=== PATIENT | female | born 1990 | race Caucasian/White ===

== ENCOUNTER 2023-04-02 15:48 | Emergency (ER) | payer OTHER, SELFPAY ==
[2023-04-02 15:58] VITALS: BP 138/71; PULSE 94; RESP 97; TEMP 36.7; O2SAT 98; BMI 22.7
--- NOTE | 2023-04-02 16:03 | US_ITS ---
The [address] [address] Patient Name: OLIVIA RAE MRN: [id number] date: 1990 Sex: F Assigned Patient Location: ER Current Patient Location: ER Accession/Order Number: [id number] Exam Date: 04/02/2023 16:55 Report Date: 04/02/2023 19:47 At the request of: CAL PUCKETT Procedure: US OB placenta EXAM: US PLACENTA EXAM: US PELVIS: OB Greater than 14 weeks HISTORY: 32 year old G 3 P 2 AB 0 female presents for US evaluation. Patient cramped at 15 weeks gestation per patient provided history one day LMP: Not provided in the notes/history on order. TECHNIQUE: Ultrasound performed of the pelvis using static images with gardner scale, M-mode and color doppler. This exam is performed in the emergency room setting to evaluate viability. As such, it is not protocoled to evaluate anatomy as that should be performed on an outpatient basis at the patient's EQUIPMENT LEAD office. COMPARISON: None. FINDINGS: Number of Fetuses: Singlefetus in breech position. Placenta: Anterior Grade 0 There are prominent blood vessels demonstrated between the placenta and uterine wall. There is an area of decreased echogenicity which is demonstrated within the placenta and along the wall of the uterus. heart: 157 bpm. Cervix: Cervical length: 3.2 cm. Cervix: Closed. Placenta previa: No placenta previa. 4.1 cm. ROXIE: Largest pocket: 3.0 cm (less than 8 cm) This exam is performed in the emergency room setting to evaluate viability. As such, it is not protocoled to evaluate anatomy as that should be performed on an outpatient basis at the patient's EQUIPMENT LEAD office. US/US OB placenta IMPRESSION: 1. Viable Duarte fetus IUP 2. Anterior placenta with prominent blood vessels seen around an area of decreased echogenicity. Please correlate for any history of trauma. Marginal abruption not excluded. Close follow up recommended. CRITICAL findings: Spoke with AMNA Puckett in the ER at 7:20 pm EST who states that patient has not had any trauma. No bleeding. Electronically authenticated by: ELIE LIRA Date: 04/02/2023 19:47
[2023-04-02] MEDS: 0.9 % SODIUM CHLORIDE 1,000 ML 1000 ML IV (16:34)
--- NOTE | 2023-04-02 16:41 | ED.GENADUL1 ---
HPI - General Adult General Chief complaint: Headache Stated complaint: 15 Weeks Vpomiting Headache Time Seen by Provider: 04/02/23 16:01 Source: patient Limitations: no limitations History of Present Illness HPI narrative: patient is a 32-year-old female presents to the emergency department at fifteen weeks of for the evaluation of generalized abdominal cramping, vomiting that began this morning. She states she did have an episode of diarrhea earlier today. She states she last saw her [facility] TAPE SEWING MACHINE OPERATOR 2-1/2 weeks ago. She has not had any urinary symptoms or vaginal bleeding. No medications taken prior to arrival. Patient further complains of the headache. Per her prescription history, she recently filled a prescription of Fioricet from her [facility] OB. No sick contacts in the home. No other fevers or upper respiratory symptoms. Related Data Home Medications Medication Instructions Recorded Confirmed [id number]-ncmfswyigaclx-zqbmyfcw 2 tab PO Q6H PRN pain 04/02/23 04/02/23 50 mg-325 mg-40 mg tablet Previous Rx's Medication Instructions Recorded metoclopramide HCl 10 mg tablet 10 mg PO Q6H PRN nausea and 04/02/23 (Reglan) vomiting #12 tabs Allergies Allergy/AdvReac Type Severity Reaction Status Date / Time fexofenadine AdvReac Intermediate Verified 04/02/23 15:58 magnesium sulfate AdvReac Intermediate Verified 04/02/23 15:58 nifedipine AdvReac Intermediate Verified 04/02/23 15:58 sulfamethoxazole AdvReac Intermediate Verified 04/02/23 15:58 [From Bactrim] trimethoprim [From Bactrim] AdvReac Intermediate Verified 04/02/23 15:58 beta blockers AdvReac Intermediate Uncoded 04/02/23 15:58 Review of Systems ROS Constitutional Denies: fever or chills Ears, nose, mouth, and throat Denies: throat pain or nasal congestion Cardiovascular Denies: chest pain Respiratory Denies: shortness of breath Gastrointestinal Reports: abdominal pain, nausea, vomiting and diarrhea Genitourinary Denies: painful urination Musculoskeletal Denies: back pain Neurological Reports: headache [facility] Medical History (Updated 04/02/23 @ 17:45 by AMNA Berg) Migraine ?G43.909 - Migraine, unspecified, not intractable, without status migrainosus (ICD-10) Preeclampsia ?O14.90 - Unspecified pre-eclampsia, unspecified trimester (ICD-10) induced hypertension ?O13.9 - Gestational [-induced] hypertension without significant proteinuria, unspecified trimester (ICD-10) Social History Smoking status: Former smoker Exam Narrative Exam Narrative: Gen.: Awake, alert, in no distress Head: Normocephalic, atraumatic ENT: Moist mucous membranes Respiratory: No respiratory distress, lungs clear bilaterally Cardio: Regular rate and rhythm Gastrointestinal: Abdomen is soft, gravid with no guarding or rebound Extremities: Moves extremities equally Psych: Normal mood and affect Neuro: No focal neuro deficit Skin: Warm, dry, intact Constitutional Vital Signs, click to edit/add: Last Vital Signs Temp 98.1 F 04/02/23 15:58 Pulse 94 H 04/02/23 15:58 Resp 97 H 04/02/23 15:58 BP 122/74 04/02/23 17:57 Pulse Ox 98 04/02/23 15:58 O2 Del Method Room Air 04/02/23 15:58 Course Vital Signs Vital signs: Vital Signs Temperature 98.1 F 04/02/23 15:58 Pulse Rate 94 H 04/02/23 15:58 Respiratory Rate 97 H 04/02/23 15:58 Blood Pressure 138/71 04/02/23 15:58 Pulse Oximetry 98 04/02/23 15:58 Oxygen Delivery Method Room Air 04/02/23 15:58 Temperature 98.1 F 04/02/23 15:58 Pulse Rate 94 H 04/02/23 15:58 Respiratory Rate 97 H 04/02/23 15:58 Blood Pressure 122/74 04/02/23 17:57 Pulse Oximetry 98 04/02/23 15:58 Oxygen Delivery Method Room Air 04/02/23 15:58 Medical Decision Making MDM Narrative Medical decision making narrative: patient medicated with IV fluids, Reglan, Benadryl. Ultrasound shows no evidence of placental abruption or acute abnormalities. Lab studies are within normal limits, urine specimen is negative. Patient with stable vital signs in the Emergency Room. Abdomen is soft and benign. She was reevaluated by attending physician prior to discharge. She is discharged home with Reglan, she can take this with Benadryl as needed for nausea or headache. She has Fioricet at home as well. Follow-up with TAPE SEWING MACHINE OPERATOR and return to the Emergency Room if symptoms change or worsen Medical Records Medical records reviewed: Yes I reviewed the patient's medical records Lab Data Lab results reviewed: Yes I reviewed the patient's lab results Labs: Lab Results 04/02/23 04/02/23 Range/Units 16:25 16:35 WBC 7.5 (4.0-11.0) 10^3/uL RBC 4.17 L (4.20-5.40) 10^6/uL Hgb 11.8 L (12.0-16.0) g/dL Hct 35.5 L (36.0-48.0) % MCV 85.1 (81.0-99.0) fL MCH 28.3 (26.7-34.0) pg MCHC 33.2 (29.9-35.2) g/dL RDW 13.0 (11.0-15.0) % Plt Count 262 (150-450) 10^3/uL MPV 11.3 (9.5-13.5) fL Neut % (Auto) 84.7 H (43.0-75.0) % Lymph % (Auto) 9.2 L (20.5-60.0) % [place] % (Auto) 5.2 (1.7-12.0) % Eos % (Auto) 0.4 L (0.9-7.0) % Baso % (Auto) 0.1 L (0.2-2.0) % Neut # (Auto) 6.3 (1.4-6.5) 10^3/uL Lymph # (Auto) 0.7 L (1.2-3.8) 10^3/uL [place] # (Auto) 0.4 (0.3-0.8) 10^3/uL Eos # (Auto) 0.0 (0.0-0.7) 10^3/uL Baso # (Auto) 0.0 (0.0-0.1) 10^3/uL Abs Immat Gran (auto) 0.03 (0.00-0.03) 10^3/uL Imm/Tot Granulo (auto) 0.4 (0.0-0.5) % Sodium 135 L (136-145) mmol/L Potassium 3.2 L (3.5-5.1) mmol/L Chloride 101 (98-107) mmol/L Carbon Dioxide 24.2 (21.0-32.0) mmol/L Anion Gap 13.0 BUN 6.0 L (7.0-18.0) mg/dL Creatinine 0.52 L (0.55-1.02) mg/dL Est GFR ( Amer) >60 (>=60) Est GFR (Non-Af Amer) >60 (>=60) BUN/Creatinine Ratio 11.5 Glucose 81 (74-106) mg/dL Calcium 8.6 (8.5-10.1) mg/dL Total Bilirubin 0.2 (0.2-1.0) mg/dL AST 18 (15-37) U/L ALT 11 L (14-59) U/L Alkaline Phosphatase 98 (46-116) U/L Total Protein 8.2 (6.4-8.2) g/dL Albumin 3.1 L (3.4-5.0) g/dL Globulin 5.1 g/dL Albumin/Globulin Ratio 0.6 Urine Color Lt. yellow (YELLOW) Urine Clarity Clear (CLEAR) Urine pH 6.0 (5.0-9.0) Ur Specific [place] 1.025 (1.005-1.025) Urine Protein Negative (NEG/TRACE) mg/dL Urine Glucose (UA) Negative (NEGATIVE) mg/dL Urine Ketones Negative (NEGATIVE) mg/dL Urine Occult Blood Negative (NEGATIVE) Urine Nitrite Negative (NEGATIVE) Urine Bilirubin Negative (NEGATIVE) Urine Urobilinogen 0.2 (0.2-1.0) EU/dL Ur Leukocyte Esterase Negative (NEGATIVE) Imaging Data US - abdomen: Attestation: I have reviewed the pertinent imaging results. Discharge Plan Discharge Chief Complaint: Headache Clinical Impression: Abdominal pain in , Headache, Nausea & vomiting Patient Disposition: Home, Self-Care Time of Disposition Decision: 17:45 Condition: Good Mode of Transportation: Private Vehicle Prescriptions / Home Meds: New metoclopramide HCl [Reglan] 10 mg tablet 10 mg PO Q6H PRN (Reason: nausea and vomiting) Qty: 12 0RF No Action uqeavageyj-dxkwsxsvklzcy-pofz 50-325-40 mg tablet 2 tab PO Q6H PRN (Reason: pain) Instructions: Acute Headache (ED), Acute Nausea and Vomiting (ED), Abdominal Pain in (ED) Additional Instructions: follow-up with your TAPE SEWING MACHINE OPERATOR Stand Alone Forms: Portal Instructions Referrals: MANOLO RAM [Primary Care Provider] - 1 week Discharge Date/Time: 04/02/23 17:59
[2023-04-02] MEDS: METOCLOPRAMIDE HCL 10 MG/2 ML VIAL INJ (16:49)
[2023-04-02] MEDS: DIPHENHYDRAMINE HCL 50 MG/ML (1ML) VIAL 25 MG IV (16:49)
[2023-04-02 17:05] LABS: Basophils Percent Auto 0.1 % (0.2-2.0); Eosinophils Percent Auto 0.4 % (0.9-7.0); Hematocrit 35.5 % (36.0-48.0); Hemoglobin 11.8 g/dL (12.0-16.0); Immature Granulocytes Abs Auto 0.03 10^3/uL (0.00-0.03); Immature Granulocytes Pct Auto 0.4 % (0.0-0.5); Lymphocytes Absolute Auto 0.7 10^3/uL (1.2-3.8); Lymphocytes Percent Auto 9.2 % (20.5-60.0); Mean Corpuscular HGB Conc 33.2 g/dL (29.9-35.2); Mean Corpuscular Hemoglobin 28.3 pg (26.7-34.0); Mean Corpuscular Volume 85.1 fL (81.0-99.0); Mean Platelet Volume 11.3 fL (9.5-13.5); Monocytes Absolute Auto 0.4 10^3/uL (0.3-0.8); Monocytes Percent Auto 5.2 % (1.7-12.0); Neutrophils Absolute Auto 6.3 10^3/uL (1.4-6.5); Neutrophils Percent Auto 84.7 % (43.0-75.0); Platelet Count 262 10^3/uL (150-450); Red Blood Count 4.17 10^6/uL (4.20-5.40); White Blood Count 7.5 10^3/uL (4.0-11.0)
[2023-04-02 17:05] LABS: Bilirubin Urine NEGATIVE (NEGATIVE); Blood Urine NEGATIVE (NEGATIVE); Clarity Urine CLEAR (CLEAR); Color Urine LT. YELLOW (YELLOW); Glucose Urine UA NEGATIVE (NEGATIVE); Ketones Urine NEGATIVE (NEGATIVE); Leukocyte Esterase Urine NEGATIVE (NEGATIVE); Nitrite Urine NEGATIVE (NEGATIVE); Protein Urine NEGATIVE (NEG/TRACE); Specific Gravity Urine 1.025 (1.005-1.025); Urobilinogen Urine 0.2 EU/dL (0.2-1.0)
[2023-04-02 17:06] LABS: Alanine Aminotransferase 11 U/L (14-59); Albumin Globulin Ratio 0.6; Albumin Level 3.1 g/dL (3.4-5.0); Alkaline Phosphatase 98 U/L (46-116); Aspartate Amino Transferase 18 U/L (15-37); BUN Creatinine Ratio 11.5; Bilirubin Total 0.2 mg/dL (0.2-1.0); Calcium 8.6 mg/dL (8.5-10.1); Carbon Dioxide 24.2 mmol/L (21.0-32.0); Chloride 101 mmol/L (98-107); Estimated GFR (African America >60 (>=60); Estimated GFR (Non-African Ame >60 (>=60); Globulin 5.1 g/dL; Glucose 81 mg/dL (74-106); Potassium 3.2 mmol/L (3.5-5.1); Sodium 135 mmol/L (136-145); Total Protein 8.2 g/dL (6.4-8.2)
[2023-04-02 17:07] LABS: Urine Microscopic Indicated NO
--- NOTE | 2023-04-02 17:18 | US_ITS ---
The [address] [address] Patient Name: OLIVIA RAE MRN: [id number] date: 1990 Sex: F Assigned Patient Location: ER Current Patient Location: ER Accession/Order Number: [id number] Exam Date: 04/02/2023 16:55 Report Date: 04/02/2023 19:47 At the request of: CAL PUCKETT Procedure: US OB transvaginal EXAM: US PLACENTA EXAM: US PELVIS: OB Greater than 14 weeks HISTORY: 32 year old G 3 P 2 AB 0 female presents for US evaluation. Patient cramped at 15 weeks gestation per patient provided history one day LMP: Not provided in the notes/history on order. TECHNIQUE: Ultrasound performed of the pelvis using static images with gardner scale, M-mode and color doppler. This exam is performed in the emergency room setting to evaluate viability. As such, it is not protocoled to evaluate anatomy as that should be performed on an outpatient basis at the patient's CANTEEN OPERATOR office. COMPARISON: None. FINDINGS: Number of Fetuses: Singlefetus in breech position. Placenta: Anterior Grade 0 There are prominent blood vessels demonstrated between the placenta and uterine wall. There is an area of decreased echogenicity which is demonstrated within the placenta and along the wall of the uterus. heart: 157 bpm. Cervix: Cervical length: 3.2 cm. Cervix: Closed. Placenta previa: No placenta previa. 4.1 cm. ROXIE: Largest pocket: 3.0 cm (less than 8 cm) This exam is performed in the emergency room setting to evaluate viability. As such, it is not protocoled to evaluate anatomy as that should be performed on an outpatient basis at the patient's CANTEEN OPERATOR office. US/US OB transvaginal IMPRESSION: 1. Viable Duarte fetus IUP 2. Anterior placenta with prominent blood vessels seen around an area of decreased echogenicity. Please correlate for any history of trauma. Marginal abruption not excluded. Close follow up recommended. CRITICAL findings: Spoke with AMNA Puckett in the ER at 7:20 pm EST who states that patient has not had any trauma. No bleeding. Electronically authenticated by: ELIE LIRA Date: 04/02/2023 19:47
[2023-04-02] MEDS: POTASSIUM CHLORIDE 10 MEQ ER TABLET 40 MEQ PO (17:29)
[2023-04-02 17:57] VITALS: BP 122/74
== END 2023-04-02 17:59 | disposition home or self-care (01) ==
PROVIDERS: Physician Assistant; Emergency Provider Emergency Medicine; PCP Family Medicine
DX: O26.892 Other specified pregnancy related conditions, second trimester (principal); R10.9 Unspecified abdominal pain; R51.9 Headache, unspecified; R11.2 Nausea with vomiting, unspecified; Z3A.15 15 weeks gestation of pregnancy; Z87.891 Personal history of nicotine dependence
CPT/HCPCS: 36415; 76815; 76817; 80053; 81003; 85025; 96361; 96374; 96375; 99285

== ENCOUNTER 2023-09-10 21:21 | Emergency (ER) | payer OTHER, SELFPAY ==
[2023-09-10 21:26] VITALS: BP 144/81; PULSE 84; TEMP 37.1; O2SAT 98; BMI 28.0
--- OUTSIDE RECORDS SUMMARY | 2023-09-10 21:29 | XMS_ITS | CCD ---
Author Organization [facility] Care Team Providers Care Medical Consultant Name Role Phone Castro Manolo Unavailable Heladio Guy Unavailable Castro DO, Manololupillo Xie Primary Care Provider No, Referring(Hist) Unavailable Unavailable Doc ENG, Mary Ann Julien Unavailable Unavailable CASTRO, MANOLO Dorman Primary Care Physician [phone] JIMI XIE Attending Unavailable JIMI XIE Admitting Unavailable JIMI XIE Attending Unavailable JIMI XIE Admitting Unavailable PRANAV VALDIVIA Attending Unavailable CASTRO, MANOLO ANNE-MARIE Primary Care Unavailable ILIANA WATKINS Attending Unavailable CASTRO, MANOLO XIE Primary Care Unavailable ILIANA WATKINS Referring Unavailable BOBO SHEPARD Attending Unavailable CASTRO, MANOLOLupillo XIE Primary Care Unavailable ILIANA WATKINS Referring Unavailable CASTRO, MANOLO ANNE-MARIE Primary Care Unavailable ILIANA WATKINS Referring Unavailable CASTRO, MANOLO XIE Primary Care Unavailable TIFFANIE MCDANIEL Attending Unavailab ASHLI Armendariz Referring Unavailable CASTRO, MANOLOLupillo XIE Primary Care Unavailable TIFFANIE MCDANIEL Attending Unavailab le CASTRO, MANOLOLupillo XIE Primary Care Unavailable ASHLI MONTANEZ Attending Unavailable CASTRO, MANOLO XIE Primary Care Unavailable CASTRO, MANOLO ANNE-MARIE Primary Care Unavailable GISELLE WALSH Attending Unavailable CASSIE URIBE Referring Unavailable CASTRO, MANOLOLupillo XIE Primary Care Unavailable KIMBERLY HERNANDEZ Attending Unavailable DEBBIE LAU Referring Unavailable CASTRO, MANOLOLupillo XIE Primary Care Unavailable CASTRO, MANOLO ANNE-MARIE Primary Care Unavailable RHEA BOND Attending Unavailab le SELF Referring Unavailable CASTRO, MANOLOLupillo XIE Primary Care Unavailable SELF Referring Unavailable DEBBIE LAU Referring Unavailable CASTRO, MANOLOLupillo XIE Primary Care Unavailable KIMBERLY HERNANDEZ Attending Unavailable [facility], [facility] Primary Care Unavailable KIMBERLY HERNANDEZ Attending Unavailable CASTRO, [facility] Primary Care Unavailable CASTR[facility], [facility] Primary Care Unavailable SHANTAL CARRILLO Referring Unavailable SHANTAL CARRILLO Attending Unavailable CASSIE URIBE Attending Unavailable CASTRO, [facility] Primary Care Unavailable SELF Referring Unavailable CASSIE URIBE Attending Unavailable DEBBIE LAU Referring Unavailable CASTRO, [facility] Primary Care Unavailable TAQUERIA SEGOVIA Attending Unavailable CASTRO, [facility] Primary Care Unavailable CASSIE URIBE Referring Unavailable KIMBERLY HERNANDEZ Attending Unavailable CASTRO, [facility] Primary Care Unavailable CASTRO, [facility] Primary Care Unavailable ASHLI MONTANEZ Referring Unavailable HERNANDEZKIMBERLY Attending Unavailable CASTRO, [facility] Primary Care Unavailable GISELLE WALSH Attending Unavailable CASTRO, [facility] Primary Care Unavailable CASTRO, [facility] Primary Care Unavailable CASTRO, [facility] Primary Care Unavailable DEBBIE LAU Attending Unavailable ILIANA WATKINS Referring Unavailable JIMI ROCHA Attending Unavailable CASTRO, [facility] Primary Care Unavailable ASHLI MONTANEZ Attending Unavailable CASTRO, [facility] Primary Care Unavailable CASTRO, [facility] Primary Care Unavailable VIOLETA, TIFFANIE Referring Unavailab jhonny MCDANIEL, TIFFANIE Attending Unavailab le SRIDHAR-LAMAR, TIFFANIE Attending Unavailab le SRIDHAR-LAMAR, TIFFANIE Referring Unavailab le CASTRO, [facility] Primary Care Unavailable KAYA BROOKS Attending Unavailable SHANTAL CARRILLO Attending Unavailable CASTRO, [facility] Primary Care Unavailable DEBBIE LAU Referring Unavailable CASTRO, [facility] Primary Care Unavailable CASTRO, [facility] Primary Care Unavailable NAIF SARA Admitting Unavailable RENEE KRUEGER Attending Unavailable KIMBERLY HERNANDEZ Admitting Unavailable RENEE KRUEGER Attending Unavailable CASTRO, [facility] Primary Care Unavailable Allergies Allergy Classification Reported Allergen(s) Allergy Type Date of Onset Reaction(s) Facility (20 sources) Sulfamethoxazole / Trimethoprim; Translations: [sulfamethoxazole-t rimethoprim] Drug Allergy 08-09-19 Other: See [facility] (19 sources) Sherita-D 24 Hour; Translations: [fexofenadine / Pseudoephedrine] Drug allergy [facility] (20 sources) beta-Blocking agent; Translations: [BETA-BLOCKERS (BETA-ADRENERGIC BLOCKING AGTS)] Propensity to adverse reactions to drug 02-07-20 Contraindicati [facility] Work Phone: (20 sources) fexofenadine / Pseudoephedrine; Translations: [FEXOFENADINE-PSEUD OEPHEDRINE] Drug Allergy 06-22-19 12 [facility] (20 sources) Magnesium Sulfate; Translations: [MAGNESIUM SULFATE] Drug Allergy 02-07-20 Contraindicati [facility] Work Phone: (20 sources) NIFEdipine; Translations: [NIFEDIPINE] Drug Allergy 02-07-20 Contraindicati [facility] Work Phone: (1 source) Sulfamethoxazole / Trimethoprim; Translations: [Bactrim] Drug Allergy [facility] (2 sources) Sulfamethoxazole / Trimethoprim; Translations: [SULFAMETHOXAZOLE-T RIMETHOPRIM] Drug Allergy 08-09-19 16 [facility] Repository (1 source) Aminoglycosides (Antibiotic); Translations: [AMINOGLYCOSIDES] Propensity to adverse reactions to drug (disorder) 09-03-19 24 [facility] Repository Medications Current Medications Medication Drug Class(es) Dates Sig (Normalized) Sig (Original) Amoxicillin (4 sources) Penicillin-class Antibacterial Start: 09-25-2021 Amoxicillin September, Active amoxicillin 875 mg / clavulanate 125 mg oral tablet (12 sources) Penicillin-class Antibacterial Start: 09-26-2021 take 1 tablet by mouth every twelve hours Amoxicillin-Pot Clavulanate 875-125 MG 1 tablet Orally every 12 hrs for 10 day(s) September, Active Start: 06-24-2018 take 1 tablet by kandi th every twelve hours Amoxicillin-Pot Clavulanate 875-125 MG 1 tablet Orally every 12 hrs for 7 days Jun, Active fluticasone propionate 0.05 mg/actuat metered dose nasal spray (20 sources) Corticosteroid Start: 09-04-2021 take 2 spray(s) nasal route once daily Fluticasone Propionate 50 MCG/ACT 2 spray in each nostril Nasally Once a day for 30 days Aug, Active Start: 09-04-2021 take 2 spray(s) nasa l route once daily Fluticasone Propionate 50 MCG/ACT 2 spray in each nostril Nasally Once a day for 30 days Aug, Active take 1 spray(s) nasa l route once daily fluticasone (FLONASE ALLERGY RELIEF) 50 mcg/actuation nasal spray Use 1 [place] in each nostril once daily. 0 Active Comment on above: Use 1 [place] in each nostril once daily. metoclopramide 10 mg oral tablet (20 sources) Dopamine-2 Receptor Antagonist Start: 05-18-2023 take 1 tablet by mouth every twelve hours Reglan 10 MG 1 tablet before meals Orally Twice a day May, Active Start: 04-26-2023 take 1 tablet by kandi th every eight hours as needed metoclopramide HCl (REGLAN) 10 mg tablet Take 1 tablet by mouth three times a day as needed (Headache). 30 tablet 2 04/26/2023 Active Comment on above: Take 1 tablet by kandi th three times a day as needed (Headache). 27-1 MG (1 source) Start: 06-17-19 24 take 1 tablet by mouth once daily 27-1 MG 1 tablet Orally Once a day Jun, Active pyridostigmine bromide 60 mg oral tablet (2 sources) Start: 11-25-19 14 take 1 tablet by mouth once daily Mestinon 60 mg Tab Oral, Daily, Refills(s) 0, Prophylaxis Start Date: 11/24/13 Status: Ordered spinosad 9 mg/ml medicated shampoo (1 source) Pediculicide Start: 10-20-19 23 [place] 0.9 % 1 application Externally once, may repeat in 7 days for 1 days Oct, Active Completed/Discontinued Medications Medication Drug Class(es) Dates Sig (Normalized) Sig (Original) Acetaminophen (6 sources) acetaminophen (TYLENOL 8 HOUR ORAL) Take by mouth once daily. 0 Active Comment on above: Take by mouth once d aily. acetaminophen 250 mg / aspirin 250 mg / caffeine 65 mg oral tablet (20 sources) Platelet Aggregation Inhibitor, Nonsteroidal Anti-inflammatory Drug, Central Nervous System Stimulant, Methylxanthine Start: 04-26-2023 take 1 tablet by mouth every eight hours as needed Aspirin-Acetaminop hen-Caffeine (EXCEDRIN) 250-250-65 mg per tablet Take 1 tablet by mouth every 8 hours as needed (Headache). 30 tablet 2 04/26/2023 Active Comment on above: Take 1 tablet by kandi th every 8 hours as needed (Headache). acetaminophen 325 mg / butalbital 50 mg / caffeine 40 mg oral tablet (3 sources) Barbiturate, Central Nervous System Stimulant, Methylxanthine Start: 03-26-2023 End: 04-26-2023 take 1-2 tablets by mouth every four hours as needed acetaminophen 325 mg-caffeine 40 mg-butalbital 50 mg (FIORICET) per tablet Take 1-2 tablets by mouth every 4 hours as needed. 20 tablet 0 03/26/2023 04/26/2023 Discontinued Comment on above: Take 1-2 tablets by mouth every 4 hours as needed. aspirin 81 mg delayed release oral tablet (20 sources) Platelet Aggregation Inhibitor, Nonsteroidal Anti-inflammatory Drug Start: 03-15-2023 take 1 tablet by mouth once daily aspirin, enteric coated (ECOTRIN LOW STRENGTH) 81 mg EC tablet Take 1 tablet by mouth once daily. 30 tablet 5 03/15/2023 Active Comment on above: Take 1 tablet by kandi th once daily. Blood Pressure Monitor (BLOOD PRESSURE KIT) (8 sources) Start: 08-03-2023 Blood Pressure Monitor (BLOOD PRESSURE KIT) Indications: 32 weeks gestation of , SS-A antibody positive , SS-B antibody positive , Hx of preeclampsia, prior , currently , Abnormal glucose tolerance in , Myasthenia gravis status post thymectomy ([facility]) ([facility]) 1 Each two times a day. 1 Kit 0 08/03/2023 Active Comment on above: 1 Each two times a d ay. Blood Pressure Test Kit-Medium kit (20 sources) Start: 04-26-2023 Blood Pressure Test Kit-Medium kit 1 Each once daily as needed. 1 Kit 0 04/26/2023 Active Comment on above: 1 Each once daily as needed. docusate sodium 100 mg oral capsule (20 sources) Start: 05-20-2023 take 1 capsule by mouth twice daily docusate sodium (COLACE) 100 mg capsule Take 1 capsule by mouth two times a day. 60 capsule 2 05/20/2023 Active Start: 05-18-2023 take 1 capsule by [facility] every twenty-four hours Colace 100 MG 1 capsule as needed Orally Once a day May, Active Comment on above: Take 1 capsule by mo [facility] two times a day. ferrous sulfate 325 mg oral tablet (11 sources) Start: 4 take 1 tablet by mouth twice daily ferrous sulfate 325 mg (65 mg iron) tablet Take 1 tablet by mouth two times a day. 60 tablet 4 07/23/2023 Active Comment on above: Take 1 tablet by kandi two times a day. ibuprofen 600 mg oral tablet (9 sources) Nonsteroidal Anti-inflammatory Drug Start: 1 End: 3 take 1 tablet by mouth every six hours as needed ibuprofen (MOTRIN) 600 mg tablet Take 1 tablet by mouth every 6 hours as needed for pain. 30 tablet 1 02/07/2021 01/29/2023 Discontinued (Course of therapy completed) take 1 tablet by kandi three times daily at mealtime as needed Ibuprofen 200 MG 1 tablet with food or milk as needed Orally Three times a day Active Comment on above: Take 1 tablet by kandi every 6 hours as needed for pain. 5 ml immunoglobulin g, human 200 mg/ml injection (9 sources) Human Immunoglobulin G Start: 03-28-2020 End: 01-29-2023 Immune Globulin, Human,, IGG, (HIZENTRA) 1 gram/5 mL (20 %) soln Indications: Myasthenia gravis status post thymectomy (HCC) 11 gm two times per week (22 gm total) via subcutaneous route 2 Vial 94 03/28/2020 01/29/2023 Discontinued (Course of therapy completed) Start: 11-01-2018 Hizentra 20% s ubcutaneous solution SubCutaneous, Refills(s) 0, Other (see comment) Start Date: 11/01/18 Status: Ordered End: 01-29-2023 immune globulin, human,, IgG , (HIZENTRA) 10 gram/50 mL (20 %) soln Inject subcutaneously. Once a week every week 0 01/29/2023 Discontinued (Course of therapy completed) Hizentra 10 GM/5 0ML as directed injection once a week Not-Taking Comment on above: Inject subcutaneousl y. Once a week every week 11 gm two times per week (22 gm total) via subcutaneous route [id number] acid 27-800 mg-mcg tab (20 sources) Start: take 1 tablet by mouth once daily [id number] acid 27-800 mg-mcg tab Indications: Supervision of other high risk , antepartum , Antepartum anemia Take 1 tablet by mouth once daily. 120 tablet 2 05/20/2023 Active Start: 05-20-2023 End: 08-18-2023 take 1 tablet by mouth once daily [id number] 27-800 mg-mcg tab Indications: Supervision of other high risk , antepartum , Antepartum anemia Take 1 tablet by mouth once daily. 120 tablet 2 05/20/2023 08/18/2023 Active Start: 12-04-2020 take 1 tablet by kandi th once daily [id number] acid 27-800 mg-mcg tab Indications: Supervision of other high risk , antepartum , Antepartum anemia Take 1 tablet by mouth once daily. 30 tablet 11 12/04/2020 Active Comment on above: Take 1 tablet by kandi th once daily. sennosides, fdc 8.6 mg oral tablet (5 sources) Start: 08-18-2023 take 2 tablets by mouth once daily Senna 8.6 mg tab Indications: Constipation, unspecified constipation type Take 2 tablets by mouth once daily. 80 tablet 1 08/18/2023 Active Comment on above: Take 2 tablets by mo uth once daily. Problems Active Problems Problem Classification Problem Date Documented Da te Episodic/Chronic Adjustment disorders (13 sources) Adjustment disorder with mixed anxiety and depressed mood; Translations: [Adjustment disorder with mixed anxiety and depressed mood] Onset: 06-11-2017 02-06-2021 Chronic Anxiety disorders (20 sources) Mental health problem; Translations: [Nonpsychotic mental disorder, unspecified] Onset: 05-27-2023 05-27-2023 Chronic Cardiac dysrhythmias (10 sources) Multiple premature ventricular complexes; Translations: [Ventricular premature depolarization] Onset: 07-21-2018 02-06-2021 Chronic Diabetes mellitus without complication (16 sources) Impaired fasting glycemia; Translations: [Impaired fasting glucose] Episodic Diabetes or abnormal glucose tolerance complicating ; childbirth; or the puerperium (20 sources) Abnormal glucose tolerance in mother complicating , childbirth AND/OR puerperium; Translations: [Abnormal glucose complicating ] Onset: 07-23-2023 07-23-2023 Episodic Disorders of lipid metabolism (16 sources) Hypercholesterolemia ; Translations: [Pure hypercholesterolemia , unspecified] Chronic Essential hypertension (2 sources) Hypertensive disorder 11-01-2018 Chronic Headache; including migraine (20 sources) Migraine; Translations: [Migraine, unspecified, not intractable, without status migrainosus] Onset: 04-12-2023 04-12-2023 Chronic Hypertension complicating ; childbirth and the puerperium (10 sources) Severe pre-eclampsia; Translations: [Severe pre-eclampsia, unspecified trimester] Onset: 07-20-2018 03-16-2023 Episodic Menstrual disorders (16 sources) Amenorrhea; Translations: [Amenorrhea, unspecified] Chronic Nutritional deficiencies (20 sources) Vitamin D deficiency; Translations: [Vitamin D deficiency, unspecified] Onset: 10-02-2011 10-02-2011 Chronic Other complications of ; puerperium affecting management of mother (1 source) Suspected abnormality affecting management of mother; Translations: [Maternal care for (suspected) abnormality and damage, unspecified, not applicable or unspecified] 06-27-2023 Episodic Other complications of (1 source) Uncertain viability of ; Translations: [ with inconclusive viability, not applicable or unspecified] 02-03-2023 Episodic Other complications of (20 sources) High risk ; Translations: [Supervision of high risk , unspecified, first trimester] Onset: 07-31-2020 02-03-2023 Episodic Other complications of (1 source) ; Translations: [ with inconclusive viability, not applicable or unspecified] 02-07-2023 Episodic Other complications of (20 sources) History of pre-eclampsia; Translations: [Supervision of with other poor reproductive or obstetric history, unspecified trimester] Onset: 07-31-2020 04-27-2023 Episodic Other complications of (1 source) Multigravida of advanced maternal age; Translations: [Supervision of elderly multigravida, second trimester] 06-21-2023 Episodic Other complications of (1 source) Hematopoietic system finding; Translations: [Other diseases of the blood and blood-forming organs and certain disorders involving the immune mechanism complicating , unspecified trimester] 08-03-2023 Episodic Other complications of (1 source) Complication occurring during ; Translations: [Other diseases of the blood and blood-forming organs and certain disorders involving the immune mechanism complicating , third trimester] 08-24-2023 Episodic Other complications of (4 sources) Supervision of with other poor reproductive or obstetric history, unspecified trimester; Translations: [History of pre-eclampsia in prior , currently ] Onset: 07-06-2023 Episodic Other complications of (2 sources) Supervision of elderly multigravida, second trimester; Translations: [Supervision of elderly multigravida, second trimester] Onset: 06-22-2023 Episodic Other ear and sense organ disorders (1 source) Other specified disorders of ear, bilateral Episodic Other ear and sense organ disorders (1 source) Otalgia, right ear Episodic Other gastrointestinal disorders (2 sources) Heartburn 11-01-2018 Episodic Other gastrointestinal disorders (1 source) Constipation; Translations: [Constipation, unspecified] 08-18-2023 Episodic Other nervous system disorders (20 sources) Myasthenia gravis; Translations: [Myasthenia gravis without (acute) exacerbation] Onset: 04-17-2011 02-06-2021 Chronic Other nervous system disorders (3 sources) Myasthenia gravis without (acute) exacerbation; Translations: [Myasthenia gravis status post thymectomy (HCC) (HCC)] Onset: 03-16-2023 Chronic Other nutritional; endocrine; and metabolic disorders (1 source) Overweight in adulthood with body mass index of 25 or more but less than 30; Translations: [Body mass index (BMI) 26.0-26.9, adult] 06-22-2023 Episodic Other nutritional; endocrine; and metabolic disorders (1 source) Body mass index (BMI) 26.0-26.9, adult; Translations: [BMI 26.0-26.9,adult] Onset: 07-06-2023 Episodic Other upper respiratory disease (16 sources) Seasonal allergic rhinitis; Translations: [Other seasonal allergic rhinitis] Chronic Other upper respiratory infections (3 sources) Acute pharyngitis, unspecified; Translations: [Acute sinusitis, unspecified] Onset: 09-01-2021 Resolved: 09-26-2021 Episodic Otitis media and related conditions (16 sources) Dysfunction of eustachian tube; Translations: [Other specified disorders of Eustachian tube, bilateral] Episodic Pleurisy; pneumothorax; pulmonary collapse (2 sources) Pleural effusion 12-02-2019 Episodic Residual codes; unclassified (2 sources) H/O: severe pre-eclampsia; Translations: [Personal history of other complications of , childbirth and the puerperium] 02-03-2023 Episodic Residual codes; unclassified (1 source) Gestation period, 12 weeks; Translations: [12 weeks gestation of ] 03-16-2023 Episodic Residual codes; unclassified (1 source) Gestation period, 16 weeks; Translations: [16 weeks gestation of ] 04-12-2023 Episodic Residual codes; unclassified (2 sources) Gestation period, 18 weeks; Translations: [18 weeks gestation of ] 04-26-2023 Episodic Residual codes; unclassified (2 sources) Gestation period, 28 weeks; Translations: [28 weeks gestation of ] 07-06-2023 Episodic Residual codes; unclassified (1 source) Gestation period, 26 weeks; Translations: [26 weeks gestation of ] 06-21-2023 Episodic Residual codes; unclassified (1 source) Gestation period, 31 weeks; Translations: [31 weeks gestation of ] 07-23-2023 Episodic Residual codes; unclassified (2 sources) Gestation period, 32 weeks; Translations: [32 weeks gestation of ] 08-03-2023 Episodic Residual codes; unclassified (2 sources) Gestation period, 34 weeks; Translations: [34 weeks gestation of ] 08-18-2023 Episodic Residual codes; unclassified (1 source) Gestation period, 35 weeks; Translations: [35 weeks gestation of ] 08-24-2023 Episodic Residual codes; unclassified (1 source) Gestation period, 36 weeks; Translations: [36 weeks gestation of ] 08-31-2023 Episodic Residual codes; unclassified (1 source) 32 weeks gestation of ; Translations: [32 weeks gestation of ] Onset: 08-18-2023 Episodic Residual codes; unclassified (2 sources) 26 weeks gestation of ; Translations: [26 weeks gestation of ] Onset: 06-22-2023 Episodic Residual codes; unclassified (1 source) 28 weeks gestation of ; Translations: [28 weeks gestation of ] Onset: 07-06-2023 Episodic Spondylosis; intervertebral disc disorders; other back problems (20 sources) Sciatica; Translations: [Sciatica, right side] Onset: 10-11-2015 10-11-2015 Episodic Systemic lupus erythematosus and connective tissue disorders (20 sources) Sjogren's syndrome; Translations: [Sicca syndrome, unspecified] Onset: 10-02-2011 02-06-2021 Chronic Unclassified (2 sources) Methicillin resistant Staphylococcus aureus (organism) Onset: 01-11-2012 01-20-2012 Comment on above: MRSA hip abscess 12/16 11/25 Unclassified (1 source) Delivery by emergency section; Translations: [Delivery by emergency section] Onset: 09-06-2023 Past or Other Problems Problem Classification Problem Date Documented Date Episodic/Chronic Blindness and vision defects (20 sources) Diplopia; Translations: [Diplopia] Onset: 06-23-2011 06-23-2011 Episodic Diseases of mouth; excluding dental (10 sources) Xerostomia; Translations: [Disturbances of salivary secretion] Onset: 04-09-2020 04-09-2020 Episodic Immunizations and screening for infectious disease (20 sources) Anti-nuclear factor positive; Translations: [Other specified abnormal immunological findings in serum] Onset: 01-10-2015 02-06-2021 Episodic Other circulatory disease (1 source) Elevated blood-pressure reading, without diagnosis of hypertension; Translations: [Elevated blood pressure reading without diagnosis of hypertension R03.0] Onset: 02-12-2021 Resolved: 02-12-2021 Episodic Other complications of (1 source) Supervision of high risk , unspecified, first trimester; Translations: [Supervision of high risk in first trimester] Onset: 04-26-2023 Episodic Other connective tissue disease (1 source) Radial styloid tenosynovitis [de Quervain] Onset: 05-13-2021 Resolved: 05-13-2021 Episodic Other connective tissue disease (10 sources) Muscle weakness; Translations: [Muscle weakness (generalized)] Onset: 06-23-2011 07-24-2018 Episodic Other hematologic conditions (10 sources) ESR raised; Translations: [Elevated erythrocyte sedimentation rate] Onset: 10-14-2015 10-14-2015 Episodic Other non-traumatic joint disorders (10 sources) Multiple joint pain; Translations: [Pain in unspecified joint] Onset: 01-10-2015 01-10-2015 Episodic Other non-traumatic joint disorders (10 sources) Shoulder pain; Translations: [Pain in right shoulder] Onset: 10-11-2015 10-11-2015 Episodic Other and delivery including normal (6 sources) Patient encounter status; Translations: [Encounter for supervision of normal , unspecified, first trimester] Onset: 02-03-2023 02-03-2023 Episodic Other screening for suspected conditions (not mental disorders or infectious disease) (2 sources) Encounter for other specified screening; Translations: [Encounter for screening for nuchal translucency] Onset: 05-11-2023 Episodic Residual codes; unclassified (3 sources) Acquired absence of other organs; Translations: [Myasthenia gravis status post thymectomy (HCC) ([facility])] Onset: 03-16-2023 Episodic Residual codes; unclassified (1 source) 21 weeks gestation of ; Translations: [21 weeks gestation of ] Onset: 05-20-2023 Episodic Residual codes; unclassified (1 source) 12 weeks gestation of ; Translations: [12 weeks gestation of ] Onset: 04-26-2023 Episodic Residual codes; unclassified (1 source) Personal history of other complications of , childbirth and the puerperium; Translations: [History of severe pre-eclampsia] Onset: 02-03-2023 Episodic Unclassified (2 sources) myastina gravis 01-11-2012 Results Test Name Value Interpretation Reference Range Facil ity CNDSon 09-06-2023 CNDS HNO ID: [id number] Author: RENEE KRUEGER MD Service: Obstetrics Author Type: Physician Type: Discharge Summary Filed: 09/07/2023 00:23 Note Text: DISCHARGE SUMMARY PATIENT NAME: Olivia Rae ADMISSION DATE: 09/03/2023 DISCHARGE DATE: 09/06/2023 ATTENDING PHYSICIAN: Renee Krueger MD Code Status: Not on file The 30 day readmissions risk score is derived from an internally validated risk model which evaluates patient level characteristics, utilization history, medication orders and lab results up until the day of discharge. Patients with a score of 40 or above are considered highest risk for readmission. Specific patient level drivers will be listed at the bottom of the summary. CONSULTING TEAMS DURING HOSPITALIZATION: None Treatment Team: Attending Provider: Renee Krueger MD REASON FOR HOSPITALIZATION: induction of labor DIAGNOSIS: Principal Problem: Encounter for induction of labor (POA: Yes) Active Problems: Myasthenia gravis affecting (HCC) (POA: Yes) Gestational hypertension, third trimester (POA: Yes) Delivery by emergency section (POA: No) Pre-eclampsia in third trimester (POA: Yes) Hypertension complicating , delivered, current hospitalization (POA: Yes) Resolved Problems: * No resolved hospital problems. * OPERATIONS DURING HOSPITALIZATION: section PROCEDURES DURING HOSPITALIZATION: No procedures performed HOSPITAL COURSE: Patient is a 32 year old with hx of Myasthenia Gravis who is POD#3 s/p emergent C/S in setting for cord prolapse at 37w0d. complicated by gHTN. complicated by myasthenia gravis on no meds and gestational hypertension without meds. Postoperative course was uncomplicated with stable blood pressures/normotensi ve at time of discharge. On day of discharge patient was meeting postoperative milestones and deemed safe to discharge home with follow-up in-person blood pressure check 3 days from day of discharge. Transitions of Care Critical Issues: in-person BP check 72 hours from discharge LABS AND PROCEDURES PENDING AT DISCHARGE: No pending results. PATIENT CONDITION AT DISCHARGE: Good DISCHARGE DISPOSITION: Home with Self Care INFORMATION PROVIDED TO PATIENT: discharge instructions WOUND/SURGICAL SITE CARE: None DIET: Resume pre-hospital diet ACTIVITY: Resume pre-hospital activity ALLERGIES Allergen Reactions Sherita-D [Fexofena* Hives Aminoglycosides Contraindication-Med ical Surgical Myasthenia Gravis Bactrim [Sulfametho* Other: See Comments Exacerbation of MG Beta-Blockers (Beta* Contraindication-Med ical Surgical Magnesium Sulfate Contraindication-Med ical Surgical Nifedipine Contraindication-Med ical Surgical DISCHARGE MEDICATION: Medication List START taking these medications acetaminophen 500 mg tablet Commonly known as: TYLENOL Take 2 tablets by mouth every 6 hours as needed for pain. ibuprofen 600 mg tablet Commonly known as: MOTRIN Take 1 tablet by mouth every 6 hours as needed for pain. oxyCODONE IR 5 mg immediate release tablet Commonly known as: ROXICODONE Take 1 tablet by mouth every 6 hours as needed (Second line therapy for severe pain >/=7) for up to 5 doses. CHANGE how you take these medications Blood Pressure Monitor Use as directed What changed: how much to take how to take this when to take this additional instructions CONTINUE taking these medications Blood Pressure Test Kit-Medium Kit 1 Each once daily as needed. docusate sodium 100 mg capsule Commonly known as: COLACE Take 1 capsule by mouth two times a day. Excedrin 250-250-65 mg per tablet Generic drug: Aspirin-Acetaminophe n-Caffeine Take 1 tablet by mouth every 8 hours as needed (Headache). FLONASE ALLERGY RELIEF 50 mcg/actuation nasal spray Generic drug: fluticasone metoclopramide HCl 10 mg tablet Commonly known as: REGLAN Take 1 tablet by mouth three times a day as needed (Headache). [id number] acid 27-800 mg-mcg Tab Take 1 tablet by mouth once daily. STOP taking these medications aspirin, enteric coated 81 mg EC tablet Commonly known as: ECOTRIN LOW STRENGTH senna 8.6 mg Tab Commonly known as: Senna ASK your doctor about these medications ferrous sulfate 325 mg (65 mg iron) tablet Take 1 tablet by mouth two times a day. Where to Get Your Medications These medications were sent to [facility] [address] [place] [address] Hours: Wednesday-Wednesday: 7am-7pm, Sat: 9am-1pm acetaminophen 500 mg tablet Blood Pressure Monitor ibuprofen 600 mg tablet oxyCODONE IR 5 mg immediate release tablet FUTURE APPOINTMENTS: Follow Up with PCP: Manolo Erazo DO Future Appointments Date Time Provider Department Center 09/21/2023 11:30 AM Cassie Uribe MD [id number] The patient's risk for 30-day readmission is determined using the following (more content not included)... Normal [facility] Comprehensive metabolic 2000 panelon 09-05-2023 Albumin [Mass/Vol] 2.7 g/dL Low 3.9-4.9 [facility] Comment on above: Order Comment: Speci men Type: BLOOD SPECIMEN Ordering Facility: [facility] Address: [address] [place] [address] Performed By: #### 2 4323-8 #### [facility] CLIA [id number] [address] [place] [address] [place] ALP [Catalytic activity/Vol] 138 U/L High 34-123 [facility] Comment on above: Order Comment: Speci men Type: BLOOD SPECIMEN Ordering Facility: [facility] Address: [address] [place] [address] Performed By: #### 2 4323-8 #### [facility] CLIA [id number] [address] [place] [address] [place] ALT [Catalytic activity/Vol] 13 U/L Normal 7-38 [facility] Comment on above: Order Comment: Speci men Type: BLOOD SPECIMEN Ordering Facility: [facility] Address: [address] [place] [address] Performed By: #### 2 4323-8 #### [facility] CLIA [id number] [address] [place] [address] [place] Anion gap [Moles/Vol] 10 mmol/L Normal 9-18 [facility] Comment on above: Order Comment: Speci men Type: BLOOD SPECIMEN Ordering Facility: [facility] Address: [address] [place] [address] Performed By: #### 2 4323-8 #### [facility] CLIA [id number] [address] [place] [address] [place] AST [Catalytic activity/Vol] 21 U/L Normal 13-35 [facility] Comment on above: Order Comment: Speci men Type: BLOOD SPECIMEN Ordering Facility: [facility] Address: [address] [place] [address] Performed By: #### 2 4323-8 #### [facility] CLIA [id number] [address] [place] [address] [place] Bilirubin [Mass/Vol] 0.2 mg/dL Normal 0.2-1.3 [facility] Comment on above: Order Comment: Speci men Type: BLOOD SPECIMEN Ordering Facility: [facility] Address: [address] [place] [address] Performed By: #### 2 4323-8 #### [facility] CLIA [id number] [address] [place] [address] [place] Calcium [Mass/Vol] 8.6 mg/dL Normal 8.5-10.2 [facility] Comment on above: Order Comment: Speci men Type: BLOOD SPECIMEN Ordering Facility: [facility] Address: [address] [place] [address] Performed By: #### 2 4323-8 #### [facility] CLIA [id number] [address] [place] [address] [place] Chloride [Moles/Vol] 103 mmol/L Normal 97-105 [facility] Comment on above: Order Comment: Speci men Type: BLOOD SPECIMEN Ordering Facility: [facility] Address: [address] [place] [address] Performed By: #### 2 4323-8 #### [facility] CLIA [id number] [address] [place] [address] [place] CO2 [Moles/Vol] 24 mmol/L Normal 22-30 [facility] Comment on above: Order Comment: Speci men Type: BLOOD SPECIMEN Ordering Facility: [facility] Address: [address] [place] [address] Performed By: #### 2 4323-8 #### [facility] CLIA [id number] [address] [place] [address] [place] Creatinine [Mass/Vol] 0.54 mg/dL Low 0.58-0.96 [facility] Comment on above: Order Comment: Speci men Type: BLOOD SPECIMEN Ordering Facility: [facility] Address: [address] [place] [address] Performed By: #### 2 4323-8 #### [facility] CLIA [id number] [address] [place] [address] [place] Creatinine and Glomerular filtration rate.predicted panel (S/P/Bld) 126 mL/min/1.73m??? Normal >=60 [facility] Comment on above: Order Comment: Speci men Type: BLOOD SPECIMEN Ordering Facility: [facility] Address: [address] [place] [address] Result Comment: Melissa mated Glomerular Filtration Rate (eGFR) is calculated using the 2020 CKD-EPI creatinine equation. This equation utilizes serum creatinine, sex, and age as parameters. The creatinine assay has traceable calibration to isotope dilution-mass spectrometry. Refer to KDIGO guidelines for clinical interpretation. In patients with unstable renal function, e.g. those with acute kidney injury, the eGFR may not accurately reflect actual GFR. Performed By: #### 2 4323-8 #### [facility] CLIA [id number] [place] [address] [place] Glucose [Mass/Vol] 87 mg/dL Normal 74-99 [facility] Comment on above: Order Comment: Lala ennis Type: BLOOD SPECIMEN Ordering Facility: [facility] Address: [address] [place] [address] Result Comment: The [place] [employer] Association (ADA) provides guidance for cutoff values for fasting glucose and random glucose. The ADA defines fasting as no caloric intake for at least 8 hours. Fasting plasma glucose results between 100 to 125 mg/dL indicate increased risk for diabetes (prediabetes). Fasting plasma glucose results greater than or equal to 126 mg/dL meet the criteria for diagnosis of diabetes. In the absence of unequivocal hyperglycemia, results should be confirmed by repeat testing. In a patient with classic symptoms of hyperglycemia or hyperglycemic crisis, random plasma glucose results greater than or equal to 200 mg/dL meet the criteria for diagnosis of diabetes. Reference: Standards of Medical Care in Diabetes 2016, [place] [employer]. Diabetes Care. 2016.39(Suppl 1). Performed By: #### 2 4323-8 #### [facility] CLIA [id number] [address] [place] [address] [place] Potassium [Moles/Vol] 3.7 mmol/L Normal 3.7-5.1 [facility] Comment on above: Order Comment: Lala ennis Type: BLOOD SPECIMEN Ordering Facility: [facility] Address: [address] [place] [address] Performed By: #### 2 4323-8 #### [facility] CLIA [id number] [place] [address] [place] Protein [Mass/Vol] 6.2 g/dL Low 6.3-8.0 [facility] Comment on above: Order Comment: Speci men Type: BLOOD SPECIMEN Ordering Facility: [facility] Address: [address] [place] [address] Performed By: #### 2 4323-8 #### [facility] CLIA [id number] [address] [place] [address] [place] Sodium [Moles/Vol] 137 mmol/L Normal 136-144 [facility] Comment on above: Order Comment: Speci men Type: BLOOD SPECIMEN Ordering Facility: [facility] Address: [address] [place] [address] Performed By: #### 2 4323-8 #### [facility] CLIA [id number] [address] [place] [address] [place] Urea nitrogen [Mass/Vol] 6 mg/dL Low 7-21 [facility] Comment on above: Order Comment: Speci men Type: BLOOD SPECIMEN Ordering Facility: [facility] Address: [address] [place] [address] Performed By: #### 2 4323-8 #### [facility] CLIA [id number] [address] [place] [address] [place] ANES POSTPROC EVALon 024 ANES POSTPROC EVAL HNO ID: [id number] Author: MICHELLE CABRERA MD Service: Anesthesiology Author Type: Anesthesiologist Type: Anesthesia Postprocedure Evaluation Filed: 09/04/2023 11:34 Note Text: POST ANESTHESIA EVALUATION NOTE : 1990 Procedure Summary Date: 09/03/23 Room / Location: [place] [address] / OB Anesthesia Start: 1544 Anesthesia Stop: 190 Procedure: SECTION Diagnosis: Prolapse of umbilical cord, single or unspecified fetus (Prolapse of umbilical cord, single or unspecified fetus [O69.0XX0]) Surgeons: Renee Krueger MD Responsible Provider: Sae Mercer DO Anesthesia Type: epidural ASA Status: 3 Anesthesia Type: epidural Last Vitals Vitals Value Taken Time BP 127/62 09/04/23 0804 Temp 36.6 ?C (97.9 ?F) 09/04/23 0804 Pulse 74 09/04/23 0804 Resp 16 09/04/23 0804 SpO2 100 % 09/04/23 0804 Steel, Girl Olivia Dorman [[id number]] Baby Delivery: 09/03/2023 1747 Post Anesthesia Patient Status Patient Evaluation: floor. Anticipated Disposition: inpatient floor planned admission. Neurological Status: aware and responsive. Pulmonary Status: breathing comfortably on room air Airway Control: returned to baseline unsupported. Cardiovascular Status: stable. Pain Management: clinically adequate Postoperative Hydration: acceptable. Intraoperative Events: no significant anesthesia events Post Operative Nausea/Vomiting Status: no significant post operative nausea or vomiting Recommendation: continue current plan of care. Anesthesia Observations No Documentation SIGNATURE: Michelle Cabrera MD PATIENT NAME: Olivia Rae DATE: September 04, 2023 TIME: 11:33 AM CSN: [id number] Normal [facility] CBC panel Auto (Bld)on 09-03 Erythrocyte distribution width (RBC) [Ratio] 14.7 % Normal 11.5-15.0 [facility] Comment on above: Order Comment: Speci loli Type: BLOOD SPECIMEN Ordering Facility: [facility] Address: [address] [place] [address] Performed By: #### 5 8410-2 #### [facility] CLIA [id number] [address] [place] [address] [place] Hematocrit (Bld) [Volume fraction] 27.8 % Low 36.0-46.0 [facility] Comment on above: Order Comment: Lala ennis Type: BLOOD SPECIMEN Ordering Facility: [facility] Address: [address] [place] [address] Performed By: #### 5 8410-2 #### [facility] CLIA [id number] [address] [place] [address] [place] Hemoglobin (Bld) [Mass/Vol] 9.2 g/dL Low 11.5-15.5 [facility] Comment on above: Order Comment: Lala ennis Type: BLOOD SPECIMEN Ordering Facility: [facility] Address: [address] [place] [address] Performed By: #### 5 8410-2 #### [facility] CLIA [id number] [address] [place] [address] [place] MCH (RBC) [Entitic mass] 27.1 pg Normal 26.0-34.0 [facility] Comment on above: Order Comment: Speci men Type: BLOOD SPECIMEN Ordering Facility: [facility] Address: [address] [place] [address] Performed By: #### 5 8410-2 #### [facility] CLIA [id number] [address] [place] [address] [place] MCHC (RBC) [Mass/Vol] 33.1 g/dL Normal 30.5-36.0 [facility] Comment on above: Order Comment: Speci men Type: BLOOD SPECIMEN Ordering Facility: [facility] Address: [address] [place] [address] Performed By: #### 5 8410-2 #### [facility] CLIA [id number] [address] [place] [address] [place] MCV (RBC) [Entitic vol] 81.8 fL Normal 80.0-100.0 [facility] Comment on above: Order Comment: Speci men Type: BLOOD SPECIMEN Ordering Facility: [facility] Address: [address] [place] [address] Performed By: #### 5 8410-2 #### [facility] CLIA [id number] [address] [place] [address] [place] Nucleated RBC (Bld) [#/Vol] 10*3/uL Normal <0.01 [facility] Comment on above: Order Comment: Speci men Type: BLOOD SPECIMEN Ordering Facility: [facility] Address: [address] [place] [address] Performed By: #### 5 8410-2 #### [facility] CLIA [id number] [address] [place] [address] [place] Platelet mean volume (Bld) [Entitic vol] 12.1 fL Normal 9.0-12.7 [facility] Comment on above: Order Comment: Speci men Type: BLOOD SPECIMEN Ordering Facility: [facility] Address: [address] [place] [address] Performed By: #### 5 8410-2 #### [facility] CLIA [id number] [address] [place] [address] [place] Platelets (Bld) [#/Vol] 191 10*3/uL Normal 150-400 [facility] Comment on above: Order Comment: Lala ennis Type: BLOOD SPECIMEN Ordering Facility: [facility] Address: [address] [place] [address] Performed By: #### 5 8410-2 #### [facility] CLIA [id number] [place] [address] [place] RBC (Bld) [#/Vol] 3.40 10*6/uL Low 3.90-5.20 [facility] Comment on above: Order Comment: Lala ennis Type: BLOOD SPECIMEN Ordering Facility: [facility] Address: [address] [place] [address] Performed By: #### 5 8410-2 #### [facility] CLIA [id number] [place] [address] [place] WBC (Bld) [#/Vol] 12.10 10*3/uL High 3.70-11.00 [facility] Comment on above: Order Comment: Lala ennis Type: BLOOD SPECIMEN Ordering Facility: [facility] Address: [address] [place] [address] Performed By: #### 5 8410-2 #### [facility] CLIA [id number] [place] [address] [place] ANES PRE-OPon 09-03-2023 ANES PRE-OP HNO ID: [id number] Author: SAE MERCER DO Service: Anesthesiology Author Type: Nurse Business Performance Advisor Type: Anesthesia Preprocedure Evaluation Filed: 09/03/2023 17:58 Note Text: Attestation signed by Sae Mercer DO at 09/03/2023 5:58 PM I saw and evaluated the patient. Discussed with the SAP GATHERER/AA/resident and agree with findings and plan as documented in the note. Sae Mercer DO September 03, 2023 5:58 PM OB ANESTHESIA PRE-PROCEDURE ASSESSMENT PATIENT NAME: Olivia Rae : 1990 32 y/o presenting for IOL gHTN and myasthenia gravis (last flare 2020 - currently NO medications). Current use of ASA. Hx migraines (last one 08/31/23 - Rx: excedrin AND reglan), Sjogren's, adjustment disorder, and PONV. Severe pre-E w/ first . Baseline paresthesias in fingers. Desires epidural. Discussed epidural R/B. 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 Tracheostomy tube not present Mallampati: I. TM distance: >3 FB. Neck ROM: full ROM without neurological symptoms. Mouth opening: adequate. Short neck: no. Thick neck: no DENTAL Normal dental observations. Dental findings: teeth intact. II - ANESTHESIA PLAN ASA Score: 3 Anesthetic Plan: epidural The patient is not a current smoker. NPO Status: inadequate (Solids 09/02 @1145; clears now) Beta Aiden Monitoring Plan Monitoring plan: standard ASA. Post Procedure Analgesic Plan Postoperative analgesic plan: parenteral or oral opioids, multimodal analgesia and per surgical service. Informed Consent Anesthetic risks, benefits, alternatives, personnel and consent discussed: yes. Patient / Responsible Constitution Party agrees to proceed: yes Patient / Surrogate agrees to blood products: Yes DNR status not reviewed with patient and/or family prior to surgery. Significant changes in the patient condition since the History and Physical, not otherwise documented in primary service progress note: no. [facility] CHART REVIEW: ACTIVE PROBLEM LIST Diplopia Sjogrens Syndrome ([facility]) Myasthenia gravis status post thymectomy ([facility]) Myasthenia Gravis Affecting ([facility]) Supervision of high risk / M care Hx of Preeclampsia, Prior , Currently Gestational Hypertension, Third Trimester Migraines Mental Health Problem Abnormal Glucose Tolerance in Encounter for Induction of Labor PAST MEDICAL HISTORY Diagnosis Date - GERD (gastroesophageal reflux disease) treated with prilosec - Myasthenia gravis status post thymectomy ([facility]) ([facility]) 12/08/2011 - Pre-eclampsia, severe 07/20/2018 - PVC's (premature ventricular contractions) - Sjogrens syndrome ([facility]) 04/2011 - Tension vascular headache - TMJ (dislocation of temporomandibular joint) mild PAST SURGICAL HISTORY Procedure Laterality Date - PORTOCATH PLACEMENT - THYMECTOMY, PARTIAL/TOTAL 2011 - TONSILLECTOMY PRIMARY/SECONDARY Tonsillectomy FAMILY HISTORY Problem Relation Age of Onset - None Mother A AND W - None Father A AND W - Asthma Brother - other (PCOS) Sister - Hypertension Maternal Grandmother - Hyperlipidemia Maternal Grandmother - COPD Maternal Grandmother smoker - Heart Failure Maternal Grandmother - Hypertension Maternal Grandfather - Hyperlipidemia Maternal Grandfather - COPD Maternal Grandfather smoker - Heart Failure Maternal Grandfather - Diabetes Paternal Grandmother - Cancer Paternal Grandmother unknown - Cervical Cancer Paternal Aunt 37 - Seizures Maternal Aunt Social History Tobacco Use - Smoking status: Never - Smokeless tobacco: Never Substance Use Topics - Alcohol use: No - Drug use: No (Not in a hospital admission) Inpatient medications reviewed in [facility] I have interviewed and examined the patient. I have reviewed the medical record and/or the pre-anesthesia evaluation, pertinent labs, and test results. This contains updated information obtained within 48 hours of Surgery/Procedure. SIGNATURE: FORTUNATO Wayne PATIENT NAME: Olivia Rae DATE: September 03, 2023 TIME: 12:14 PM : 1990 [facility] ANES PRE-OP HNO ID: [id number] Author: LAKSHMI MEYER SRNA Service: Anesthesiology Author Type: Student Type: Anesthesia Preprocedure Evaluation Filed: 09/03/2023 12:26 Note Text: Attestation signed by Yaquelin Echeverria APRN.CRNA at 09/03/2023 1:31 PM I spoke to the patient and performed a brief history and physical examination, answered all of the patient's questions, and discussed the management with the SRNA. I reviewed the provider's note and agree with the documented findings and plan of care. Yaquelin WEST, MARIA DEL CARMEN-GINO [facility] September 03, 2023 1:31 PM OB ANESTHESIA PRE-PROCEDURE ASSESSMENT PATIENT NAME: Olivia Rae : 1990 32 y/o presenting for IOL gHTN and myasthenia gravis (last flare 2020 - currently NO medications). Current use of ASA. Hx migraines (last one 08/31/23 - Rx: excedrin AND reglan), Sjogren's, adjustment disorder, and PONV. Severe pre-E w/ first . Baseline paresthesias in fingers. Desires epidural. Discussed epidural R/B. 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 Tracheostomy tube not present Mallampati: I. TM distance: >3 FB. Neck ROM: full ROM without neurological symptoms. Mouth opening: adequate. Short neck: no. Thick neck: no DENTAL Normal dental observations. Dental findings: teeth intact. II - ANESTHESIA PLAN ASA Score: 3 Anesthetic Plan: epidural The patient is not a current smoker. NPO Status: inadequate (Solids 09/02 @1145; clears now) Beta Aiden Monitoring Plan Monitoring plan: standard ASA. Post Procedure Analgesic Plan Postoperative analgesic plan: parenteral or oral opioids, multimodal analgesia and per surgical service. Informed Consent Anesthetic risks, benefits, alternatives, personnel and consent discussed: yes. Patient / Responsible Constitution Party agrees to proceed: yes Patient / Surrogate agrees to blood products: Yes DNR status not reviewed with patient and/or family prior to surgery. Significant changes in the patient condition since the History and Physical, not otherwise documented in primary service progress note: no. EPIC CHART REVIEW: ACTIVE PROBLEM LIST Diplopia Sjogrens Syndrome ([facility]) Myasthenia gravis status post thymectomy ([facility]) Supervision of high risk / M care Hx of Preeclampsia, Prior , Currently Migraines Mental Health Problem Abnormal Glucose Tolerance in Encounter for Induction of Labor PAST MEDICAL HISTORY Diagnosis Date - GERD (gastroesophageal reflux disease) treated with prilosec - Myasthenia gravis status post thymectomy ([facility]) ([facility]) 12/08/2011 - Pre-eclampsia, severe 07/20/2018 - PVC's (premature ventricular contractions) - Sjogrens syndrome ([facility]) 04/2011 - Tension vascular headache - TMJ (dislocation of temporomandibular joint) mild PAST SURGICAL HISTORY Procedure Laterality Date - PORTOCATH PLACEMENT - THYMECTOMY, PARTIAL/TOTAL 2011 - TONSILLECTOMY PRIMARY/SECONDARY Tonsillectomy FAMILY HISTORY Problem Relation Age of Onset - None Mother A AND W - None Father A AND W - Asthma Brother - other (PCOS) Sister - Hypertension Maternal Grandmother - Hyperlipidemia Maternal Grandmother - COPD Maternal Grandmother smoker - Heart Failure Maternal Grandmother - Hypertension Maternal Grandfather - Hyperlipidemia Maternal Grandfather - COPD Maternal Grandfather smoker - Heart Failure Maternal Grandfather - Diabetes Paternal Grandmother - Cancer Paternal Grandmother unknown - Cervical Cancer Paternal Aunt 37 - Seizures Maternal Aunt Social History Tobacco Use - Smoking status: Never - Smokeless tobacco: Never Substance Use Topics - Alcohol use: No - Drug use: No docusate sodium (COLACE) 100 mg capsule, Take 1 capsule by mouth two times a day., Disp: 60 capsule, Rfl: 2, 09/03/2023 metoclopramide HCl (REGLAN) 10 mg tablet, Take 1 tablet by mouth three times a day as needed (Headache)., Disp: 30 tablet, Rfl: 2, Past Week Aspirin-Acetaminophe n-Caffeine (EXCEDRIN) 250-250-65 mg per tablet, Take 1 tablet by mouth every 8 hours as needed (Headache)., Disp: 30 tablet, Rfl: 2, Past Week aspirin, enteric coated (ECOTRIN LOW STRENGTH) 81 mg EC tablet, Take 1 tablet by mouth once daily., Disp: 30 tablet, Rfl: 5, 09/02/2023 fluticasone (FLON (more content not included)... Normal [facility] CBC W Auto Differential pane l (Bld)on 09-03-2023 Basophils (Bld) [#/Vol] 10*3/uL Normal <0.11 [facility] Comment on above: Order Comment: Speci men Type: BLOOD SPECIMEN Ordering Facility: [facility] Address: [address] [place] [address] Performed By: #### 5 7021-8 #### [facility] CLIA [id number] [address] [place] [address] [place] Basophils/100 WBC (Bld) 0.3 % Normal [facility] Comment on above: Order Comment: Speci men Type: BLOOD SPECIMEN Ordering Facility: [facility] Address: [address] [place] [address] Performed By: #### 5 7021-8 #### [facility] CLIA [id number] [address] [place] [address] [place] Differential cell count method Nom (Bld) Auto Normal [facility] Comment on above: Order Comment: Speci men Type: BLOOD SPECIMEN Ordering Facility: [facility] Address: [address] [place] [address] Performed By: #### 5 7021-8 #### [facility] CLIA [id number] [address] [place], [place] [id number] [place] Eosinophils (Bld) [#/Vol] 10*3/uL Normal <0.46 [facility] Comment on above: Order Comment: Speci men Type: BLOOD SPECIMEN Ordering Facility: [facility] Address: [address] [place] [address] Performed By: #### 5 7021-8 #### [facility] CLIA [id number] [place] [address] [place] Eosinophils/100 WBC (Bld) 0.3 % Normal [facility] Comment on above: Order Comment: Speci men Type: BLOOD SPECIMEN Ordering Facility: [facility] Address: [address] [place] [address] Performed By: #### 5 7021-8 #### [facility] CLIA [id number] [address] [place] [address] [place] Erythrocyte distribution width (RBC) [Ratio] 14.9 % Normal 11.5-15.0 [facility] Comment on above: Order Comment: Speci men Type: BLOOD SPECIMEN Ordering Facility: [facility] Address: [address] [place] [address] Performed By: #### 5 7021-8 #### [facility] CLIA [id number] [address] [place] [address] [place] Hematocrit (Bld) [Volume fraction] 33.4 % Low 36.0-46.0 [facility] Comment on above: Order Comment: Speci men Type: BLOOD SPECIMEN Ordering Facility: [facility] Address: [address] [place] [address] Performed By: #### 5 7021-8 #### [facility] CLIA [id number] [address] [place] [address] [place] Hemoglobin (Bld) [Mass/Vol] 11.0 g/dL Low 11.5-15.5 [facility] Comment on above: Order Comment: Speci men Type: BLOOD SPECIMEN Ordering Facility: [facility] Address: [address] [place] [address] Performed By: #### 5 7021-8 #### [facility] CLIA [id number] [address] [place] [address] [place] Immature granulocytes (Bld) [#/Vol] 0.04 10*3/uL Normal <0.10 [facility] Comment on above: Order Comment: Speci men Type: BLOOD SPECIMEN Ordering Facility: [facility] Address: [address] [place] [address] Performed By: #### 5 7021-8 #### [facility] CLIA [id number] [address] [place] [address] [place] Immature granulocytes/100 WBC (Bld) 0.5 % Normal [facility] Comment on above: Order Comment: Speci men Type: BLOOD SPECIMEN Ordering Facility: [facility] Address: [address] [place] [address] Performed By: #### 5 7021-8 #### [facility] CLIA [id number] [address] [place] [address] [place] Lymphocytes (Bld) [#/Vol] 0.91 10*3/uL Low 1.00-4.00 [facility] Comment on above: Order Comment: Speci men Type: BLOOD SPECIMEN Ordering Facility: [facility] Address: [address] [place] [address] Performed By: #### 5 7021-8 #### [facility] CLIA [id number] [address] [place] [address] STATES [facility] Lymphocytes/100 WBC (Bld) 12.1 % Normal [facility] Comment on above: Order Comment: Speci men Type: BLOOD SPECIMEN Ordering Facility: [facility] Address: [address] [place] [address] Performed By: #### 5 7021-8 #### [facility] CLIA [id number] [address] [place] [address] [place] MCH (RBC) [Entitic mass] 27.2 pg Normal 26.0-34.0 [facility] Comment on above: Order Comment: Speci men Type: BLOOD SPECIMEN Ordering Facility: [facility] Address: [address] [place] [address] Performed By: #### 5 7021-8 #### [facility] CLIA [id number] [address] [place] [address] [place] MCHC (RBC) [Mass/Vol] 32.9 g/dL Normal 30.5-36.0 [facility] Comment on above: Order Comment: Speci men Type: BLOOD SPECIMEN Ordering Facility: [facility] Address: [address] [place] [address] Performed By: #### 5 7021-8 #### [facility] CLIA [id number] [address] [place] [address] [place] MCV (RBC) [Entitic vol] 82.7 fL Normal 80.0-100.0 [facility] Comment on above: Order Comment: Speci men Type: BLOOD SPECIMEN Ordering Facility: [facility] Address: [address] [place] [address] Performed By: #### 5 7021-8 #### [facility] CLIA [id number] [address] [place] [address] [place] Monocytes (Bld) [#/Vol] 0.61 10*3/uL Normal <0.87 [facility] Comment on above: Order Comment: Speci men Type: BLOOD SPECIMEN Ordering Facility: [facility] Address: [address] [place] [address] Performed By: #### 5 7021-8 #### [facility] CLIA [id number] [address] [place] [address] [place] Monocytes/100 WBC (Bld) 8.1 % Normal [facility] Comment on above: Order Comment: Speci men Type: BLOOD SPECIMEN Ordering Facility: [facility] Address: [address] [place] [address] Performed By: #### 5 7021-8 #### [facility] CLIA [id number] [address] [place] [address] [place] Neutrophils (Bld) [#/Vol] 5.93 10*3/uL Normal 1.45-7.50 [facility] Comment on above: Order Comment: Speci men Type: BLOOD SPECIMEN Ordering Facility: [facility] Address: [address] [place] [address] Performed By: #### 5 7021-8 #### [facility] CLIA [id number] [address] [place] [address] [place] Neutrophils/100 WBC (Bld) 78.7 % Normal [facility] Comment on above: Order Comment: Speci men Type: BLOOD SPECIMEN Ordering Facility: [facility] Address: [address] [place] [address] Performed By: #### 5 7021-8 #### [facility] CLIA [id number] [address] [place] [address] [place] Nucleated RBC (Bld) [#/Vol] 10*3/uL Normal <0.01 [facility] Comment on above: Order Comment: Speci men Type: BLOOD SPECIMEN Ordering Facility: [facility] Address: [address] [place] [address] Performed By: #### 5 7021-8 #### [facility] CLIA [id number] [address] [place] [address] [place] Nucleated RBC/100 WBC (Bld) [Ratio] 0.0 /100 WBC Normal [facility] Comment on above: Order Comment: Speci men Type: BLOOD SPECIMEN Ordering Facility: [facility] Address: [address] [place] [address] Performed By: #### 5 7021-8 #### [facility] CLIA [id number] [address] [place] [address] [place] Platelet mean volume (Bld) [Entitic vol] 12.4 fL Normal 9.0-12.7 [facility] Comment on above: Order Comment: Speci men Type: BLOOD SPECIMEN Ordering Facility: [facility] Address: [address] [place] [address] Performed By: #### 5 7021-8 #### [facility] CLIA [id number] [address] [place] [address] [place] Platelets (Bld) [#/Vol] 224 10*3/uL Normal 150-400 [facility] Comment on above: Order Comment: Speci men Type: BLOOD SPECIMEN Ordering Facility: [facility] Address: [address] [id number] Performed By: #### 5 7021-8 #### [facility] CLIA [id number] [address] [id number] [place] RBC (Bld) [#/Vol] 4.04 10*6/uL Normal 3.90-5.20 [facility] Comment on above: Order Comment: Speci men Type: BLOOD SPECIMEN Ordering Facility: [facility] Address: [address] [place] [address] Performed By: #### 5 7021-8 #### [facility] CLIA [id number] [place] [address] [place] WBC (Bld) [#/Vol] 7.53 10*3/uL Normal 3.70-11.00 [facility] Comment on above: Order Comment: Speci men Type: BLOOD SPECIMEN Ordering Facility: [facility] Address: [address] [place] [address] Performed By: #### 5 7021-8 #### [facility] CLIA [id number] [address] [place] [address] [place] HISTORY PHYSICALon HISTORY PHYSICAL HNO ID: [id number] Author: PILAR THORNTON MD Service: Obstetrics Author Type: Resident Type: H&P Filed: 09/03/2023 14:20 Note Text: Attestation signed by Sara Simons MD at 09/03/2023 5:11 PM (Updated) Attending Note I evaluated the patient and personally participated in the bernal components. I agree with the resident's findings and plan as documented and have discussed the case and management of the patient's care with the resident. History of hypertension in the setting of myasthemia gravis and Sjogren's syndrome ( echo negative) - has not required IVIG for 2-3yrs. Ms. Olivia Rae has had 2 prior vaginal deliveries. The first was complicated by a forceps assisted delivery and she was on Keppra for seizure prophylaxis. Her second delivery was uncomplicated and she was not on prophylaxis. This is complicated by gHTN and she is undergoing an IOL at 37w. BP 124/66 Pulse 80 Temp 36.9 ?C (98.4 ?F) (Oral) Resp 16 LMP 12/18/2022 SpO2 97% Plan Monitor closely Avoid magnesium IV If signs of severe preeclampsia met Treat with IV hydralazine and methyldopa as an adjunct Methyldopa may not be easily sourced and so IV labetalol can be used although data does suggest it can contribute to mm weakness. If need labetalol would inform ICU about possible need for intubation and resp support Start Keppra (500mg BID) for seizure prophylaxis If seizures develop use ativan 1-2mg for seizure treatment if refractory call ICU and initiate a phenytoin drip (but this can not be for an extended period due to muscle weakness) of note valproic acid can also be used but can lead to hepatotoxicity Avoid labetalol and nifedipine as this can cause muscle weakness. Anesthesia consultation . Signature: Sara Simons MD Date: 09/03/2023 Time: 2:52 PM I spent a total of 45 minutes on the date of the service which included preparing to see the patient, [id number] patient care, completing clinical documentation, obtaining and/or reviewing separately obtained history, counseling and educating the patient/family/careg iver, ordering medications, tests, or procedures, communicating with other HCPs (not separately reported), independently interpreting results (not separately reported), communicating results to the patient/family/careg iver, and care coordination (not separately reported). SERVICE DATE: 09/03/2023 SERVICE TIME: 12:37 PM PHYSICAL EXAM MUST BE COMPLETED ON ADMISSION The History and Physical (completed in the past 30 days) has been reviewed and the patient has been examined. The contents accurately reflect the patient's condition with the following additions or revisions since the HANDP was completed. POST DELIVERY CONTRACEPTION: Discussed post-delivery contraception options. Patient received written information about post-delivery contraception options. Patient does not desire post-delivery contraception. Examination indicates the following changes were noted: 3cm dilated. Current OB/Cervical examination indicates: Dilation: 3 (09/03/23 1232 : Laura Leigh RN) cm Station: -2 (09/03/23 1232 : Laura Leigh RN) Effacement: 60 (09/03/23 1232 : Laura Leigh RN) % Pelvimetry: Pelvimetry clinically assessed as adequate Presentation: vertex EFW: Based off last ultrasound documented in imaging results. Membrane Status: Intact Current OB plan: Proceed with Induction: oxytocin (Pitocin). Plan of care discussed with: Provider, RN, Patient. This HANDP can be found in the Electronic Medical Record dated 08/31/23. 32 year old 37w0d IOL for gHTN. Patient has myasthenia gravis, Sjogren's syndrome, and anemia. Denies headache, vision changes, SOB, chest pain, RUQ pain, or increase in swelling. IOL - SVE: /-2 - Induction: pitocin - Membranes: intact - Cat I FHT - Epidural PRN - Cephalic by BSUS - GBS neg - EFW 7lbs, tested to 6lb 11oz - Admit to [facility]ANDD, CLD, cEFM, Routine admission labs Myasthenia Gravis - no meds, asymptomatic since 01/2021 - CANNOT give magnesium for Pre-E - cannot give procardia, labetalol - Use hydralazine or methyldopa for BP control if indicated - if preE: give keppra 24hrs - if seizures: give ativan immediately, if refractory give phenytoin drip - discussed with MFM Dr. Naif Wilcox, History of PEC with SF AND gHTN in prior pregnancies - CBC/CMP: Cr nl at 0.55, nl AST/ALT, plt nl at 247 - 37 week IOL as above - hx preE SF with last Sjogren Syndrome - Pos SSA/SSB antibody - Normal echoes Anemia - Hgb 11 Hx Adjustement Disorder - No medications PVCs - asymptomatic ObHx: FAVD x1 5lb 8oz (preE SF), x1 6lb 11oz (gHTN) PMH: see above PSH: thymectomy BMI: There is no height or weight on file to calc (more content not included)... [facility] OPERATIVE NOon 09-03-2023 OPERATIVE NO HNO ID: [id number] Author: RENEE KRUEGER MD Service: Obstetrics Author Type: Physician Type: Operative Report Filed: 09/04/2023 07:34 Note Text: OBSTETRICS OPERATIVE REPORT - SECTION Log ID: [id number] Surgery Date: 09/03/2023 Incision/Procedure Start Time: 5:47 PM Incision Close/Procedure End Time: 6:41 PM Gestational Age at Delivery: 37w0d Reason for Delivery Today: PRIMARY Reason for Delivery : Hypertension Additional Clinical Indicator(s) for delivery: Maternal Cardiac Disease Hypertension Type: Gestational Delivery type: , Low Transverse Intrapartum Complications: Dysfunctional Labor Delivery between 24 - 34 weeks?: No Indications for : Other (see delivery note) Additional Pre-Op Details (if applicable): 32 year old now- who delivered at 37w0d after presenting for IOL gHTN. Pt also with h/o myasthenia gravis. Labor was induced with pitocin and AROM. Emergent CS was indicated due to umbilical cord prolapse. Postop Diagnosis: Same as pre-op diagnosis Surgeon(s) and Crisis Intervention Counselor(s): Surgeon(s) and Role: * Renee Krueger MD - Primary * Jayson Dove MD - Resident Procedure(s): SECTION: [id number] (CPT?) Anesthesia: Epidural Information for the patient's : Paula Rae [[id number]] Type: , Low Transverse Operative Findings: Weight: 2.958 kg (6 lb 8.3 oz) (Filed from Delivery Summary) Sex: female One Minute : 8 Five Minute : 9 Cord Complications: Prolapsed Additional Findings: Normal-appearing uterus, normal-appearing bilateral tubes and ovaries TECHNIQUE: The patient was taken to the operating room where her previous epidural was redosed and found to be adequate. She was placed in supine position with a left tilt. SCDs were placed. Junior catheter was placed under sterile conditions. She was prepped with betadine splash given emergent nature of case and draped in the usual sterile fashion. Pfannenstiel incision was made with the scalpel. Incision was taken down to the fascia with the scalpel. The fascia was incised transversely in the midline with the scalpel. Incision was extended laterally bluntly. Rectus muscles were dissected off the fascia bluntly. Peritoneum was entered bluntly and extended bluntly. The bladder blade was introduced. Hysterotomy was performed in a low transverse fashion. Incision was extended manually in a superolateral fashion. Bladder blade was removed. Infant was delivered from a cephalic presentation atraumatically. was vigorous, and after 30-second delay, the cord was clamped and cut, and was handed off to awaiting staff. Cord blood and cord gases were collected. Placenta then delivered spontaneously with fundal massage. The uterus was then exteriorized and cleared of clots and debris. The bladder blade was reintroduced. The uterus was closed in a running unlocked stitch of 0 Vicryl and parallel imbricating stitch of 0 Vicryl. Pitocin 10u IV x2 and TXA 1g IV x1 were administered. Adequate hemostasis was achieved with the above interventions. Inspection of the pelvis noted the above findings. The posterior cul-de-sac was cleared of clot and debris. Uterus was returned to the abdomen. The paracolic gutters were examined and cleared of clot and debris. Hysterotomy closure was reexamined in situ and noted to be adequately hemostatic. Rectus abdominis muscles were examined and noted to be hemostatic. The peritoneum was closed with a simple continuous stitch of 3-0 Vicryl. The fascia was closed with a simple continuous stitch of 0 Vicryl. The subcutaneous tissue was irrigated and made hemostatic with the Bovie. The subcutaneous tissue was closed with 3-0 Vicryl in a running fashion. The skin was closed with a running subcuticular stitch of 4-0 Monocryl. Sponge, lap and needle counts were correct times two, and the patient was taken to the recovery room with stable vital signs after tolerating the procedure well. SPECIMEN: Cord blood, cord gases DRAINS: Junior to gravity I/O Blood Loss per time range on right. 09/03/23 1600 - 09/03/23 1852 Calculated Blood Loss (mL) Hospital Encounter 314 Total 314 cc URINE OUTPUT: 550 mL IV FLUIDS: 950 mL crystalloid COMPLICATIONS: None; patient is ordered for IV antibiotics prophylactically for next 24 hours. Resident performed the procedure under direct supervision, and the remainder of the procedure was performed by the primary surgeon/proceduralis t with assistance. SIGNATURE: Jayson Dove MD PATIENT NAME: Olivia Rae DATE: September 03, 2023 TIME: 6:52 PM Attending Note: I was present and supervised the primary low transverse of Olivia Rae with Dr Dove. The procedure was uncomplicated and the patient and infant are doing well. Renee Krueger MD September 04, 2023 7:33 AM [facility] TYPE + SCREEN PRENATALon ABO O [facility] Comment on above: Order Comment: Speci men Type: BLOOD SPECIMEN Ordering Facility: [facility] Address: [address] [place] [address] Performed By: #### T SPN #### [facility] CLIA [id number] [address] [place] [address] HISTORICAL AB SCR STATUS Negative [facility] Comment on above: Order Comment: Speci men Type: BLOOD SPECIMEN Ordering Facility: [facility] Address: [address] [place] [address] Performed By: #### T SPN #### [facility] CLIA [id number] [address] [place] [address] [place] Rh Nom (Bld) Positive [facility] Comment on above: Order Comment: Speci men Type: BLOOD SPECIMEN Ordering Facility: [facility] Address: [address] [place] [address] Performed By: #### T SPN #### [facility] CLIA [id number] [address] [place] [address] [place] TYPE AND SCREEN EXPIRATION 09/06/2023 23:59 [facility] Comment on above: Order Comment: Speci men Type: BLOOD SPECIMEN Ordering Facility: [facility] Address: [address] [place] [address] Performed By: #### T SPN #### [facility] CLIA [id number] [address] [place] [address] [place] CBC panel Auto (Bld)on 08-30 Erythrocyte distribution width (RBC) [Ratio] 14.5 % Normal 11.5-15.0 [facility] Comment on above: Order Comment: Speci men Type: BLOOD SPECIMEN Ordering Facility: [facility] Address: [address] [place] [address] Performed By: #### 5 8410-2 #### [facility] CLIA [id number] [address] [place] [address] [place] Hematocrit (Bld) [Volume fraction] 32.9 % Low 36.0-46.0 [facility] Comment on above: Order Comment: Speci men Type: BLOOD SPECIMEN Ordering Facility: [facility] Address: [address] [place] [address] Performed By: #### 5 8410-2 #### [facility] [place] [id number] [address] [place] [address] [place] Hemoglobin (Bld) [Mass/Vol] 10.9 g/dL Low 11.5-15.5 [facility] Comment on above: Order Comment: Speci men Type: BLOOD SPECIMEN Ordering Facility: [facility] Address: [address] [place] [address] Performed By: #### 5 8410-2 #### [facility] CLIA [id number] [address] [place] [address] [place] MCH (RBC) [Entitic mass] 27.4 pg Normal 26.0-34.0 [facility] Comment on above: Order Comment: Speci men Type: BLOOD SPECIMEN Ordering Facility: [facility] Address: [address] [place] [address] Performed By: #### 5 8410-2 #### [facility] CLIA [id number] [address] [place] [address] [place] MCHC (RBC) [Mass/Vol] 33.1 g/dL Normal 30.5-36.0 [facility] Comment on above: Order Comment: Speci men Type: BLOOD SPECIMEN Ordering Facility: [facility] Address: [address] [place] [address] Performed By: #### 5 8410-2 #### [facility] CLIA [id number] [address] [place] [address] [place] MCV (RBC) [Entitic vol] 82.7 fL Normal 80.0-100.0 [facility] Comment on above: Order Comment: Speci men Type: BLOOD SPECIMEN Ordering Facility: [facility] Address: [address] [place] [address] Performed By: #### 5 8410-2 #### [facility] CLIA [id number] [address] [place] [address] [place] Nucleated RBC (Bld) [#/Vol] 10*3/uL Normal <0.01 [facility] Comment on above: Order Comment: Speci men Type: BLOOD SPECIMEN Ordering Facility: [facility] Address: [address] [place] [address] Performed By: #### 5 8410-2 #### [facility] CLIA [id number] [address] [place] [address] [place] Platelet mean volume (Bld) [Entitic vol] 12.6 fL Normal 9.0-12.7 [facility] Comment on above: Order Comment: Speci men Type: BLOOD SPECIMEN Ordering Facility: [facility] Address: [address] [place] [address] Performed By: #### 5 8410-2 #### [facility] CLIA [id number] [address] [place] [address] [place] Platelets (Bld) [#/Vol] 247 10*3/uL Normal 150-400 [facility] Comment on above: Order Comment: Speci men Type: BLOOD SPECIMEN Ordering Facility: [facility] Address: [address] [place] [address] Performed By: #### 5 8410-2 #### [facility] CLIA [id number] [address] [place] [address] [place] RBC (Bld) [#/Vol] 3.98 10*6/uL Normal 3.90-5.20 [facility] Comment on above: Order Comment: Speci men Type: BLOOD SPECIMEN Ordering Facility: [facility] Address: [address] [place] [address] Performed By: #### 5 8410-2 #### [facility] CLIA [id number] [address] [place] [address] [place] WBC (Bld) [#/Vol] 7.78 10*3/uL Normal 3.70-11.00 [facility] Comment on above: Order Comment: Speci men Type: BLOOD SPECIMEN Ordering Facility: [facility] Address: [address] [place] [address] Performed By: #### 5 8410-2 #### [facility] CLIA [id number] [address] [place] [address] [place] Comprehensive metabolic 2000 panelon 08-31-2023 Albumin [Mass/Vol] 3.4 g/dL Low 3.9-4.9 [facility] Comment on above: Order Comment: Speci men Type: BLOOD SPECIMEN Ordering Facility: [facility] Address: [address] [place] [address] Performed By: #### 2 4323-8 #### [facility] CLIA [id number] [address] [place] [address] [place] ALP [Catalytic activity/Vol] 200 U/L High 34-123 [facility] Comment on above: Order Comment: Speci men Type: BLOOD SPECIMEN Ordering Facility: [facility] Address: [address] [place] [address] Performed By: #### 2 4323-8 #### [facility] CLIA [id number] [address] [place] [address] [place] ALT [Catalytic activity/Vol] 19 U/L Normal 7-38 [facility] Comment on above: Order Comment: Speci men Type: BLOOD SPECIMEN Ordering Facility: [facility] Address: [address] [place] [address] Performed By: #### 2 4323-8 #### [facility] CLIA [id number] [address] [place] [address] [place] Anion gap [Moles/Vol] 8 mmol/L Low 9-18 [facility] Comment on above: Order Comment: Speci men Type: BLOOD SPECIMEN Ordering Facility: [facility] Address: [address] [place] [address] Performed By: #### 2 4323-8 #### [facility] CLIA [id number] [address] [place] [address] [place] AST [Catalytic activity/Vol] 30 U/L Normal 13-35 [facility] Comment on above: Order Comment: Speci men Type: BLOOD SPECIMEN Ordering Facility: [facility] Address: [address] [place] [address] Performed By: #### 2 4323-8 #### [facility] CLIA [id number] [address] [place] [address] [place] Bilirubin [Mass/Vol] mg/dL Low 0.2-1.3 [facility] Comment on above: Order Comment: Speci men Type: BLOOD SPECIMEN Ordering Facility: [facility] Address: [address] [place] [address] Performed By: #### 2 4323-8 #### [facility] CLIA [id number] [address] [place] [address] [place] Calcium [Mass/Vol] 8.8 mg/dL Normal 8.5-10.2 [facility] Comment on above: Order Comment: Speci men Type: BLOOD SPECIMEN Ordering Facility: [facility] Address: [address] [place] [address] Performed By: #### 2 4323-8 #### [facility] CLIA [id number] [address] [place] [address] [place] Chloride [Moles/Vol] 103 mmol/L Normal 97-105 [facility] Comment on above: Order Comment: Speci men Type: BLOOD SPECIMEN Ordering Facility: [facility] Address: [address] [place] [address] Performed By: #### 2 4323-8 #### [facility] CLIA [id number] [address] [place] [address] [place] CO2 [Moles/Vol] 23 mmol/L Normal 22-30 [facility] Comment on above: Order Comment: Lala ennis Type: BLOOD SPECIMEN Ordering Facility: [facility] Address: [address] [place] [address] Performed By: #### 2 4323-8 #### [facility] CLIA [id number] [place] [address] [place] Creatinine [Mass/Vol] 0.55 mg/dL Low 0.58-0.96 [facility] Comment on above: Order Comment: Lala ennis Type: BLOOD SPECIMEN Ordering Facility: [facility] Address: [address] [place] [address] Performed By: #### 2 4323-8 #### [facility] CLIA [id number] [address] [place] [address] [place] Creatinine and Glomerular filtration rate.predicted panel (S/P/Bld) 125 mL/min/1.73m??? Normal >=60 [facility] Comment on above: Order Comment: Lala loli Type: BLOOD SPECIMEN Ordering Facility: [facility] Address: [address] [place] [address] Result Comment: Melissa mated Glomerular Filtration Rate (eGFR) is calculated using the 2020 CKD-EPI creatinine equation. This equation utilizes serum creatinine, sex, and age as parameters. The creatinine assay has traceable calibration to isotope dilution-mass spectrometry. Refer to KDIGO guidelines for clinical interpretation. In patients with unstable renal function, e.g. those with acute kidney injury, the eGFR may not accurately reflect actual GFR. Performed By: #### 2 4323-8 #### [facility] CLIA [id number] [place] [address] [place] Glucose [Mass/Vol] 80 mg/dL Normal 74-99 [facility] Comment on above: Order Comment: Lala loli Type: BLOOD SPECIMEN Ordering Facility: [facility] Address: [address] [place] [address] Result Comment: The [place] Diabetes [employer] (ADA) provides guidance for cutoff values for fasting glucose and random glucose. The ADA defines fasting as no caloric intake for at least 8 hours. Fasting plasma glucose results between 100 to 125 mg/dL indicate increased risk for diabetes (prediabetes). Fasting plasma glucose results greater than or equal to 126 mg/dL meet the criteria for diagnosis of diabetes. In the absence of unequivocal hyperglycemia, results should be confirmed by repeat testing. In a patient with classic symptoms of hyperglycemia or hyperglycemic crisis, random plasma glucose results greater than or equal to 200 mg/dL meet the criteria for diagnosis of diabetes. Reference: Standards of Medical Care in Diabetes 2016, [place] [employer] Association. Diabetes Care. 2016.39(Suppl 1). Performed By: #### 2 4323-8 #### [facility] CLIA [id number] [address] [place] [address] [place] Potassium [Moles/Vol] 4.3 mmol/L Normal 3.7-5.1 [facility] Comment on above: Order Comment: Lala ennis Type: BLOOD SPECIMEN Ordering Facility: [facility] Address: [address] [place] [address] Performed By: #### 2 4323-8 #### [facility] CLIA [id number] [address] [place] [address] [place] Protein [Mass/Vol] 7.2 g/dL Normal 6.3-8.0 [facility] Comment on above: Order Comment: Lala ennis Type: BLOOD SPECIMEN Ordering Facility: [facility] Address: [address] [place] [address] Performed By: #### 2 4323-8 #### [facility] CLIA [id number] [address] [place] [address] [place] Sodium [Moles/Vol] 134 mmol/L Low 136-144 [facility] Comment on above: Order Comment: Jose Alejandroi men Type: BLOOD SPECIMEN Ordering Facility: [facility] Address: [address] [place] [address] Performed By: #### 2 4323-8 #### [facility] CLIA [id number] [address] [place] [address] [place] Urea nitrogen [Mass/Vol] 8 mg/dL Normal 7-21 [facility] Comment on above: Order Comment: Jose Alejandroi men Type: BLOOD SPECIMEN Ordering Facility: [facility] Address: [address] [place] [address] Performed By: #### 2 4323-8 #### [facility] [id number] [address] [place] [id number] [place] Examination level ultrasound on 08-31-[address] [facility] HISTORY PHYSICALon HISTORY PHYSICAL HNO ID: [id number] Author: TIFFANIE MCDANIEL MD Service: Obstetrics Author Type: Physician Type: H&P Filed: 08/31/2023 16:45 Note Text: OBSTETRICS TRIAGE PROGRESS NOTE SERVICE DATE: August 31, 2023 SERVICE TIME: 3:42 PM Subjective Patient's stated reason for arrival: Elevated bp's in the office and a headache CHIEF COMPLAINT: headache and elevated blood pressure HISTORY OF THE PRESENT ILLNESS: The patient is a 32 year old female, , who is at 36w4d with an LIANG of 09/24/2023, by Last Menstrual Period dating method. Patient is here with a headache since 6am today. She has taken caffeine at 9am this morning but has taken no other medications. In the office today she had a blood pressure of 144/88 at 1129. She has not had an elevated blood pressure prior in this but has a history of preeclampsia in prior . She denies vision changes, chest pain, SOB, RUQ pain, or lower extremity edema. She endorses good movement. Denies LOF or vaginal bleeding. REVIEW OF SYSTEMS: The remainder of the review of systems is negative. Objective LAST VITALS: Pulse BP Resp O2 Sat Temp Pain 67 128/69 18 99 % 36.8 ?C (98.2 ?F) 5 Patient Vitals for the past 48 hrs: BP Temp Temp src Pulse Resp SpO2 Height Weight 08/31/23 1615 127/73 -- -- 67 -- -- -- -- 08/31/23 1600 129/74 -- -- 70 -- -- -- -- 08/31/23 1545 143/78 -- -- 69 -- -- -- -- 08/31/23 1500 128/69 -- -- 67 -- -- -- -- 08/31/23 1450 -- -- -- 73 -- -- -- -- 08/31/23 1445 133/79 -- -- -- -- -- -- -- 08/31/23 1430 148/87 -- -- 77 -- -- -- -- 08/31/23 1415 142/83 36.8 ?C (98.2 ?F) Oral 70 18 99 % -- -- 08/31/23 1410 -- -- -- 75 -- 99 % -- -- 08/31/23 1405 -- -- -- -- -- -- 162.6 cm (5' 4 ) 79.4 kg (175 lb) HT/WT/BMI: Height Weight BMI 162.6 cm (5' 4 ) 79.4 kg (175 lb) 30.04 PHYSICAL EXAM: General: WD, WN Heart: RR, S1, S2 Lungs: clear to auscultation Abdomen: soft, nontender, no masses Cervical Exam: 1.5/40/-2 CERVICAL EXAM: Dilation: 1.5 (08/31/23 143 : Lyric Taveras RN) cm Station: -2 (08/31/231434 : Lyric Taveras RN) Effacement: 40 (08/31/23 143 : Lyric Taveras RN) % Presentation: MONITORING/ASSESSMEN T: Baseline: 135 bpm (08/31/23 1500 : Sammy Issa RN) Variability: Moderate (6-25 bpm) (08/31/23 1500 : Sammy Issa RN) Accelerations: Present (08/31/23 1500 : Sammy Issa RN) Decelerations: Decelerations: None (08/31/23 1500 : Sammy Issa RN) Contractions: Irregular (08/31/23 1500 : Sammy Issa RN) Frequency: 4-7 (08/31/23 1500 : Sammy Issa RN) Ultrasound: vertex LABS Diagnostic tests reviewed for today's visit: Most recent labs and imaging results. Latest Ref Rng AND Units 08/31/2023 07/06/2023 02/03/2023 CBC WBC 3.70 - 11.00 k/uL 7.78 7.91 6.20 RBC 3.90 - 5.20 m/uL 3.98 3.89 4.26 Hemoglobin 11.5 - 15.5 g/dL 10.9 10.9 12.0 Hematocrit 36.0 - 46.0 % 32.9 33.4 36.4 MCV 80.0 - 100.0 fL 82.7 85.9 85.4 MCH 26.0 - 34.0 pg 27.4 28.0 28.2 MCHC 30.5 - 36.0 g/dL 33.1 32.6 33.0 RDW-CV 11.5 - 15.0 % 14.5 13.2 13.2 Platelet Count 150 - 400 k/uL 247 282 283 MPV 9.0 - 12.7 fL 12.6 11.3 11.3 Latest Ref Rng AND Units 08/31/2023 02/03/2023 02/06/2021 CMP Sodium 136 - 144 mmol/L 134 133 138 Potassium 3.7 - 5.1 mmol/L 4.3 3.9 3.9 Chloride 97 - 105 mmol/L 103 101 104 CO2 22 - 30 mmol/L 23 21 20 Glucose 74 - 99 mg/dL 80 81 117 BUN 7 - 21 mg/dL 8 8 9 Creatinine 0.58 - 0.96 mg/dL 0.55 0.51 0.55 EGFR >=60 mL/min/1.73m? 125 127 EGFR-All Other Races >60 . >60 EGFR- >60 >60 Protein, Total 6.3 - 8.0 g/dL 7.2 7.6 7.4 Albumin 3.9 - 4.9 g/dL 3.4 4.2 3.3 Calcium 8.5 - 10.2 mg/dL 8.8 9.1 8.8 Bilirubin, Total 0.2 - 1.3 mg/dL <0.2 0.4 <0.2 AST 13 - 35 U/L 30 17 30 ALT 7 - 38 U/L 19 12 20 Alkaline Phosphatase 34 - 123 U/L 200 80 204 Assessment/Plan 32 year old EGA:36w4d presenting for headache and elevated blood pressures with history of preeclampsia in prior . Rules in for gHTN. MENJIVAR resolved with treatment as below. Plan for 37 week IOL for gHTN, scheduled for 09/02 at 9 AM. Patient to monitor BP TID at home over next several days. Precautions reviewed extensively including symptoms and BP criteria for re-presentation. Headache - Headache improved with excedrin gHTN, History of PEC with SF AND gHTN in prior pregnancies - CBC/CMP: Cr nl at 0.55, nl AST/ALT, plt nl at 247 - 37 week IOL as above Sjogren Syndrome - Pos SSA/SSB antibody - Normal echoes Anemia - Hgb 10.9 on 08/30 Myasthenia Gravis - no meds, asymptomatic since 01/2021 - CANNOT give magnesium for Pre-E Hx Adjustement Disorder - No medications SIGNATURE: Osvaldo Pettit MD PATIENT NAME: Olivia Rae DATE: August 31, 2023 TIME: 3:42 PM Attending Note I evaluated the patient alongside Dr. Pettit and personally participated in the bernal components. I have discussed the case and managemen (more content not included)... Normal [facility] HISTORY PHYSICAL HNO ID: [id number] Author: KIMBERLY HERNANDEZ MD Service: ? Author Type: Physician Type: H&P Filed: 08/31/2023 11:54 Note Text: OBSTETRICS HISTORY AND PHYSICAL NAME: Olivia Rae SERVICE DATE: August 31, 2023 SERVICE TIME: 1130 ASSESSMENT AND PLAN: 32 year old EGA:36w4d. Plan for delivery in <30 days. POST DELIVERY CONTRACEPTION: Discussed post-delivery contraception options. Patient received written information about post-delivery contraception options. Considering vasectomy declines LARC SUBJECTIVE: CHIEF COMPLAINT: IOL HISTORY OF THE PRESENT ILLNESS: The patient is a 32 year old female, , who is at 36w4d with an LIANG of 09/24/2023, by Last Menstrual Period dating method. Patient has Good movement. Denies vaginal bleeding., Denies leaking of fluid. Has been experiencing contractions for past 24 hours. Also headache with new mild range BP. Patient is GBS Negative. Her has been complicated by the following issues: Active Non-Hospital Problems Diagnosis Date Noted Abnormal glucose tolerance in 07/23/2023 Overview Note: 1 h GCT 135. Passed 3 hr at [facility] Mental health problem 05/27/2023 Overview Note: History of adjustment disorder 05/20/23: Reports increasing emotional dysregulation. She reports spending long periods crying and feeling sad, angry, and overwhelmed. She is interested in establishing mental health care. No issues with safety at home or SI/HI. [x] Referred to behavioral health (Shantal Carrillo) Migraines 04/12/2023 Overview Note: 04/26: Prescribed excedrin/reglan 08/02: Intermittent ongoing headaches, resolve usually with medication Supervision of high risk / MFM care 07/31/2020 Overview Note: MFM/High Risk Care Checklist First trimester: [x] Dating US [x] 1st tri labs [ ] Pap smear: last normal 12/2019 [x] Genetic screening [x] NT [x] cfDNA [x] ASA if indicated Second trimester: [x] Anatomy scan Third trimester: [x] GCT 135, three hour passed [x] CBC, HIV, RPR [x] TDaP 07/06 [x] GBS negative Other: [/] Flu vaccine - declines [ ] COVID vaccine surveillance: [x] Growths : 32, 36 weeks [x] Testing if indicated: weekly BPPs at 34-35 weeks Delivery planning: [ ] Timin weeks unless standard OB indication [ ] MOD: [ ] Scheduled: [x]consents done 08/03/23 [ ] H and P at 36 weeks [x] Location: [place] [x] declines larc, considering vasectomy [x] Breast feeding- would like to Hx of preeclampsia, prior , currently 07/31/2020 Overview Note: [x] ASA 81 [x] BP cuff prescribed Mild range BP at 36w4d Myasthenia gravis status post thymectomy ([facility]) 12/08/2011 Overview Note: She was diagnosed with myasthenia gravis in 2009 and had a thymectomy in 2011. She followed with the neuromuscular team at [facility] (currently Dr. Pranav Valdivia, last seen 01/2023). In her prior pregnancies she was on subcutaneous Ig therapy (SCIG; Hizentra) [and also pyridostigmine (mestinon) with her first] with no issues and has not been on SCIG since her last delivery with no MG exacerbations since 2019. Her primary symptoms are blurry/double vision and upper arm weakness, but she has been in remission and asymptomatic since her last delivery in Jan 2021. She is currently on no medication. -No role for prophylactic medication at delivery. -No Magnesium sulfate for pre-eclampsia with severe features. - recommend weekly BPPs to check tone and fluid given potential cross of IgG - neonatology consultation completed - eval after delivery Sjogrens syndrome ([facility]) 10/02/2011 Overview Note: Diagnosed in 2010. History of dry eyes, arthralgias, and positive SSA/SSB antibodies. She has previously been on plaquenil but this exacerbated her MG symptoms and she is currently asymptomatic on no medication. Risk of lupus discussed. [x] q2 weeks echo 16-[address] Brooks on 06/22/2023 note has signed off. Does not suggest further echo follow up in note. [x ] consult completed [x] referred to care 04/27 Diplopia 06/23/2011 HISTORY REVIEW PAST MEDICAL HISTORY Diagnosis Date GERD (gastroesophageal reflux disease) treated with prilosec Myasthenia gravis status post thymectomy ([facility]) ([facility]) 12/08/2011 Pre-eclampsia, severe 07/20/2018 PVC's (premature ventricular contractions) Sjogrens syndrome ([facility]) 04/2011 Tension vascular headache TMJ (dislocation of temporomandibular joint) mild PAST SURGICAL HISTORY Procedure Laterality Date PORTOCATH PLACEMENT THYMECTOMY, PARTIAL/TOTAL 2011 TONSILLECTOMY PRIMARY/SECONDARY Tonsillectomy FAMILY HISTORY Problem Relation Age of Onset None Mother A AND W None Father A AND W Asthma Brother other (PCOS) Sister Hypertension Maternal Grandmother Hyperlipidemia Maternal Grandmother COPD Maternal Grandmother smoker Heart Failure Mater (more content not included)... Normal [facility] Biophysical profile.maye dy movement USon 08-24-[address] [facility] ROUTINE, GROUP B ST REP PCRon 08-24-2023 ROUTINE, GROUP B STREP PCR GROUP B STREP PCR: Negative for Group B Streptococcus by PCR. Normal [facility] Comment on above: Performed By: #### G BPCR ####[facility] [id number] [place] [address] [place] Mychal 08-19-2023 CNPN Telephone (OGFVWE) OLIVIA RAE ([id number]) 1990 F Date Time Provider Department 08/19/23 [employer] OGFVPANDA During your visit today, we recorded the following information about you: Ashley Zarate RN 08/19/2023 11:16 AM Signed 3rd risk assessment form submitted 08/19/23 Ashley Zarate RN Allergies As of Date: 08/19/2023 Noted Allergy Reaction SHERITA-D (FEXOFENADINE-PSEUDO EPH*06/22/2011 4 - Hives BACTRIM (SULFAMETHOXAZOLE-TR IMETH*08/09/2015 14 - Other: See Comments Comments: Exacerbation of MG BETA-BLOCKERS (BETA-ADRENERGIC BL*02/06/2021 15 - Contraindication-Med ical Benitez* MAGNESIUM SULFATE 02/06/2021 15 - Contraindication-Med ical Benitez* NIFEDIPINE 02/06/2021 15 - Contraindication-Med ical Benitez* Date Reviewed: 08/18/2023 Reviewed by: Blanca Yoo LPN - Fully Assessed Reason for Visit: PRAF [4193] Prescriptions as of 08/19/2023 - Senna 8.6 mg tab Take 2 tablets by mouth once daily. - Blood Pressure Monitor (BLOOD PRESSURE KIT) 1 Each two times a day. - ferrous sulfate 325 mg (65 mg iron) tablet Take 1 tablet by mouth two times a day. - kb455-vqwu-gjdac acid 27-800 mg-mcg tab Take 1 tablet by mouth once daily. - docusate sodium (COLACE) 100 mg capsule Take 1 capsule by mouth two times a day. - metoclopramide HCl (REGLAN) 10 mg tablet Take 1 tablet by mouth three times a day as needed (Headache). - Aspirin-Acetaminophe n-Caffeine (EXCEDRIN) 250-250-65 mg per tablet Take 1 tablet by mouth every 8 hours as needed (Headache). - Blood Pressure Test Kit-Medium kit 1 Each once daily as needed. - aspirin, enteric coated (ECOTRIN LOW STRENGTH) 81 mg EC tablet Take 1 tablet by mouth once daily. - fluticasone (FLONASE ALLERGY RELIEF) 50 mcg/actuation nasal spray Use 1 [place] in each nostril once daily. Problem List As Of Date 08/19/2023 Noted Resolved Robotic-assisted thymectomy and rib block [G70.*04/17/2011 04/27/2023 Muscle weakness (generalized) [M62.81] 06/23/2011 04/27/2023 Diplopia [H53.2] 06/23/2011 Vitamin D deficiency [E55.9] 10/02/2011 08/03/2023 Sjogrens syndrome (HCC) [M35.00] 10/02/2011 Myasthenia gravis status post thymectomy (HCC) *12/08/2011 Pain in joint, multiple sites [M25.50] 01/10/2015 04/27/2023 [place] positive [R76.8] 01/10/2015 08/03/2023 SS-A antibody positive [R76.8] 01/10/2015 08/03/2023 SS-B antibody positive [R76.8] 01/10/2015 08/03/2023 Rheumatoid factor positive [R76.8] 01/10/2015 08/03/2023 Cervicalgia [M54.2] 10/11/2015 04/27/2023 Acute pain of both shoulders [M25.511, M25.512] 10/11/2015 04/27/2023 Acute bilateral low back pain without sciatica *10/11/2015 04/27/2023 Elevated sed rate [R70.0] 10/14/2015 04/27/2023 Adjustment disorder with mixed anxiety and depr*06/11/2017 05/27/2023 Myasthenia gravis affecting (HCC) [O9*03/22/2018 02/20/2021 PVC's (premature ventricular contractions) [I49*07/21/2018 04/27/2023 Xerostomia [K11.7] 04/09/2020 04/27/2023 Supervision of high risk / MFM prenata*07/31/2020 Hx of preeclampsia, prior , currently *07/31/2020 Antepartum anemia [O99.019] 12/04/2020 02/20/2021 History of forceps delivery in prior ,*02/20/2021 Gestational hypertension, third trimester [O13.*02/06/2021 02/20/2021 Obesity affecting in third trimester *02/06/2021 02/20/2021 Pre-eclampsia, severe [O14.10] 07/20/2018 04/27/2023 Migraines [G43.909] 04/12/2023 Mental health problem [F48.9] 05/27/2023 Abnormal glucose tolerance in [O99.81*07/23/2023 Encounter Status:Closed by AHSLEY ZARATE on 08/19/23 Normal [facility] Biophysical profile.maye dy movement USon 08-18-[address] [facility] CHEMISTRYOrdered By: SYSTEM SYSTEM on 08-16-2023 Glucose [Mass/Vol] 65 mg/dL Normal 55 - 140 mg/dL Re misol Chem Glucose [Mass/Vol] 102 mg/dL Normal 55 - 155 mg/dL Re misol Chem Glucose [Mass/Vol] 142 mg/dL Normal 55 - 180 mg/dL Re misol Chem Glucose [Mass/Vol] 86 mg/dL Normal 55 - 99 mg/dL Rem isol Chem CHEMISTRYOrdered By: Lab ROP User on 08-16-2023 Glucose [Mass/Vol] 82 mg/dL Normal 55 - 99 mg/dL FTM C POC Subsection Comment on above: Result Comment: Itzel roni Meter POC Device SN [id number] 1 Invalid Interpretation Code [facility] POC Subsection POC User ID [id number] 1 Invalid Interpretation Code [facility] POC Subsection POC Username DMITRIY OSORIO Invalid Interpretation Code [facility] POC Subsection Capillary Glucose POCon Glucose [Mass/Vol] 82 mg/dL Normal 55-99 [facility] Comment on above: Result Comment: Itzel roni Meter Performed By: #### 2 [id number] #### [facility] [address] [place] [address] Consent for Treatmenton Consent for Treatment [id number] #1.00TIFF Normal [facility] Glu 1 Hron 08-16-2023 Glucose [Mass/Vol] 142 mg/dL Normal 55-180 [facility] Comment on above: Performed By: #### 2 [id number] #### [facility] [address] [place] [address] Glu 2 Hron 08-16-2023 Glucose [Mass/Vol] 102 mg/dL Normal 55-155 [facility] Comment on above: Performed By: #### 2 [id number] #### [facility] [address] [place] [address] Glu 3 Hron 08-16-2023 Glucose [Mass/Vol] 65 mg/dL Normal 55-140 [facility] Comment on above: Performed By: #### 2 [id number] #### [facility] [address] [place] [address] Glu Fastingon 08-16-2023 Glucose [Mass/Vol] 86 mg/dL Normal 55-99 [facility] Comment on above: Performed By: #### 2 [id number] #### [facility] [address] [place] [address] Physician Orderon 08-16-2023 Physician Order [id number] 9#1.00TIFF [facility] Consent for Treatmenton 07-16 Consent for Treatment [id number] #1.00TIFF [facility] Physician Orderon 08-10-2023 Physician Order [id number] 8#1.00TIFF [facility] CNPNon 08-04-2023 CNPN Telephone (PSYCNO) OLIVIA RAE ([id number]) 1990 F Date Time Provider Department 08/04/23 SHANTAL CARRILLO PSTIMOTHY During your visit today, we recorded the following information about you: Yusra Desir 08/04/2023 11:18 AM Signed Advsd pt Shantal Carrillo leaving 08/09 call [phone] to schedule with new provider Allergies As of Date: 08/04/2023 Noted Allergy Reaction SHERITA-D (FEXOFENADINE-PSEUDO EPH*06/22/2011 4 - Hives BACTRIM (SULFAMETHOXAZOLE-TR IMETH*08/09/2015 14 - Other: See Comments Comments: Exacerbation of MG BETA-BLOCKERS (BETA-ADRENERGIC BL*02/06/2021 15 - Contraindication-Med ical Benitez* MAGNESIUM SULFATE 02/06/2021 15 - Contraindication-Med ical Benitez* NIFEDIPINE 02/06/2021 15 - Contraindication-Med ical Benitez* Date Reviewed: 08/03/2023 Reviewed by: Lani Pacheco MA - Fully Assessed Reason for Visit: Appointment [186] Prescriptions as of 08/11/2023 - Blood Pressure Monitor (BLOOD PRESSURE KIT) 1 Each two times a day. - ferrous sulfate 325 mg (65 mg iron) tablet Take 1 tablet by mouth two times a day. - ml686-rayv-kcqlo acid 27-800 mg-mcg tab Take 1 tablet by mouth once daily. - docusate sodium (COLACE) 100 mg capsule Take 1 capsule by mouth two times a day. - metoclopramide HCl (REGLAN) 10 mg tablet Take 1 tablet by mouth three times a day as needed (Headache). - Aspirin-Acetaminophe n-Caffeine (EXCEDRIN) 250-250-65 mg per tablet Take 1 tablet by mouth every 8 hours as needed (Headache). - Blood Pressure Test Kit-Medium kit 1 Each once daily as needed. - aspirin, enteric coated (ECOTRIN LOW STRENGTH) 81 mg EC tablet Take 1 tablet by mouth once daily. - fluticasone (FLONASE ALLERGY RELIEF) 50 mcg/actuation nasal spray Use 1 [place] in each nostril once daily. Problem List As Of Date 08/04/2023 Noted Resolved Robotic-assisted thymectomy and rib block [G70.*04/17/2011 04/27/2023 Muscle weakness (generalized) [M62.81] 06/23/2011 04/27/2023 Diplopia [H53.2] 06/23/2011 Vitamin D deficiency [E55.9] 10/02/2011 08/03/2023 Sjogrens syndrome (HCC) [M35.00] 10/02/2011 Myasthenia gravis status post thymectomy (HCC) *12/08/2011 Pain in joint, multiple sites [M25.50] 01/10/2015 04/27/2023 TRENTON positive [R76.8] 01/10/2015 08/03/2023 SS-A antibody positive [R76.8] 01/10/2015 08/03/2023 SS-B antibody positive [R76.8] 01/10/2015 08/03/2023 Rheumatoid factor positive [R76.8] 01/10/2015 08/03/2023 Cervicalgia [M54.2] 10/11/2015 04/27/2023 Acute pain of both shoulders [M25.511, M25.512] 10/11/2015 04/27/2023 Acute bilateral low back pain without sciatica *10/11/2015 04/27/2023 Elevated sed rate [R70.0] 10/14/2015 04/27/2023 Adjustment disorder with mixed anxiety and depr*06/11/2017 05/27/2023 Myasthenia gravis affecting (HCC) [O9*03/22/2018 02/20/2021 PVC's (premature ventricular contractions) [I49*07/21/2018 04/27/2023 Xerostomia [K11.7] 04/09/2020 04/27/2023 Supervision of high risk / M prenata*07/31/2020 Hx of preeclampsia, prior , currently *07/31/2020 Antepartum anemia [O99.019] 12/04/2020 02/20/2021 History of forceps delivery in prior ,*02/20/2021 Gestational hypertension, third trimester [O13.*02/06/2021 02/20/2021 Obesity affecting in third trimester *02/06/2021 02/20/2021 Pre-eclampsia, severe [O14.10] 07/20/2018 04/27/2023 Migraines [G43.909] 04/12/2023 Mental health problem [F48.9] 05/27/2023 Abnormal glucose tolerance in [O99.81*07/23/2023 Encounter Status:Closed by YUSRA DESIR on 08/11/23 Normal [facility] Examination level ultrasound on 08-03-[address] [facility] CNPNon 07-23-2023 CNP Telephone (OBGYBE) OLIVIA RAE ([id number]) 1990 F Date Time Provider Department 07/23/23 DEBBIE LAU During your visit today, we recorded the following information about you: Debbie Lau MD 07/23/2023 12:44 PM Signed LM on voice mail that 3 h GTT is usually recommend for a 1 h GCT of 135 or above. Order placed and instruction on how to do the test. Also low Fe, I would start taking extra iron. Debbie Lau MD Allergies As of Date: 07/23/2023 Noted Allergy Reaction SHERITA-D (FEXOFENADINE-PSEUDO EPH*06/22/2011 4 - Hives BACTRIM (SULFAMETHOXAZOLE-TR IMETH*08/09/2015 14 - Other: See Comments Comments: Exacerbation of MG BETA-BLOCKERS (BETA-ADRENERGIC BL*02/06/2021 15 - Contraindication-Med ical Benitez* MAGNESIUM SULFATE 02/06/2021 15 - Contraindication-Med ical Benitez* NIFEDIPINE 02/06/2021 15 - Contraindication-Med ical Benitez* Date Reviewed: 07/20/2023 Reviewed by: Lani Pacheco MA - Fully Assessed Order(s):ferrous sulfate 325 mg (65 mg iron) tabletTake 1 tablet by mouth two times a day.Disp: 60 tabletRfl: 4 Prescriptions as of 07/23/2023 - ferrous sulfate 325 mg (65 mg iron) tablet Take 1 tablet by mouth two times a day. - ys120-qqsv-ifngv acid 27-800 mg-mcg tab Take 1 tablet by mouth once daily. - docusate sodium (COLACE) 100 mg capsule Take 1 capsule by mouth two times a day. - metoclopramide HCl (REGLAN) 10 mg tablet Take 1 tablet by mouth three times a day as needed (Headache). - Aspirin-Acetaminophe n-Caffeine (EXCEDRIN) 250-250-65 mg per tablet Take 1 tablet by mouth every 8 hours as needed (Headache). - Blood Pressure Test Kit-Medium kit 1 Each once daily as needed. - aspirin, enteric coated (ECOTRIN LOW STRENGTH) 81 mg EC tablet Take 1 tablet by mouth once daily. - fluticasone (FLONASE ALLERGY RELIEF) 50 mcg/actuation nasal spray Use 1 [place] in each nostril once daily. Problem List As Of Date 07/23/2023 Noted Resolved Robotic-assisted thymectomy and rib block [G70.*04/17/2011 04/27/2023 Muscle weakness (generalized) [M62.81] 06/23/2011 04/27/2023 Diplopia [H53.2] 06/23/2011 Vitamin D deficiency [E55.9] 10/02/2011 Sjogrens syndrome (HCC) [M35.00] 10/02/2011 Myasthenia gravis status post thymectomy (HCC) *12/08/2011 Pain in joint, multiple sites [M25.50] 01/10/2015 04/27/2023 TRENTON positive [R76.8] 01/10/2015 SS-A antibody positive [R76.8] 01/10/2015 SS-B antibody positive [R76.8] 01/10/2015 Rheumatoid factor positive [R76.8] 01/10/2015 Cervicalgia [M54.2] 10/11/2015 04/27/2023 Acute pain of both shoulders [M25.511, M25.512] 10/11/2015 04/27/2023 Acute bilateral low back pain without sciatica *10/11/2015 04/27/2023 Elevated sed rate [R70.0] 10/14/2015 04/27/2023 Adjustment disorder with mixed anxiety and depr*06/11/2017 05/27/2023 Myasthenia gravis affecting (HCC) [O9*03/22/2018 02/20/2021 PVC's (premature ventricular contractions) [I49*07/21/2018 04/27/2023 Xerostomia [K11.7] 04/09/2020 04/27/2023 Supervision of high risk / MFM prenata*07/31/2020 Hx of preeclampsia, prior , currently *07/31/2020 Antepartum anemia [O99.019] 12/04/2020 02/20/2021 History of forceps delivery in prior ,*02/20/2021 Gestational hypertension, third trimester [O13.*02/06/2021 02/20/2021 Obesity affecting in third trimester *02/06/2021 02/20/2021 Pre-eclampsia, severe [O14.10] 07/20/2018 04/27/2023 Migraines [G43.909] 04/12/2023 Mental health problem [F48.9] 05/27/2023 Prescriptions ordered this encounter Disp Refills Start End FERROUS SULFATE 325 MG (65 MG IRON) * 60 t* 4 07/23/2023 Route: ORAL Sig: Take 1 tablet by mouth two times a day. Encounter Status:Closed by DEBBIE LAU on 07/23/23 [facility] OLIVIA RAE ([id number]) 1990 F Date Time Provider Department 07/07/23 [employer] OGFVWE During your visit today, we recorded the following information about you: Ashley Zarate, RN 07/07/2023 12:24 PM Signed 2nd risk assessment form submitted 07/07/23 Ashley Zarate RN Allergies As of Date: 07/07/2023 Noted Allergy Reaction SHERITA-D (FEXOFENADINE-PSEUDO EPH*06/22/2011 4 - Hives BACTRIM (SULFAMETHOXAZOLE-TR IMETH*08/09/2015 14 - Other: See Comments Comments: Exacerbation of MG BETA-BLOCKERS (BETA-ADRENERGIC BL*02/06/2021 15 - Contraindication-Med ical Benitez* MAGNESIUM SULFATE 02/06/2021 15 - Contraindication-Med ical Benitez* NIFEDIPINE 02/06/2021 15 - Contraindication-Med ical Benitez* Date Reviewed: 07/06/2023 Reviewed by: Lani Pacheco MA - Fully Assessed Reason for Visit: PRAF [4193] Prescriptions as of 07/07/2023 - sl830-cnix-koigi acid 27-800 mg-mcg tab Take 1 tablet by mouth once daily. - docusate sodium (COLACE) 100 mg capsule Take 1 capsule by mouth two times a day. - metoclopramide HCl (REGLAN) 10 mg tablet Take 1 tablet by mouth three times a day as needed (Headache). - Aspirin-Acetaminophe n-Caffeine (EXCEDRIN) 250-250-65 mg per tablet Take 1 tablet by mouth every 8 hours as needed (Headache). - Blood Pressure Test Kit-Medium kit 1 Each once daily as needed. - aspirin, enteric coated (ECOTRIN LOW STRENGTH) 81 mg EC tablet Take 1 tablet by mouth once daily. - fluticasone (FLONASE ALLERGY RELIEF) 50 mcg/actuation nasal spray Use 1 [place] in each nostril once daily. 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.*04/17/2011 04/27/2023 Muscle weakness (generalized) [M62.81] 06/23/2011 04/27/2023 Diplopia [H53.2] 06/23/2011 Vitamin D deficiency [E55.9] 10/02/2011 Sjogrens syndrome (HCC) [M35.00] 10/02/2011 Myasthenia gravis status post thymectomy (HCC) *12/08/2011 Pain in joint, multiple sites [M25.50] 01/10/2015 04/27/2023 TRENTON positive [R76.8] 01/10/2015 SS-A antibody positive [R76.8] 01/10/2015 SS-B antibody positive [R76.8] 01/10/2015 Rheumatoid factor positive [R76.8] 01/10/2015 Cervicalgia [M54.2] 10/11/2015 04/27/2023 Acute pain of both shoulders [M25.511, M25.512] 10/11/2015 04/27/2023 Acute bilateral low back pain without sciatica *10/11/2015 04/27/2023 Elevated sed rate [R70.0] 10/14/2015 04/27/2023 Adjustment disorder with mixed anxiety and depr*06/11/2017 05/27/2023 Myasthenia gravis affecting (HCC) [O9*03/22/2018 02/20/2021 PVC's (premature ventricular contractions) [I49*07/21/2018 04/27/2023 Xerostomia [K11.7] 04/09/2020 04/27/2023 Supervision of high risk / MFM prenata*07/31/2020 Hx of preeclampsia, prior , currently *07/31/2020 Antepartum anemia [O99.019] 12/04/2020 02/20/2021 History of forceps delivery in prior ,*02/20/2021 Gestational hypertension, third trimester [O13.*02/06/2021 02/20/2021 Obesity affecting in third trimester *02/06/2021 02/20/2021 Pre-eclampsia, severe [O14.10] 07/20/2018 04/27/2023 Migraines [G43.909] 04/12/2023 Mental health problem [F48.9] 05/27/2023 Encounter Status:Closed by ASHLEY ZARATE on 07/07/23 Normal [facility] CBC panel Auto (Bld)on 07-06 Erythrocyte distribution width (RBC) [Ratio] 13.2 % Normal 11.5-15.0 [facility] Comment on above: Order Comment: Speci men Type: BLOOD SPECIMEN Ordering Facility: [facility] Address: [address] [place] [address] Performed By: #### 5 8410-2 #### [facility] CLIA [id number] [place] [address] [place] Hematocrit (Bld) [Volume fraction] 33.4 % Low 36.0-46.0 [facility] Comment on above: Order Comment: Speci men Type: BLOOD SPECIMEN Ordering Facility: [facility] Address: [address] [place] [address] Performed By: #### 5 8410-2 #### [facility] CLIA [id number] [address] [place] [address] Hemoglobin (Bld) [Mass/Vol] 10.9 g/dL Low 11.5-15.5 [facility] Comment on above: Order Comment: Speci men Type: BLOOD SPECIMEN Ordering Facility: [facility] Address: [address] [place] [address] Performed By: #### 5 8410-2 #### [facility] CLIA [id number] [address] [place] [address] MCH (RBC) [Entitic mass] 28.0 pg Normal 26.0-34.0 [facility] Comment on above: Order Comment: Speci men Type: BLOOD SPECIMEN Ordering Facility: [facility] Address: [address] [place] [address] Performed By: #### 5 8410-2 #### [facility] CLIA [id number] [address] [place] [address] MCHC (RBC) [Mass/Vol] 32.6 g/dL Normal 30.5-36.0 [facility] Comment on above: Order Comment: Speci men Type: BLOOD SPECIMEN Ordering Facility: [facility] Address: [address] [place] [address] Performed By: #### 5 8410-2 #### [facility] CLIA [id number] [address] [place] [address] MCV (RBC) [Entitic vol] 85.9 fL Normal 80.0-100.0 [facility] Comment on above: Order Comment: Speci men Type: BLOOD SPECIMEN Ordering Facility: [facility] Address: [address] [place] [address] Performed By: #### 5 8410-2 #### [facility] CLIA [id number] [place] [address] [place] Nucleated RBC (Bld) [#/Vol] 10*3/uL Normal <0.01 [facility] Comment on above: Order Comment: Speci men Type: BLOOD SPECIMEN Ordering Facility: [facility] Address: [address] [place] [address] Performed By: #### 5 8410-2 #### [facility] CLIA [id number] [address] [place] [address] [place] Platelet mean volume (Bld) [Entitic vol] 11.3 fL Normal 9.0-12.7 [facility] Comment on above: Order Comment: Speci men Type: BLOOD SPECIMEN Ordering Facility: [facility] Address: [address] [place] [address] Performed By: #### 5 8410-2 #### [facility] CLIA [id number] [address] [place] [address] [place] Platelets (Bld) [#/Vol] 282 10*3/uL Normal 150-400 [facility] Comment on above: Order Comment: Speci men Type: BLOOD SPECIMEN Ordering Facility: [facility] Address: [address] [place] [address] Performed By: #### 5 8410-2 #### [facility] CLIA [id number] [address] [place] [address] [place] RBC (Bld) [#/Vol] 3.89 10*6/uL Low 3.90-5.20 [facility] Comment on above: Order Comment: Speci men Type: BLOOD SPECIMEN Ordering Facility: [facility] Address: [address] [place] [address] Performed By: #### 5 8410-2 #### [facility] CLIA [id number] [address] [place] [address] [place] WBC (Bld) [#/Vol] 7.91 10*3/uL Normal 3.70-11.00 [facility] Comment on above: Order Comment: Speci men Type: BLOOD SPECIMEN Ordering Facility: [facility] Address: [address] [place] [address] Performed By: #### 5 8410-2 #### [facility] CLIA [id number] [place] [facility] Erythrocyte distribution width (RBC) [Ratio] 13.2 % 11.5 - 15.0 % [facility] Hematocrit (Bld) [Volume fraction] 33.4 % Low 36.0 - 46.0 % [facility] Hemoglobin (Bld) [Mass/Vol] 10.9 g/dL Low 11.5 - 15.5 g/dL [facility] MCH (RBC) [Entitic mass] 28.0 pg 26.0 - 34.[address] [facility] MCHC (RBC) [Mass/Vol] 32.6 g/dL 30.5 - 36.0 g/dL [facility] MCV (RBC) [Entitic vol] 85.9 fL 80.0 - 100.[address] [facility] Nucleated RBC (Bld) [#/Vol] <0.01 k/uL [facility] Platelet mean volume (Bld) [Entitic vol] 11.3 fL 9.0 - 12.[address] [facility] Platelets (Bld) [#/Vol] 282 10*3/uL 150 - 400 k/uL [facility] RBC (Bld) [#/Vol] 3.89 10*6/uL Low 3.90 - 5.2 0 m/uL [facility] WBC (Bld) [#/Vol] 7.91 10*3/uL 3.70 - 11. 00 k/uL [facility] Examination level ultrasound on 07-06-[address] [facility] FERRITIN BLDon 07-06-2023 Ferritin [Mass/Vol] 14.8 ng/mL 14.7 - 2 05.1 ng/mL [facility] Ferritin SerPl-mCncon 2023 Ferritin [Mass/Vol] 14.8 ng/mL Normal 14.7-205.1 [facility] Comment on above: Order Comment: Speci men Type: BLOOD SPECIMEN Ordering Facility: [facility] Address: [address] [place] [address] Performed By: #### G LTGST, 48089-5, 2276-4 #### [facility] CLIA [id number] [address] [place] [address] [place] GEST GLUC SCREEN, 1-HR, 50 G M, NON-FASTINGon 07-06-2023 Glucose [Mass/Vol] 135 mg/dL High 74 - 134 mg/dL [facility] Glucose [Mass/Vol] 135 mg/dL High 74-134 [facility] Comment on above: Order Comment: Speci men Type: BLOOD SPECIMEN Ordering Facility: [facility] Address: [address] [place] [address] Result Comment: [facility] Congress of Obstetricians and Gynecologists (Jelani/Jordyn) guidelines state a gestational diabetes mellitus positive screen is made, in women not previously diagnosed with overt diabetes, when the 1 hr plasma glucose level is equal to or above 140 mg/dL. The [facility] [place] recommends a 135 mg/dL cutoff. Performed By: #### G LTGST, 79181-1, 2275- #### [facility] CLIA [id number] [address] [place] [address] [place] Iron and Iron binding capaci ty panelon 07-06-2023 Iron [Mass/Vol] 39 ug/dL Low 41-186 [facility] Comment on above: Order Comment: Speci men Type: BLOOD SPECIMEN Ordering Facility: [facility] Address: [address] [place] [address] Performed By: #### G LTGST, 88656-5, 2275-08 #### [facility] CLIA [id number] [address] [place] [address] [place] Iron binding capacity [Mass/Vol] 437 ug/dL High 232-386 [facility] Comment on above: Order Comment: Speci men Type: BLOOD SPECIMEN Ordering Facility: [facility] Address: [address] [place] [address] Performed By: #### G LTGST, 99202-8, 2275-08 #### [facility] CLIA [id number] [address] [place] [address] [place] Iron/TIBC [Molar ratio] 8.9 % Low 20.0-55.0 [facility] Comment on above: Order Comment: Speci men Type: BLOOD SPECIMEN Ordering Facility: [facility] Address: [address] [place] [address] Performed By: #### G LTGST, 45052-1, 2276-4 #### [facility] CLIA [id number] [place] Iron [Mass/Vol] 39 ug/dL Low 41 - 186 ug/dL [facility] Iron binding capacity [Mass/Vol] 437 ug/dL High 232 - 386 ug/dL [facility] Iron/TIBC [Molar ratio] 8.9 % Low 20.0 - 55.0 % [facility] Reagin and Treponema pallidu m IgG and IgM [Interp]on 07-06-2023 T. pallidum IgG+IgM IA Ql (S) Non-Reactive Normal Nonreactive [facility] Comment on above: Order Comment: Speci men Type: BLOOD SPECIMEN Ordering Facility: [facility] Address: [address] [place] [address] Performed By: #### G LTGST, 73468-3, 6-4 #### [facility] CLIA [id number] [place] [address] [place] Reagin+T pallidum IgG+IgM Se rPl-Impon 07-06-2023 Reagin and Treponema pallidum IgG and IgM [Interp] Cannot exclude recent Treponemal infection if specimen collected within 7-10 days after appearance of suspect lesions or 2-3 weeks after an exposure. Clinical correlation is required. Normal [facility] Comment on above: Order Comment: Speci men Type: BLOOD SPECIMEN Ordering Facility: [facility] Address: [address] [place] [address] Performed By: #### G LTGST, 22182-5, 2276-4 #### [facility] CLIA [id number] [address] [place] [address] [place] CNOVon 06-22-2023 CNOV Office Visit ([facility]PDMN) OLIVIA RAE ([id number]) 1990 F Date Time Provider Department 06/22/23 2:00 PM ECHO LAB 4 PEDS CARD MAIN [facility]PDMN During your visit today, we recorded the following information about you: Kaya Brooks MD 08/25/2023 6:21 PM Signed Jimi Rocha MD [facility] NAME: Olivia Rae CLINIC Number.: [id number] Date of : 1990 Date of Visit: June 22, 2023 Estimated date of delivery: 09/24/[address] Rocha: Thank you for asking us to evaluate your patient, . Olivia Rae, for echocardiogram and consultation in the setting of mother with Sjogren syndrome and positive SSA/SSB antibodies. I saw her in the Cardiology Outpatient Clinic at [facility] on June 22, 2023. She is a 32 year old woman, at 26 4/7 weeks with a single fetus. Maternal T21 plus/NIPT was performed and the results were reported as low risk. The patient has significant past medical history of myasthenia gravis (s/p thymectomy) and Sjogren syndrome as well as anxiety, premature ventricular contractions and pre-eclampsia in prior . Social history reveals no significant concerns. There is family history of early deaths (mother unsure of cause), no defects, other two siblings are said to be healthy without heart block. Current medications include reglan, vitamins, aspirin. Since her last visit she denies any change in medical, social or family history or in her medications. echocardiogram on June 22, 2023 at 26 4/7 weeks gestation: A complete echocardiogram was performed. This shows atrial situs solitus with levocardia. SVC and IVC return normally to the right atrium. The os of the coronary sinus opens normally to the right atrium. One right and one left pulmonary vein were seen returning normally into the left atrium. The atria were normal in size and there was normal right to left shunting at the atrial level. The left and right ventricles were normal in size and function. No ventricular hypertrophy. The ventricular septum appeared intact. Normal mitral and tricuspid valves without significant regurgitation. The left and right ventricular outflow tracts were widely patent. The aortic and ductal arches were widely patent. heart rate and rhythm were regular and no pericardial effusion was seen. In summary, echocardiographic findings revealed a structurally normal heart with situs solitus. There was no valvar dysfunction and normal biventricular function with normal heart rate and rhythm. Findings and limitations of the echocardiogram and echocardiography in general were explained to the patient. These included the limited ability to exclude small to moderate atrial and ventricular septal defects as well as minor valvar abnormalities, partial anomalous pulmonary venous return, persistent patent ductus arteriosus, coarctation of the aorta and very subtle defects which may progress through gestation. Delivery is planned at [facility]. At this time, my recommendation for management is that no further cardiology follow-up is required unless clinically indicated. Assuming no change in clinical status, the recommendation is that no further cardiac follow-up is required. Thank you very much for allowing me to take part in the care of your patient. I have encouraged her to contact me with any questions or concerns. Please do not hesitate to contact us with further issues. Sincerely, Kaya Brooks MD Staff [employer] Operator [facility] Referring Provider: SELF [[id number]] Allergies As of Date: 06/22/2023 Noted Allergy Reaction SHERITA-D (FEXOFENADINE-PSEUDO EPH*06/22/2011 4 - Hives BACTRIM (SULFAMETHOXAZOLE-TR IMETH*08/09/2015 14 - Other: See Comments Comments: Exacerbation of MG BETA-BLOCKERS (BETA-ADRENERGIC BL*02/06/2021 15 - Contraindication-Med ical Benitez* MAGNESIUM SULFATE 02/06/2021 15 - Contraindication-Med ical Benitez* NIFEDIPINE 02/06/2021 15 - Contraindication-Med ical Benitez* Date Reviewed: 06/22/2023 Reviewed by: Coby Santoyo RN - Fully Assessed Visit Diagnosis:SS-A antibody positive [R76.8] Order(s):ECHO [[id number]] Order #: [id number]: 1 Prescriptions as of 08/25/2023 - Senna 8.6 mg tab Take 2 tablets by mouth once daily. - Blood Pressure Monitor (BLOOD PRESSURE KIT) 1 Each two times a day. - ferrous sulfate 325 mg (65 mg iron) tablet Take 1 tablet by mouth two times a day. - gt978-ghbh-zxvio acid 27-800 mg-mcg tab Take 1 tablet by mouth once daily. - docusate sodium (COLACE) 100 mg capsule Take 1 capsule by mouth two times a day. - metoclopramide HCl (REGLAN) 10 mg tablet Take 1 tablet by mouth three times a day as needed (Headache). - Aspirin-Acetaminophe n-Caffeine (EXCEDRIN) 250-250-65 mg per tablet (more content not included)... Normal [facility] FETALon 06-22-2023 ++ ++ [facility] Echocardi[facility] Report ++ ++ NAME: MS. OLIVIA RAE : 1990 Age: 32 years Due Date: 09/24/2023 Gender: F Study Date: 06/22/2023 2:34:37 PM GA: 26.60 Requested By: Jimi Hardwickg. Physician: Kaya Brooks MD Study Location: [facility] OP () Diagnosis: O35.9XX9 Maternal care for (suspected) abnormality and damage, unspecified, other fetus History: Maternal SSA/SSB antibodies, myasthenia gravis. Indications: Evaluate cardiac anatomy and function. Procedures: 10820, 65019, 89973 Echo, Complete (w/Doppler and color) INTERPRETATION SUMMARY 1. No structural cardiac abnormalities detected. 2. No aortic or mitral valve regurgitation. Trivial intermittent tricuspid regurgitation. 3. No right or left ventricular outflow tract obstruction. 4. Patent foramen ovale with normal intrauterine right to left flow. 5. Qualitatively normal biventricular size and systolic function. 6. Ductal and aortic arches appear patent, small anterior shelf without posterior shelf, with antegrade flow throughout the aortic arch. 7. heart rate and rhythm were regular. No ectopy or sustained tachycardia noted. Mechanical AV interval was within normal limits at ~ 110 to 120 milliseconds. 8. Trivial pericardial effusion (around right heart), of no hemodynamic significance, no evidence of hydrops fetalis. 9. Umbilical arterial and venous dopplers were within normal limits. biometry was consistent with gestastional age. In summary, echocardiographic findings revealed situs solitus with levocardia. There was normal biventricular size and systolic function, no significant valvar dysfunction, patent ductal and aortic arches with small anterior shelf and normal heart rate and rhythm, with normal mechanical AV interval. Please refer to EPIC for complete consult note. The results and limitations of the echocardiogram and echocardiography in general, including the inability to exclude ASDs, some VSDs, minor valvar abnormalities, partial anomalous pulmonary venous return, persistent patent ductus arteriosus, and coarctation of the aorta, were explained to the patient. MEASUREMENTS: Ventricles Zscore IVS d, Mmode 0.33 cm LV d, Mmode 0.79 cm LV s, Mmode 0.45 cm LVPW d, Mmode 0.42 cm LV FS Mmode 43.1 % MV Annulus, diam: 0.82 cm Z score: 1.31 PV Annulus: 0.54 cm Z Score: -0.52 EFW Zscore: -0.55 TV Annulus d A/P: 0.81 cm Zscore: 0.37 Aorta Ao Root:: 0.6 cm Z score: 2.13 Ao Asc: 0.60 cm Zscore: 1.40 Ao Annulus: 0.52 cm Z score: 1.00 EFW Zscore: 0.75 Transv Ao: 0.38 cm Z score: -0.78 Biometrics: The BPD is measured at 6.56 cm. The AC is measured at 23.62 cm. The FL is measured at 5.16 cm. The estimated weight is calculated at 1038.22 g. Blood Flow/Rhythm: The umbilical artery and vein flow is normal. The hepatic artery flow is normal. The pulsatility index is 0.85. The Heart rate is regular and 122 to 136 bpm. Ductus venosus doppler flow profile appears normal. POSITION/CONNECTION: Situs: Abdominal visceral situs solitus. Levocardia. Atrial situs solitus. D looping of the ventricles. Normally related great arteries. VEINS: Systemic Veins: The right superior vena cava drains normally to the right atrium and is of normal caliber. The inferior vena cava is right-sided, entering the atrium. Pulmonary Veins: At least one pulmonary vein on each side is seen returning to the left atrium. ATRIA/SEPTUM: Atria: The left atrium is normal size. The right atrium is normal in size. The foramen ovale is patent with normal intrauterine right to left flow. AV VALVES/CANAL: Mitral Valve: The mitral valve leaflets are normal in appearance. No mitral regurgitation is present. Tricuspid Valve: The tricuspid valve is normal in appearance. Trivial intermittent tricuspid regurgitation is present. VENTRICLES: Left Ventricle: The left ventricle is normal in size. There is normal wall thickness. Left ventricular systolic function is normal. Right Ventricle: The right ventricular chamber is of normal size. The right ventricular function appears qualitatively normal. There is no evidence of right ventricular hypertrophy. VSD: There is an intact ventricular septum. OUTFLOW TRACTS: LVOT: There is no left ventricular outflow tract obstruction. Aortic Valve: The aortic valve is normal. There is no aortic stenosis. No aortic regurgitation is present. RVOT: There is no right ventricular outflow tract obstruction. Pulmonic Valve: The pulmonary valve is n (more content not included)... Normal [facility] URINE OB DIP B/Oon Glucose Ql (U) Negative Neg mg/dL [facility] Protein.monoclonal (U) [Mass/Vol] Negative Neg mg/dL [facility] FETALon 06-15-2023 ++ ++ [facility] Echocardiogram Report ++ ++ NAME: MS. OLIVIA RAE : 1990 Age: 32 years Due Date: 09/24/2023 Gender: F Study Date: 06/15/2023 1:00:00 PM GA: 25.40 Requested By: Jimi Gallardo. Physician: Giselle Walsh MD Study Location: [facility] () Study Quality: The images were of adequate diagnostic quality Diagnosis: SS-A antibody positive [R76.8] SS-B antibody positive [R76.8] History: Maternal positivity for ssa and ssb antibodies. Indications: Evaluate rhythm and function. Procedures: 86300 Echo, Follow up or Repeat; 06502 Doppler, Follow up or Repeat; 14538 Doppler Color Flow INTERPRETATION SUMMARY echocardiogram on June 15, 2023 at 25 weeks and 4 days of gestation shows atrial situs solitus with levocardia. SVC and IVC return normally to the right atrium. The os of the coronary sinus opens normally to the right atrium. One right and one left pulmonary vein were seen returning normally into the left atrium. The atria were normal in size and there was normal right to left shunting at the atrial level. The left and right ventricles were normal in size and shortening. No ventricular hypertrophy. The ventricular septum appeared intact. Normal mitral and tricuspid valves without significant regurgitation. The left and right ventricular outflow tracts were widely patent. The aortic and ductal arches were widely patent. heart rate and rhythm were regular, mechanical AZ was 113-133 msec, HR 144 bpm, and no pericardial effusion was seen. Normal Doppler of umbilical artery, umbilical vein, ductus venosus. See separate consult note in Epic. The results and limitations of the echocardiogram and echocardiography in general, including the inability to exclude ASDs, some VSDs, minor valvar abnormalities, partial anomalous pulmonary venous return, persistent patent ductus arteriosus, and coarctation of the aorta, were explained to the patient. MEASUREMENTS: Biometrics: The BPD is measured at 6.65 cm. The AC is measured at 20.18 cm. The FL is measured at 5.05 cm. The estimated weight is calculated at 847.02 g. Blood Flow/Rhythm: The umbilical artery flow is normal. The hepatic artery flow is normal. The pulsatility index is 1.22. The Heart rate is regular and 144 bpm. POSITION/CONNECTION: VEINS: ATRIA/SEPTUM: AV VALVES/CANAL: Mitral Valve: No mitral regurgitation is present. Tricuspid Valve: No tricuspid regurgitation is present. VENTRICLES: Left Ventricle: The left ventricle is normal in size. Left ventricular systolic function is normal. Right Ventricle: The right ventricular chamber is of normal size. The right ventricular function appears qualitatively normal. OUTFLOW TRACTS: GREAT ARTERIES: OTHER: Pericardium: There is no pericardial effusion. Performed by Pilar Keyes. Electronically signed by Giselle Walsh MD, 06/15/2023 1:49:33 PM. Final CC [employer] : [id number] D See Link below for Image Normal [facility] 05-27-2023 CNPN Telephone (OBMN) OLIVIA RAE ([id number]) 1990 F Date Time Provider Department 05/27/23 MARY ANN SALAZAR [facility] During your visit today, we recorded the following information about you: Mary Ann Salazar RN 05/27/2023 12:09 PM Signed Call to Olivia to discuss her missed echo appointment yesterday. She said that she was not feeling well and rescheduled it to 05/31. She still is not feeling well and may cancel 05/31 also. Encouraged her to do what she felt she needed to do and to keep her scheduled echo on 06/09. She inquired about seeing a mental health therapist also. Message sent to Dr. Sridhar Adams to ask for an order. I will be in contact once I receive more information. VELASQUEZ Sutherland Deborah Ann, RN 05/28/2023 9:39 AM Signed Message left on Olivia's cell that she is scheduled for a virtual appointment on 06/10 at 900 with Shantal Gerardo. Asked to call me if she has any questions about this appointment or the echo appointments. Mary Ann Salazar RN Allergies As of Date: 05/27/2023 Noted Allergy Reaction SHERITA-D (FEXOFENADINE-PSEUDO EPH*06/22/2011 4 - Hives BACTRIM (SULFAMETHOXAZOLE-TR IMETH*08/09/2015 14 - Other: See Comments Comments: Exacerbation of MG BETA-BLOCKERS (BETA-ADRENERGIC BL*02/06/2021 15 - Contraindication-Med ical Benitez* MAGNESIUM SULFATE 02/06/2021 15 - Contraindication-Med ical Benitez* NIFEDIPINE 02/06/2021 15 - Contraindication-Med ical Benitez* Date Reviewed: 05/20/2023 Reviewed by: Lani Pacheco MA - Fully Assessed Reason for Visit: Appointment [186] Prescriptions as of 05/28/2023 - sw185-fram-zqvfj acid 27-800 mg-mcg tab Take 1 tablet by mouth once daily. - docusate sodium (COLACE) 100 mg capsule Take 1 capsule by mouth two times a day. - metoclopramide HCl (REGLAN) 10 mg tablet Take 1 tablet by mouth three times a day as needed (Headache). - Aspirin-Acetaminophe n-Caffeine (EXCEDRIN) 250-250-65 mg per tablet Take 1 tablet by mouth every 8 hours as needed (Headache). - Blood Pressure Test Kit-Medium kit 1 Each once daily as needed. - aspirin, enteric coated (ECOTRIN LOW STRENGTH) 81 mg EC tablet Take 1 tablet by mouth once daily. - fluticasone (FLONASE ALLERGY RELIEF) 50 mcg/actuation nasal spray Use 1 [place] in each nostril once daily. 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.*04/17/2011 04/27/2023 Muscle weakness (generalized) [M62.81] 06/23/2011 04/27/2023 Diplopia [H53.2] 06/23/2011 Vitamin D deficiency [E55.9] 10/02/2011 Sjogrens syndrome (HCC) [M35.00] 10/02/2011 Myasthenia gravis status post thymectomy (HCC) *12/08/2011 Pain in joint, multiple sites [M25.50] 01/10/2015 04/27/2023 [place] positive [R76.8] 01/10/2015 SS-A antibody positive [R76.8] 01/10/2015 SS-B antibody positive [R76.8] 01/10/2015 Rheumatoid factor positive [R76.8] 01/10/2015 Cervicalgia [M54.2] 10/11/2015 04/27/2023 Acute pain of both shoulders [M25.511, M25.512] 10/11/2015 04/27/2023 Acute bilateral low back pain without sciatica *10/11/2015 04/27/2023 Elevated sed rate [R70.0] 10/14/2015 04/27/2023 Adjustment disorder with mixed anxiety and depr*06/11/2017 05/27/2023 Myasthenia gravis affecting (HCC) [O9*03/22/2018 02/20/2021 PVC's (premature ventricular contractions) [I49*07/21/2018 04/27/2023 Xerostomia [K11.7] 04/09/2020 04/27/2023 Supervision of high risk / MFM prenata*07/31/2020 Hx of preeclampsia, prior , currently *07/31/2020 Antepartum anemia [O99.019] 12/04/2020 02/20/2021 History of forceps delivery in prior ,*02/20/2021 Gestational hypertension, third trimester [O13.*02/06/2021 02/20/2021 Obesity affecting in third trimester *02/06/2021 02/20/2021 Pre-eclampsia, severe [O14.10] 07/20/2018 04/27/2023 Migraines [G43.909] 04/12/2023 Mental health problem [F48.9] 05/27/2023 Encounter Status:Closed by MARY ANN SALAZAR on 05/28/23 Normal [facility] Bacteria Ur Culton Bacteria identified Cx Nom (U) CULTURE, URINE: No growth (<1,000 CFU/ml) Normal [facility] Comment on above: Performed By: #### 6 30-4 ####[facility] [id number] [place] [address] [place] Urinalysis complete panel (U )on 05-20-2023 Bacteria LM.HPF (Urine sed) [#/Area] Few Abnormal None Seen [facility] Comment on above: Order Comment: Speci men Type: BLOOD SPECIMEN Ordering Facility: [facility] Address: [address] [place] [address] Performed By: #### 2 4323-8 #### [facility] CLIA [id number] [address] [place] [address] [place] Bilirubin Ql (U) Negative Normal Negative [facility] Comment on above: Order Comment: Speci men Type: BLOOD SPECIMEN Ordering Facility: [facility] Address: [address] [place] [address] Performed By: #### 2 4323-8 #### [facility] CLIA [id number] [address] [place] [address] [place] Clarity (Unsp spec) Clear Normal Clear [facility] Comment on above: Order Comment: Speci men Type: BLOOD SPECIMEN Ordering Facility: [facility] Address: [address] Performed By: #### 2 4323-8 #### [facility] CLIA [id number] [address] [place] [address] [place] Color (U) Light Yellow Normal Yellow [facility] Comment on above: Order Comment: Speci men Type: BLOOD SPECIMEN Ordering Facility: [facility] Address: [address] [place] [address] Performed By: #### 2 4323-8 #### [facility] CLIA [id number] [address] [place] [address] [place] Epithelial cells LM.HPF (Urine sed) [#/Area] Few Normal [facility] Comment on above: Order Comment: Speci men Type: BLOOD SPECIMEN Ordering Facility: [facility] Address: [address] [place] [address] Performed By: #### 2 4323-8 #### [facility] CLIA [id number] [address] [place] [address] [place] Glucose Test strip (U) [Mass/Vol] Negative Normal Trace, Negative [facility] Comment on above: Order Comment: Speci men Type: BLOOD SPECIMEN Ordering Facility: [facility] Address: [address] [place] [address] Performed By: #### 2 4323-8 #### [facility] CLIA [id number] [address] [place] [address] [place] Hemoglobin Ql (U) Negative Normal Negative, Trace Cl [facility] Comment on above: Order Comment: Speci men Type: BLOOD SPECIMEN Ordering Facility: [facility] Address: [address] [place] [address] Performed By: #### 2 4323-8 #### [facility] CLIA [id number] [address] [place] [address] [place] Ketones Ql (U) Negative Normal Negative, Trace [facility] Comment on above: Order Comment: Speci men Type: BLOOD SPECIMEN Ordering Facility: [facility] Address: [address] [place] [address] Performed By: #### 2 4323-8 #### [facility] CLIA [id number] [address] [place] [address] [place] Leukocyte esterase Test strip Ql (U) Negative Normal Negative, 25 Vaibhav/uL [facility] Comment on above: Order Comment: Speci men Type: BLOOD SPECIMEN Ordering Facility: [facility] Address: [address] Performed By: #### 2 4323-8 #### [facility] CLIA [id number] [address] [place] [address] [place] Nitrite Ql (U) Negative Normal Negative [facility] Comment on above: Order Comment: Speci men Type: BLOOD SPECIMEN Ordering Facility: [facility] Address: [address] Performed By: #### 2 4323-8 #### [facility] CLIA [id number] [address] [place] [address] [place] pH (U) 7.0 [pH] Normal 5.0-8.0 [facility] Comment on above: Order Comment: Speci men Type: BLOOD SPECIMEN Ordering Facility: [facility] Address: [address] [place], [place] [address] Performed By: #### 2 4323-8 #### [facility] CLIA [id number] [address] [place] OF [facility] Protein (U) [Mass/Vol] Negative Normal Trace, Negative [facility] Comment on above: Order Comment: Speci men Type: BLOOD SPECIMEN Ordering Facility: [facility] Address: [address] [place] [address] Performed By: #### 2 4323-8 #### [facility] CLIA [id number] [address] [place] RBC LM.HPF (Urine sed) [#/Area] 0-3 /HPF Normal 0-3 /HPF [facility] Comment on above: Order Comment: Speci men Type: BLOOD SPECIMEN Ordering Facility: [facility] Address: [address] [place] [address] Performed By: #### 2 4323-8 #### [facility] CLIA [id number] [address] [place] [address] [place] Specific gravity (U) [Rel density] 1.016 Normal 1.005-1.030 [facility] Comment on above: Order Comment: Speci men Type: BLOOD SPECIMEN Ordering Facility: [facility] Address: [address] [place] [address] Performed By: #### 2 4323-8 #### [facility] CLIA [id number] [facility] [address] [place] Urobilinogen Ql (U) Negative Normal Negative [facility] Comment on above: Order Comment: Speci men Type: BLOOD SPECIMEN Ordering Facility: [facility] Address: [address] [place], [place] [address] Performed By: #### 2 4323-8 #### [facility] CLIA [id number] [address] [place] [address] [place] WBC LM.HPF (Urine sed) [#/Area] 0-5 /HPF Normal 0-5 /HPF [facility] Comment on above: Order Comment: Lala ennis Type: BLOOD SPECIMEN Ordering Facility: [facility] Address: [address] [facility] [place] [address] Performed By: #### 2 4323-8 #### [facility] CLIA [id number] [address] [facility] [place] [address] [facility] FETALon 05-11-2023 ++ ++ [facility] Echocardiogram Report ++ ++ NAME: MS. OLIVIA RAE : 1990 Age: 32 years Due Date: 09/24/2023 Gender: F Study Date: 05/11/2023 12:25:09 PM GA: 20.60 Requested By: Jimi Gallardo. Physician: Giselle Walsh MD Study Location: [facility] () Diagnosis: SS-A antibody positive [R76.8] SS-B antibody positive [R76.8] History: Positive SSA/SSB Antibodies. Indications: Evaluate cardiac anatomy and function. Procedures: 01689 Echo, Complete; 21062 Doppler, Complete; 48329 Doppler Color Flow INTERPRETATION SUMMARY echocardiogram on May 11, 2023 at 20 weeks and 4 days of gestation shows atrial situs solitus with levocardia. SVC and IVC return normally to the right atrium. The os of the coronary sinus opens normally to the right atrium. One right and one left pulmonary vein were seen returning normally into the left atrium. The atria were normal in size and there was normal right to left shunting at the atrial level. The left and right ventricles were normal in size and shortening. No ventricular hypertrophy. The ventricular septum appeared intact. Normal mitral and tricuspid valves without significant regurgitation. The left and right ventricular outflow tracts were widely patent. The aortic and ductal arches were widely patent. heart rate and rhythm were regular, mechanical AZ interval 116 to 128 ms and heart rate varied between 126 and 153 bpm. And no pericardial effusion was seen. Normal Doppler of umbilical artery, umbilical vein, ductus venosus. See separate consult note in Epic. The results and limitations of the echocardiogram and echocardiography in general, including the inability to exclude ASDs, some VSDs, minor valvar abnormalities, partial anomalous pulmonary venous return, persistent patent ductus arteriosus, and coarctation of the aorta, were explained to the patient. MEASUREMENTS: Biometrics: The BPD is measured at 4.88 cm. The AC is measured at 15.31 cm. The FL is measured at 3.50 cm. Blood Flow/Rhythm: The umbilical artery flow is normal. The hepatic artery flow is normal. The pulsatility index is 1.33. The Heart rate is regular and 156 bpm. POSITION/CONNECTION: VEINS: ATRIA/SEPTUM: AV VALVES/CANAL: VENTRICLES: OUTFLOW TRACTS: GREAT ARTERIES: OTHER: Performed by Crissy Arnett. Electronically signed by Giselle Walsh MD, 05/11/2023 3:37:38 PM. Final CC [employer] : [id number] See Link below for Image Normal [facility] Mychal 04-28-2023 [facility]IV[facility] ([id number]) 1990 F Date Time Provider Department 04/28/23 [facility] During your visit today, we recorded the following information about you: Mary Ann Salazar RN 04/28/2023 11:00 AM Signed Call to Olivia at the request of Dr. Sridhar Adams to introduce myself as the Maternal Coordinate Measuring Machine Operator for the Care Center. Discussion of the services offered including support, education, coordination of care and appointment scheduling. Also reviewed the multi-disciplinary team meetings in which her case will be discussed to optimize care planning. I provided Olivia with my contact information and encouraged her to call me with any question or concerns. I assisted with scheduling her biweekly echos and routine OB visits. Belkys Salazar RN Allergies As of Date: 04/28/2023 Noted Allergy Reaction SHERITA-D (FEXOFENADINE-PSEUDO EPH*06/22/2011 4 - Hives BACTRIM (SULFAMETHOXAZOLE-TR IMETH*08/09/2015 14 - Other: See Comments Comments: Exacerbation of MG BETA-BLOCKERS (BETA-ADRENERGIC BL*02/06/2021 15 - Contraindication-Med ical Benitez* MAGNESIUM SULFATE 02/06/2021 15 - Contraindication-Med ical Benitez* NIFEDIPINE 02/06/2021 15 - Contraindication-Med ical Benitez* Date Reviewed: 04/12/2023 Reviewed by: Rhea Riley Ma - Fully Assessed Reason for Visit: Coordinate Measuring Machine Operator - Other [0452] Prescriptions as of 04/28/2023 - metoclopramide HCl (REGLAN) 10 mg tablet Take 1 tablet by mouth three times a day as needed (Headache). - Aspirin-Acetaminophe n-Caffeine (EXCEDRIN) 250-250-65 mg per tablet Take 1 tablet by mouth every 8 hours as needed (Headache). - Blood Pressure Test Kit-Medium kit 1 Each once daily as needed. - aspirin, enteric coated (ECOTRIN LOW STRENGTH) 81 mg EC tablet Take 1 tablet by mouth once daily. - fluticasone (FLONASE ALLERGY RELIEF) 50 mcg/actuation nasal spray Use 1 [place] in each nostril once daily. - lg110-pkys-wgjkp acid 27-800 mg-mcg tab Take 1 tablet by mouth once daily. 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.*04/17/2011 04/27/2023 Muscle weakness (generalized) [M62.81] 06/23/2011 04/27/2023 Diplopia [H53.2] 06/23/2011 Vitamin D deficiency [E55.9] 10/02/2011 Sjogrens syndrome (HCC) [M35.00] 10/02/2011 Myasthenia gravis status post thymectomy (HCC) *12/08/2011 Pain in joint, multiple sites [M25.50] 01/10/2015 04/27/2023 [place] positive [R76.8] 01/10/2015 SS-A antibody positive [R76.8] 01/10/2015 SS-B antibody positive [R76.8] 01/10/2015 Rheumatoid factor positive [R76.8] 01/10/2015 Cervicalgia [M54.2] 10/11/2015 04/27/2023 Acute pain of both shoulders [M25.511, M25.512] 10/11/2015 04/27/2023 Acute bilateral low back pain without sciatica *10/11/2015 04/27/2023 Elevated sed rate [R70.0] 10/14/2015 04/27/2023 Adjustment disorder with mixed anxiety and depr*06/11/2017 Myasthenia gravis affecting (HCC) [O9*03/22/2018 02/20/2021 PVC's (premature ventricular contractions) [I49*07/21/2018 04/27/2023 Xerostomia [K11.7] 04/09/2020 04/27/2023 Supervision of high risk / MFM prenata*07/31/2020 Hx of preeclampsia, prior , currently *07/31/2020 Antepartum anemia [O99.019] 12/04/2020 02/20/2021 History of forceps delivery in prior ,* 1 02/20/2021 Gestational hypertension, third trimester [O13.*02/06/2021 02/20/2021 Obesity affecting in third trimester *02/06/2021 02/20/2021 Pre-eclampsia, severe [O14.10] 07/20/2018 04/27/2023 Migraines [G43.909] 04/12/2023 Encounter Status:Closed by MARY ANN SALAZAR on 04/28/23 Normal [facility] OBSTETRIC ULTRASOUND WHIon 1 06-27-[address] [facility] URINE OB DIP B/Oon Glucose Ql (U) Negative Neg mg/dL [facility] Protein.monoclonal (U) [Mass/Vol] Negative Neg mg/dL [facility] CNPNon 04-03-2023 CNPN Telephone ([facility]) OLIVIA RAE ([id number]) 1990 F Date Time Provider Department 04/03/23 ASHLI MONTANEZ [facility] During your visit today, we recorded the following information about you: Panda Vivar, VELASQUEZ 04/03/2023 11:54 AM Signed @ 15.1 weeks IUP. Yesterday am pt woke up w vomiting and cramping. She went to [place] [facility] where they gave her fluids, potassium, reglan and benadryl Transvag ultrasound done. Bloodwork not concerning, baby looks fine. She went home and got a call back that a second radiologist reviewed the ultrasound and noted that there are more predominant blood vessels towards the placenta . Advised to let OB provider know and that if she gets more cramping or bleeding to go back to ER. Pt denies bleeding today. Still having cramping off and on. No further vomiting. Next appt is 04/[address] Montanez. Advised that will send message to Dr. Montanez and covering provider. Results not able to be seen in care everywhere. Pt will likely need to get records from [place] [facility] sent to provider's office. Allergies As of Date: 04/03/2023 Noted Allergy Reaction SHERITA-D (FEXOFENADINE-PSEUDO EPH*06/22/2011 4 - Hives BACTRIM (SULFAMETHOXAZOLE-TR IMETH*08/09/2015 14 - Other: See Comments Comments: Exacerbation of MG BETA-BLOCKERS (BETA-ADRENERGIC BL*02/06/2021 15 - Contraindication-Med ical Benitez* MAGNESIUM SULFATE 02/06/2021 15 - Contraindication-Med ical Benitez* NIFEDIPINE 02/06/2021 15 - Contraindication-Med ical Benitez* Date Reviewed: 03/16/2023 Reviewed by: Amina Au Ma - Fully Assessed Reason for Visit: ED Follow-up [821] Vomiting [120] Prescriptions as of 07/13/2023 - [id number]-qqli-zrojg acid 27-800 mg-mcg tab Take 1 tablet by mouth once daily. - docusate sodium (COLACE) 100 mg capsule Take 1 capsule by mouth two times a day. - metoclopramide HCl (REGLAN) 10 mg tablet Take 1 tablet by mouth three times a day as needed (Headache). - Aspirin-Acetaminophe n-Caffeine (EXCEDRIN) 250-250-65 mg per tablet Take 1 tablet by mouth every 8 hours as needed (Headache). - Blood Pressure Test Kit-Medium kit 1 Each once daily as needed. - aspirin, enteric coated (ECOTRIN LOW STRENGTH) 81 mg EC tablet Take 1 tablet by mouth once daily. - fluticasone (FLONASE ALLERGY RELIEF) 50 mcg/actuation nasal spray Use 1 [place] in each nostril once daily. 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.*04/17/2011 Muscle weakness (generalized) [M62.81] 06/23/2011 Diplopia [H53.2] 06/23/2011 Vitamin D deficiency [E55.9] 10/02/2011 Sjogrens syndrome (HCC) [M35.00] 10/02/2011 Myasthenia gravis status post thymectomy (HCC) *12/08/2011 Pain in joint, multiple sites [M25.50] 01/10/2015 [place]ON positive [R76.8] 01/10/2015 SS-A antibody positive [R76.8] 01/10/2015 SS-B antibody positive [R76.8] 01/10/2015 Rheumatoid factor positive [R76.8] 01/10/2015 Cervicalgia [M54.2] 10/11/2015 Acute pain of both shoulders [M25.511, M25.512] 10/11/2015 Acute bilateral low back pain without sciatica *10/11/2015 Elevated sed rate [R70.0] 10/14/2015 Adjustment disorder with mixed anxiety and depr*06/11/2017 Myasthenia gravis affecting (HCC) [O9*03/22/2018 02/20/2021 PVC's (premature ventricular contractions) [I49*07/21/2018 Xerostomia [K11.7] 04/09/2020 Supervision of other high risk , antep*07/31/2020 03/22/2021 Hx of preeclampsia, prior , currently *07/31/2020 02/20/2021 Antepartum anemia [O99.019] 12/04/2020 02/20/2021 History of forceps delivery in prior ,*02/20/2021 Gestational hypertension, third trimester [O13.*02/06/2021 02/20/2021 Obesity affecting in third trimester *02/06/2021 02/20/2021 Pre-eclampsia, severe [O14.10] 07/20/2018 Encounter Status:Closed by PANDA VIVAR on 07/13/23 [facility] Mychal 03-26-2023 DARRICK Telephone (OGFVWE) OLIVIA RAE ([id number]) 1990 F Date Time Provider Department 03/26/23 ASHLI MONTANEZ OGFVWE During your visit today, we recorded the following information about you: Cassie Dueñas RN 03/26/2023 12:19 PM Signed Receive call from patient who was identified by name and . Patient called with c/o severe migraines Has h/o migraines, but has never had it this severe. Has sjorgens, Myathenia gravis, and history of severe PreE. On baby asa Reports daily migraines. Pain is all over. Describes as pounding. Pain can radiate down the spine at time. Has been experiencing nausea w/ dry heaving. Reports both light and sound sensitivity. Has had visual disturbances, blurry vision. Rates pain 10/10. Has tried taking acetaminophen 650 mg every 6-8 hours, increase caffeine intake, increased water and Gatorade consumption, and eating small meals, ice pack, and resting in the dark. Pain will slight decrease to a 8/10 after doing interventions. No muscle weakness, facial drooping. Pt smoke clearly during triage. No OB concerns at this time Advised if migraines are that severe, needs to be seen in ER for evaluation/tx. Message forwarded to Dr. Montanez for review. VELASQUEZ Gatica Robert L, MD 03/26/2023 1:31 PM Signed If no relief after below, she will need to go to ED. The following approved medication requests have been transmitted electronically. Requested Prescriptions Signed Prescriptions Disp Refills acetaminophen 325 mg-caffeine 40 mg-butalbital 50 mg (FIORICET) per tablet 20 tablet 0 Sig: Take 1-2 tablets by mouth every 4 hours as needed. Authorizing Provider: ASHLI MONTANEZ Jr, MD Snyder, Katherine, RN 03/26/2023 1:[address] to patient who was identified by name and . Reviewed/discussed Dr. Montanez previous message in detail. Medication reviewed/discussed. Patient verbalized understanding and states has no questions at this time. Cassie Dueñas RN Allergies As of Date: 03/26/2023 Noted Allergy Reaction SHERITA-D (FEXOFENADINE-PSEUDO EPH*06/22/2011 4 - Hives BACTRIM (SULFAMETHOXAZOLE-TR IMETH*08/09/2015 14 - Other: See Comments Comments: Exacerbation of MG BETA-BLOCKERS (BETA-ADRENERGIC BL*02/06/2021 15 - Contraindication-Med ical Benitez* MAGNESIUM SULFATE 02/06/2021 15 - Contraindication-Med ical Benitez* NIFEDIPINE 02/06/2021 15 - Contraindication-Med ical Benitez* Date Reviewed: 03/16/2023 Reviewed by: Amina Au Ma - Fully Assessed Order(s):acetaminoph en 325 mg-caffeine 40 mg-butalbital 50 mg (FIORICET) per tabletTake 1-2 tablets by mouth every 4 hours as needed.Disp: 20 tabletRfl: 0 Prescriptions as of 03/26/2023 - acetaminophen 325 mg-caffeine 40 mg-butalbital 50 mg (FIORICET) per tablet Take 1-2 tablets by mouth every 4 hours as needed. - aspirin, enteric coated (ECOTRIN LOW STRENGTH) 81 mg EC tablet Take 1 tablet by mouth once daily. - fluticasone (FLONASE ALLERGY RELIEF) 50 mcg/actuation nasal spray Use 1 [place] in each nostril once daily. - hr467-bnsa-vxiny acid 27-800 mg-mcg tab Take 1 tablet by mouth once daily. 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.*04/17/2011 Muscle weakness (generalized) [M62.81] 06/23/2011 Diplopia [H53.2] 06/23/2011 Vitamin D deficiency [E55.9] 10/02/2011 Sjogrens syndrome (HCC) [M35.00] 10/02/2011 Myasthenia gravis status post thymectomy (HCC) *12/08/2011 Pain in joint, multiple sites [M25.50] 01/10/2015 [place] positive [R76.8] 01/10/2015 SS-A antibody positive [R76.8] 01/10/2015 SS-B antibody positive [R76.8] 01/10/2015 Rheumatoid factor positive [R76.8] 01/10/2015 Cervicalgia [M54.2] 10/11/2015 Acute pain of both shoulders [M25.511, M25.512] 10/11/2015 Acute bilateral low back pain without sciatica *10/11/2015 Elevated sed rate [R70.0] 10/14/2015 Adjustment disorder with mixed anxiety and depr*06/11/2017 Myasthenia gravis affecting (HCC) [O9*03/22/2018 02/20/2021 PVC's (premature ventricular contractions) [I49*07/21/2018 Xerostomia [K11.7] 04/09/2020 Supervision of other high risk , antep*07/31/2020 03/22/2021 Hx of preeclampsia, prior , currently *07/31/2020 02/20/2021 Antepartum anemia [O99.019] 12/04/2020 02/20/2021 History of forceps delivery in prior ,*02/20/2021 Gestational hypertension, third trimester [O13.*02/06/2021 02/20/2021 Obesity affecting in third trimester *02/06/2021 02/20/2021 Pre-eclampsia, severe [O14.10] 07/20/2018 Prescriptions ordered this encounter Disp Refills Start End BUTALBITAL-ACETAMINO PHEN-CAFFEINE 50* 20 t* 0 03/26/2023 Route: ORAL Sig: Take 1-2 tablets by mouth every 4 hours as needed. Medications Discontinued During This Encounter Prescriptions - acetaminophen (TYLENOL 8 HOUR ORAL) (Discontinued) Take by mo (more content not included)... [facility] OLIV[facility] ([id number]) 1990 F Date Time Provider Department 03/17/23 [facility] OBGYF2 During your visit today, we recorded the following information about you: Lilly Whitaker 03/17/2023 10:09 AM Signed Referral to [facility] Sjogrens Syndrome Myasthenia Gravis H/o of severe preeclampsia Consult requested at time of anatomy scan. Patient is followed by Dr Valdivia at [facility]. No medication and reports that she is considered to be in remission. Annual follow up. 2019: IOL 36w1d HTN 2020: IOL 37w HTN Patient prescribed low dose aspirin. 05/31/23 - echo Card consult Anatomy scan and consult on 04/26 at [facility]. Allergies As of Date: 03/17/2023 Noted Allergy Reaction SHERITA-D (FEXOFENADINE-PSEUDO EPH*06/22/2011 4 - Hives BACTRIM (SULFAMETHOXAZOLE-TR IMETH*08/09/2015 14 - Other: See Comments Comments: Exacerbation of MG BETA-BLOCKERS (BETA-ADRENERGIC BL*02/06/2021 15 - Contraindication-Med ical Benitez* MAGNESIUM SULFATE 02/06/2021 15 - Contraindication-Med ical Benitez* NIFEDIPINE 02/06/2021 15 - Contraindication-Med ical Benitez* Date Reviewed: 03/16/2023 Reviewed by: Amina Au Ma - Fully Assessed Prescriptions as of 03/17/2023 - aspirin, enteric coated (ECOTRIN LOW STRENGTH) 81 mg EC tablet Take 1 tablet by mouth once daily. - fluticasone (FLONASE ALLERGY RELIEF) 50 mcg/actuation nasal spray Use 1 [place] in each nostril once daily. - acetaminophen (TYLENOL 8 HOUR ORAL) Take by mouth once daily. - ej364-nljy-jvdwg acid 27-800 mg-mcg tab Take 1 tablet by mouth once daily. 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 Muscle weakness (generalized) [M62.81] 06/23/2011 Diplopia [H53.2] 06/23/2011 Vitamin D deficiency [E55.9] 10/02/2011 Sjogrens syndrome (HCC) [M35.00] 10/02/2011 Myasthenia gravis status post thymectomy (HCC) *12/08/2011 Pain in joint, multiple sites [M25.50] 01/10/2015 TR[place] positive [R76.8] 01/10/2015 SS-A antibody positive [R76.8] 01/10/2015 SS-B antibody positive [R76.8] 01/10/2015 Rheumatoid factor positive [R76.8] 01/10/2015 Cervicalgia [M54.2] 10/11/2015 Acute pain of both shoulders [M25.511, M25.512] 10/11/2015 Acute bilateral low back pain without sciatica *10/11/2015 Elevated sed rate [R70.0] 10/14/2015 Adjustment disorder with mixed anxiety and depr*06/11/2017 Myasthenia gravis affecting (HCC) [O9*03/22/2018 02/20/2021 PVC's (premature ventricular contractions) [I49*07/21/2018 Xerostomia [K11.7] 04/09/2020 Supervision of other high risk , antep*07/31/2020 03/22/2021 Hx of preeclampsia, prior , currently *07/31/2020 02/20/2021 Antepartum anemia [O99.019] 12/04/2020 02/20/2021 History of forceps delivery in prior ,*02/20/2021 Gestational hypertension, third trimester [O13.*02/06/2021 02/20/2021 Obesity affecting in third trimester *02/06/2021 02/20/2021 Pre-eclampsia, severe [O14.10] 07/20/2018 Encounter Status:Closed by LILLY WHITAKER on 03/17/23 Normal [facility] [id number] PLUSon 03-16-2023 Cell-free DNA./Cell-free DNA.total Dosage of chromosome-specific cfDNA (cfDNA) [Molar fraction] 12% Normal [facility] Comment on above: Order Comment: Speci men Type: BLOOD SPECIMEN Ordering Facility: [facility] Address: [address] [place] [address] Performed By: #### 2 4323-8 #### [facility] CLIA [id number] [address] [facility] [id number] [place] [address] [place] Chr 13+18+21+X+Y aneuploidy Dosage of chromosome-specific cfDNA Ql (cfDNA) Negative Normal [facility] Comment on above: Order Comment: Speci men Type: BLOOD SPECIMEN Ordering Facility: [facility] Address: [address] [place] [address] Performed By: #### 2 4323-8 #### [facility] CLIA [id number] [address] [place] [address] Chr 21 trisomy Dosage of chromosome-specific cfDNA Ql (cfDNA) Negative Normal [facility] Comment on above: Order Comment: Speci men Type: BLOOD SPECIMEN Ordering Facility: [facility] Address: [address] [place] [address] Performed By: #### 2 4323-8 #### [facility] CLIA [id number] [address] [place] [address] Chr X and Y aneuploidy risk Sequencing Ql (cfDNA) [Interp] Not detected Normal [facility] Comment on above: Order Comment: Speci men Type: BLOOD SPECIMEN Ordering Facility: [facility] Address: [address] [place] [address] Result Comment: Not Detected Not Detected Performed By: #### 2 4323-8 #### [facility] CLIA [id number] [address] [place] [address] [place] Citation Shon (Reference lab test) Comment Normal [facility] Comment on above: Order Comment: Speci men Type: BLOOD SPECIMEN Ordering Facility: [facility] Address: [address] [place] [address] Result Comment: 1. P edson BATRES, et al. Tessa Med. 2012;14(3):296-305. 2. Carlito KAY, et al. Prenat Diag. 2013;33(6):591-597. 3. Derrell C, et al. Clin Chem. 2015 Apr;61(4):608-616. 4. Lola BATRES, et al. Tessa Med. 2011;13(11):913-920. 5. ACOG/[facility] Practice Bulletin No. 226, Feb 2020. Performed By: #### 2 4323-8 #### [facility] CLIA [id number] [address] [place] Gestational age Estimated from conception date Zayas Normal [facility] Comment on above: Order Comment: Speci men Type: BLOOD SPECIMEN Ordering Facility: [facility] Address: [address] [place] [address] Performed By: #### 2 4323-8 #### [facility] CLIA [id number] [address] [place] GESTATIONALAGE AGE > OR = 9W Yes Normal [facility] Comment on above: Order Comment: Speci men Type: BLOOD SPECIMEN Ordering Facility: [facility] Address: [address] [place] [address] Performed By: #### 2 4323-8 #### [facility] CLIA [id number] [address] OF [facility] Laboratory comment Shon (Report) Comment Normal [facility] Comment on above: Order Comment: Speci men Type: BLOOD SPECIMEN Ordering Facility: [facility] Address: [address] [place] [address] Result Comment: The MaterniT(R) 21 PLUS laboratory-developed test (LDT) analyzes circulating cell-free DNA from a maternal blood sample. This test is used for screening purposes and not diagnostic. Clinical correlation is recommended. Validation data on twin pregnancies is limited and the ability of this test to detect aneuploidy in higher multiple gestations has not yet been validated. Performed By: #### 2 4323-8 #### [facility] CLIA [id number] [address] OF [place] funds development director name Nom (Provider) Comment Normal [facility] Comment on above: Order Comment: Speci men Type: BLOOD SPECIMEN Ordering Facility: [facility] Address: [address] [place] [address] Result Comment: This specimen showed an expected representation of chromosome 21, 18 and 13 material. Clinical correlation is suggested. Comment Nick Pires MD, PhD, Director, [employer] Performed By: #### 2 4323-8 #### [facility] CLIA [id number] [address] [facility] DESK [address] [place] LIMITATIONS OF THE TEST Comment Normal [facility] Comment on above: Order Comment: Speci men Type: BLOOD SPECIMEN Ordering Facility: [facility] Address: [address] [place] [id number] Result Comment: Whil e the results of these tests are highly reliable, discordant results, including inaccurate sex prediction, may occur due to placental, maternal, or mosaicism or neoplasm; vanishing twin; prior maternal organ transplant; or other causes. These tests are screening tests and not diagnostic; they do not replace the accuracy and precision of diagnosis with CVS or amniocentesis. A patient with a positive test result should be referred for genetic counseling and offered invasive diagnosis for confirmation of test results.[5] The results of this testing, including the benefits and limitations, should be discussed with a qualified healthcare provider. management decisions, including termination of the , should not be based on the results of these tests alone. The healthcare provider is responsible for the use of this information in the management of their patient. Sex chromosomal aneuploidies are not reportable for known multiple gestations. A negative result does not ensure an unaffected nor does it exclude the possibility of other chromosomal abnormalities or defects which are not a part of these tests. An uninformative result may be reported, the causes of which may include, but are not limited to, insufficient sequencing coverage, noise or artifacts in the region, amplification or sequencing bias, or insufficient fraction. These tests are not intended to identify pregnancies at risk for neural tube defects or ventral wall defects. Testing for whole chromosome abnormalities (including sex chromosomes) and for subchromosomal abnormalities could lead to the potential discovery of both and maternal genomic abnormalities that could have major, minor, or no, clinical significance. Evaluating the significance of a positive or a non-reportable result may involve both invasive testing and additional studies on the mother. Such investigations may lead to a diagnosis of maternal chromosomal or subchromosomal abnormalities, which on occasion may be associated with benign or malignant maternal neoplasms. These tests may not accurately identify triploidy, balanced rearrangements, or the precise location of subchromosomal duplications or deletions; these may be detected by diagnosis with CVS or amniocentesis. The ability to report results may be impacted by maternal BMI, maternal weight, maternal systemic lupus erythematosus (SLE) and/or by certain pharmaceutical agents such as low molecular weight heparin (for example: Lovenox(R), Xaparin(R), Clexane(R) and Fragmin(R)). Performed By: #### 2 4323-8 #### [facility] CLIA [id number] [address] [place] [address] Monosomy X risk Dosage of chromosome-specific cfDNA Ql (Plasma cell-free+WBC DNA) [Interp] Not detected Normal [facility] Comment on above: Order Comment: Speci loli Type: BLOOD SPECIMEN Ordering Facility: [facility] Address: [address] [place] [address] Performed By: #### 2 4323-8 #### [facility] CLIA [id number] [address] [place] [address] NEGATIVE PREDICTIVE VALUE Note Normal [facility] Comment on above: Order Comment: Lala ennis Type: BLOOD SPECIMEN Ordering Facility: [facility] Address: [address] [place] [address] Result Comment: The Negative Predictive Value (NPV) for trisomy 21, 18, and 13 is greater than 99%. The NPV for SCA and ESS cannot be calculated as SCA and ESS are only reported when an abnormality is detected. Performed By: #### 2 4323-8 #### [facility] CLIA [id number] [address] [place] [address] NOTE Comment Normal [facility] Comment on above: Order Comment: Lala ennis Type: BLOOD SPECIMEN Ordering Facility: [facility] Address: [address] [place] [address] Result Comment: See Notes [employer]. is a subsidiary of [employer], using the brand [employer]. This test was developed and its performance characteristics determined by [employer]. It has not been cleared or approved by the Food and Drug Administration. This laboratory is certified under the Clinical Laboratory Improvement Amendments (CLIA) as qualified to perform high complexity clinical laboratory testing and accredited by the [employer] (CAP). If there is future clinical need for adding MaterniT GENOME testing, this specimen will be available until term. [facility] samples will not be retained beyond 60 days. [facility] patients will have to send a new sample for re-sequencing ([facility] Test Code: 440382). Performed By: #### 2 4323-8 #### [facility] CLIA [id number] [address] [facility] [id number] [place] [address] PERFORMANCE CHARACTERISTICS Note Normal [facility] Comment on above: Order Comment: Lala ennis Type: BLOOD SPECIMEN Ordering Facility: [facility] Address: [address] [place], [place] [phone] Result Comment: ! Sex ! Accuracy: 99.4% ! ! ! ! Region (associated syndrome) ! Est. Sens# ! Est. Spec ! ! ! ! Trisomy 21 (Down Syndrome) ! 99.1% ! 99.9% ! ! ! ! Trisomy 18 (Seymour Syndrome) ! >99.9% ! 99.6% ! ! ! ! Trisomy 13 (Patau Syndrome) ! 91.7% ! 99.7% ! ! ! ! Sex Chromosome Aneuploidies## ! 96.2% ! 99.7% ! ! ! * As reported in [facility] database nstd37 [https://www.ncbi.nlm.nih.gov/dbvar/studies/nstd37/ ] # Estimated Sensitivity. Sensitivity estimated across the observed size distribution of each syndrome [per [facility] database nstd37] and across the range of fractions observed in routine clinical NIPT. Actual sensitivity can also be influenced by other factors such as the size of the event, total sequence counts, amplification bias, or sequence bias. ## Zayas gestation only. Performed By: #### 2 4323-8 #### [facility] CLIA [id number] [address] [place] [address] STATES [facility] POSITIVE PREDICTIVE VALUE N/A Normal [facility] Comment on above: Order Comment: Speci men Type: BLOOD SPECIMEN Ordering Facility: [facility] Address: [address] [place] [id number] Performed By: #### 2 4323-8 #### [facility] CLIA [id number] [address] [place] [address] Reference Lab Test Method Comment Normal [facility] Comment on above: Order Comment: Speci men Type: BLOOD SPECIMEN Ordering Facility: [facility] Address: [address] [place] [address] Result Comment: See Notes Circulating cell-free DNA was purified from the plasma component of maternal blood. The extracted DNA was then converted into a genomic DNA library for aneuploidy analysis of chromosomes 21, 18, and 13 via next generation sequencing.[1] Optional findings based on the test order include sex chromosome aneuploidy (SCA)[2], and enhanced sequencing series (ESS)[3], which will only be reported on as an additional finding when an abnormality is detected. SCA testing includes information on X and Y representation, while ESS testing includes deletions in selected regions (22q, 15q, 11q, 8q, 5p, 4p, 1p) and trisomy of chromosomes 16 and 22. Performed By: #### 2 4323-8 #### [facility] CLIA [id number] [address] [place] [address] [place] Sex Dosage of chromosome-specific cfDNA Nom (cfDNA) Comment Normal [facility] Comment on above: Order Comment: Speci men Type: BLOOD SPECIMEN Ordering Facility: [facility] Address: [address] [place] [address] Result Comment: Cons istent with Female Performed By: #### 2 4323-8 #### [facility] CLIA [id number] [address] [place] [address] [place] Test performance information Shon (Unsp spec) Comment Normal [facility] Comment on above: Order Comment: Speci men Type: BLOOD SPECIMEN Ordering Facility: [facility] Address: [address] [place] [address] Result Comment: The performance characteristics of the MaterniT(R) 21 PLUS laboratory-developed test (LDT) have been determined in a clinical validation study with women at increased risk for chromosomal aneuploidy.[1-4] Performed By: #### 2 4323-8 #### [facility] CLIA [id number] [facility] [address] [place] Trisomy 13 risk Dosage of chromosome-specific cfDNA Ql (cfDNA) [Interp] Negative Normal [facility] Comment on above: Order Comment: Speci men Type: BLOOD SPECIMEN Ordering Facility: [facility] Address: [address] [place] [address] Performed By: #### 2 4323-8 #### [facility] CLIA [id number] [address] STATES OF [facility] Trisomy 18 risk Dosage of chromosome-specific cfDNA Ql (Plasma cell-free+WBC DNA) [Interp] Negative Normal [facility] Comment on above: Order Comment: Speci men Type: BLOOD SPECIMEN [facility] Address: [address] [place] [address] Performed By: #### 2 4323-8 #### [facility] CLIA [id number] [address] [place] Prot/Creat Uron 03-16-2023 Protein/Creatinine (U) [Mass ratio] 0.06 mg/mg Normal <0.15 [facility] Comment on above: Order Comment: Speci men Type: URINE SPECIMENOrdering Facility: [facility] Address: [address] [place] [address] Result Comment: Adul t Proteinuria Categories: <0.15 mg/mg is considered normal to mildly increased 0.15 - 0.50 mg/mg is considered moderately increased >0.50 mg/mg is considered severely increased KDIGO. (2013). KDIGO 2012 Clinical Practice Guideline for the Evaluation and Management of Chronic Kidney Disease. Official Journal of the International Society of Nephrology, 3(1), 1-150. Performed By: #### 2 890-2 ####[facility] [id number] [place] [address] [place] Protein/Creatinine (U) [Mass ratio]on 03-16-2023 Creatinine (U) [Mass/Vol] 170.1 mg/dL Normal 20.0-300.0 [facility] Comment on above: Order Comment: Speci men Type: URINE SPECIMENOrdering Facility: [facility] Address: [place] [address] Performed By: #### 2 890-2 ####[facility] [id number] [place] [address] [place] Protein (U) [Mass/Vol] 11 mg/dL Normal 0-20 [facility] Comment on above: Order Comment: Speci men Type: URINE SPECIMENOrdering Facility: [facility] Address: [place] [address] Performed By: #### 2 890-2 ####[facility] [id number] [place] [address] [place] URINE OB DIP B/Oon 3 Glucose Ql (U) Negative Neg mg/dL [facility] Protein.monoclonal (U) [Mass/Vol] Negative Neg mg/dL [facility] NUCHAL TRANSLUCENCY WHIon [facility] CNPNon 02-05-2023 CNPN Telephone ([id number]) OLIVIA RAE ([id number]) 1990 F Date Time Provider Department 02/05/23 ILIANA WATKINS [id number] During your visit today, we recorded the following information about you: Anahi Jones RN 02/05/2023 10:21 AM Signed 1st risk assessment form submitted 02-05-2023. Anahi Jones RN Allergies As of Date: 02/05/2023 Noted Allergy Reaction SHERITA-D (FEXOFENADINE-PSEUDO EPH*06/22/2011 4 - Hives BACTRIM (SULFAMETHOXAZOLE-TR IMETH*08/09/2015 14 - Other: See Comments Comments: Exacerbation of MG BETA-BLOCKERS (BETA-ADRENERGIC BL*02/06/2021 15 - Contraindication-Med ical Benitez* MAGNESIUM SULFATE 02/06/2021 15 - Contraindication-Med ical Benitez* NIFEDIPINE 02/06/2021 15 - Contraindication-Med ical Benitez* Date Reviewed: 02/03/2023 Reviewed by: Tash Harris MA - Fully Assessed Reason for Visit: 1st risk assessment form [Other] Prescriptions as of 02/05/2023 - fluticasone (FLONASE ALLERGY RELIEF) 50 mcg/actuation nasal spray Use 1 [place] in each nostril once daily. - acetaminophen (TYLENOL 8 HOUR ORAL) Take by mouth once daily. - eo322-yzdk-kcysa acid 27-800 mg-mcg tab Take 1 tablet by mouth once daily. 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 Muscle weakness (generalized) [M62.81] 06/23/2011 Diplopia [H53.2] 06/23/2011 Vitamin D deficiency [E55.9] 10/02/2011 Sjogren's syndrome (HCC) [M35.00] 10/02/2011 Myasthenia gravis status post thymectomy (HCC) *12/08/2011 Pain in joint, multiple sites [M25.50] 01/10/2015 [place] positive [R76.8] 01/10/2015 SS-A antibody positive [R76.8] 01/10/2015 SS-B antibody positive [R76.8] 01/10/2015 Rheumatoid factor positive [R76.8] 01/10/2015 Cervicalgia [M54.2] 10/11/2015 Acute pain of both shoulders [M25.511, M25.512] 10/11/2015 Acute bilateral low back pain without sciatica *10/11/2015 Elevated sed rate [R70.0] 10/14/2015 Adjustment disorder with mixed anxiety and depr*06/11/2017 Myasthenia gravis affecting (HCC) [O9*03/22/2018 02/20/2021 PVC's (premature ventricular contractions) [I49*07/21/2018 Xerostomia [K11.7] 04/09/2020 Supervision of other high risk , antep*07/31/2020 03/22/2021 Hx of preeclampsia, prior , currently *07/31/2020 02/20/2021 Antepartum anemia [O99.019] 12/04/2020 02/20/2021 History of forceps delivery in prior ,* 1 02/20/2021 Gestational hypertension, third trimester [O13.*02/06/2021 02/20/2021 Obesity affecting in third trimester *02/06/2021 02/20/2021 Encounter Status:Closed by ANAHI JONES on 02/05/23 Normal [facility] Bacteria Ur Culton 3 Bacteria identified Cx Nom (U) ORGANISM ID: 1 10,000 -<50,000 CFU/ml Normal urogenital lucita Normal [facility] Comment on above: Performed By: #### 6 30-4 ####[facility] [id number] [address] [place] C. trachomatis+N. gonorrhoea e DNA FRANCHESCA+probe Ql (Unsp spec)on 02-03-2023 C. trachomatis rRNA FRANCHESCA+probe Ql (Unsp spec) Negative Normal Negative for Chlamydia trachomatis by amplificaton [facility] Comment on above: Order Comment: Speci men Type: SWAB [facility] Address: [address] [place] [address] Performed By: #### 3 6902-5 #### [facility] CLIA [id number] [address] [place] [address] [place] N. gonorrhoeae rRNA FRANCHESCA+probe Ql (Unsp spec) Negative Normal Negative for Neisseria gonorrhoeae by amplification [facility] Comment on above: Order Comment: Speci men Type: SWAB [facility] Address: [address] [place] [address] Performed By: #### 3 6902-5 #### [facility] CLIA [id number] [address] [place] [address] [place] CBC panel Auto (Bld)on 02-03 Erythrocyte distribution width (RBC) [Ratio] 13.2 % Normal 11.5-15.0 [facility] Comment on above: Order Comment: Speci men Type: BLOOD SPECIMEN [facility]: [facility] Address: [address] [place] [address] Performed By: #### 2 4323-8 #### [facility] CLIA [id number] [address] [place] [address] [place] Hematocrit (Bld) [Volume fraction] 36.4 % Normal 36.0-46.0 [facility] Comment on above: Order Comment: Speci men Type: BLOOD SPECIMEN [facility] Address: [address] [place] [address] Performed By: #### 2 4323-8 #### [facility] CLIA [id number] [address] [place] [address] [place] Hemoglobin (Bld) [Mass/Vol] 12.0 g/dL Normal 11.5-15.5 [facility] Comment on above: Order Comment: Speci men Type: BLOOD SPECIMEN [facility] Address: [address] [place], [place] [address] Performed By: #### 2 4323-8 #### [facility] CLIA [id number] [address] [place] [address] [place] MCH (RBC) [Entitic mass] 28.2 pg Normal 26.0-34.0 [facility] Comment on above: Order Comment: Speci men Type: BLOOD SPECIMEN [facility] Address: [address] [place], [place] [address] Performed By: #### 2 4323-8 #### [facility] CLIA [id number] [address] [place] [address] [place] MCHC (RBC) [Mass/Vol] 33.0 g/dL Normal 30.5-36.0 [facility] Comment on above: Order Comment: Speci men Type: BLOOD SPECIMEN [facility] Address: [address] Performed By: #### 2 4323-8 #### [facility] CLIA [id number] [address] [place] [address] [place] MCV (RBC) [Entitic vol] 85.4 fL Normal 80.0-100.0 [facility] Comment on above: Order Comment: Speci men Type: BLOOD SPECIMEN [facility] Address: [address] Performed By: #### 2 4323-8 #### [facility] CLIA [id number] [address] [place] [address] [place] Nucleated RBC (Bld) [#/Vol] 10*3/uL Normal <0.01 [facility] Comment on above: Order Comment: Speci men Type: BLOOD SPECIMEN [facility] Address: [address] Performed By: #### 2 4323-8 #### [facility] CLIA [id number] [address] [place] [address] [place] Platelet mean volume (Bld) [Entitic vol] 11.3 fL Normal 9.0-12.7 [facility] Comment on above: Order Comment: Speci men Type: BLOOD SPECIMEN [facility] Address: [address] [place] [address] Performed By: #### 2 4323-8 #### [facility] CLIA [id number] [address] [place] [address] [place] Platelets (Bld) [#/Vol] 283 10*3/uL Normal 150-400 [facility] Comment on above: Order Comment: Speci men Type: BLOOD SPECIMEN Order[facility] Address: [address] [place] [address] Performed By: #### 2 4323-8 #### [facility] CLIA [id number] [address] [place] [id number] [place] RBC (Bld) [#/Vol] 4.26 10*6/uL Normal 3.90-5.20 [facility] Comment on above: Order Comment: Speci men Type: BLOOD SPECIMEN [facility] Address: [address] [place] [address] Performed By: #### 2 4323-8 #### [facility] CLIA [id number] [address] [place] [address] [place] WBC (Bld) [#/Vol] 6.20 10*3/uL Normal 3.70-11.00 [facility] Comment on above: Order Comment: Speci men Type: BLOOD SPECIMEN [facility] Address: [address] Performed By: #### 2 4323-8 #### [facility] CLIA [id number] [address] [place] [address] [place] Comprehensive metabolic 2000 panelon 02-03-2023 Albumin [Mass/Vol] 4.2 g/dL Normal 3.9-4.9 [facility] Comment on above: Order Comment: Speci men Type: BLOOD SPECIMEN [facility] Address: [address] [place] [address] Performed By: #### 2 4323-8 #### [facility] CLIA [id number] [address] [place] [id number] [place] ALP [Catalytic activity/Vol] 80 U/L Normal 34-123 [facility] Comment on above: Order Comment: Speci men Type: BLOOD SPECIMEN [facility] Address: [address] [place] [address] Performed By: #### 2 4323-8 #### [facility] CLIA [id number] [address] [place] [address] [place] ALT [Catalytic activity/Vol] 12 U/L Normal 7-38 [facility] Comment on above: Order Comment: Speci men Type: BLOOD SPECIMEN [facility] Address: [address] [place] [address] Performed By: #### 2 4323-8 #### [facility] CLIA [id number] [address] [place] [address] [place] Anion gap [Moles/Vol] 11 mmol/L Normal 9-18 [facility] Comment on above: Order Comment: Speci men Type: BLOOD SPECIMEN [facility] Address: [address] [place] [address] Performed By: #### 2 4323-8 #### [facility] CLIA [id number] [address] [place] [address] [place] AST [Catalytic activity/Vol] 17 U/L Normal 13-35 [facility] Comment on above: Order Comment: Speci men Type: BLOOD SPECIMEN [facility] Address: [address] [place], [place] [address] Performed By: #### 2 4323-8 #### [facility] CLIA [id number] [address] [place] [address] [place] Bilirubin [Mass/Vol] 0.4 mg/dL Normal 0.2-1.3 [facility] Comment on above: Order Comment: Speci men Type: BLOOD SPECIMEN [facility] Address: [address] Performed By: #### 2 4323-8 #### [facility] CLIA [id number] [address] [place] [address] [place] Calcium [Mass/Vol] 9.1 mg/dL Normal 8.5-10.2 [facility] Comment on above: Order Comment: Speci men Type: BLOOD SPECIMEN [facility] Address: [address] Performed By: #### 2 4323-8 #### [facility] CLIA [id number] [address] [place] [address] [place] Chloride [Moles/Vol] 101 mmol/L Normal 97-105 [facility] Comment on above: Order Comment: Speci men Type: BLOOD SPECIMEN [facility] Address: [address] [place] [address] Performed By: #### 2 4323-8 #### [facility] CLIA [id number] [address] [place] [address] [place] CO2 [Moles/Vol] 21 mmol/L Low 22-30 [facility] Comment on above: Order Comment: Speci men Type: BLOOD SPECIMEN [facility] Address: [address] [place] [address] Performed By: #### 2 4323-8 #### [facility] CLIA [id number] [address] [place] [address] [place] Creatinine [Mass/Vol] 0.51 mg/dL Low 0.58-0.96 [facility] Comment on above: Order Comment: Speci men Type: BLOOD SPECIMEN [facility] Address: [address] [place] [address] Performed By: #### 2 4323-8 #### [facility] CLIA [id number] [address] [place] [address] [place] Creatinine and Glomerular filtration rate.predicted panel (S/P/Bld) 127 mL/min/1.73m??? Normal >=60 [facility] Comment on above: Order Comment: Speci men Type: BLOOD SPECIMEN [facility] Address: [address] [place] [address] Result Comment: Melissa mated Glomerular Filtration Rate (eGFR) is calculated using the 2020 CKD-EPI creatinine equation. This equation utilizes serum creatinine, sex, and age as parameters. The creatinine assay has traceable calibration to isotope dilution-mass spectrometry. Refer to KDIGO guidelines for clinical interpretation. In patients with unstable renal function, e.g. those with acute kidney injury, the eGFR may not accurately reflect actual GFR. Performed By: #### 2 4323-8 #### [facility] CLIA [id number] [address] [place] [id number] [place] Glucose [Mass/Vol] 81 mg/dL Normal 74-99 [facility] Comment on above: Order Comment: Lala ennis Type: BLOOD SPECIMEN [facility] Address: [address] [place] [id number] Result Comment: The [place] Diabetes Association (ADA) provides guidance for cutoff values for fasting glucose and random glucose. The ADA defines fasting as no caloric intake for at least 8 hours. Fasting plasma glucose results between 100 to 125 mg/dL indicate increased risk for diabetes (prediabetes). Fasting plasma glucose results greater than or equal to 126 mg/dL meet the criteria for diagnosis of diabetes. In the absence of unequivocal hyperglycemia, results should be confirmed by repeat testing. In a patient with classic symptoms of hyperglycemia or hyperglycemic crisis, random plasma glucose results greater than or equal to 200 mg/dL meet the criteria for diagnosis of diabetes. Reference: Standards of Medical Care in Diabetes 2016, [place] Diabetes Association. Diabetes Care. 2016.39(Suppl 1). Performed By: #### 2 4323-8 #### [facility] CLIA [id number] [address] [place] [id number] [place] Potassium [Moles/Vol] 3.9 mmol/L Normal 3.7-5.1 [facility] Comment on above: Order Comment: Lala ennis Type: BLOOD SPECIMEN [facility] Address: [address] [place] [address] Performed By: #### 2 4323-8 #### [facility] CLIA [id number] [address] [address] [place] Protein [Mass/Vol] 7.6 g/dL Normal 6.3-8.0 [facility] Comment on above: Order Comment: Speci men Type: BLOOD SPECIMEN [facility] Address: [address] [place] [address] Performed By: #### 2 4323-8 #### [facility] CLIA [id number] [address] [place] [address] [place] Sodium [Moles/Vol] 133 mmol/L Low 136-144 [facility] Comment on above: Order Comment: Speci men Type: BLOOD SPECIMEN [facility] Address: [address] [place] [address] Performed By: #### 2 4323-8 #### [facility] CLIA [id number] [address] [place] [address] [place] Urea nitrogen [Mass/Vol] 8 mg/dL Normal 7-21 [facility] Comment on above: Order Comment: Speci men Type: BLOOD SPECIMEN [facility] Address: [address] [place] [address] Performed By: #### 2 4323-8 #### [facility] CLIA [id number] [address] [place] [address] [place] HBV surface Ag Ser Qlon 01-16 HBV surface Ag Ql (S) Negative Normal Negative [facility] Comment on above: Order Comment: Speci men Type: BLOOD SPECIMEN [facility] Address: [address] [place], [place] [address] Performed By: #### 2 4323-8 #### [facility] CLIA [id number] [address] [place] [address] [place] HCV Ab Ser Qlon 02-03-2023 HCV Ab Ql (S) Negative Normal Negative [facility] Comment on above: Order Comment: Speci men Type: BLOOD SPECIMENOrdering Facility: [facility] Address: [address] [place] [address] Result Comment: The result suggests no evidence of active infection with Hepatitis C virus. Should recent infection be suspected, repeat testing may be considered 4-6 weeks after this draw. Performed By: #### 1 6128-1 ####[facility] [id number] [address] [place] HIV 1+2 Ab IA Qlon 3 HIV 1 and 2 Ab IA.rapid Nom Normal [facility] Comment on above: Order Comment: Speci men Type: BLOOD SPECIMEN [facility] Address: [address] [place] [address] Result Comment: Test not indicated. Performed By: #### 2 4323-8 #### [facility] CLIA [id number] [address] [place] [address] [place] HIV 1+2 Ab+HIV1 p24 Ag IA Ql Non-Reactive Normal Nonreactive [facility] Comment on above: Order Comment: Speci men Type: BLOOD SPECIMEN [facility] Address: [address] [place] [address] Performed By: #### 2 4323-8 #### [facility] CLIA [id number] [address] [place] [address] OF [facility] HIV immunoassay testing algorithm interpretation (S/P/Bld) [Interp] Normal [facility] Comment on above: Order Comment: Speci men Type: BLOOD SPECIMEN [facility] Address: [address] [place] [address] Result Comment: No e vidence of HIV-1 or HIV-2 infection. Should recent infection be suspected, repeat testing may be considered 2-3 weeks after this draw. [place] Rev. Code 3701.243(E): This information has been disclosed to you from confidential records protected from disclosure by state law. ???You shall make no further disclosure of this information without the specific, written, and informed release of the individual to whom it pertains or as otherwise permitted by state law. A general authorization for the release of medical or other information is not sufficient for the purpose of the release of HIV test results or diagnoses. Performed By: #### 2 4323-8 #### [facility] CLIA [id number] [address] [place] [address] [place] POC EMS EDUCATOR ULTRASOUNDon 02-04-[address] [facility] RUBELLA IGG ABon 02-03-2023 RUBELLA IGG AB, QUAL Positive Normal Positive [facility] Comment on above: Order Comment: Speci men Type: BLOOD SPECIMENOrdering Facility: [facility] Address: [address] [place] [address] Result Comment: The result suggests recent or past exposure to Rubella virus or history of Rubella vaccination. Positive result may also be seen due to presence of passively-transferred antibodies. Please correlate with patient's history. Performed By: #### R UBIGG ####[facility] [id number] [place] [address] [place] Reagin and Treponema pallidu m IgG and IgM [Interp]on 02-03-2023 T. pallidum IgG+IgM IA Ql (S) Non-Reactive Normal Nonreactive [facility] Comment on above: Order Comment: Speci men Type: BLOOD SPECIMEN [facility] Address: [address] [place] [address] Performed By: #### 2 4323-8 #### [facility] CLIA [id number] [address] [place] [address] [place] Reagin+T pallidum IgG+IgM Se rPl-Impon 02-03-2023 Reagin and Treponema pallidum IgG and IgM [Interp] Cannot exclude recent Treponemal infection if specimen collected within 7-10 days after appearance of suspect lesions or 2-3 weeks after an exposure. Clinical correlation is required. Normal [facility] Comment on above: Order Comment: Speci men Type: BLOOD SPECIMEN [facility] Address: [address] [place] [address] Performed By: #### 2 4323-8 #### [facility] CLIA [id number] [address] [place] TYPE + SCREEN PRENATALon ABO O Normal [facility] Comment on above: Order Comment: Speci men Type: BLOOD SPECIMEN [facility] Address: [address] [place] [address] Performed By: #### 2 4323-8 #### [facility] CLIA [id number] [address] OF [facility] HISTORICAL AB SCR STATUS Negative Normal [facility] Comment on above: Order Comment: Speci men Type: BLOOD SPECIMEN [facility] Address: [address] [place] [address] Performed By: #### 2 4323-8 #### [facility] CLIA [id number] [address] [place] [address] [place] Rh Nom (Bld) Positive Normal [facility] Comment on above: Order Comment: Speci men Type: BLOOD SPECIMEN [facility] Address: [address] [place] [address] Performed By: #### 2 4323-8 #### [facility] CLIA [id number] [address] [place] [address] TYPE AND SCREEN EXPIRATION 02/06/2023 23:59 Normal [facility] Comment on above: Order Comment: Speci men Type: BLOOD SPECIMEN [facility] Address: [address] [place] [address] Performed By: #### 2 4323-8 #### [facility] CLIA [id number] [address] [place] [address] [place] CNPNon 01-19-2023 CNPN Telephone ([facility]) KYRAOLIVIA ([id number]) 1990 F Date Time Provider Department 01/19/23 AISSATOU HERNÁNDEZ [facility] During your visit today, we recorded the following information about you: Nazanin Hartley 01/19/2023 2:19 PM Signed Decision tree directed patient to your pool. Stated she was high risk for other pregnancies. Please advise for scheduling Rhea Lucia, RN 01/19/2023 4:22 PM Signed Call placed to patient to triage for new OB appt. Name and identified. LMP? 12/18/2022 When did you have a + test? 01/08 PNV? Not yet Cats? no Pelvic pain? Yes, cramping last week, resolved Vaginal bleeding? no NANDV? If patient is vomiting, how often and is she keeping down fluids? Mild nausea Precautions for pain, bleeding, and nausea discussed with patient understanding. Any medical history that can effect the ? Hx pre-eclampsia, GHTN (resolved after ), hx myasthenia gravis and schogrens syndrome. Sees neuro Dr. Valdivia through the clinic. Patient only taking Flonase. Office/provider patient wishes to establish care to? [facility] Patient aware to sign up for My Chart if she does not already have it, so she can receive the palliative care specialist messages. Will forward this encounter to the schedulers in this office. Nazanin Hartley 01/19/2023 4:29 PM Signed Thank you. Is she safe to be scheduled with an WOOD FINISHER or MD? 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 - [id number] acid 27-800 mg-mcg tab Take 1 tablet by mouth once daily. - Immune Globulin, Human,, IGG, (HIZENTRA) 1 gram/5 mL (20 %) soln 11 gm two times per week (22 gm total) via subcutaneous route - immune globulin, human,, IgG, (HIZENTRA) 10 gram/50 mL (20 %) soln Inject subcutaneously. 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.*04/17/2011 Muscle weakness (generalized) [M62.81] 06/23/2011 Diplopia [H53.2] 06/23/2011 Vitamin D deficiency [E55.9] 10/02/2011 Sjogren's syndrome (HCC) [M35.00] 10/02/2011 Myasthenia gravis status post thymectomy (HCC) *12/08/2011 Pain in joint, multiple sites [M25.50] 01/10/2015 [place] positive [R76.8] 01/10/2015 SS-A antibody positive [R76.8] 01/10/2015 SS-B antibody positive [R76.8] 01/10/2015 Rheumatoid factor positive [R76.8] 01/10/2015 Cervicalgia [M54.2] 10/11/2015 Acute pain of both shoulders [M25.511, M25.512] 10/11/2015 Acute bilateral low back pain without sciatica *10/11/2015 Elevated sed rate [R70.0] 10/14/2015 Adjustment disorder with mixed anxiety and depr*06/11/2017 Myasthenia gravis affecting (HCC) [O9*03/22/2018 02/20/2021 PVC's (premature ventricular contractions) [I49*07/21/2018 Xerostomia [K11.7] 04/09/2020 Supervision of other high risk , antep*07/31/2020 03/22/2021 Hx of preeclampsia, prior , currently *07/31/2020 02/20/2021 Antepartum anemia [O99.019] 12/04/2020 02/20/2021 History of forceps delivery in prior ,*02/20/2021 Gestational hypertension, third trimester [O13.*02/06/2021 02/20/2021 Obesity affecting in third trimester *02/06/2021 02/20/2021 Encounter Status:Closed by NAZANIN HARTLEY on 01/20/23 Normal [facility] Quick Strepon 12-25-2022 S. agalactiae Ag Ql (Unsp spec) Negative [employer] Other [employer] Strep [employer] Other [employer] 09-01-2021 S. agalactiae Ag Ql (Unsp spec) Negative [employer] Other [employer] Strep [employer] Other CBC and Differentialon 10-22 Abs Baso <0.03 Normal <0.11 [facility] Abs Eosin <0.03 Normal <0.46 [facility] Abs [place] 0.67 k/uL Normal <0.87 [facility] Abs Neut 6.23 k/uL Normal 1.45-7.50 [facility] Absolute nRBC <0.01 [facility].01 [facility] WBC (Bld) 0.3 % Normal [facility] DTYPE Auto Diff Normal [facility] Eosinophils/100 WBC (Bld) 0.3 % Normal [facility] Erythrocyte distribution width (RBC) [Ratio] 13.4 % Normal 11.5-15.0 [facility] Hematocrit (Bld) [Volume fraction] 34.2 % Low 36.0-46.0 [facility] Hemoglobin (Bld) [Mass/Vol] 11.2 g/dL Low 11.5-15.5 [facility] Lymphocytes (Bld) [#/Vol] 0.83 10*3/uL Low 1.00-4.00 [facility] Lymphocytes/100 WBC (Bld) 10.7 % Normal [facility] MCH 28.4 pG Normal 26.0-34.0 [facility] MCHC (RBC) [Mass/Vol] 32.7 g/dL Normal 30.5-36.0 [facility] MCV (RBC) [Entitic vol] 86.6 fL Normal 80.0-100.0 [facility] Monocytes/100 WBC (Bld) 8.6 % Normal [facility] Neutrophils/100 WBC (Bld) 80.1 % Normal [facility] NRBCs 0.0 /100 WBC Normal 0 [facility] l Platelet mean volume (Bld) [Entitic vol] 10.9 fL Normal 9.0-12.7 [facility] Platelets (Bld) [#/Vol] 265 10*3/uL Normal 150-400 [facility] RBC (Bld) [#/Vol] 3.95 10*6/uL Normal 3.90-5.20 [facility] WBC (Bld) [#/Vol] 7.77 10*3/uL Normal 3.70-11.00 [facility] Comp Metabolic Panelon 10-22 Albumin [Mass/Vol] 3.4 g/dL Low 3.9-4.9 [facility] ALP [Catalytic activity/Vol] 102 U/L Normal 34-123 [facility] ALT [Catalytic activity/Vol] 7 U/L Normal 7-38 [facility] Anion gap [Moles/Vol] 9 mmol/L Normal 9-18 [facility] AST [Catalytic activity/Vol] 15 U/L Normal 13-35 [facility] Bilirubin [Mass/Vol] mg/dL Low 0.2-1.3 [facility] Calcium [Mass/Vol] 8.0 mg/dL Low 8.5-10.2 [facility] Chloride [Moles/Vol] 101 mmol/L Normal 97-105 [facility] CO2 [Moles/Vol] 23 mmol/L Normal 22-30 [facility] ital Creatinine [Mass/Vol] 0.46 mg/dL Low 0.58-0.96 [facility] eGFR- Amer. >60 Normal [facility] eGFR-All Other Races >60 Normal [facility] Comment on above: Result Comment: eGFR (Estimated GFR) Units of measure: mL/min/1.73 meters squared eGFR is derived from the reexpressed MDRD Study equation using the following parameters: serum creatinine, age, gender and race. The creatinine assay has been calibrated to be traceable to IDMS. An eGFR <60 mL/min/1.73m2 for >3 months is consistent with chronic kidney disease. Refer to KDOQI guidelines for clinical interpretation. In patients with unstable renal function, e.g. those with acute kidney injury, the eGFR may not accurately reflect actual GFR. Glucose [Mass/Vol] 77 mg/dL Normal 74-99 [facility] Comment on above: Result Comment: The [place] Diabetes Association (ADA) provides guidance for cutoff values for fasting glucose and random glucose. The ADA defines fasting as no caloric intake for at least 8 hours. Fasting plasma glucose results between 100 to 125 mg/dL indicate increased risk for diabetes (prediabetes). Fasting plasma glucose results greater than or equal to 126 mg/dL meet the criteria for diagnosis of diabetes. In the absence of unequivocal hyperglycemia, results should be confirmed by repeat testing. In a patient with classic symptoms of hyperglycemia or hyperglycemic crisis, random plasma glucose results greater than or equal to 200 mg/dL meet the criteria for diagnosis of diabetes. Reference: Standards of Medical Care in Diabetes 2016, [place] [employer]. Diabetes Care. 2016.39(Suppl 1). Potassium [Moles/Vol] 3.5 mmol/L Low 3.7-5.1 [facility] Protein [Mass/Vol] 7.3 g/dL Normal 6.3-8.0 [facility] Sodium [Moles/Vol] 133 mmol/L Low 136-144 [facility] Urea nitrogen [Mass/Vol] 5 mg/dL Low 7-21 [facility] ED NOTEon 10-22-2020 ED NOTE HNO ID: [id number] Author: Allison Edge RN Service: ? Author Type: Registered Nurse Type: ED Notes Filed: 10/25/2020 9:36 AM Note Text: Emergency Services: ED Call Back Questionnaire SERVICE DATE: 10/22/2020 Are you feeling better? Yes Any questions about discharge instructions and follow-up care? No Were you able to make a follow up appointment? No, referred to appointment hotline Do you have any further questions? No Is there anything that we could have done differently to improve your ED visit? No SIGNATURE: Allison Edge RN PATIENT NAME: Olivia Rae DATE: October 25, 2020 TIME: 9:36 AM [facility] ED NOTE HNO ID: [id number] Author: Anna Parks RN Service: ? Author Type: Registered Nurse Type: ED Notes Filed: 10/22/2020 7:06 PM Note Text: FHR 154 at this assessment. Pt denies chest pain at this assessment. [facility] ED NOTE HNO ID: [id number] Author: Nerissa Liu RN Service: ? Author Type: Registered Nurse Type: ED Notes Filed: 10/22/2020 6:09 PM Note Text: Pt. To ED with c/o chest pressure, dizziness, nausea, vomiting (1 episode yesterday), and abdominal cramping. Pt. 22 weeks on . Pt's second . [facility] ED PROV NOTEon 10-22-2020 ED PROV NOTE HNO ID: [id number] Author: Malik Rapp DO Service: Emergency Medicine Author Type: Physician Type: ED Provider Notes Filed: 10/22/2020 10:37 PM Note Text: ED Provider Note Patient Name: Olivia Rae SERVICE DATE: 10/22/20 History Patient presents with: Dizziness Chest pressure 29-year-old female , 21 weeks and 5 days presents to the emergency department with dizziness and lightheadedness described as feeling as though she is going to pass out. Symptoms of been intermittent since Wednesday, first occurring when she was out in the heat however today occurring when she was sitting on the couch resting. She does report intermittent episodes of nausea as well as one episode of nonbloody emesis yesterday. Additionally she states that she is experiencing some intermittent lower abdominal cramping that does not necessarily occur in conjunction with the other symptoms. No vaginal bleeding or discharge. No difficulty urinating including dysuria, hematuria or changes in urinary frequency. No back or flank pain. He does report chest tightness with the dizziness and lightheadedness. He also reports shortness of breath with exertion. No lower extremity pain or swelling. No coughing. No syncope. No headaches. No numbness, paresthesias, focal weakness or paralysis. No fevers. PAST MEDICAL HISTORY Diagnosis Date - GERD (gastroesophageal reflux disease) treated with prilosec - Myasthenia gravis status post thymectomy ([facility]) 12/08/2011 - Pre-eclampsia, severe 07/20/2018 - PVC's (premature ventricular contractions) - Sjogrens syndrome ([facility]) 04/2011 - Tension vascular headache - TMJ (dislocation of temporomandibular joint) mild PAST SURGICAL HISTORY Procedure Laterality Date - PORTOCATH PLACEMENT - REMOVAL OF TONSILS,<12 Y/O Tonsillectomy - THYMECTOMY, PARTIAL/TOTAL 2011 FAMILY HISTORY Problem Relation Age of Onset - None Mother A AND W - None Father A AND W - Asthma Brother - other (PCOS) Sister - Hypertension Maternal Grandmother - Hyperlipidemia Maternal Grandmother - COPD Maternal Grandmother smoker - Heart Failure Maternal Grandmother - Hypertension Maternal Grandfather - Hyperlipidemia Maternal Grandfather - COPD Maternal Grandfather smoker - Heart Failure Maternal Grandfather - Diabetes Paternal Grandmother - Cancer Paternal Grandmother unknown - Cervical Cancer Paternal Aunt 37 - Seizures Maternal Aunt Social History Tobacco Use - Smoking status: Never Smoker - Smokeless tobacco: Never Used Substance and Sexual Activity - Alcohol use: No - Drug use: No - Sexual activity: Yes Partners: Male control/protection: Pill ALLERGIES Allergen Reactions - Sherita-D [Fexofena* Hives - Bactrim [Sulfametho* Other: See Comments Exacerbation of MG Review of Systems Constitutional: Negative for chills, diaphoresis, fatigue and fever. Respiratory: Positive for shortness of breath. Cardiovascular: Positive for chest pain (pressure). Gastrointestinal: Positive for nausea and vomiting. Negative for abdominal pain. Genitourinary: Positive for pelvic pain. Negative for decreased urine volume, difficulty urinating, dysuria, flank pain, frequency, hematuria, urgency, vaginal bleeding and vaginal discharge. Musculoskeletal: Negative for back pain. Skin: Negative for pallor. Allergic/Immunologic : Negative for immunocompromised state. Neurological: Positive for dizziness and light-headedness. Negative for syncope, weakness and headaches. Hematological: Negative for adenopathy. Psychiatric/Behavior al: Negative for confusion. Physical Exam BP 125/82 Pulse 86 Temp (Src) 97.9 (Oral) Resp 18 Ht 5' 4 (1.63m) Wt 162 lb (73.5kg) SpO2 100% LMP 05/23/2020 BMI 27.79 kg/(m2). O2 Therapy: Room Air Physical Exam Vitals and nursing note reviewed. Constitutional: General: She is not in acute distress. Appearance: Normal appearance. HENT: Head: Normocephalic and atraumatic. Mouth/Throat: Pharynx: Oropharynx is clear. Eyes: Conjunctiva/sclera: Conjunctivae normal. Cardiovascular: Rate and Rhythm: Normal rate and regular rhythm. Pulses: Normal pulses. Pulmonary: Effort: Pulmonary effort is normal. No respiratory distress. Breath sounds: Normal breath sounds. Abdominal: General: There is no distension. Palpations: Abdomen is soft. Tenderness: There is no abdominal tenderness. There is no guarding or rebound. Genitourinary: Comments: Gravid uterus Musculoskeletal: General: Normal range of motion. Cervical back: Normal range of motion. Skin: General: Skin is warm and dry. Capillary Refill: Capillary refill takes less than 2 seconds. Coloration: Skin is not pale. Neurological: General: No focal deficit present. Mental Status: She is alert and oriented to person, place, and time. Diagnostic Testing ED Labs Ordered and Reviewed CBC + AUTO DIFF ( (more content not included)... Normal [facility] Magnesiumon 10-22-2020 Magnesium [Mass/Vol] 1.9 mg/dL Normal 1.7-2.3 [facility] Urinalysis with Microscopico n 10-22-2020 Bacteria Present Critically abnormal 0 [facility] Bilirubin, Urine Negative Normal Negative [facility] Cast SEE COMMENT Normal 0 [facility] Comment on above: Result Comment: 0 Clarity (U) Cloudy Critically abnormal Clear [facility] Color (U) Yellow Normal Yellow [facility] Epithelial cells LM Ql (Urine sed) SEE COMMENT Normal [facility] Comment on above: Result Comment: Few Squamous Epithelial Cells Glucose Ql (U) Negative Normal Negative [facility] Hemoglobin/Blood,Ur Negative Normal Negative [facility] Ketones Ql (U) Negative Normal Negative [facility] Leukest Trace Critically abnormal Negative [facility] Nitrite Ql (U) Negative Normal Negative [facility] pH (U) 6.5 [pH] Normal 5.0-8.0 [facility] Protein, Urine Negative Normal Negative [facility] RBC 0-3 Normal 0-3 [facility] Specific [place], Ur 1.007 Normal 1.005-1.030 [facility] Urobilinogen Qn (U) 1.0 {[place]'U}/dL Normal 0.2-1.0 [facility] WBC 0-5 Normal 0-5 [facility] Type and Scr,Prenatlon 08-16 ABO/RH(D) Positive Normal [facility] Vital Signs Date Time Vital Sign Value Performing Clinician Facility 08-31-2023 11:29-0400 Body height 162.6 cm Kimberly Hernandez MD Work Phone: [facility] 08-31-2023 11:29-0400 Body weight 79.4 kg Kimberly Hernandez MD Work Phone: [facility] 08-31-2023 11:29-0400 Diastolic blood pressure 88 mm[Hg] Kimberly Hernandez MD Work Phone: [facility] 08-31-2023 11:29-0400 Heart rate 80 /min Kimberly Hernandez MD Work Phone: [facility] 08-31-2023 11:29-0400 SaO2% (BldA) [Mass fraction] 99 % Kimberly Hernandez MD Work Phone: [facility] 08-31-2023 11:29-0400 Systolic blood pressure 144 mm[Hg] Kimberly Hernandez MD Work Phone: [facility] 08-31-2023 10:57-0400 Body weight 79.38 kg Kimberly Hernandez MD Work Phone: [facility] 08-24-2023 11:38-0400 Body height 162.[address] 08-24-2023 11:38-0400 Body weight 79.[address] 08-24-2023 11:38-0400 Diastolic blood pressure 81 mm[Hg] [address] 08-24-2023 11:38-0400 Heart rate 80 /min [address] 08-24-2023 11:38-0400 Systolic blood pressure 127 mm[Hg] [address] 08-18-2023 13:34-0400 Diastolic blood pressure 77 mm[Hg] Kimberly Hernandez MD Work Phone: [facility] 08-18-2023 13:34-0400 Heart rate 69 /min Kimberly Hernandez MD Work Phone: [facility] 08-18-2023 13:34-0400 SaO2% (BldA) [Mass fraction] 99 % Kimberly Hernandez MD Work Phone: [facility] 08-18-2023 13:34-0400 Systolic blood pressure 120 mm[Hg] Kimberly Hernandez MD Work Phone: [facility] 08-03-2023 13:32-0400 Diastolic blood pressure 73 mm[Hg] Cassie Uribe MD Work Phone: [facility] 08-03-2023 13:32-0400 Heart rate 76 /min Cassie Uribe MD Work Phone: [facility] 08-03-2023 13:32-0400 SaO2% (BldA) [Mass fraction] 100 % Cassie Uribe MD Work Phone: [facility] 08-03-2023 13:32-0400 Systolic blood pressure 116 mm[Hg] Cassie Uribe MD Work Phone: [facility] 08-03-2023 13:02-0400 Body height 162.6 cm Cassie Uribe MD Work Phone: [facility] 08-03-2023 13:02-0400 Body weight 78.7 kg Cassie Uribe MD Work Phone: [facility] 07-06-2023 13:08-0500 Diastolic blood pressure 73 mm[Hg] Kimberly Hernandez MD Work Phone: [facility] 07-06-2023 13:08-0500 Heart rate 83 /min Kimberly Hernandez MD Work Phone: [facility] 07-06-2023 13:08-0500 Respiratory rate 20 /min Kimberly Hernandez MD Work Phone: [facility] 07-06-2023 13:08-0500 SaO2% (BldA) [Mass fraction] 97 % Kimberly Hernandez MD Work Phone: [facility] 07-06-2023 13:08-0500 Systolic blood pressure 134 mm[Hg] Kimberly Hernandez MD Work Phone: [facility] 07-06-2023 13:03-0500 Body height 162.6 cm Kimberly Hernandez MD Work Phone: [facility] 07-06-2023 13:03-0500 Body weight 75.75 kg Kimberly Hernandez MD Work Phone: [facility] 06-22-2023 13:11-0500 Body weight 74.4 kg Debbie Lau MD Work Phone: [facility] 06-22-2023 13:11-0500 Diastolic blood pressure 70 mm[Hg] Debbie Lau MD Work Phone: [facility] 06-22-2023 13:11-0500 Heart rate 92 /min Debbie Lau MD Work Phone: [facility] 06-22-2023 13:11-0500 Respiratory rate 20 /min Debbie Lau MD Work Phone: [facility] 06-22-2023 13:11-0500 SaO2% (BldA) [Mass fraction] 99 % Debbie Lau MD Work Phone: [facility] 06-22-2023 13:11-0500 Systolic blood pressure 110 mm[Hg] Debbie Lau MD Work Phone: [facility] 06-17-2023 10:00-0500 Body height 163.19 cm [employer] Other [employer] Other 06-17-2023 10:00-0500 Body mass index (BMI) [Ratio] 27.76 kg/m2 [employer] Other [employer] Other 06-17-2023 10:00-0500 Body temperature 97.1 [degF] Manolo Castro Other [employer] Other 06-17-2023 10:00-0500 Body weight 73.94 kg Manolo Castro Other [employer] Other 06-17-2023 10:00-0500 Diastolic blood pressure 68 mm[Hg] Manolo Castro Other [employer] Other 06-17-2023 10:00-0500 Respiratory rate 20 /min Manolo Castro Other [employer] Other 06-17-2023 10:00-0500 SaO2% (BldA) [Mass fraction] 98 % Manolo Castro Other [employer] Other 06-17-2023 10:00-0500 Systolic blood pressure 120 mm[Hg] Manolo Castro Other [employer] Other 04-26-2023 14:01-0500 Body height 162.6 cm Tiffanie Mcdaniel MD Work Phone: [facility] 04-26-2023 14:01-0500 Body weight 70.31 kg Tiffanie Mcdaniel MD Work Phone: [facility] 04-26-2023 14:01-0500 Diastolic blood pressure 73 mm[Hg] Tiffanie Mcdaniel MD Work Phone: [facility] 04-26-2023 14:01-0500 Heart rate 76 /min Tiffanie Mcdaniel MD Work Phone: [facility] 04-26-2023 14:01-0500 Respiratory rate 18 /min Tiffanie Mcdaniel MD Work Phone: [facility] 04-26-2023 14:01-0500 Systolic blood pressure 124 mm[Hg] Tiffanie Mcdaniel MD Work Phone: [facility] 04-12-2023 13:08-0500 Body height 162.6 cm Ashli Montanez MD Work Phone: [facility] 04-12-2023 13:08-0500 Body weight 69.13 kg Ashli Montanez MD Work Phone: [facility] 04-12-2023 13:08-0500 Diastolic blood pressure 70 mm[Hg] Ashli Montanez MD Work Phone: [facility] 04-12-2023 13:08-0500 Heart rate 92 /min Ashli Montanez MD Work Phone: [facility] 04-12-2023 13:08-0500 Systolic blood pressure 112 mm[Hg] Ashli Montanez MD Work Phone: [facility] 03-16-2023 14:02-0400 Body weight 68.95 kg Ashli Montanez MD Work Phone: [facility] 03-16-2023 14:02-0400 Diastolic blood pressure 66 mm[Hg] Ashli Montanez MD Work Phone: [facility] 03-16-2023 14:02-0400 Systolic blood pressure 110 mm[Hg] Ashli Montanez MD Work Phone: [facility] 02-03-2023 13:10-0400 Body height 162.6 cm Iliana Sadid PA-C Work Phone: [facility] 02-03-2023 13:10-0400 Body weight 67.13 kg Iliana Sadid PA-C Work Phone: [facility] 02-03-2023 13:10-0400 Diastolic blood pressure 70 mm[Hg] Iliana Sadid PA-C Work Phone: [facility] 02-03-2023 13:10-0400 Heart rate 85 /min Iliana Sadid PA-C Work Phone: [facility] 02-03-2023 13:10-0400 SaO2% (BldA) [Mass fraction] 98 % Iliana Roland PA-C Work Phone: [facility] 02-03-2023 13:10-0400 Systolic blood pressure 120 mm[Hg] Iliana Watkins PA-C Work Phone: [facility] 12-25-2022 11:00-0400 Body height 163.19 cm Manolo Castro Other [employer] Other 12-25-2022 11:00-0400 Body mass index (BMI) [Ratio] 24.18 kg/m2 Manolo Castro Other [employer] Other 12-25-2022 11:00-0400 Body temperature 97.4 [degF] Manolo Castro Other [employer] Other 12-25-2022 11:00-0400 Body weight 64.41 kg Manolo Castro Other [employer] Other 12-25-2022 11:00-0400 Diastolic blood pressure 66 mm[Hg] Manolo Castro Other [employer] Other 12-25-2022 11:00-0400 Respiratory rate 18 /min Manolo Castro Other [employer] Other 12-25-2022 11:00-0400 SaO2% (BldA) [Mass fraction] 98 % Manolo Castro Other [employer] Other 12-25-2022 11:00-0400 Systolic blood pressure 102 mm[Hg] Manolo Castro Other [employer] Other 09-26-2021 12:15-0400 Body height 163.19 cm Heladio Guy Other [employer] Other 09-26-2021 12:15-0400 Body temperature 99 [degF] Heladio Guy Other [employer] Other 09-26-2021 12:15-0400 Respiratory rate 18 /min Heladio Guy Other [employer] Other 09-26-2021 12:15-0400 SaO2% (BldA) [Mass fraction] 97 % Heladio Guy Other [employer] Other 09-01-2021 16:00-0400 Body height 163.19 cm Manolo Castro Other [employer] Other 09-01-2021 16:00-0400 Body mass index (BMI) [Ratio] 26.4 kg/m2 Manolo Castro Other [employer] Other 09-01-2021 16:00-0400 Body temperature 97.7 [degF] Manolo Castro Other [employer] Other 09-01-2021 16:00-0400 Body weight 70.31 kg Manolo Castro Other [employer] Other 09-01-2021 16:00-0400 Diastolic blood pressure 70 mm[Hg] Manolo Castro Other [employer] Other 09-01-2021 16:00-0400 Respiratory rate 20 /min Manolo Castro Other [employer] Other 09-01-2021 16:00-0400 SaO2% (BldA) [Mass fraction] 98 % Manolo Castro Other [employer] Other 09-01-2021 16:00-0400 Systolic blood pressure 122 mm[Hg] Manolo Castro Other [employer] Other 05-13-2021 17:45-0500 Body height 163.19 cm Manolo Castro Other [employer] Other 05-13-2021 17:45-0500 Body mass index (BMI) [Ratio] 27.25 kg/m2 Manolo Castro Other [employer] Other 05-13-2021 17:45-0500 Body temperature 97.7 [degF] Manolo Castro Other [employer] Other 05-13-2021 17:45-0500 Body weight 72.58 kg Manolo Castro Other [employer] Other 05-13-2021 17:45-0500 Diastolic blood pressure 82 mm[Hg] Manolo Castro Other [employer] Other 05-13-2021 17:45-0500 Respiratory rate 20 /min Manolo Castro Other [employer] Other 05-13-2021 17:45-0500 SaO2% (BldA) [Mass fraction] 97 % Manolo Castro Other [employer] Other 05-13-2021 17:45-0500 Systolic blood pressure 126 mm[Hg] Manolo Castro Other [employer] [employer] Other 02-12-2021 16:30-0400 Body height 163.19 cm Manolo Castro Other [employer] Other 02-12-2021 16:30-0400 Body mass index (BMI) [Ratio] 28.78 kg/m2 Manolo Castro Other [employer] Other 02-12-2021 16:30-0400 Body temperature 96.1 [degF] Manolo Castro Other [employer] Other 02-12-2021 16:30-0400 Body weight 76.66 kg Manolo Castro Other [employer] Other 02-12-2021 16:30-0400 Diastolic blood pressure 78 mm[Hg] Manolo Castro Other [employer] Other 02-12-2021 16:30-0400 Respiratory rate 20 /min Manolo Castro Other [employer] Other 02-12-2021 16:30-0400 SaO2% (BldA) [Mass fraction] 98 % Manolo Acstro Other [employer] Other 02-12-2021 16:30-0400 Systolic blood pressure 138 mm[Hg] Manolo Castro Other [employer] Other Encounters Encounter Date Encounter Type Care Provider Facility Start: 09-03-2023 End: 09-06-2023 Evaluation and management of inpatient MANOLO XIE CASTRO Facility:[facility] Start: 08-31-2023 End: 08-31-2023 ambulatory KIMBERLY HERNANDEZ Facility:[facility] Start: 08-31-2023 End: 08-31-2023 ambulatory [facility] Facility:[facility] Start: 08-31-2023 End: 08-31-2023 Patient encounter procedure Kimberly Hernandez MD Work Phone: Maternal Medicine Comment on above: Hx of preeclampsia, prior , currently (Primary Dx); Supervision of high risk / MFM care; Abnormal glucose tolerance in ; Myasthenia gravis status post thymectomy (HCC) ; Migraine without status migrainosus, not intractable, unspecified migraine type; Gestational hypertension, third trimester History of pre-eclam psia in prior , currently (Primary Dx); Myasthenia gravis status post thymectomy (HCC) ; Sjogren's syndrome, with unspecified organ involvement (HCC); 36 weeks gestation of Start: 08-24-2023 End: 08-24-2023 ambulatory CASSIE URIBE Facility:[facility] Start: 08-24-2023 End: 08-24-2023 Patient encounter procedure Whi Tech 3 [employer] Mfm Frvw 345 Maternal Medicine Comment on above: Other diseases of th e blood and blood-forming organs and certain disorders involving the immune mechanism complicating , third trimester (Primary Dx); SS-A antibody positive; SS-B antibody positive; Hx of preeclampsia, prior , currently ; Abnormal glucose tolerance in ; Myasthenia gravis status post thymectomy (HCC) ; 35 weeks gestation of Start: 08-19-2023 Telephone encounter Coordinate Measuring Machine Operator RN Obstetrics/Gynecology Comment on above: YUE Start: 08-18-2023 End: 08-18-2023 ambulatory KIMBERLY HERNANDEZ Facility:[facility] Start: 08-18-2023 End: 08-18-2023 Patient encounter procedure Kimberly Hernandez MD Work Phone: Maternal Medicine [facility] Comment on above: Abnormal glucose alejandro erance in (Primary Dx); SS-A antibody positive; SS-B antibody positive; Hx of preeclampsia, prior , currently ; Myasthenia gravis status post thymectomy (HCC) ; 34 weeks gestation of Supervision of high risk / MFM care (Primary Dx); Constipation, unspecified constipation type; 34 weeks gestation of ; Hx of preeclampsia, prior , currently ; Myasthenia gravis status post thymectomy (HCC) ; Abnormal glucose tolerance in ; Sjogren's syndrome, with unspecified organ involvement (HCC) Start: 08-16-2023 End: 08-17-2023 ambulatory JIMI Dorman XIE Facility:[facility] Start: 08-16-2023 End: 08-16-2023 Patient encounter procedure JIMI Dorman ANNE-MARIE [facility] Start: 08-10-2023 End: 08-11-2023 ambulatory JIMI XIE Facility:[facility] Start: 08-10-2023 End: 08-10-2023 ambulatory TAQUERIA SEGOVIA Facility:[facility] Start: 08-10-2023 End: 08-10-2023 Patient encounter procedure JIMIFRANCY XIE [facility] Start: 08-10-2023 End: 08-10-2023 ambulatory Taqueria Segovia MD Work Phone: Ped Neonatology Comment on above: Myasthenia gravis st atus post thymectomy (HCC) (Primary Dx); Sjogren's syndrome, with unspecified organ involvement (HCC) Start: 08-10-2023 End: 08-10-2023 Telemedicine consultation with patient Taqueria Segovia MD Work Phone: [facility] Start: 08-03-2023 End: 08-03-2023 ambulatory CASSIE URIBE Facility:[facility] Start: 08-03-2023 End: 08-03-2023 Patient encounter procedure Cassie Uribe MD Work Phone: Maternal Medicine Comment on above: Other diseases of th e blood and blood-forming organs and certain disorders involving the immune mechanism complicating , unspecified trimester (Primary Dx); Myasthenia gravis status post thymectomy (HCC) ; Sjogren's syndrome, with unspecified organ involvement (HCC); History of pre-eclampsia in prior , currently ; SS-A antibody positive; SS-B antibody positive; 32 weeks gestation of Hx of preeclampsia, prior , currently (Primary Dx); 32 weeks gestation of ; SS-A antibody positive; Myasthenia gravis status post thymectomy (HCC) ; SS-B antibody positive; Abnormal glucose tolerance in ; Migraine without status migrainosus, not intractable, unspecified migraine type; Sjogren's syndrome, with unspecified organ involvement (HCC); Supervision of high risk / [facility] care Start: 07-29-2023 End: 07-29-2023 ambulatory [facility] Facility:[facility] Start: 07-29-2023 End: 07-29-2023 [facility] Shantal Carrillo APRN.[facility] Work Phone: Psychiatry Comment on above: Adjustment disorder with mixed anxiety and depressed mood (Primary Dx) Start: 07-23-2023 Orders Only Debbie Lau MD Work Phone: Maternal Medicine Comment on above: 31 weeks gestation o f (Primary Dx); Abnormal glucose tolerance affecting , antepartum Start: 07-20-2023 End: 07-20-2023 ambulatory [facility] Facility:[facility] Start: 07-07-2023 Telephone encounter Coordinate Measuring Machine Operator RN Obstetrics/Gynecology Comment on above: PRAF Start: 07-06-2023 End: 07-07-2023 ambulatory KIMBERLY HERNANDEZ Facility:[facility] Start: 07-06-2023 End: 07-06-2023 Patient encounter procedure Kimberly Hernandez MD Work Phone: Maternal Medicine Comment on above: Encounter for ultras ound to check growth (Primary Dx); Myasthenia gravis status post thymectomy (HCC) ; Sjogren's syndrome, with unspecified organ involvement (HCC); History of pre-eclampsia in prior , currently ; 28 weeks gestation of Hx of preeclampsia, prior , currently (Primary Dx); 28 weeks gestation of ; Supervision of high risk / MFM care; Sjogren's syndrome, with unspecified organ involvement (HCC); Myasthenia gravis status post thymectomy (HCC) ; Mental health problem Start: 06-22-2023 End: 06-23-2023 ambulatory Kaya Brooks MD Work Phone: Pediatric Cardiology Start: 06-22-2023 End: 06-22-2023 Patient encounter procedure Kaya Brooks MD Work Phone: [facility] Comment on above: SS-A antibody positi ve Start: 06-22-2023 End: 06-23-2023 Office outpatient new 45 minutes Debbie Lau MD Work Phone: Maternal Medicine Comment on above: 26 weeks gestation o f (Primary Dx); Myasthenia gravis status post thymectomy (HCC) ; Sjogren's syndrome, with unspecified organ involvement (HCC); History of pre-eclampsia in prior , currently ; Supervision of elderly multigravida, second trimester; Migraine without status migrainosus, not intractable, unspecified migraine type; Mental health problem - history of adjustment disorder; BMI 26.0-26.9,adult Start: 06-17-2023 End: 06-17-2023 ambulatory Manolo Castro Other [employer] Other Start: 06-17-2023 Office outpatient vi sit 15 minutes Manolo Castro [facility] Start: 06-15-2023 End: 06-15-2023 ambulatory MANOLO XIE CASTRO Facility:[facility] Start: 06-10-2023 End: 06-10-2023 ambulatory Shantal Carrillo APRN.CNP Work Phone: Psychiatry Comment on above: After-Visit Summary Start: 06-10-2023 E-mail encounter fro m caregiver Shantal Carrillo APRN.CNP Work Phone: [facility] Start: 05-20-2023 End: 05-20-2023 ambulatory TIFFANIE MCDANIEL Facility:[facility] Start: 05-20-2023 End: 05-20-2023 ambulatory MANOLO XIE CASTRO Facility:[facility] Start: 05-11-2023 End: 05-12-2023 ambulatory MANOLO XIE CASTRO Facility:[facility] Start: 04-28-2023 Telephone encounter Mary Ann Salazar RN Maternal Medicine Comment on above: Coordinate Measuring Machine Operator - O ther Start: 04-26-2023 End: 04-26-2023 ambulatory ASHLI MONTANEZ Facility:[facility] Start: 04-26-2023 End: 04-26-2023 Patient encounter procedure Tiffanie Mcdaniel MD Work Phone: Maternal Medicine Comment on above: Encounter for anatomic survey (Primary Dx); History of severe pre-eclampsia; Supervision of high risk in first trimester; Myasthenia gravis status post thymectomy (HCC) ; SS-A antibody positive; SS-B antibody positive; Sjogren's syndrome, with unspecified organ involvement (HCC); 18 weeks gestation of History of pre-eclam psia in prior , currently (Primary Dx); 18 weeks gestation of ; Myasthenia gravis status post thymectomy (HCC) ; Sjogren's syndrome, with unspecified organ involvement (HCC); Supervision of high risk in second trimester; Migraine without status migrainosus, not intractable, unspecified migraine type; Hx of preeclampsia, prior , currently Start: 04-12-2023 End: 04-12-2023 ambulatory ASHLI MONTANEZ Facility:[facility] Start: 04-12-2023 End: 04-12-2023 Patient encounter procedure Ashli Montanez MD Work Phone: Obstetrics/Gynecology Comment on above: 16 weeks gestation o f (Primary Dx); Severe pre-eclampsia, antepartum; Migraine without status migrainosus, not intractable, unspecified migraine type; Myasthenia gravis status post thymectomy (HCC) ; Sjogren's syndrome, with unspecified organ involvement (HCC) Start: 04-03-2023 Telephone encounter Ashli carbajal MD Work Phone: OB/Gynecology Comment on above: ED Follow-up; Vomiti ng Start: 03-17-2023 Telephone encounter Fv Ob Mfm Work Phone: Maternal Medicine Start: 03-16-2023 End: 03-16-2023 ambulatory MANOLO ANNE-MARIE PATELES Facility:[facility] Start: 03-16-2023 End: 03-16-2023 Patient encounter procedure Ashli Montanez MD Work Phone: Obstetrics/Gynecology Comment on above: 12 weeks gestation o f (Primary Dx); Severe pre-eclampsia, antepartum; Myasthenia gravis status post thymectomy (HCC) ; Sjogren's syndrome, with unspecified organ involvement (HCC) Start: 03-15-2023 End: 03-15-2023 ambulatory ILIANA WATKINS Facility:[facility] Start: 03-15-2023 End: 03-15-2023 Patient encounter procedure Jimi Rocha MD Work Phone: Maternal Medicine Comment on above: Encounter for (NT) n uchal translucency scan (Primary Dx); Initial obstetric visit, first trimester Start: 02-05-2023 Telephone encounter Iliana Suzi WOO-C Work Phone: Obstetrics/Gynecology Comment on above: 1st risk as sessment form Start: 02-03-2023 End: 02-03-2023 ambulatory ILIANA ROLAND Facility:[facility] Start: 02-03-2023 End: 02-03-2023 Patient encounter procedure Iliana Watkins PA-C Work Phone: Obstetrics/Gynecology Comment on above: Initial obstetric vi sit, first trimester (Primary Dx); with uncertain viability, single or unspecified fetus; History of severe pre-eclampsia; Supervision of high risk in first trimester with incon clusive viability, single or unspecified fetus (Primary Dx) Start: 01-29-2023 End: 01-29-2023 ambulatory Pranav Valdivia MD Work Phone: Neurology Comment on above: Myasthenia gravis st atus post thymectomy (HCC) (Primary Dx) Start: 01-29-2023 End: 01-29-2023 Telemedicine consultation with patient Pranav Valdivia MD Work Phone: [facility] Start: 01-19-2023 Telephone encounter Aissatou zafar APRN.CNP Work Phone: Obstetrics/Gynecology Comment on above: Care; Coordinate Measuring Machine Operator - Other (Initial OB RN CC pool/) Start: 01-12-2023 End: 01-12-2023 ambulatory Manolo Castro Other [employer] Other Start: 01-12-2023 Telephone encounter Manolo Castro [facility] Start: 12-25-2022 End: 12-25-2022 ambulatory Manolo Castro Other [employer] Other Start: 12-25-2022 Office outpatient vi sit 15 minutes Manolo Castro [facility] Start: 10-19-2022 End: 10-19-2022 ambulatory Manolo Castro Other [employer] Other Start: 10-19-2022 Telephone encounter Manolo Castro [facility] Start: 05-05-2022 End: 05-05-2022 ambulatory Manolo Castro Other [employer] Other Start: 05-05-2022 Telephone encounter Manolo Castro [facility] Start: 02-26-2022 End: 02-26-2022 ambulatory Manolo Castro Other [employer] Other Start: 02-26-2022 Telephone encounter Manolo Castro [facility] Start: 11-27-2021 End: 11-27-2021 ambulatory Manolo Castro Other [employer] Other Start: 11-27-2021 Telephone encounter Manolo Castro [facility] Start: 09-29-2021 End: 09-29-2021 ambulatory Manolo Castro Other [employer] Other Start: 09-29-2021 Telephone encounter Manolo Castro [facility] Start: 09-26-2021 End: 09-26-2021 ambulatory Heladio Malena Other [employer] Other Start: 09-26-2021 Office outpatient vi sit 15 minutes Maryjayashree Malena [facility] Start: 09-19-2021 End: 09-19-2021 ambulatory Manolo Castro Other [employer] Other Start: 09-19-2021 Telephone encounter Manolo Castro [facility] Start: 09-04-2021 End: 09-04-2021 ambulatory Manolo Castro Other [employer] Other Start: 09-04-2021 Telephone encounter Manolo Castro [facility] Start: 09-01-2021 End: 09-01-2021 ambulatory Manolo Castro Other [employer] Other Start: 09-01-2021 Office outpatient vi sit 15 minutes Manolo Castro [facility] Start: 05-28-2021 End: 05-28-2021 ambulatory Manolo Castro Other [employer] Other Start: 05-28-2021 Telephone encounter Manolo Castro [facility] Start: 05-13-2021 End: 05-13-2021 ambulatory Manolo Castro Other [employer] Other Start: 05-13-2021 Office outpatient vi sit 15 minutes Manolo Castro [facility] Start: 02-12-2021 Office outpatient vi sit 10 minutes Manolo Castro [facility] Procedures Date Procedure Procedure Detail Performing Clinician Start: 09-03-2023 Antibody screen DEBBIE LAU Comment on above: Order Comment: Speci men Type: BLOOD SPECIMEN Ordering Facility: [facility] Address: [address] [place] [address] Performed By: #### T SPN #### [facility] CLIA [id number] [place] [address] [place] Start: 08-31-2023 Us preg uterus after 1st trimest 05/17 gestation Debbie Lau MD Work Phone: Start: 08-24-2023 biophysical pr ofile non-stress testing Cassie Uribe MD Work Phone: Start: 08-18-2023 biophysical pr ofile non-stress testing Cassie Uribe MD Work Phone: Start: 08-03-2023 Us preg uterus after 1st trimest 05/17 gestation Debbie Lau MD Work Phone: Start: 07-06-2023 Us preg uterus after 1st trimest 05/17 gestation Debbie Lau MD Work Phone: Start: 06-22-2023 URINE OB DIP B/O Debbie Lau MD Work Phone: Start: 04-26-2023 Us preg uterus after 1st trimest 05/17 gestation Iliana Watkins PA-C Work Phone: Start: 04-12-2023 URINE OB DIP B/O Ashli Montanez MD Work Phone: Start: 03-16-2023 URINE OB DIP B/O Ashli Montanez MD Work Phone: Start: 03-15-2023 Us nuchal translucency 1st gestation Iliana Watkins PA-C Work Phone: Start: 02-03-2023 Us uterus l imited 1/> fetuses Iliana WOO-Vanda Work Phone: Start: 02-03-2023 Antibody screen PRANAV VALDIVIA Comment on above: Order Comment: Speci men Type: BLOOD SPECIMEN Ordering Facility: [facility] Address: [address] [place] [id number] Performed By: #### 2 [id number] #### [facility] CLIA [id number] [address] [place] [address] [place] Start: 08-16-2020 Antibody screen Colonoscopy JIMI XIE thymusectomy JIMI XIE Tonsillectomy JIMI XIE Plan of Treatment Date Care Activity Detail Author Start: 07-06-2033 Urine microalbumin profile DTaP,Tdap,Td Vaccine (10 - Td or Tdap) [facility] Start: 01-17-2031 Urine microalbumin profile [facility] Start: 12-17-2024 PAP TESTING PAP TESTING [facility] Start: 12-17-2024 Screening for malign ant neoplasm of cervix Pap Testing [facility] Start: 01-16-2024 Influenza vaccination Influenz a Vaccine (Season Ended) [facility] Start: 08-03-2023 End: 11-02-2023 GEST GLUC ALEJANDRO, 3-HR, 100 GM, FASTING GEST GLUC ALEJANDRO, 3-HR, 100 GM, FASTING Lab Routine 32 weeks gestation of SS-A antibody positive SS-B antibody positive Hx of preeclampsia, prior , currently Abnormal glucose tolerance in Myasthenia gravis status post thymectomy (HCC) Expected: 08/03/2023, Expires: 11/02/2023 [facility] Work Phone: Comment on above: Expected: 08/03/2023 , Expires: 11/02/2023 Start: 07-23-2023 End: 10-22-2023 GEST GLUC ALEJANDRO, 3-HR, 100 GM, FASTING GEST GLUC ALEJANDRO, 3-HR, 100 GM, FASTING Lab Routine 31 weeks gestation of Abnormal glucose tolerance affecting , antepartum Expected: 07/23/2023, Expires: 10/22/2023 [facility] Work Phone: Comment on above: Expected: 07/23/2023 , Expires: 10/22/2023 Start: 07-06-2023 End: 10-05-2023 SYPHILIS TOTAL W/REFLEX [facility] Work Phone: Comment on above: Expected: 07/06/2023 , Expires: 10/05/2023 Start: 05-17-2023 Behavioral Health Screening Behavioral Health Screening [facility] Start: 05-17-2023 Depression Assessment Depression Ass essment [facility] Start: 04-26-2023 End: 04-26-2024 OBSTETRIC ULTRASOUND WHI OBSTETRIC ULTRASOUND WHI Anc Imaging Routine Encounter for anatomic survey Expected: 04/26/2023, Expires: 04/26/2024 [facility] Work Phone: Comment on above: Expected: 04/26/2023 , Expires: 04/26/2024 Start: 03-16-2023 End: 06-15-2023 Chromosome 21 trisomy [Presence] in Blood or Tissue by Cytogenetics [facility] Work Phone: Comment on above: Expected: 03/16/2023 , Expires: 06/15/2023 Start: 03-16-2023 End: 06-15-2023 Protein/Creatinine [Mass Ratio] in Urine [facility] Work Phone: Comment on above: Expected: 03/16/2023 , Expires: 06/15/2023 Start: 02-03-2023 End: 04-05-2023 CBC panel - Blood by Automated count [facility] Work Phone: Comment on above: Expected: 02/03/2023 , Expires: 04/05/2023 Start: 02-03-2023 End: 04-05-2023 Comprehensive metabolic 2000 panel - Serum or Plasma [facility] Work Phone: Comment on above: Expected: 02/03/2023 , Expires: 04/05/2023 Start: 02-03-2023 End: 04-05-2023 Hepatitis B virus surface Ag [Presence] in Serum [facility] Work Phone: Comment on above: Expected: 02/03/2023 , Expires: 04/05/2023 Start: 02-03-2023 End: 04-05-2023 Hepatitis C virus Ab [Presence] in Serum [facility] Work Phone: Comment on above: Expected: 02/03/2023 , Expires: 04/05/2023 Start: 02-03-2023 End: 04-05-2023 HIV 1+2 Ab [Presence] in Serum or Plasma by Immunoassay [facility] Work Phone: Comment on above: Expected: 02/03/2023 , Expires: 04/05/2023 Start: 02-03-2023 End: 02-04-2024 NUCHAL TRANSLUCENCY WHI NUCHAL TRANSLUCENCY WHI Anc Imaging Routine Initial obstetric visit, first trimester Expected: 02/03/2023, Expires: 02/04/2024 [facility] Work Phone: Comment on above: Expected: 02/03/2023 , Expires: 02/04/2024 Start: 02-03-2023 End: 02-04-2024 OBSTETRIC ULTRASOUND WHI OBSTETRIC ULTRASOUND WHI Anc Imaging Routine History of severe pre-eclampsia Supervision of high risk in first trimester Expected: 02/03/2023, Expires: 02/04/2024 [facility] Work Phone: Comment on above: Expected: 02/03/2023 , Expires: 02/04/2024 Start: 02-03-2023 End: 04-05-2023 Protein/Creatinine [Mass Ratio] in Urine PROTEIN CREATININE RATIO Lab Routine History of severe pre-eclampsia Expected: 02/03/2023, Expires: 04/05/2023 [facility] Work Phone: Comment on above: Expected: 02/03/2023 , Expires: 04/05/2023 Start: 02-03-2023 End: 04-05-2023 RUBELLA IGG AB [facility] Work Phone: Comment on above: Expected: 02/03/2023 , Expires: 04/05/2023 Start: 02-03-2023 End: 04-05-2023 SYPHILIS TOTAL W/REFLEX [facility] Work Phone: Comment on above: Expected: 02/03/2023 , Expires: 04/05/2023 Start: 02-03-2023 End: 04-05-2023 TYPE + SCREEN [facility] Work Phone: Comment on above: Expected: 02/03/2023 , Expires: 04/05/2023 Start: 01-15-2023 Covid-19 Vaccine () Covid-19 Vaccine () [facility] Start: 01-15-2023 Influenza vaccination [facility] Start: 05-17-2022 DEPRESSION ASSESSMENT DEPRESSION ASS ESSMENT [facility] Start: 2020 HPV TESTING HPV TESTING [facility] Start: 2020 Screening for malign ant neoplasm of cervix HPV Testing [facility] Start: 05-25-1991 COVID-19 VACCINE (#1) COVID-19 VACCI NE (#1) [facility] Bacteria identified in Urine by Culture URINE CULTURE Microbiology Routine Initial obstetric visit, first trimester 02/03/2023 2:06 PM EDT [facility] Work Phone: End: 01-30-2024 BIOPHYSICAL PROFILE US WHI BIOPHYSICAL PROFILE US I Anc Imaging Routine 32 weeks gestation of SS-A antibody positive SS-B antibody positive Hx of preeclampsia, prior , currently Abnormal glucose tolerance in Myasthenia gravis status post thymectomy (HCC) Once per week for 10 Occurrences starting 08/03/2023 until 01/30/2024 [facility] Work Phone: Comment on above: Once per week for 10 Occurrences starting 08/03/2023 until 01/30/2024 End: 02-14-2024 BIOPHYSICAL PROFILE US WHI BIOPHYSICAL PROFILE US WHI Anc Imaging Routine Supervision of high risk / MFM care Once per week for 10 Occurrences starting 08/18/2023 until 02/14/2024 [facility] Work Phone: Comment on above: Once per week for 10 Occurrences starting 08/18/2023 until 02/14/2024 Chlamydia trachomatis+Neisseria gonorrhoeae DNA [Presence] in Unspecified specimen by FRANCHESCA with probe detection GONORRHEA/CHLAMYDIA NAAT Lab Routine Initial obstetric visit, first trimester 02/03/2023 2:06 PM EDT [facility] Work Phone: End: 10-30-2024 ECHO ECHO Cardiology Routine Initial obstetric visit, first trimester Encounter for (NT) nuchal translucency scan 1 Occurrences starting 03/15/2023 until 03/15/2024 [facility] Work Phone: Comment on above: 1 Occurrences starti ng 03/15/2023 until 03/15/2024 INDUCTION L&D INDUCTION L&D Procedures Routine Hx of preeclampsia, prior , currently Gestational hypertension, third trimester 1 Occurrences starting 08/31/2023 [facility] Work Phone: Comment on above: 1 Occurrences starti ng 08/31/2023 End: 12-19-2023 OBSTETRIC ULTRASOUND WHI OBSTETRIC ULTRASOUND WHI Anc Imaging Routine Myasthenia gravis status post thymectomy (HCC) Sjogren's syndrome, with unspecified organ involvement ([facility]) History of pre-eclampsia in prior , currently Once per month for 5 Occurrences starting 06/22/2023 until 12/19/2023, 1 completed [facility] Work Phone: Comment on above: Once per month for 5 Occurrences starting 06/22/2023 until 12/19/2023, 1 completed POC EMS EDUCATOR ULTRASOUND POC EMS EDUCATOR ULTRASO UND Anc Imaging Routine with uncertain viability, single or unspecified fetus Ordered: 02/03/2023 [facility] Work Phone: Comment on above: Ordered: 02/03/2023 ROUTINE, GR OUP B STREP PCR ROUTINE, GROUP B STREP PCR Microbiology Routine 35 weeks gestation of 08/24/2023 12:36 PM EDT [facility] Work Phone: URINE OB DIP B/O URINE OB DIP B/ O Lab Routine 28 weeks gestation of Ordered: 07/06/2023 [facility] Work Phone: Comment on above: Ordered: 07/06/2023 URINE OB DIP B/O URINE OB DIP B/ O Lab Routine 32 weeks gestation of SS-A antibody positive SS-B antibody positive Hx of preeclampsia, prior , currently Abnormal glucose tolerance in Myasthenia gravis status post thymectomy (HCC) Ordered: 08/03/2023 [facility] Work Phone: Comment on above: Ordered: 08[facility]03/2023 [facility] Immunizations Immunization Date Immunization Notes Care Provider [facility] 07-06-2023 tetanus toxoid, reduced diphtheria toxoid, and acellular pertussis vaccine, adsorbed Kimberly Hernandez MD Work Phone: [facility] 01-17-2021 tetanus toxoid, reduced diphtheria toxoid, and acellular pertussis vaccine, adsorbed Aissatou Hernández APRN.CNP Work Phone: [facility] 06-24-2018 influenza, injectable, quadrivalent, contains preservative Patient Objection Manolo Castro Other [employer] Other 06-24-2018 influenza virus vaccine, unspecified formulation Pranav Valdivia MD Work Phone: [facility] 03-30-2018 influenza, injectable, quadrivalent, contains preservative Patient Objection Manolo Castro Other [employer] Other 03-18-2017 influenza, injectable, quadrivalent, contains preservative Patient Objection Mnaolo Castro Other [employer] Other 12-06-2014 tetanus toxoid, reduced diphtheria toxoid, and acellular pertussis vaccine, adsorbed Manolo Castro Other [employer] Other NEGATED: Highlighted row has not occurred!06-24-2018 influenza, injectable, quadrivalent, contains preservative Patient Objection Manolo Castro Other [employer] Other NEGATED: Highlighted row has not occurred!03-30-2018 influenza, injectable, quadrivalent, contains preservative Patient Objection Manolo Castro Other [employer] Other NEGATED: Highlighted row has not occurred!03-18-2017 influenza, injectable, quadrivalent, contains preservative Patient Objection Manolo Dumontgles Other [employer] Other Payers Date Payer Category Payer Medicaid [id number] 2022 Medicaid [employer] [id number] 2022-Present [phone] [address] [place] [address] Medicaid [id number] 2012 Unknown [id number] 1990 Unknown [id number] 1990 Unknown [id number] Social History Date Type Detail Facility Unknown if ever smoked [facility] [employer] Other Start: 03-21-2021 End: 01-07-2023 Sex Assigned At [facility] Start: 06-22-2011 End: 03-16-2023 Tobacco smoking status NHIS Never smoked tobacco [facility] Start: 06-22-2011 End: 03-16-2023 Tobacco use and exposure Smokeless tobacco non-user [facility] Start: 03-21-2021 End: 08-18-2023 Alcohol intake Current non-drinker of alcohol (finding) [facility] Start: 03-21-2021 End: 01-07-2023 History of Social function [facility] Adult Depression Screening Assessment [address] [facility] Start: 1990 Sex Assigned At Female [facility] Start: 11-28-2018 Gender identity Identifies as female gender (finding) [facility] Start: 07-15-2019 Sexual orientation Heterosexual (finding) [facility] Start: 01-01-[address] [facility] Goals Date Patient Goal Desired Activity /State Personal health goal Clinical Notes 02-06-2021 to 09-06-2023 Quick Notes - Kimberly Hernandez MD - 08/31/2023 11:49 AM Kimberly Godinez MD - 08/31/2023 11:44 AM EDTTelephone Encounter - Ashley Zarate RN - 08/19/2023 11:16 AM EDT Note Date & Type Note Facility 09-06-2023 Note HNO ID: [id number] Author: OSVALDO PETTIT MD Service: Obstetrics Author Type: Resident Type: Progress Notes Filed: 09/06/2023 12:36 Note Text: OBSTETRICS PROGRESS NOTE SERVICE DATE: September 06, 2023 SERVICE TIME: 5:51 AM 32 year old with hx of Myasthenia Gravis who is POD#3 s/p emergent C/S in setting for cord prolapse at 37w0d. complicated by gHTN. Pt doing well presently. Myasthenia Gravis - No meds, asymptomatic since 01/2021 - CANNOT give Magnesium for Pre-E - Cannot give Procardia, Labetalol - Discussed with MFM Dr. Simons (see below for recs) gHTN - Prior hx of PreE with SF in prior pregnancies - Admitted for IOL for gHTN, admit labs wnl -1x SRBP at 1550 at 09/02, not yet meeting criteria for PreE w/ SF - Normotensive overnight - If SBP persistently above 150s, can consider starting enalapril - Asx - Per MFM: Plan if signs of severe preeclampsia met Treat with IV Hydralazine and Methyldopa as an adjunct Start Keppra (500mg BID) for seizure prophylaxis If seizures develop use Ativan 1-2mg for seizure treatment If refractory call ICU and initiate a phenytoin drip (but this can not be for an extended period due to muscle weakness) of note valproic acid can also be used but can lead to hepatotoxicity Avoid labetalol and nifedipine as this can cause muscle weakness. Anesthesia consultation Sjogren Syndrome - Pos SSA/SSB antibody - Normal echoes Hx Adjustement Disorder: no meds PVCs: asymptomatic Routine care - RI/Rh+ - Pre delivery Hgb 11 > 9.2 postop w/ 314 cc QBL - Encouraged /pumping - Contraception: Will be discussed at 6wk visit. Counseled on , barrier contraception, pelvic rest - Discharge instructions: Discussed pelvic rest, bathing, stairs, walking, lifting, driving, and follow-up. Patient expresses understanding. - Dispo: Plan for discharge home POD #3 pending progression through milestones Plan of care discussed with: Provider, RN, Patient. Anticipate discharge day: POD #3-4 SUBJECTIVE: Patient has no current complaints. Tolerating PO intake. Urinating without difficulty. Passing flatus. Pain well controlled with current regimen. Lochia decreasing. Ambulating without difficulty. Denies headache, vision changes, chest pain, SOB, RUQ pain, or FINN. OBJECTIVE: PHYSICAL EXAM: Heart: RR, S1, S2 Lungs: clear to auscultation Abdomen: Soft Fundus firm below umbilicus Non-distended Incision: Transverse incision C/D/I with steri-strips. Extremities: No calf tenderness and No edema LAST VITALS: Pulse BP Resp O2 Sat Temp Pain 74 121/64 16 96 % 36.9 ?C (98.4 ?F) 0 Avg Min Max Vitals (last 12 hours) Flowsheet Row Name Average Min Max BP: Systolic 128.67 121 139 BP: Diastolic 66.67 53 83 Temp 37 ?C (98.53 ?F) 36.7 ?C (98.1 ?F) 37.3 ?C (99.1 ?F) Pulse 74 72 76 Resp 16 16 16 SpO2 97 % 95 % 100 % HT/WT/BMI: Height Weight BMI LABS ABO/RH: 09/03/2023: O; Positive RUBELLA: 02/03/2023: Positive HANDH: Hematocrit (%) Date Value 09/04/2023 27.8 09/03/2023 33.4 Hemoglobin (g/dL) Date Value 09/04/2023 9.2 09/03/2023 11.0 Diagnostic tests reviewed for today's visit: Most recent labs and imaging results. SIGNATURE: Osvaldo Pettit MD PATIENT NAME: Olivia Rae DATE: September 06, 2023 TIME: 5:51 AM [facility] 09-05-2023 Note HNO ID: [id number] Author: RUSSELL CARVER MD Service: Obstetrics Author Type: Physician Type: Progress Notes Filed: 09/05/2023 09:25 Note Text: OBSTETRICS PROGRESS NOTE SERVICE DATE: 09/05/2023 SERVICE TIME: 6:34 AM ASSESSMENT/PLAN: 32 year old with hx of Myasthenia Gravis who is POD#2 s/p emergent C/S in setting for cord prolapse at 37w0d. complicated by gHTN. Pt doing well presently. Myasthenia Gravis - No meds, asymptomatic since 01/2021 - CANNOT give Magnesium for Pre-E - Cannot give Procardia, Labetalol - Discussed with MFM Dr. Simons (see below for recs) gHTN - Prior hx of PreE with SF in prior pregnancies - Admitted for IOL for gHTN, admit labs wnl -1x SRBP at 1550 at 09/02, not yet meeting criteria for PreE w/ SF - Normotensive overnight - If SBP persistently above 150s, can consider starting enalapril - Patient reporting RUQ pain this AM, CMP ordered will f/u result - Per MFM: Plan if signs of severe preeclampsia met Treat with IV Hydralazine and Methyldopa as an adjunct Start Keppra (500mg BID) for seizure prophylaxis If seizures develop use Ativan 1-2mg for seizure treatment If refractory call ICU and initiate a phenytoin drip (but this can not be for an extended period due to muscle weakness) of note valproic acid can also be used but can lead to hepatotoxicity Avoid labetalol and nifedipine as this can cause muscle weakness. Anesthesia consultation Sjogren Syndrome - Pos SSA/SSB antibody - Normal echoes Hx Adjustement Disorder: no meds PVCs: asymptomatic Routine care - RI/Rh+ - Pre delivery Hgb 11 > 9.2 postop w/ 314 cc QBL - Encouraged /pumping - Contraception: Will be discussed at 6wk visit. Counseled on , barrier contraception, pelvic rest - Discharge instructions: Discussed pelvic rest, bathing, stairs, walking, lifting, driving, and follow-up. Patient expresses understanding. - Dispo: Plan for discharge home POD #3 pending progression through milestones SUBJECTIVE: Tolerating PO intake. Passing flatus. Lochia decreasing. Complains of RUQ and R shoulder pain. Ambulating without difficulty but minimally. Denies headache, vision changes, CP, SOB, calf pain. OBJECTIVE: LAST VITALS 09/04/23 1653 09/04/23 1953 09/04/23 2324 09/05/23 0416 BP: 126/60 127/67 137/78 125/62 Pulse: 70 72 90 88 Resp: 16 18 18 16 Temp: 36.8 ?C (98.2 ?F) 36.7 ?C (98.1 ?F) 37.3 ?C (99.1 ?F) 37 ?C (98.6 ?F) TempSrc: Oral Oral Oral Oral SpO2: 100% 100% 100% 100% PHYSICAL EXAM: Heart: RR, S1, S2 Lungs: clear to auscultation Abdomen: Soft Fundus firm below umbilicus Non-distended mild RUQ TTP Incision: Bandage C/D/I. Extremities: No calf tenderness and Edema equal bilaterally Intake/Output Summary (Last 24 hours) at 09/05/2023 0634 Last data filed at 09/05/2023 0416 Gross per 24 hour Intake 2348 ml Output 4650 ml Net -2302 ml LABS CBC, Coags, BMP, Mg, Phos Recent Labs 09/04/23 0659 09/03/23 1131 WBC 12.10* 7.53 HB 9.2* 11.0* HCT 27.8* 33.4* PLT 191 224 Diagnostic tests reviewed for today's visit: Most recent labs and imaging results. SIGNATURE: Faiza Parish DO PATIENT NAME: Olivia Rae DATE: September 05, 2023 TIME: 6:34 AM I saw and evaluated the patient. Discussed with the resident and agree with resident's findings and plan as documented in the resident's note. Russell Carver MD September 05, 2023 9:25 AM [facility] 09-04-2023 Note HNO ID: [id number] Author: MADISON MORRISON MD Service: Obstetrics Author Type: Resident Type: Progress Notes Filed: 09/04/2023 09:28 Note Text: Attestation signed by Madison Morrison MD at 09/04/2023 9:28 AM Attending Note I evaluated the patient and personally participated in the bernal components. I agree with the resident's findings and plan as documented and have discussed the case and management of the patient's care with the resident. Plan of care discussed with: Provider, RN, Patient. Signature: Madison Morrison MD Date: September 04, 2023 Time: 9:28 AM OBSTETRICS PROGRESS NOTE SERVICE DATE: 09/04/2023 SERVICE TIME: 6:25 AM ASSESSMENT/PLAN: 32 year old with hx of myasthenia gravis who is POD#1 s/p emergent CS in setting for cord prolapse at 37w0d. complicated by gHTN. Myasthenia Gravis - no meds, asymptomatic since 01/2021 - CANNOT give magnesium for Pre-E - cannot give procardia, labetalol - discussed with M Dr. Simons (see below for recs) gHTN - Prior hx of PreE with SF in prior pregnancies - Admitted for IOL for gHTN, admit labs wnl -1x SRBP at 1550 at 09/02, not yet meeting criteria for PreE w/ SF - Normotensive to MRBP overnight - If SBP persistently above 150s, can consider starting enalapril Per MFM: Plan if signs of severe preeclampsia met Treat with IV hydralazine and methyldopa as an adjunct Start Keppra (500mg BID) for seizure prophylaxis If seizures develop use ativan 1-2mg for seizure treatment if refractory call ICU and initiate a phenytoin drip (but this can not be for an extended period due to muscle weakness) of note valproic acid can also be used but can lead to hepatotoxicity Avoid labetalol and nifedipine as this can cause muscle weakness. Anesthesia consultation Sjogren Syndrome - Pos SSA/SSB antibody - Normal echoes Hx Adjustement Disorder: no meds PVCs: asymptomatic Routine care - RI/Rh+ - Pre delivery Hgb 11 w/ 314 cc EBL - Encouraged /pumping - Contraception: Will be discussed at 6wk visit. Counseled on , barrier contraception, pelvic rest - Discharge instructions: Discussed pelvic rest, bathing, stairs, walking, lifting, driving, and follow-up. Patient expresses understanding. - Dispo: Plan for discharge home POD#3 pending progression through milestones SUBJECTIVE: Patient has no current complaints. Tolerating PO intake. Passing flatus. Pain well controlled with current regimen. Lochia decreasing. Ambulating without difficulty. Denies headache, vision changes, or RUQ pain. OBJECTIVE: LAST VITALS 09/04/23 0116 09/04/23 0204 09/04/23 0300 09/04/23 0415 BP: 124/75 Pulse: 64 Resp: 16 18 16 16 Temp: 36.7 ?C (98.1 ?F) TempSrc: Oral SpO2: 100% PHYSICAL EXAM: Heart: RR, S1, S2 Lungs: clear to auscultation Abdomen: Soft Fundus firm below umbilicus Non-distended Incision: Transverse incision C/D/I. Extremities: No calf tenderness and No edema Intake/Output Summary (Last 24 hours) at 09/04/2023 0625 Last data filed at 09/04/2023 0415 Gross per 24 hour Intake 3890.6 ml Output 2939 ml Net 951.6 ml LABS CBC, Coags, BMP, Mg, Phos Recent Labs 09/03/23 1131 WBC 7.53 HB 11.0* HCT 33.4* PLT 224 Diagnostic tests reviewed for today's visit: Most recent labs and imaging results. SIGNATURE: Isabel Rodas MD PATIENT NAME: Oliiva Rae DATE: September 04, 2023 TIME: 6:25 AM [facility] 09-03-2023 Note HNO ID: [id number] Author: PILAR THORNTON MD Service: Obstetrics Author Type: Resident Type: Progress Notes Filed: 09/03/2023 17:56 Note Text: OB RESIDENT INTRAPARTUM PROGRESS NOTE 32 year old 37w0d IOL for gHTN. Patient has myasthenia gravis, Sjogren's syndrome, and anemia. Denies headache, vision changes, SOB, chest pain, RUQ pain, or increase in swelling. IOL - SVE: /-2 - Induction: pitocin (1252), AROM (1636) one check at 1750 a cord was felt passed the head and head was not well applied. Decision was made to proceed with emergent section. - Membranes: intact - Cat I FHT - Epidural PRN - Cephalic by BSUS - GBS neg - EFW 7lbs, tested to 6lb 11oz - Admit to [facility], CLD, cEFM, Routine admission labs Myasthenia Gravis - no meds, asymptomatic since 01/2021 - CANNOT give magnesium for Pre-E - cannot give procardia, labetalol - discussed with MFM Dr. Naif Wilcox, History of PEC with SF AND gHTN in prior pregnancies - CBC/CMP: Cr nl at 0.55, nl AST/ALT, plt nl at 247 - 37 week IOL as above - hx preE SF with last Plan if signs of severe preeclampsia met Treat with IV hydralazine and methyldopa as an adjunct Start Keppra (500mg BID) for seizure prophylaxis If seizures develop use ativan 1-2mg for seizure treatment if refractory call ICU and initiate a phenytoin drip (but this can not be for an extended period due to muscle weakness) of note valproic acid can also be used but can lead to hepatotoxicity Avoid labetalol and nifedipine as this can cause muscle weakness. Anesthesia consultation Sjogren Syndrome - Pos SSA/SSB antibody - Normal echoes Anemia - Hgb 11 Hx Adjustement Disorder - No medications PVCs - asymptomatic ObHx: FAVD x1 5lb 8oz (preE SF), x1 6lb 11oz (gHTN) PMH: see above PSH: thymectomy BMI: There is no height or weight on file to calculate BMI. Allergies: sherita Most recent Hgb: 11 SIGNATURE: Pilar Thornton MD PATIENT NAME: Olivia Rae DATE: 09/03/2023 TIME: 5:55 PM [facility] 09-03-2023 Note HNO ID: [id number] Author: ROC ARZATE APRN.SAP GATHERER Service: Anesthesiology Author Type: Student Type: Anesthesia Procedure Notes Filed: 09/03/2023 18:15 Note Text: Attestation signed by Roc Arzate APRN.SAP GATHERER at 09/03/2023 6:15 PM I reviewed the pertinent patient history and agree with the student's recommended plan for care. Roc Arzate APRN.SAP GATHERER ANESTHESIOLOGY PROCEDURE NOTE PIV General Information Procedure Start Time/Medication Administration: 09/03/2023 5:48 PM Procedure End Time: 09/03/2023 5:48 PM Patient Location: OR Staffing SAP GATHERER: Roc Arzate APRN.SAP GATHERER Performed by: SAP GATHERER Preparation Sterility Preparation: hand hygiene performed prior to procedure, surgical cap used, mask used Site Prep: alcohol Procedure Details Indication: need for IV access Needle Size/Type: 16 gauge angiocath Orientation: Left Location: Hand Imaging Guidance Used: No SIGNATURE: FORTUNATO Yin PATIENT NAME: Olivia Rae DATE: September 03, 2023 TIME: 5:48 PM CSN: [id number] [facility] 09-03-2023 Note HNO ID: [id number] Author: PILAR THORNTON MD Service: Obstetrics Author Type: Resident Type: Progress Notes Filed: 09/03/2023 16:51 Note Text: OB RESIDENT INTRAPARTUM PROGRESS NOTE S: comfortable. O: 09/03/23 1630 09/03/23 1635 09/03/23 1640 09/03/23 1645 BP: 132/70 133/75 134/74 136/74 Pulse: 80 71 82 76 Resp: 16 18 Temp: TempSrc: SpO2: 100% 100% 100% 100% MONITORING/ASSESSMENT: Baseline: 135 bpm (09/03/23 1630 : Stump, Laura, RN) Variability: Moderate (6-25 bpm) (09/03/23 1630 : StumpLaura, RN) Accelerations: Present (09/03/23 1630 : StumpLaura, RN) Decelerations: Decelerations: None (09/03/23 1630 : StumpLaura, RN) Contractions: Regular (09/03/23 1630 : StumpLaura, RN) Frequency: 1.5-4 (09/03/23 1630 : Laura Leigh, RN) 09/03/23 1232 09/03/23 1635 Dilation: 3 4 Effacement (%): 60 70 Station: -2 -2 Presentation: Vertex 32 year old 37w0d IOL for gHTN. Patient has myasthenia gravis, Sjogren's syndrome, and anemia. Denies headache, vision changes, SOB, chest pain, RUQ pain, or increase in swelling. IOL - SVE: /-2 - Induction: pitocin (1252), AROM (1636) - Membranes: intact - Cat I FHT - Epidural PRN - Cephalic by BSUS - GBS neg - EFW 7lbs, tested to 6lb 11oz - Admit to [facility], CLD, cEFM, Routine admission labs Myasthenia Gravis - no meds, asymptomatic since 01/2021 - CANNOT give magnesium for Pre-E - cannot give procardia, labetalol - discussed with MFM Dr. Naif Wilcox, History of PEC with SF AND gHTN in prior pregnancies - CBC/CMP: Cr nl at 0.55, nl AST/ALT, plt nl at 247 - 37 week IOL as above - hx preE SF with last Plan if signs of severe preeclampsia met Treat with IV hydralazine and methyldopa as an adjunct Start Keppra (500mg BID) for seizure prophylaxis If seizures develop use ativan 1-2mg for seizure treatment if refractory call ICU and initiate a phenytoin drip (but this can not be for an extended period due to muscle weakness) of note valproic acid can also be used but can lead to hepatotoxicity Avoid labetalol and nifedipine as this can cause muscle weakness. Anesthesia consultation Sjogren Syndrome - Pos SSA/SSB antibody - Normal echoes Anemia - Hgb 11 Hx Adjustement Disorder - No medications PVCs - asymptomatic ObHx: FAVD x1 5lb 8oz (preE SF), x1 6lb 11oz (gHTN) PMH: see above PSH: thymectomy BMI: There is no height or weight on file to calculate BMI. Allergies: sherita Most recent Hgb: 11 SIGNATURE: Pilar Thornton MD PATIENT NAME: Olivia Rae DATE: 09/03/2023 TIME: 4:50 PM [facility] 09-03-2023 Note HNO ID: [id number] Author: SAE MERCER DO Service: Anesthesiology Author Type: Anesthesiologist Type: Anesthesia Procedure Notes Filed: 09/03/2023 16:09 Note Text: ANESTHESIOLOGY PROCEDURE NOTE Epidural Block General Information Procedure Start Time/Medication Administration: 09/03/2023 3:59 PM Procedure End time: 09/03/2023 3:59 PM Patient location during procedure: [facility] room Informed Consent Consent Obtained: Written Pandora Protocol SIGN IN Personnel directly involved with the procedure wore the appropriate PPE. Patient/Surrogate Stated/Verified: Patient name, Date of , Relevant allergies and Intended procedure TIME OUT Intended patient and procedure match the source document(s). Consent documented and matches the intended procedure. Relevant labs, photos, and/or imaging studies have been reviewed. Correct side/site marked and visible. Reason for block: labor epidural Staffing Anesthesiologist: Sae Mercer DO SAP GATHERER: Yaquelin Echeverria APRN.SAP GATHERER Preparation Sterility Preparation: hand hygiene performed prior to procedure, sterile gloves, drapes, and procedure tray, surgical cap used, mask used, sterile drape used during line insertion, skin prep agent completely dried prior to procedure Site Prep: Duraprep Procedure Details Patient position: sitting Patient monitoring: Pulse OX and NIBP Approach: midline Injection technique: FRANCK saline Region: lumbar Estimated Interspace: 2-3 Number of Attempts: 1 Needle and Epidural Catheter Needle type: Broota Needle gauge: 17G Needle length: 3.5 in Needle insertion depth: 5 cm Catheter Catheter type: side hole Catheter size: 19 G Catheter at skin depth: 11 cmTest Dose Response: negative AssessmentBeginning Pain Score: 5/10 Events: tolerated well without discomfort SIGN OUT All specimen containers correctly labeled. All instruments, equipment, possible retained foreign bodies accounted for. Comments 1% lidocaine skin localization. Negative CSF, heme, paresthesias. SIGNATURE: Sae Mercer DO PATIENT NAME: Olivia Rae DATE: September 03, 2023 TIME: 3:59 PM CSN: [id number] [facility] 08-31-2023 Note HNO ID: [id number] Author: SAMMY ISSA RN Service: Nursing Author Type: Registered Nurse Type: Procedures Filed: 08/31/2023 16:39 Note Text: Attestation signed by Tiffanie Mcdaniel MD at 08/31/2023 4:41 PM PROVIDER INTERPRETATION: Reactive SIGNATURE: Tiffanie Mcdaniel MD DATE: August 31, 2023 TIME: 4:41 PM OBSTETRICS NST SUMMARY SERVICE DATE: August 31, 2023 The patient is a 32 year old female, , who is at 36w4d with an LIANG of 09/24/2023, by Last Menstrual Period dating method. NST OBJECTIVE FINDINGS PER NURSE: Start Time: 1405 (08/31/231614 : Sammy Issa, RN) Complete Time: 1510 (08/31/231614 : Sammy Issa RN) Indications: Gestational HTN (headache) (08/31/23 1615 : Sammy sIsa RN) Patient Reason For: Elevated Bp's , headache (08/31/23 1615 : Sammy Issa RN) NST Explanation: Procedure Explained;Monitor Explained;Verbalizes Understanding (08/31/23 1615 : Sammy Issa RN) Acoustic Stimulator: No (08/31/23 1615 : Sammy Issa RN) Interventions: Reposition;Oral Fluids Given (08/31/23 1615 : Sammy Issa RN) MONITORING/ASSESSMENT: Baseline: 135 bpm (08/31/23 1500 : Sammy Issa RN) Variability: Moderate (6-25 bpm) (08/31/23 1500 : Sammy Issa RN) Accelerations: Present (08/31/23 1500 : Sammy Issa RN) Decelerations: Decelerations: None (08/31/23 1500 : Sammy Issa RN) Contractions: Irregular (08/31/23 1500 : Sammy Issa RN) Frequency: 4-7 (08/31/23 1500 : Sammy Issa RN) Above information forwarded to DR Sridhar Adams (08/31/23 161 : Sammy Issa RN) for final review and interpretation. SIGNATURE: Sammy Issa RN PATIENT NAME: Olivia Rae DATE: August 31, 2023 TIME: 4:39 PM [facility] 08-31-2023 Miscellaneous Notes Images from the original note were not included. CARE VISIT Olivia Rae is a 32 year old at 36w4d being seen for routine care and management of medical co morbidities. Her comorbidities include Myasthenia gravis, positive SSA/SSB Feeling contractions past 24h Has headache and mild range BP, history preeclampsia No visual changes Has nausea, no vomiting or RUQ pain Normal movement, no vaginal bleeding OBJECTIVE: BP 144/88 Pulse 80 Ht 5' 4 (1.63m) Wt 175 lb 0.7 oz (79.4kg) SpO2 99% LMP 12/18/2022 BMI 30.03 kg/(m^2). Hemoglobin Date Value Ref Range Status 07/06/2023 10.9 (L) 11.5 - 15.5 g/dL Final EXAM: A&O, NAD Abd soft, nontender during US exam ASSESSMENT/PLAN: 32 year old at 36w4d with mild range BP, headache, as well as contractions Sent to OB Triage for rule out preeclampsia and labor If discharged then IOL order placed for 37th week Problem List Items Addressed This Visit Neurology Myasthenia gravis status post thymectomy ([facility]) Overview She was diagnosed with myasthenia gravis in 2009 and had a thymectomy in 2011. She followed with the neuromuscular team at [facility] (currently Dr. Pranav Valdivia, last seen 01/2023). In her prior pregnancies she was on subcutaneous Ig therapy (SCIG; Hizentra) [and also pyridostigmine (mestinon) with her first] with no issues and has not been on SCIG since her last delivery with no MG exacerbations since 2018. Her primary symptoms are blurry/double vision and upper arm weakness, but she has been in remission and asymptomatic since her last delivery in Jan 2021. She is currently on no medication. -No role for prophylactic medication at delivery. -No Magnesium sulfate for pre-eclampsia with severe features. - recommend weekly BPPs to check tone and fluid given potential cross of IgG - neonatology consultation completed - eval after delivery Migraines Overview 04/26: Prescribed excedrin/reglan 08/02: Intermittent ongoing headaches, resolve usually with medication Endocrinology Abnormal glucose tolerance in Overview 1 h GCT 135. Passed 3 hr at OSH [employer] Hx of preeclampsia, prior , currently - Primary Overview [x] ASA 81 [x] BP cuff prescribed Mild range BP at 36w4d Relevant Orders INDUCTION L&D Other Supervision of high risk / MFM care Overview MFM/High Risk Care Checklist First trimester: [x] Dating US [x] 1st tri labs [ ] Pap smear: last normal 12/2019 [x] Genetic screening [x] NT [x] cfDNA [x] ASA if indicated Second trimester: [x] Anatomy scan Third trimester: [x] GCT 135, three hour passed [x] CBC, HIV, RPR [x] TDaP 07/06 [x] GBS negative Other: [/] Flu vaccine - declines [ ] COVID vaccine surveillance: [x] Growths : 32, 36 weeks [x] Testing if indicated: weekly BPPs at 34-35 weeks Delivery planning: [ ] Timin weeks unless standard OB indication [ ] MOD: [ ] Scheduled: [x]consents done 08/03/23 [ ] H and P at 36 weeks [x] Location: [place] [x] declines larc, considering vasectomy [x] Breast feeding- would like to Other Visit Diagnoses Gestational hypertension, third trimester Relevant Orders INDUCTION L&D Medical Decision Making: Problems: Moderate: New problem with uncertain prognosis and 2+ stable chronic illnesses Risk: Moderate: Moderate risk from testing/treatment Medical Decision Making Level: 4 - Moderate Kimberly Hernandez MD August 31, 2023 11:52 AM documented in this encounter [facility] 08-31-2023 History and physical note OBSTETRICS HISTORY AND PHYSICAL NAME: Olivia Rae SERVICE DATE: August 31, 2023 SERVICE TIME: 1130 ASSESSMENT & PLAN: 32 year old EGA:36w4d. Plan for delivery in <30 days. POST DELIVERY CONTRACEPTION: Discussed post-delivery contraception options. Patient received written information about post-delivery contraception options. Considering vasectomy declines LARC SUBJECTIVE: CHIEF COMPLAINT: IOL HISTORY OF THE PRESENT ILLNESS: The patient is a 32 year old female, , who is at 36w4d with an LIANG of 09/24/2023, by Last Menstrual Period dating method. Patient has Good movement. Denies vaginal bleeding., Denies leaking of fluid. Has been experiencing contractions for past 24 hours. Also headache with new mild range BP. Patient is GBS Negative. Her has been complicated by the following issues: Active Non-Hospital Problems Diagnosis Date Noted Abnormal glucose tolerance in 07/23/2023 Overview Note: 1 h GCT 135. Passed 3 hr at OSH Mental health problem 05/27/2023 Overview Note: History of adjustment disorder 05/20/23: Reports increasing emotional dysregulation. She reports spending long periods crying and feeling sad, angry, and overwhelmed. She is interested in establishing mental health care. No issues with safety at home or SI/HI. [x] Referred to behavioral health (Shantal Carrillo) Migraines 04/12/2023 Overview Note: 04/26: Prescribed excedrin/reglan 08/02: Intermittent ongoing headaches, resolve usually with medication Supervision of high risk / MFM care 07/31/2020 Overview Note: MFM/High Risk Care Checklist First trimester: [x] Dating US [x] 1st tri labs [ ] Pap smear: last normal 12/2019 [x] Genetic screening [x] NT [x] cfDNA [x] ASA if indicated Second trimester: [x] Anatomy scan Third trimester: [x] GCT 135, three hour passed [x] CBC, HIV, RPR [x] TDaP 07/06 [x] GBS negative Other: [/] Flu vaccine - declines [ ] COVID vaccine surveillance: [x] Growths : 32, 36 weeks [x] Testing if indicated: weekly BPPs at 34-35 weeks Delivery planning: [ ] Timin weeks unless standard OB indication [ ] MOD: [ ] Scheduled: [x]consents done 08/03/23 [ ] H and P at 36 weeks [x] Location: [place] [x] declines larc, considering vasectomy [x] Breast feeding- would like to Hx of preeclampsia, prior , currently 07/31/2020 Overview Note: [x] ASA 81 [x] BP cuff prescribed Mild range BP at 36w4d Myasthenia gravis status post thymectomy ([facility]) 12/08/2011 Overview Note: She was diagnosed with myasthenia gravis in 2009 and had a thymectomy in 2011. She followed with the neuromuscular team at [facility] (currently Dr. Pranav Valdivia, last seen 01/2023). In her prior pregnancies she was on subcutaneous Ig therapy (SCIG; Hizentra) [and also pyridostigmine (mestinon) with her first] with no issues and has not been on SCIG since her last delivery with no MG exacerbations since 2019. Her primary symptoms are blurry/double vision and upper arm weakness, but she has been in remission and asymptomatic since her last delivery in Jan 2021. She is currently on no medication. -No role for prophylactic medication at delivery. -No Magnesium sulfate for pre-eclampsia with severe features. - recommend weekly BPPs to check tone and fluid given potential cross of IgG - neonatology consultation completed - eval after delivery Sjogrens syndrome ([facility]) 10/02/2011 Overview Note: Diagnosed in 2010. History of dry eyes, arthralgias, and positive SSA/SSB antibodies. She has previously been on plaquenil but this exacerbated her MG symptoms and she is currently asymptomatic on no medication. Risk of lupus discussed. [x] q2 weeks echo 16-[address] Brooks on 06/22/2023 note has signed off. Does not suggest further echo follow up in note. [x ] consult completed [x] referred to care 04/27 Diplopia 06/23/2011 HISTORY REVIEW PAST MEDICAL HISTORY Diagnosis Date GERD (gastroesophageal reflux disease) treated with prilosec Myasthenia gravis status post thymectomy ([facility]) ([facility]) 12/08/2011 Pre-eclampsia, severe 07/20/2018 PVC's (premature ventricular contractions) Sjogrens syndrome ([facility]) 04/2011 Tension vascular headache TMJ (dislocation of temporomandibular joint) mild PAST SURGICAL HISTORY Procedure Laterality Date PORTOCATH PLACEMENT THYMECTOMY, PARTIAL/TOTAL 2011 TONSILLECTOMY PRIMARY/SECONDARY <AGE 12 Tonsillectomy FAMILY HISTORY Problem Relation Age of Onset None Mother A & W None Father A & W Asthma Brother other (PCOS) Sister Hypertension Maternal Grandmother Hyperlipidemia Maternal Grandmother COPD Maternal Grandmother smoker Heart Failure Maternal Grandmother Hypertension Maternal Grandfather Hyperlipidemia Maternal Grandfather COPD Maternal Grandfather smoker Heart Failure Maternal Grandfather Diabetes Paternal Grandmother Cancer Paternal Grandmother unknown Cervical Cancer Paternal Aunt 37 Seizures Maternal Aunt Social History Tobacco Use Smoking status: Never Smokeless tobacco: Never Substance Use Topics Alcohol use: No Drug use: No Obstetric History T1 L2 SAB0 IAB0 Ectopic0 Multiple0 Live Births2 Name of Baby 1: MARQUEZ RAE Date: 07/21/18 GA: 36w1d Delivery: Vaginal, Forceps Apgar1: 9 Apgar5: 9 Living: Living Name of Baby 2: TIM RAE Date: 02/06/21 GA: 37w0d Delivery: Vaginal, Spontaneous Apgar1: 8 Apgar5: 9 Living: Living Name of Baby 3: Not recorded Date: Not recorded GA: Not recorded Delivery: Not recorded Apgar1: Not recorded Apgar5: Not recorded Living: Not recorded ALLERGIES: ALLERGIES Allergen Reactions Sherita-D [Fexofena* Hives Bactrim [Sulfametho* Other: See Comments Exacerbation of MG Beta-Blockers (Beta* Contraindication-Medical Surgical Magnesium Sulfate Contraindication-Medical Surgical Nifedipine Contraindication-Medical Surgical PRIOR TO ADMISSION MEDICATIONS: Prior to Admission medications as of 08/31/23 1105 Medication Sig Last Dose Taking Blood Pressure Monitor (BLOOD PRESSURE KIT) 1 Each two times a day. Taking Yes docusate sodium (COLACE) 100 mg capsule Take 1 capsule by mouth two times a day. Taking Yes metoclopramide HCl (REGLAN) 10 mg tablet Take 1 tablet by mouth three times a day as needed (Headache). Taking Yes Xxagqts-Vkklthliaoeum-Upznsgtm (EXCEDRIN) 250-250-65 mg per tablet Take 1 tablet by mouth every 8 hours as needed (Headache). Taking Yes Blood Pressure Test Kit-Medium kit 1 Each once daily as needed. Taking Yes aspirin, enteric coated (ECOTRIN LOW STRENGTH) 81 mg EC tablet Take 1 tablet by mouth once daily. Taking Yes fluticasone (FLONASE ALLERGY RELIEF) 50 mcg/actuation nasal spray Use 1 [place] in each nostril once daily. Taking Yes Senna 8.6 mg tab Take 2 tablets by mouth once daily. Patient not taking: Reported on 08/31/2023 Not Taking ferrous sulfate 325 mg (65 mg iron) tablet Take 1 tablet by mouth two times a day. Patient not taking: Reported on 08/31/2023 Not Taking qa410-wjdn-dwrfd acid 27-800 mg-mcg tab Take 1 tablet by mouth once daily. No medication comments found. REVIEW OF SYSTEMS: Nausea, contractions, headache as noted in HPI The remainder of the review of systems is negative. OBJECTIVE: PHYSICAL EXAM: General: WD, WN HEENT: NC/AT, sclera white, pupils equal Lungs: normal respiratory effort Abdomen: soft, nontender during US exam LAST VITALS: BP 144/88 Pulse 80 Ht 5' 4 (1.626 m) Wt 175 lb 0.7 oz (79.4 kg) LMP 12/18/2022 SpO2 99% BMI 30.05 kg/m Heart Rate: Present on US LABS Maternal Results (In Last 9 Months): Hemoglobin (g/dL) Date/Time Value 07/06/2023 1414 10.9 (L) 02/03/2023 1423 12.0 Hematocrit (%) Date/Time Value 07/06/2023 1414 33.4 (L) 02/03/2023 1423 36.4 Platelet Count (k/uL) Date/Time Value 07/06/2023 1414 282 02/03/2023 1423 283 ABO (no units) Date/Time Value 02/03/2023 1423 O Rh(D) (no units) Date/Time Value 02/03/2023 1423 Positive Group B Strep PCR (no units) Date/Time Value 08/24/2023 1236 Negative for Group B Streptococcus by PCR. HBsAg (no units) Date/Time Value 02/03/2023 1423 Negative Hep C Antibody IA (no units) Date/Time Value 02/03/2023 1423 Negative HIV 12 Combo (Ag/Ab) (no units) Date/Time Value 02/03/2023 1423 Nonreactive Neisseria gonorrhoeae (GC) (no units) Date/Time Value 02/03/2023 1406 Negative for Neisseria gonorrhoeae by amplification Syphilis Total Screen (no units) Date/Time Value 07/06/2023 1414 Nonreactive Glucose Scrn, Preg (mg/dL) Date/Time Value 07/06/2023 1414 135 (H) Delivery Plan: Induction Order completed and includes: Open Standing Orders None Induction Order Details Expected Ordered INDUCTION L&D [[id number]] 08/31/23 Auth. provider: Kimberly Hernandez MD Q: Procedure Location:: A[facility] Q: Requested Time:: A: 8:00 AM Q: Primary Reason for Induction:: A: Hypertension (all categories) Q: Tier:: A: Tier 1 Q: Hypertension Type:: A: Gestational Q: Clinical Pelvimetry:: A: Yes - Assessed as adequate Q: Cervical Ripening Planned?: A: Yes Q: EFW:: A: US Q: GA at Scheduled Delivery Date:: A: < 39 weeks Q: MFM Advising Delivery:: A: Yes Electronic Informed Consent completed: Yes SIGNATURE: Kimberly Hernandez MD DATE: August 31, 2023 TIME: 11:45 AM documented in this encounter [facility] 08-19-2023 Miscellaneous Notes 3rd risk assessment form submitted 08/19/23 Ashley Zarate RN documented in this encounter [facility] 08-18-2023 Miscellaneous Notes Images from the original note were not included. CARE VISIT Olivia Rae is a 32 year old at 34w5d being seen for routine care and management of medical co morbidities. Her comorbidities include Myasthenia gravis and SSA/B + antibodies. She reports: Movement Yes Vaginal Bleeding No Contractions occ Leakage of Fluid No OBJECTIVE: BP 120/77 Pulse 69 SpO2 99% LMP 12/18/2022 Last 1 Encounter BP Readings: Date: BP: 08/18/2023 120/77 Hemoglobin Date Value Ref Range Status 07/06/2023 10.9 (L) 11.5 - 15.5 g/dL Final EXAM: Abd Nt, Gravid, no suprapubic, Neg CVA ASSESSMENT/PLAN: 32 year old at 34w5d Rh + GBS next week Return To Office: 1 week Labor Precautions given Problem List Items Addressed This Visit Neurology Myasthenia gravis status post thymectomy (HCC) Overview She was diagnosed with myasthenia gravis in 2009 and had a thymectomy in 2011. She followed with the neuromuscular team at [facility] (currently Dr. Pranav Valdivia, last seen 01/2023). In her prior pregnancies she was on subcutaneous Ig therapy (SCIG; Hizentra) [and also pyridostigmine (mestinon) with her first] with no issues and has not been on SCIG since her last delivery with no MG exacerbations since 2019. Her primary symptoms are blurry/double vision and upper arm weakness, but she has been in remission and asymptomatic since her last delivery in Jan 2021. She is currently on no medication. -No role for prophylactic medication at delivery. -No Magnesium sulfate for pre-eclampsia with severe features. - recommend weekly BPPs to check tone and fluid given potential cross of IgG - neonatology consultation completed - eval after delivery Current Assessment & Plan No symptoms today Endocrinology Abnormal glucose tolerance in Overview 1 h GCT 135. 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 Current Assessment & Plan BP have been WNL at home Allergy/Immunology Sjogrens syndrome (HCC) Overview Diagnosed in 2010. History of dry eyes, arthralgias, and positive SSA/SSB antibodies. She has previously been on plaquenil but this exacerbated her MG symptoms and she is currently asymptomatic on no medication. Risk of lupus discussed. [x] q2 weeks echo 16-[address] Brooks on 06/22/2023 note has signed off. Does not suggest further echo follow up in note. [x ] consult completed [x] referred to care 04/27 Other Supervision of high risk / MFM care - Primary Overview MFM/High Risk Care Checklist First trimester: [x] Dating US [x] 1st tri labs [ ] Pap smear: last normal 12/2019 [x] Genetic screening [x] NT [x] cfDNA [x] ASA if indicated Second trimester: [x] Anatomy scan Third trimester: [x] GCT 135, three hour passed [x] CBC, HIV, RPR [x] TDaP 07/06 [ ] GBS Next visit Other: [/] Flu vaccine - declines [ ] COVID vaccine surveillance: [ ] Growths : 32, 36 weeks [x] Testing if indicated: weekly BPPs at 34-35 weeks Delivery planning: [ ] Timin weeks unless standard OB indication [ ] MOD: [ ] Scheduled: [ ]consents done 08/03/23 [ ] H and P at 36 weeks [x] Location: [place] [ ] Specific delivery plans: [x] declines larc, considering vasectomy [x] Breast feeding- would like to Relevant Orders BIOPHYSICAL PROFILE US WHI Other Visit Diagnoses Constipation, unspecified constipation type Relevant Medications Senna 8.6 mg tab 34 weeks gestation of Jimi Xie MD August 18, 2023 2:18 PM Attending Note I evaluated the patient and personally participated in the bernal components. I agree with the fellow's findings and plan as documented and have discussed the case and management of the patient's care with the fellow. I spent a total of 30 minutes on the date of the service which included preparing to see the patient, [id number] patient care, completing clinical documentation, and counseling and educating the patient/family/caregiver. Kimberly Hernandez MD August 18, 2023 2:37 PM documented in this encounter [facility] 08-10-2023 Note HNO ID: [id number] Author: TAQUERIA SEGOVIA MD Service: ? Author Type: Physician Type: Progress Notes Filed: 08/10/2023 10:22 Note Text: VIRTUAL VISIT PROGRESS NOTE FOR CONSULTATION This is a virtual visit using Jian[employer]ian[employer] Video Visit. It required patient-provider interaction for the medical decision making as documented below. Service Date: August 10, 2023 Service time: 9:46 AM Name: Olivia Rae Age: [age] year old Consultation for this evaluation was requested by Dr. Uribe. The reason for consultation and the primary issue being addressed today: Maternal H/O of Myasthenia Gravis I will convey my findings and advice to the requesting provider either through electronic medical record. Mother is a 32 year old, , who is at 33w4d wks GA withi an LIANG of Estimated Date of Delivery: 09/24/23 screens: Neg. Mother does not have active myasthenia gravis at this time (post thymectomy). She is also not on any medications. She is positive for ssa/b with Sjogrens syndrome. Recommendations will be communicated back to the requesting physician by way of shared medical record or letter. Active Problem List: ACTIVE PROBLEM LIST Diplopia Sjogrens Syndrome (Hcc) Myasthenia gravis status post thymectomy (HCC) Supervision of high risk / MFM care Hx of Preeclampsia, Prior , Currently Migraines Mental Health Problem Abnormal Glucose Tolerance in Problems (from 02/03/23 to present) Problem Noted Resolved Abnormal glucose tolerance in 07/23/2023 by Debbie Lau MD No Overview Addendum 08/03/2023 4:38 PM by Cassie Uribe MD 1 h GCT 135. Plans three hour GTT in the next week. Mental health problem 05/27/2023 by Tiffanie Mcdaniel MD No Overview Addendum 07/06/2023 2:07 PM by Kimberly Hernandez MD History of adjustment disorder 05/20/23: Reports increasing emotional dysregulation. She reports spending long periods crying and feeling sad, angry, and overwhelmed. She is interested in establishing mental health care. No issues with safety at home or SI/HI. [x] Referred to behavioral health (Shantal Carrillo) Migraines 04/12/2023 by Ashli Montanez MD No Overview Addendum 08/03/2023 4:38 PM by Cassie Uribe MD 04/26: Prescribed excedrin/reglan 08/02: Intermittent ongoing headaches, resolve usually with medication Supervision of high risk / MFM care 07/31/2020 by Mariaelena Lopez MD No Overview Addendum 08/03/2023 4:46 PM by Cassie Uribe MD MFM/High Risk Care Checklist First trimester: [x] Dating US [x] 1st tri labs [ ] Pap smear: last normal 12/2019 [x] Genetic screening [x] NT [x] cfDNA [x] ASA if indicated Second trimester: [x] Anatomy scan Third trimester: [x] GCT 135, three hour ordered [-] CBC, HIV, RPR [x] TDaP 07/06 [ ] GBS Other: [/] Flu vaccine - declines [ ] COVID vaccine surveillance: [ ] Growths if indicated: 32, 36 weeks [x] Testing if indicated: weekly BPPs at 34-35 weeks Delivery planning: [ ] Timing: [ ] MOD: [ ] Scheduled: [ ]consents done 08/03/23 [ ] H and P at 36 weeks [x] Location: [place] [ ] Specific delivery plans: [x] declines larc, considering vasectomy [x] Breast feeding- would like to Hx of preeclampsia, prior , currently 07/31/2020 by Mariaelena Lpoez MD No Overview Addendum 08/03/2023 4:37 PM by Cassie Uribe MD [x] ASA 81 [x] BP cuff prescribed Start home bp monitoring now. Has chronic headaches. Call parameters reviewed. Myasthenia gravis status post thymectomy (HCC) 12/08/2011 by Jaxson Figueroa MD, PhD No Overview Addendum 08/03/2023 4:37 PM by Cassie Uribe MD She was diagnosed with myasthenia gravis in 2009 and had a thymectomy in 2011. She followed with the neuromuscular team at [facility] (currently Dr. Pranav Valdivia, last seen 01/2023). In her prior pregnancies she was on subcutaneous Ig therapy (SCIG; Hizentra) [and also pyridostigmine (mestinon) with her first] with no issues and has not been on SCIG since her last delivery with no MG exacerbations since 2019. Her primary symptoms are blurry/double vision and upper arm weakness, but she has been in remission and asymptomatic since her last delivery in Jan 2021. She is currently on no medication. -No role for prophylactic medication at delivery. -No Magnesium sulfate for pre-eclampsia with severe features. - recommend weekly BPPs to check tone and fluid given potential cross of IgG - neonatology consultation requested. Sjogrens syndrome (HCC) 10/02/2011 by Diaz Miranda MD No Overview Addendum 08/03/2023 4:39 PM by Cassie Uribe MD Diagnosed in 2010. History of dry eyes, arthralgias, and positive SSA/SSB antibodies. She has previously been on plaquenil but this exacerbated her MG symptoms and she is currently asymptomatic on no medication. Risk of (more content not included)... [facility] 08-10-2023 History of Present illness Narrative Images from the original note were not included. VIRTUAL VISIT PROGRESS NOTE FOR CONSULTATION This is a virtual visit using Jianjian[employer] Video Visit. It required patient-provider interaction for the medical decision making as documented below. Service Date: August 10, 2023 Service time: 9:46 AM Name: Olivia Rae Age: [age] year old Consultation for this evaluation was requested by Dr. Uribe. The reason for consultation and the primary issue being addressed today: Maternal H/O of Myasthenia Gravis I will convey my findings and advice to the requesting provider either through electronic medical record. Mother is a 32 year old, , who is at 33w4d wks GA withi an LIANG of Estimated Date of Delivery: 09/24/23 screens: Neg. Mother does not have active myasthenia gravis at this time (post thymectomy). She is also not on any medications. She is positive for ssa/b with Sjogrens syndrome. Recommendations will be communicated back to the requesting physician by way of shared medical record or letter. Active Problem List: ACTIVE PROBLEM LIST Diplopia Sjogrens Syndrome (Hcc) Myasthenia gravis status post thymectomy ([facility]) Supervision of high risk / MFM care Hx of Preeclampsia, Prior , Currently Migraines Mental Health Problem Abnormal Glucose Tolerance in Problems (from 02/03/23 to present) Problem Noted Resolved Abnormal glucose tolerance in 07/23/2023 by Debbie Lau MD No Overview Addendum 08/03/2023 4:38 PM by Cassie Uribe MD 1 h GCT 135. Plans three hour GTT in the next week. Mental health problem 05/27/2023 by Tiffanie Mcdaniel MD No Overview Addendum 07/06/2023 2:07 PM by Kimberly Hernandez MD History of adjustment disorder 05/20/23: Reports increasing emotional dysregulation. She reports spending long periods crying and feeling sad, angry, and overwhelmed. She is interested in establishing mental health care. No issues with safety at home or SI/HI. [x] Referred to behavioral health (Shantal Carrillo) Migraines 04/12/2023 by Ashli Montanez MD No Overview Addendum 08/03/2023 4:38 PM by Cassie Uribe MD 04/26: Prescribed excedrin/reglan 08/02: Intermittent ongoing headaches, resolve usually with medication Supervision of high risk / MFM care 07/31/2020 by Mariaelena Lopez MD No Overview Addendum 08/03/2023 4:46 PM by Cassie Uribe MD MFM/High Risk Care Checklist First trimester: [x] Dating US [x] 1st tri labs [ ] Pap smear: last normal 12/2019 [x] Genetic screening [x] NT [x] cfDNA [x] ASA if indicated Second trimester: [x] Anatomy scan Third trimester: [x] GCT 135, three hour ordered [-] CBC, HIV, RPR [x] TDaP 07/06 [ ] GBS Other: [/] Flu vaccine - declines [ ] COVID vaccine surveillance: [ ] Growths if indicated: 32, 36 weeks [x] Testing if indicated: weekly BPPs at 34-35 weeks Delivery planning: [ ] Timing: [ ] MOD: [ ] Scheduled: [ ]consents done 08/03/23 [ ] H and P at 36 weeks [x] Location: [place] [ ] Specific delivery plans: [x] declines larc, considering vasectomy [x] Breast feeding- would like to Hx of preeclampsia, prior , currently 07/31/2020 by Mariaelena Lopez MD No Overview Addendum 08/03/2023 4:37 PM by Cassie Uribe MD [x] ASA 81 [x] BP cuff prescribed Start home bp monitoring now. Has chronic headaches. Call parameters reviewed. Myasthenia gravis status post thymectomy ([facility]) 12/08/2011 by Jaxson Figueroa MD, PhD No Overview Addendum 08/03/2023 4:37 PM by Cassie Uribe MD She was diagnosed with myasthenia gravis in 2009 and had a thymectomy in 2011. She followed with the neuromuscular team at [facility] (currently Dr. Pranav Valdivia, last seen 01/2023). In her prior pregnancies she was on subcutaneous Ig therapy (SCIG; Hizentra) [and also pyridostigmine (mestinon) with her first] with no issues and has not been on SCIG since her last delivery with no MG exacerbations since 2019. Her primary symptoms are blurry/double vision and upper arm weakness, but she has been in remission and asymptomatic since her last delivery in Jan 2021. She is currently on no medication. -No role for prophylactic medication at delivery. -No Magnesium sulfate for pre-eclampsia with severe features. - recommend weekly BPPs to check tone and fluid given potential cross of IgG - neonatology consultation requested. Sjogrens syndrome ([facility]) 10/02/2011 by Diaz Miranda MD No Overview Addendum 08/03/2023 4:39 PM by Cassie Uribe MD Diagnosed in 2010. History of dry eyes, arthralgias, and positive SSA/SSB antibodies. She has previously been on plaquenil but this exacerbated her MG symptoms and she is currently asymptomatic on no medication. Risk of lupus discussed. [x] q2 weeks echo 16-[address] Brooks on 06/22/2023 note has signed off. Does not suggest further echo follow up in note. [ ] follow up, consultation requested. [x] referred to care 04/27 Pre-eclampsia, severe 07/20/2018 by Ashli Montanez MD 04/27/2023 by Tiffanie Mcdaniel MD Overview Signed 03/16/2023 2:19 PM by Ashli Montanez MD History of severe PreE with first and Gest HTN with second Base line labs wnl Growth scans Baby asa Results Type & Screen Test Value Reference Range Date Time ABO- T&S (New) O 02/03/23 142 Rh- T&S (New) Positive 02/03/23 1423 Type & Screen (Historical) (See Report) 02/06/21 0857 ABO/RH (External) Antibody (External) OB Results - 1st Trimester Test Value Reference Range Date Time HCT 36.4 % 36.0 - 46.0 02/03/23 1423 HGB 12.0 g/dL 11.5 - 15.5 02/03/23 1423 Platelet 283 k/uL 150 - 400 02/03/23 1423 Rubella Positive Positive 02/03/23 1423 Rubella Antibody 10.90 Index Value 08/16/20 1219 Rubella Historical 10.90 Index Value 08/16/20 1219 RPR Syphilis w/ Reflex Nonreactive Nonreactive 07/06/23 1414 Nonreactive Nonreactive 02/03/23 1423 Urine Culture (See Report) 05/20/23 1545 (See Report) 02/03/23 1406 Hep B Surf AB Qt Hep B Surface Ag Negative Negative 02/03/23 1423 Hep B Surf AB Qual Positive NEGAT 04/17/11 1641 Hep C Antibody (Historical) Hep C Antibody Negative Negative 02/03/23 1423 HIV 1,2 Combo Nonreactive Nonreactive 02/03/23 1423 HIV Combo HIV PCR HIV (Rapid) HIV (Rapid-ED) GC Negative for Neisseria gonorrhoeae by amplification Negative for Neisseria gonorrhoeae by amplification 02/03/23 1406 Chlamydia Negative for Chlamydia trachomatis by amplification Negative for Chlamydia trachomatis by amplificaton 02/03/23 1406 GC by PCR Chlamydia by PCR GC Urine Chlamydia Urine PAP PAP (Historical) (See Report) 12/18/19 1349 PAP (External Lab) OB Results - 2nd & 3rd Trimester Test Value Reference Range Date Time HCT 33.4 % 36.0 - 46.0 07/06/23 1414 HGB 10.9 g/dL 11.5 - 15.5 07/06/23 1414 Platelet 282 k/uL 150 - 400 07/06/23 1414 Glucose 1 Hr - Non-Fasting 135 mg/dL 74 - 134 07/06/23 1414 Glucose Fasting Glucose Gst Fasting Glucose Gst 1Hr Glucose, 1 Hr Glucose Gst 2Hr Glucose 2 Hr Glucose Gst 3Hr Glucose 3 Hr GBS PCR (New) GBS PCR (Historical) Group B Strep PCR Rapid GBS Culture Screen (New) GBS Culture Screen (Historical) GBS (Historical) GBS GC Chlamydia GC by PCR Chlamydia by PCR GC Urine Chlamydia Urine RPR Syphilis w/ Reflex Nonreactive Nonreactive 07/06/23 1414 Genetic/Serum Screen Test Value Reference Range Date Time Cystic Fibrosis [id number] Variant Cystic Fibrosis DNA Analysis Cystic Fibrosis (External) 1st SEQ historical View results in Scanned Documents link when available. 08/16/20 1219 1st SEQ 2nd SEQ historical View results in Scanned Documents link when available. 09/17/20 1023 2nd SEQ QUAD [id number] Plus (See Report) 03/16/23 1453 Fragile X Fragile X (Outside Lab) SMA (Outside Lab) SMA (Historical - Outside Lab) Hemoglobinopathy (Outside Lab) Marshal-Sachs (Outside Lab) Verifi (Outside Lab) Varicella Zoster Legend ^: Outside Lab Obstetric History OB History T1 L2 SAB0 IAB0 Ectopic0 Multiple0 Live Births2 Obstetric Status: Complications: Failed 1 hr GTT Past history of Sjogrens syndrome Anti ssa/b antibody positive Maternal Medications prior to this encounter: Current Outpatient Medications on File Prior to Visit Medication Sig Blood Pressure Monitor (BLOOD PRESSURE KIT) 1 Each two times a day. ferrous sulfate 325 mg (65 mg iron) tablet Take 1 tablet by mouth two times a day. [id number] acid 27-800 mg-mcg tab Take 1 tablet by mouth once daily. docusate sodium (COLACE) 100 mg capsule Take 1 capsule by mouth two times a day. metoclopramide HCl (REGLAN) 10 mg tablet Take 1 tablet by mouth three times a day as needed (Headache). Ufyvjrt-Wkdcqakahhnmh-Oqpccrrb (EXCEDRIN) 250-250-65 mg per tablet Take 1 tablet by mouth every 8 hours as needed (Headache). Blood Pressure Test Kit-Medium kit 1 Each once daily as needed. (Patient not taking: Reported on 07/20/2023) aspirin, enteric coated (ECOTRIN LOW STRENGTH) 81 mg EC tablet Take 1 tablet by mouth once daily. fluticasone (FLONASE ALLERGY RELIEF) 50 mcg/actuation nasal spray Use 1 [place] in each nostril once daily. No current facility-administered medications on file prior to visit. The following was discussed with the mother: Presence of any person on the visit other than the mother: No GENERAL: Need for admission to NICU: No Offered tour of NICU: N/A Survival odds/morbidity & mortality: N/A RESPIRATORY Risk of RDS/breathing problems: No Possible need for respiratory support: N/A CARDIOVASCULAR Discussed Hypotension, potential medical treatment: N/A NEUROLOGIC Risk of IVH/Neuro developmental delays: N/A FEN Need for supplemental nutrition and/or IVFs: N/A INFECTION Risk factors for infection- congenital and nosocomial: N/A Need to start antibiotics: N/A HEME Possible need for blood transfusion: N/A. ACCESS Possible need for UAC/UVC/PICC: N/A. MISC. Possible need for transfer to the Main campus/Outside hospital: Yes Possible need for subspecialty evaluation: Yes Impression/Recommendations Assessment: It was my pleasure to talk to Ms. Rae. I discussed the low possibility of her female child (Mansoor) having transient myasthenia after as she is free of the symptoms and not on any medications after the thymectomy. If she had symptoms/was on meds, the chances of the child having transient myasthenia is low at 10-20%. I also discussed the signs and symptoms of the disorder in newborns and reassured her. Discussed the very unlikely scenario of being admitted to the NICU and the disease course stating its transient nature. I also discussed the possibility of Mansoor having Lupus after . The chances of cardiac involvement in [place] is about 2% which is very low. Nonetheless, I discussed the signs and symptoms to look out for after stating that Mansoor will be assessed every 2-4 hours in the nursery. If found to have a low heart rate, Mansoor will need to be admitted to the NICU and monitored continuously. The NICU will consult a pediatric overedge machine operator and follow their recommendations. I also discussed the possibility that Mansoor might have to be transferred to the Main [facility] for management the likelihood of which is very very low. Mother verbalized understanding and all questions were answered. Plan: Agree with the OB plan. Consider NICU to be present at delivery. Infant to be admitted to the nursery and NICU to be consulted for any concerns. I spent a total of 30 minutes on the date of the service which included preparing to see the patient, [id number] patient care, completing clinical documentation, obtaining and/or reviewing separately obtained history, and counseling and educating the patient/family/caregiver. I have communicated my name and active licensure. The patient's identity and physical location were verified at the time of this visit. Either the patient or their legal solar sales representative has been informed of the risks and benefits of -- and alternatives to -- treatment through a remote evaluation and consents to proceed with the evaluation remotely. Authenticated by Responsible Provider : SIGNATURE: Taqueria Segovia MD PATIENT NAME: Olivia Rae DATE: August 10, 2023 TIME: 9:46 AM documented in this encounter [facility] 08-03-2023 Note HNO ID: [id number] Author: CASSIE URIBE MD Service: ? Author Type: Physician Type: Progress Notes Filed: 08/03/2023 16:54 Note Text: Medical Decision Making: Problems: Low: Acute, uncomplicated illness or injury Moderate: 2+ stable chronic illnesses Data: Unique source(s) for external note(s) reviewed: 1 Unique test result(s) reviewed: 1 Unique test(s) ordered: 1 Risk: Low: Low risk from testing/treatment Medical Decision Making Level: 4 - Moderate Cassie Uribe MD [facility] 08-03-2023 History of Present illness Narrative Medical Decision Making: Problems: Low: Acute, uncomplicated illness or injury Moderate: 2+ stable chronic illnesses Data: Unique source(s) for external note(s) reviewed: 1 Unique test result(s) reviewed: 1 Unique test(s) ordered: 1 Risk: Low: Low risk from testing/treatment Medical Decision Making Level: 4 - Moderate Cassie Uribe MD documented in this encounter [facility] 08-03-2023 Miscellaneous Notes Images from the original note were not included. CARE VISIT Olivia Rae is a 32 year old at 32w4d being seen for [facility] care and management of medical co morbidities. She reports Good movement. Denies vaginal bleeding., Denies contractions., Denies leaking of fluid. Her comorbidities include sjogren, ssa/b positive, myasthenia gravis, history of preeclampsia and chronic headaches. OBJECTIVE: BP 116/73 Pulse 76 SpO2 100% LMP 12/18/2022 See ultrasound report for details. See ACOG flowsheet. EXAM: GENERAL: pleasant, in no apparent distress CHEST: Normal inspiratory effort EXTREMITIES: normal ASSESSMENT/PLAN: 32 year old at 32w4d Problem List Items Addressed This Visit Neurology Myasthenia gravis status post thymectomy ([facility]) Overview She was diagnosed with myasthenia gravis in 2009 and had a thymectomy in 2011. She followed with the neuromuscular team at [facility] (currently Dr. Pranav Valdivia, last seen 01/2023). In her prior pregnancies she was on subcutaneous Ig therapy (SCIG; Hizentra) [and also pyridostigmine (mestinon) with her first] with no issues and has not been on SCIG since her last delivery with no MG exacerbations since 2018. Her primary symptoms are blurry/double vision and upper arm weakness, but she has been in remission and asymptomatic since her last delivery in Jan 2021. She is currently on no medication. -No role for prophylactic medication at delivery. -No Magnesium sulfate for pre-eclampsia with severe features. - recommend weekly BPPs to check tone and fluid given potential cross of IgG - neonatology consultation requested. Relevant Medications Blood Pressure Monitor (BLOOD PRESSURE KIT) Other Relevant Orders URINE OB DIP B/O GEST GLUC ALEJANDRO, 3-HR, 100 GM, FASTING CONSULT TO PEDS NEONATOLOGY BIOPHYSICAL PROFILE [facility] Migraines Overview 04/26: Prescribed excedrin/reglan 08/02: Intermittent ongoing headaches, resolve usually with medication Endocrinology Abnormal glucose tolerance in Overview 1 h GCT 135. Plans three hour GTT in the next week. 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 Has chronic headaches. Call parameters reviewed. Relevant Medications Blood Pressure Monitor (BLOOD PRESSURE KIT) Other Relevant Orders URINE OB DIP B/O GEST GLUC ALEJANDRO, 3-HR, 100 GM, FASTING CONSULT TO PEDS NEONATOLOGY BIOPHYSICAL PROFILE [facility] Allergy/Immunology Sjogrens syndrome (HCC) Overview Diagnosed in 2010. History of dry eyes, arthralgias, and positive SSA/SSB antibodies. She has previously been on plaquenil but this exacerbated her MG symptoms and she is currently asymptomatic on no medication. Risk of lupus discussed. [x] q2 weeks echo 16-[address] Brooks on 06/22/2023 note has signed off. Does not suggest further echo follow up in note. [ ] follow up, consultation requested. [x] referred to care 04/27 Other Supervision of high risk / MFM care Overview MFM/High Risk Care Checklist First trimester: [x] Dating US [x] 1st tri labs [ ] Pap smear: last normal 12/2019 [x] Genetic screening [x] NT [x] cfDNA [x] ASA if indicated Second trimester: [x] Anatomy scan Third trimester: [x] GCT 135, three hour ordered [-] CBC, HIV, RPR [x] TDaP 07/06 [ ] GBS Other: [/] Flu vaccine - declines [ ] COVID vaccine surveillance: [ ] Growths if indicated: 32, 36 weeks [x] Testing if indicated: weekly BPPs at 34-35 weeks Delivery planning: [ ] Timing: [ ] MOD: [ ] Scheduled: [ ]consents done 08/03/23 [ ] H and P at 36 weeks [x] Location: [place] [ ] Specific delivery plans: [x] declines larc, considering vasectomy [x] Breast feeding- would like to RESOLVED: SS-A antibody positive Relevant Medications Blood Pressure Monitor (BLOOD PRESSURE KIT) Other Relevant Orders URINE OB DIP B/O GEST GLUC ALEJANDRO, 3-HR, 100 GM, FASTING CONSULT TO PEDS NEONATOLOGY BIOPHYSICAL PROFILE [facility] RESOLVED: SS-B antibody positive Relevant Medications Blood Pressure Monitor (BLOOD PRESSURE KIT) Other Relevant Orders URINE OB DIP B/O GEST GLUC ALEJANDRO, 3-HR, 100 GM, FASTING CONSULT TO PEDS NEONATOLOGY BIOPHYSICAL PROFILE [facility] Other Visit Diagnoses 32 weeks gestation of Relevant Medications Blood Pressure Monitor (BLOOD PRESSURE KIT) Other Relevant Orders URINE OB DIP B/O GEST GLUC ALEJANDRO, 3-HR, 100 GM, FASTING CONSULT TO PEDS NEONATOLOGY BIOPHYSICAL PROFILE [facility] Cassie Uribe MD August 03, 2023 4:51 PM documented in this encounter [facility] 07-29-2023 Note HNO ID: [id number] Author: SHANTAL CARRILLO APRN.BRICK MOLDER [employer] Service: ? Author Type: Nurse Practitioner Type: Progress Notes Filed: 07/29/2023 13:58 Note Text: FOLLOW UP - PSYCHIATRIC PROGRESS NOTE Visit Type:Virtual Visit utilizing two-way audio and video for at least a portion of the visit. Consent for virtual visit obtained verbally. Confidentiality limitations with virtual visits reviewed with the patient and guardian, if present, who have accepted the risk verbally prior to proceeding with encounter. I have communicated my name and active licensure. The patient's identity and physical location were verified at the time of this visit. Either the patient or their legal solar sales representative has been informed of the risks and benefits of -- and alternatives to -- treatment through a remote evaluation and consents to proceed with the evaluation remotely. Reason for Visit: Outpatient follow-up and safety monitoring of previously prescribed psychiatric medication, psychotherapy or other treatment CC: Med check HPI: , 31.6w Better States last few [facility] visits have helped to reduce anxiety, feels more reassured Mood a bit improved, less tearful and irritable Lashes out at FOB less frequently Has been making more time to herself to unwind, making checklists to stay on track with daily tasks and preparation for baby Still quite a bit of anxiety, does feel it has reduced with more time for self-care however continues to worry about how she will manage having another baby Manifesting as feeling fidgety, shaky, finding herself needing to step away Denies panic attacks Working on clearing her mind, pausing and taking deep breaths when starting to feel overwhelmed Does feel that anxiety overall is improved, feels a bit more engaged/present with her family, able to catch herself when feeling anxious to prevent lashing out Sleeping better, feeling a bit more rested -denies difficulty falling or staying asleep apart from sciatic pain/discomforts of I don't think I'm ready to start medication, would like to establish with a therapist first -fearful of starting a medication that could kick me out of remission of MG. Reviewed how SSRI's are not shown to do so, however pt would like to maximize non-pharmacologic interventions first. Do recommend checking in one more time before delivery to re-consider SSRI, states she will not be allowed to go past 39w Risks and benefits of the medication, including any black box warnings, were discussed with the patient. Interval Progress: Slightly improved PATIENT DATA: Generalized Anxiety Disorder Scale (NATE-7) 08/26/2020 06/09/2023 07/29/2023 NATE - 7 SCORES Score 0 7 5 (0-4) minimal anxiety, (5-9) mild anxiety, (10-14) moderate anxiety, (15-21) severe anxiety Patient Health Questionnaire (PHQ-9) 07/29/2023 06/09/2023 08/26/2020 PHQ-9 Score 1 6 0 (0-4) minimal depression, (5-9) mild depression, (10-14) moderate depression, (15-19) moderately severe depression, (20-27) severe depression PROMIS Global Health 04/07/2020 08/26/2020 06/09/2023 PROMIS Global Health - (T-Scores - the mean of general population = 50. Five points is a clinically meaningful difference.) Physical T-Score 44.9 44.9 47.7 37.4 Mental T-Score 48.3 48.3 53.3 38.8 PAST MEDICAL HISTORY Diagnosis Date GERD (gastroesophageal reflux disease) treated with prilosec Myasthenia gravis status post thymectomy ([facility]) ([facility]) 12/08/2011 Pre-eclampsia, severe 07/20/2018 PVC's (premature ventricular contractions) Sjogrens syndrome ([facility]) 04/2011 Tension vascular headache TMJ (dislocation of temporomandibular joint) mild PAST SURGICAL HISTORY Procedure Laterality Date PORTOCATH PLACEMENT THYMECTOMY, PARTIAL/TOTAL 2011 TONSILLECTOMY PRIMARY/SECONDARY Tonsillectomy Current Outpatient Medications Medication Sig Dispense Refill ferrous sulfate 325 mg (65 mg iron) tablet Take 1 tablet by mouth two times a day. 60 tablet 4 [id number]-dxgw-cspyb acid 27-800 mg-mcg tab Take 1 tablet by mouth once daily. 120 tablet 2 docusate sodium (COLACE) 100 mg capsule Take 1 capsule by mouth two times a day. 60 capsule 2 metoclopramide HCl (REGLAN) 10 mg tablet Take 1 tablet by mouth three times a day as needed (Headache). 30 tablet 2 Dirmlnt-Djytjkfjvilee-Bgtilxai (EXCEDRIN) 250-250-65 mg per tablet Take 1 tablet by mouth every 8 hours as needed (Headache). 30 tablet 2 Blood Pressure Test Kit-Medium kit 1 Each once daily as needed. (Patient not taking: Reported on 07/20/2023) 1 Kit 0 aspirin, enteric coated (ECOTRIN LOW STRENGTH) 81 mg EC tablet Take 1 tablet by mouth once daily. 30 tablet 5 fluticasone (FLONASE ALLERGY RELIEF) 50 mcg/actuation nasal spray Use 1 [place] in each nostril once daily. No current facility-administered medications for this visit. ROS: GENERAL: Negative for malaise, significant weight loss and fever. HEENT: No changes (more content not included)... [facility] 07-29-2023 History of Present illness Narrative FOLLOW UP - PSYCHIATRIC PROGRESS NOTE Visit Type:Virtual Visit utilizing two-way audio and video for at least a portion of the visit. Consent for virtual visit obtained verbally. Confidentiality limitations with virtual visits reviewed with the patient and guardian, if present, who have accepted the risk verbally prior to proceeding with encounter. I have communicated my name and active licensure. The patient's identity and physical location were verified at the time of this visit. Either the patient or their legal solar sales representative has been informed of the risks and benefits of -- and alternatives to -- treatment through a remote evaluation and consents to proceed with the evaluation remotely. Reason for Visit: Outpatient follow-up and safety monitoring of previously prescribed psychiatric medication, psychotherapy or other treatment CC: Med check HPI: , 31.6w Better States last few [facility] visits have helped to reduce anxiety, feels more reassured Mood a bit improved, less tearful and irritable Lashes out at FOB less frequently Has been making more time to herself to unwind, making checklists to stay on track with daily tasks and preparation for baby Still quite a bit of anxiety, does feel it has reduced with more time for self-care however continues to worry about how she will manage having another baby Manifesting as feeling fidgety, shaky, finding herself needing to step away Denies panic attacks Working on clearing her mind, pausing and taking deep breaths when starting to feel overwhelmed Does feel that anxiety overall is improved, feels a bit more engaged/present with her family, able to catch herself when feeling anxious to prevent lashing out Sleeping better, feeling a bit more rested -denies difficulty falling or staying asleep apart from sciatic pain/discomforts of I don't think I'm ready to start medication, would like to establish with a therapist first -fearful of starting a medication that could kick me out of remission of MG. Reviewed how SSRI's are not shown to do so, however pt would like to maximize non-pharmacologic interventions first. Do recommend checking in one more time before delivery to re-consider SSRI, states she will not be allowed to go past 39w Risks and benefits of the medication, including any black box warnings, were discussed with the patient. Interval Progress: Slightly improved PATIENT DATA: Generalized Anxiety Disorder Scale (NATE-7) 08/26/2020 06/09/2023 07/29/2023 NATE - 7 SCORES Score 0 7 5 (0-4) minimal anxiety, (5-9) mild anxiety, (10-14) moderate anxiety, (15-21) severe anxiety Patient Health Questionnaire (PHQ-9) 07/29/2023 06/09/2023 08/26/2020 PHQ-9 Score 1 6 0 (0-4) minimal depression, (5-9) mild depression, (10-14) moderate depression, (15-19) moderately severe depression, (20-27) severe depression PROMIS Global Health 04/07/2020 08/26/2020 06/09/2023 PROMIS Global Health - (T-Scores - the mean of general population = 50. Five points is a clinically meaningful difference.) Physical T-Score 44.9 44.9 47.7 37.4 Mental T-Score 48.3 48.3 53.3 38.8 PAST MEDICAL HISTORY Diagnosis Date GERD (gastroesophageal reflux disease) treated with prilosec Myasthenia gravis status post thymectomy ([facility]) ([facility]) 12/08/2011 Pre-eclampsia, severe 07/20/2018 PVC's (premature ventricular contractions) Sjogrens syndrome ([facility]) 04/2011 Tension vascular headache TMJ (dislocation of temporomandibular joint) mild PAST SURGICAL HISTORY Procedure Laterality Date PORTOCATH PLACEMENT THYMECTOMY, PARTIAL/TOTAL 2011 TONSILLECTOMY PRIMARY/SECONDARY <AGE 12 Tonsillectomy Current Outpatient Medications Medication Sig Dispense Refill ferrous sulfate 325 mg (65 mg iron) tablet Take 1 tablet by mouth two times a day. 60 tablet 4 [id number]-xhxd-ucbvf acid 27-800 mg-mcg tab Take 1 tablet by mouth once daily. 120 tablet 2 docusate sodium (COLACE) 100 mg capsule Take 1 capsule by mouth two times a day. 60 capsule 2 metoclopramide HCl (REGLAN) 10 mg tablet Take 1 tablet by mouth three times a day as needed (Headache). 30 tablet 2 Ekynupd-Lbnbbutssyrnz-Aqrzkfsm (EXCEDRIN) 250-250-65 mg per tablet Take 1 tablet by mouth every 8 hours as needed (Headache). 30 tablet 2 Blood Pressure Test Kit-Medium kit 1 Each once daily as needed. (Patient not taking: Reported on 07/20/2023) 1 Kit 0 aspirin, enteric coated (ECOTRIN LOW STRENGTH) 81 mg EC tablet Take 1 tablet by mouth once daily. 30 tablet 5 fluticasone (FLONASE ALLERGY RELIEF) 50 mcg/actuation nasal spray Use 1 [place] in each nostril once daily. No current facility-administered medications for this visit. ROS: GENERAL: Negative for malaise, significant weight loss and fever. HEENT: No changes in hearing or vision, no nose bleeds or other nasal problems. RESPIRATORY: Negative for cough, wheezing and shortness of breath. CARDIOVASCULAR: Negative for chest pain, leg swelling and palpitations. GI: Negative for abdominal discomfort, blood in stools or black stools. : Negative for dysuria, frequency and incontinence. MUSCULOSKELETAL: Negative for joint pain or swelling, back pain, and muscle pain. SKIN: Negative for lesions, rash, and itching. HEMATOLOGY/LYMPHOLOGY Negative for prolonged bleeding, bruising easily, and swollen nodes. ENDOCRINE: Negative for cold or heat intolerance, polyuria, polydipsia and goiter. NEURO: Negative for headaches, syncope, seizures and paralysis. PFSH: no changes VITAL SIGNS: There were no vitals filed for this visit. MENTAL STATUS EXAM: CONSTITUTIONAL: Well groomed, Appropriately dressed ORIENTATION: Person, Place, Time and Situation MEMORY: Recent intact, Remote intact CONCENTRATION: Normal MOOD: better AFFECT: Full and appropriate to topic SPEECH : Clear & distinct LANGUAGE : Normal ASSOCIATIONS: Intact THOUGHT PROCESS : Logical, Coherent, and Rational PROGRESSION : There was no evidence of disturbance in thought perception or progression. FUND OF KNOWLEDGE : Appropriate and Adequate SUICIDE: None HOMICIDE: None DATA REVIEWED: Electronic medical record DIAGNOSIS: PRIMARY: Adjustment Disorder With Mixed Anxiety and Depressed Mood GAF: -60-51 Moderate symptoms or moderate difficulty in social, occupational or school functioning. TREATMENT PLAN: 1. Schedule talk therapy, recommended [facility] for a sooner appt and for more options for providers 2. Re-consider SSRI at follow-up in 4-6 weeks Follow Up: Will call for appointment I spent a total of 30 minutes on the date of the service which included preparing to see the patient, [id number] patient care, and completing clinical documentation. ADD ON PSYCHOTHERAPY CODE : No SIGNATURE: Shantal Carrillo APRN.CNP PATIENT NAME: Olivia Rae DATE: July 29, 2023 TIME: 1:24 PM documented in this encounter [facility] 07-23-2023 Miscellaneous Notes LM on voice mail that 3 h GTT is usually recommend for a 1 h GCT of 135 or above. Order placed and instruction on how to do the test. Also low Fe, I would start taking extra iron. Debbie Lau MD documented in this encounter [facility] 07-20-2023 Note HNO ID: [id number] Author: RHEA BOND MD Service: ? Author Type: Physician Type: Progress Notes Filed: 07/20/2023 14:22 Note Text: [facility] STAFF Pt is a 32 year old at 30w4d who has the following issues Problem List Items Addressed This Visit Neurology Myasthenia gravis status post thymectomy ([facility]) Overview She was diagnosed with myasthenia gravis in 2009 and had a thymectomy in 2011. She followed with the neuromuscular team at [facility] (currently Dr. Pranav Valdivia, last seen 01/2023). In her prior pregnancies she was on subcutaneous Ig therapy (SCIG; Hizentra) [and also pyridostigmine (mestinon) with her first] with no issues and has not been on SCIG since her last delivery with no MG exacerbations since 2019. Her primary symptoms are blurry/double vision and upper arm weakness, but she has been in remission and asymptomatic since her last delivery in Jan 2021. She is currently on no medication. -No role for prophylactic medication at delivery. -No Mg if severe PEC. Current Assessment AND Plan 07/20/2023 Pt reports no double vision. Feels like her MG symptoms are ok. Migraines Overview 04/26: Prescribed excedrin/reglan 05/20: Intermittent ongoing headaches, resolve usually with medication Current Assessment AND Plan 07/20/2023 Sl MENJIVAR today but BP good, no swelling, reflexes 2+. Pt says it feels different than a PET MENJIVAR, more like my usual Has not taken any of her usual meds. Comfort measures reviewed. 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 Other than her typical MENJIVAR, no s/s PET. Allergy/Immunology Sjogrens syndrome (HCC) Overview Diagnosed in 2010. History of dry eyes, arthralgias, and positive SSA/SSB antibodies. She has previously been on plaquenil but this exacerbated her MG symptoms and she is currently asymptomatic on no medication. [x] q2 weeks echo 16-26 weeks [ ] follow up echo 32-[address] Brooks on 06/22/2023 note has signed off. Does not suggest further echo follow up in note. [ ] follow up [x] referred to care 04/27 Current Assessment AND Plan 07/20/2023 Reports no joint pain. FHT regular in the 150s. Ophthalmology Diplopia Current Assessment AND Plan 07/20/2023 No symptoms of diplopia currently Recommendations: doing well. Precautions and kick counts given. Follow up as scheduled with us and visit . Pt reports moods are better and is following up with psych. Rhea Bond MD [facility] 07-07-2023 Miscellaneous Notes 2nd risk assessment form submitted 07/07/23 Ashley Zarate RN documented in this encounter [facility] 07-06-2023 Note HNO ID: [id number] Author: LANI PACHECO MA Service: ? Author Type: Film Producer Type: Progress Notes Filed: 07/06/2023 15:40 Note Text: Patient identified by name and date of . Olivia Rae presents today for a vaccination of Tdap. Patient denies an allergy to latex: yes Patient denies a severe (life-threatening) allergy to a previous dose of Tdap, DTP, DTaP, DT or Td vaccine. Yes Patient denies history of epilepsy or neurological problems: Yes Patient is afebrile and denies being moderately or severely ill: Yes Patient denies history of Guillain-Eldorado Syndrome (a severe paralytic illness): Yes Tdap Adacel injection was given without incident. See immunizations for details of immunizations administered today. VIS sheet provided: Yes Provider Dr. Rene Hernandez was present in office at time of injection. Lani Pacheco MA [facility] 07-06-2023 Miscellaneous Notes [facility] Visit 32yo @ 28w4d here for growth and visit Doing fairly well today, denies vaginal bleeding, leaking fluid, contractions or decreased movement. BP 134/73 Pulse 83 Resp 20 LMP 12/18/2022 SpO2 97% A&O, NAD Abd soft, nontender during US exam US shows: Impression 1. Single, live, intrauterine . 2. There has been interval growth, estimated weight is 1440g, 78%ile 3. Amniotic fluid is normal amount 4. The placenta is anterior, fundal. 5. Normal limited anatomy as detailed below. Problem List Items Addressed This Visit Neurology Myasthenia gravis status post thymectomy (HCC) Overview She was diagnosed with myasthenia gravis in 2009 and had a thymectomy in 2011. She followed with the neuromuscular team at [facility] (currently Dr. Pranav Valdivia, last seen 01/2023). In her prior pregnancies she was on subcutaneous Ig therapy (SCIG; Hizentra) [and also pyridostigmine (mestinon) with her first] with no issues and has not been on SCIG since her last delivery with no MG exacerbations since 2019. Her primary symptoms are blurry/double vision and upper arm weakness, but she has been in remission and asymptomatic since her last delivery in Jan 2021. She is currently on no medication. -No role for prophylactic medication at delivery. -No Mg if severe PEC. 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 History of dry eyes, arthralgias, and positive SSA/SSB antibodies. She has previously been on plaquenil but this exacerbated her MG symptoms and she is currently asymptomatic on no medication. [x] q2 weeks echo 16-26 weeks [ ] follow up echo 32-[address] Brooks on 06/22/2023 note has signed off. Does not suggest further echo follow up in note. [ ] follow up [x] referred to care 04/27 Other Supervision of high risk / MFM care Overview MFM/High Risk Care Checklist First trimester: [x] Dating US [x] 1st tri labs [ ] Pap smear: last normal 12/2019 [x] Genetic screening [x] NT [x] cfDNA [x] ASA if indicated Second trimester: [x] Anatomy scan Third trimester: [-] GCT [-] CBC, HIV, RPR [x] TDaP 07/06 [ ] GBS/GCCT Other: [/] Flu vaccine - declines [ ] COVID vaccine surveillance: [ ] Growths if indicated: 32, 36 weeks [-] Testing if indicated: x Delivery planning: [ ] Timing: [ ] MOD: [ ] Scheduled: [ ] Location: [ ] Specific delivery plans: Mental health problem Overview History of adjustment disorder 05/20/23: Reports increasing emotional dysregulation. She reports spending long periods crying and feeling sad, angry, and overwhelmed. She is interested in establishing mental health care. No issues with safety at home or SI/HI. [x] Referred to behavioral health (Shantal Carrillo) Other Visit Diagnoses 28 weeks gestation of - Primary Relevant Orders URINE OB DIP B/O SYPHILIS TOTAL W/REFLEX TDAP VACCINE, AGE 7+ YR (ADACEL, BOOSTRIX) (Completed) RTC in 2 weeks Medical Decision Making: Problems: Moderate: 2+ stable chronic illnesses Risk: Moderate: Moderate risk from testing/treatment Medical Decision Making Level: 4 - Moderate Kimberly Hernandez MD July 06, 2023 3:38 PM documented in this encounter [facility] 07-06-2023 History of Present illness Narrative Patient identified by name and date of . Olivia Rae presents today for a vaccination of Tdap. Patient denies an allergy to latex: yes Patient denies a severe (life-threatening) allergy to a previous dose of Tdap, DTP, DTaP, DT or Td vaccine. Yes Patient denies history of epilepsy or neurological problems: Yes Patient is afebrile and denies being moderately or severely ill: Yes Patient denies history of Guillain-Eldorado Syndrome (a severe paralytic illness): Yes Tdap Adacel injection was given without incident. See immunizations for details of immunizations administered today. VIS sheet provided: Yes Provider Dr. Rene Hernandez was present in office at time of injection. Lani Pacheco MA documented in this encounter [facility] 06-22-2023 Note HNO ID: [id number] Author: KAYA BROOKS MD Service: ? Author Type: Physician Type: Progress Notes Filed: 08/25/2023 18:21 Note Text: Jimi Rocha MD [facility] NAME: Olivia Rae CLINIC Number.: [id number] Date of : 1990 Date of Visit: June 22, 2023 Estimated date of delivery: 09/24/[address] Rocha: Thank you for asking us to evaluate your patient, . Olivia Rae, for echocardiogram and consultation in the setting of mother with Sjogren syndrome and positive SSA/SSB antibodies. I saw her in the Cardiology Outpatient Clinic at [facility] on June 22, 2023. She is a 32 year old woman, at 26 4/7 weeks with a single fetus. Maternal T21 plus/NIPT was performed and the results were reported as low risk. The patient has significant past medical history of myasthenia gravis (s/p thymectomy) and Sjogren syndrome as well as anxiety, premature ventricular contractions and pre-eclampsia in prior . Social history reveals no significant concerns. There is family history of early deaths (mother unsure of cause), no defects, other two siblings are said to be healthy without heart block. Current medications include reglan, vitamins, aspirin. Since her last visit she denies any change in medical, social or family history or in her medications. echocardiogram on June 22, 2023 at 26 4/7 weeks gestation: A complete echocardiogram was performed. This shows atrial situs solitus with levocardia. SVC and IVC return normally to the right atrium. The os of the coronary sinus opens normally to the right atrium. One right and one left pulmonary vein were seen returning normally into the left atrium. The atria were normal in size and there was normal right to left shunting at the atrial level. The left and right ventricles were normal in size and function. No ventricular hypertrophy. The ventricular septum appeared intact. Normal mitral and tricuspid valves without significant regurgitation. The left and right ventricular outflow tracts were widely patent. The aortic and ductal arches were widely patent. heart rate and rhythm were regular and no pericardial effusion was seen. In summary, echocardiographic findings revealed a structurally normal heart with situs solitus. There was no valvar dysfunction and normal biventricular function with normal heart rate and rhythm. Findings and limitations of the echocardiogram and echocardiography in general were explained to the patient. These included the limited ability to exclude small to moderate atrial and ventricular septal defects as well as minor valvar abnormalities, partial anomalous pulmonary venous return, persistent patent ductus arteriosus, coarctation of the aorta and very subtle defects which may progress through gestation. Delivery is planned at [facility]. At this time, my recommendation for management is that no further cardiology follow-up is required unless clinically indicated. Assuming no change in clinical status, the recommendation is that no further cardiac follow-up is required. Thank you very much for allowing me to take part in the care of your patient. I have encouraged her to contact me with any questions or concerns. Please do not hesitate to contact us with further issues. Sincerely, Kaya Brooks MD Staff [employer] [facility] 06-22-2023 Note HNO ID: [id number] Author: KAYA BROOKS MD Service: ? Author Type: Physician Type: Progress Notes Filed: 06/27/2023 13:51 Note Text: Jimi Rocha MD [facility] NAME: Olivia Rae CLINIC Number.: [id number] Date of : 1990 Date of Visit: June 22, 2023 Estimated date of delivery: 09/24/[address] Rocha: Thank you for asking us to evaluate your patient, Ms. Olivia Rae, for echocardiogram and consultation in the setting of maternal SSA/SSB antibodies. I saw her in the Cardiology Outpatient Clinic at [facility] on June 22, 2023. She is a 32 year old woman, at 26 4/7 weeks with a single fetus. Maternal T21/NIPT was performed and the results were reported as low risk. The patient has significant past medical history of myasthenia gravis diagnosed in 2009 and s/p thymectomy in 2011 and is followed by the neuromuscular team at [facility] without exacerbations since 2019. She was on subcutaneous Ig therapy (SCIG; Hizentra) [and also pyridostigmine (mestinon) with her first] with no issues and has not been on SCIG since her last delivery and has been in remission since Jan 2021 and is on no medication for the myasthenia gravis. She also has h/o Sjogren syndrome (diagnosed in 2010) with positive SSA/SSB antibodies and previously on plaquenil but this exacerbated her myasthenia gravis symptoms and is currently on no medications. She has h/o pre-eclampsia in prior . She has remote h/o premature ventricular contractions. Social history reveals no significant concerns. There is no family history of congenital heart disease, sudden , or defects. Current medications include vitamins, reglan, colace and excedrin as well as aspirin. Since her last visit, there has been no interval change in medical, social or family history or in her medications. echocardiogram on June 22, 2023 at 26 4/7 weeks gestation: A complete echocardiogram was performed. This shows atrial situs solitus with levocardia. SVC and IVC return normally to the right atrium. The os of the coronary sinus opens normally to the right atrium. One right and one left pulmonary vein were seen returning normally into the left atrium. The atria were normal in size and there was normal intrauterine right to left shunting at the atrial level. The left and right ventricles were normal in size and function. No ventricular hypertrophy. The ventricular septum appeared intact. Normal mitral and tricuspid valves without significant regurgitation. The left and right ventricular outflow tracts were widely patent. Ductal and aortic arches appear patent, small anterior shelf without posterior shelf, with antegrade flow throughout the aortic arch. heart rate and rhythm were regular. No ectopy or sustained tachycardia noted. Mechanical AV interval was within normal limits at ~ 110 to 120 milliseconds. Trivial pericardial effusion (around right heart), of no hemodynamic significance, no evidence of hydrops fetalis. Umbilical arterial and venous dopplers were within normal limits. biometry was consistent with gestastional age. In summary, echocardiographic findings revealed a structurally normal heart with situs solitus. There was normal biventricular size and systolic function, no significant valvar dysfunction, patent ductal and aortic arches with small anterior shelf and normal heart rate and rhythm, with normal mechanical AV interval. Findings and limitations of the echocardiogram and echocardiography in general were explained to the patient. These included the limited ability to exclude small to moderate atrial and ventricular septal defects as well as minor valvar abnormalities, partial anomalous pulmonary venous return, persistent patent ductus arteriosus, coarctation of the aorta and very subtle defects which may progress through gestation. Delivery is planned at [facility]. Assuming no change in clinical status, the recommendation is that no further cardiac follow-up is required. She should have continued follow up with [employer] and MFM. If during the remainder of her any concern is noted from the heart rate perspective or any other cardiac reasons, we are happy to see her back. After , I would recommend a ECG to ensure sinus rhythm in the baby. Thank you very much for allowing me to take part in the care of your patient. I have encouraged her to contact me with any questions or concerns. Please do not hesitate to contact us with further issues. Sincerely, Kaya Brooks MD Staff [employer] Operator [facility] During this patient visit I have spent 45 minutes (including review of records, previous ultrasounds) with more than 50% of the time devoted to counseling/coordination of care including discussion of any necessary alte (more content not included)... [facility] 06-22-2023 History of Present illness Narrative Jimi Rocha MD [facility] NAME: Olivia Rae CLINIC Number.: [id number] Date of : 1990 Date of Visit: June 22, 2023 Estimated date of delivery: 09/24/[address] Rocha: Thank you for asking us to evaluate your patient, . Olivia Rae, for echocardiogram and consultation in the setting of mother with Sjogren syndrome and positive SSA/SSB antibodies. I saw her in the Cardiology Outpatient Clinic at [facility] on June 22, 2023. She is a 32 year old woman, at 26 4/7 weeks with a single fetus. Maternal T21 plus/NIPT was performed and the results were reported as low risk. The patient has significant past medical history of myasthenia gravis (s/p thymectomy) and Sjogren syndrome as well as anxiety, premature ventricular contractions and pre-eclampsia in prior . Social history reveals no significant concerns. There is family history of early deaths (mother unsure of cause), no defects, other two siblings are said to be healthy without heart block. Current medications include reglan, vitamins, aspirin. Since her last visit she denies any change in medical, social or family history or in her medications. echocardiogram on June 22, 2023 at 26 4/7 weeks gestation: A complete echocardiogram was performed. This shows atrial situs solitus with levocardia. SVC and IVC return normally to the right atrium. The os of the coronary sinus opens normally to the right atrium. One right and one left pulmonary vein were seen returning normally into the left atrium. The atria were normal in size and there was normal right to left shunting at the atrial level. The left and right ventricles were normal in size and function. No ventricular hypertrophy. The ventricular septum appeared intact. Normal mitral and tricuspid valves without significant regurgitation. The left and right ventricular outflow tracts were widely patent. The aortic and ductal arches were widely patent. heart rate and rhythm were regular and no pericardial effusion was seen. In summary, echocardiographic findings revealed a structurally normal heart with situs solitus. There was no valvar dysfunction and normal biventricular function with normal heart rate and rhythm. Findings and limitations of the echocardiogram and echocardiography in general were explained to the patient. These included the limited ability to exclude small to moderate atrial and ventricular septal defects as well as minor valvar abnormalities, partial anomalous pulmonary venous return, persistent patent ductus arteriosus, coarctation of the aorta and very subtle defects which may progress through gestation. Delivery is planned at [facility]. At this time, my recommendation for management is that no further cardiology follow-up is required unless clinically indicated. Assuming no change in clinical status, the recommendation is that no further cardiac follow-up is required. Thank you very much for allowing me to take part in the care of your patient. I have encouraged her to contact me with any questions or concerns. Please do not hesitate to contact us with further issues. Sincerely, Kaya Brooks MD Staff [employer] Operator [facility] documented in this encounter [facility] 06-22-2023 History of Present illness Narrative Jimi Rocha MD [facility] NAME: Olivai Rae [facility] Number.: [id number] Date of : 1990 Date of Visit: June 22, 2023 Estimated date of delivery: 09/24/[address]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 preeclampsia with severe features at 36 weeks. She received keppra for seizure ppx and did not require any antihypertensives after delivery. Her second was notable for gHTN at term. Her relevant histories have been updated and are reviewed below: Obstetric History: # 1 - Date: 07/21/18, Sex: Male, Weight: 5 lb 9.8 oz (2.547 kg), GA: 36w1d, Delivery: Vaginal, Forceps, Apgar1: 9, Apgar5: 9, Living: Living, Comments: None # 2 - Date: 02/06/21, Sex: Male, Weight: 6 lb 11.7 oz (3.052 kg), GA: 37w0d, Delivery: Vaginal, Spontaneous, Apgar1: 8, Apgar5: 9, Living: Living, Comments: None # 3 - Current Gynecologic History: Non-contributory Past Medical History: PAST MEDICAL HISTORY Diagnosis Date GERD (gastroesophageal reflux disease) treated with prilosec Myasthenia gravis status post thymectomy ([facility]) 12/08/2011 Pre-eclampsia, severe 07/20/2018 PVC's (premature ventricular contractions) Sjogrens syndrome ([facility]) 04/2011 Tension vascular headache TMJ (dislocation of temporomandibular joint) mild Past Surgical History: PAST SURGICAL HISTORY Procedure Laterality Date PORTOCATH PLACEMENT THYMECTOMY, PARTIAL/TOTAL 2011 TONSILLECTOMY PRIMARY/SECONDARY <AGE 12 Tonsillectomy Medications: Current Outpatient Medications on File Prior to Visit Medication Sig acetaminophen 325 mg-caffeine 40 mg-butalbital 50 mg (FIORICET) per tablet Take 1-2 tablets by mouth every 4 hours as needed. aspirin, enteric coated (ECOTRIN LOW STRENGTH) 81 mg EC tablet Take 1 tablet by mouth once daily. fluticasone (FLONASE ALLERGY RELIEF) 50 mcg/actuation nasal spray Use 1 [place] in each nostril once daily. (Patient not taking: Reported on 04/26/2023) [id number] acid 27-800 mg-mcg tab Take 1 tablet by mouth once daily. (Patient not taking: Reported on 04/26/2023) No current facility-administered medications on file prior to visit. Allergies: ALLERGIES Allergen Reactions Sherita-D [Fexofena* Hives Bactrim [Sulfametho* Other: See Comments Exacerbation of MG Beta-Blockers (Beta* Contraindication-Medical Surgical Magnesium Sulfate Contraindication-Medical Surgical Nifedipine Contraindication-Medical Surgical Social History: Social History Tobacco Use Smoking status: Never Smokeless tobacco: Never Substance Use Topics Alcohol use: No Drug use: No Family History: FAMILY HISTORY Problem Relation Age of Onset None Mother A & W None Father A & W Asthma Brother other (PCOS) Sister Hypertension Maternal Grandmother Hyperlipidemia Maternal Grandmother COPD Maternal Grandmother smoker Heart Failure Maternal Grandmother Hypertension Maternal Grandfather Hyperlipidemia Maternal Grandfather COPD Maternal Grandfather smoker Heart Failure Maternal Grandfather Diabetes Paternal Grandmother Cancer Paternal Grandmother unknown Cervical Cancer Paternal Aunt 37 Seizures Maternal Aunt Review of Systems: Negative other than as noted above. Physical Exam: Height Weight BMI 5' 4 (162.6 cm) 155 lb (70.3 kg) 26.61 Pulse BP Resp O2 Sat Temp Pain 76 124/73 18 Gen: Well-appearing, no acute distress CV/Resp: Non-labored breathing on room air Abd: Gravid, non-tender Ext: Moving spontaneously, no significant edema b/l Assessment and Plan: 32 year old at 18w3d presenting for MFM consultation due to history of myastheniagravis and Sjogren's disease with positive SSA/SSB. Both conditions are currently in remission withno symptoms. She also has a history of severe preeclampsia in her first and gestational hypertension in her second. Myasthenia gravis, History of hypertensive disorders of In brief review, myasthenia gravis is characterized by variable weakness and fatigability of skeletal muscles, resulting from defective neuromuscular transmission due to a reduced number of availableacetylcholine receptors at the neuromuscular junctions. This is most often due to autoimmune antibodies against the Ach receptors. does not alter the course of myasthenia gravis for most patients. Patients with myasthenia gravis may have limited expulsive efforts in the second stage of labor andmay require operative vaginal deliveries. Olivia's first delivery was in fact forceps assisted. She inquires today whether administering prophylactic IG therapy prior to delivery if she has an intrapartum flare will be beneficial, as this was planned in her prior deliveries (though she was already on SCIG at that time). We discussed that I do not suspect this will be beneficial, which is confirmedin the documentation from her neurologist, but that I will reach out directly to him to devise a plan in the event of an intrapartum/peripartum flare. We reviewed that the use of magnesium sulfate for seizure ppx should be avoided because it may precipitate myasthenic crisis. She is currently taking baby aspirin prophylaxis. She is currently havingoccasional headaches and is concerned about her ability to identify preeclampsia symptoms. I will prescribe a new headache regimen (she is currently prescribed fioricet; I will instead prescribe excedrin and reglan, which she reports has worked for her in the past, to be used PRN). I will also prescribe a BP cuff and recommend that she check her BP at home 3 times a week and maintain a record. Wereviewed normal ranges. Infants born to mothers with myasthenia gravis may develop myasthenia from transplacental achetylcholine receptor antibodies. As the acetylcholinesterase inhibitors are also transferred across the placenta, neonates may not show signs of disease for up to 72hours. It can be treated with anticholinesterase drugs and usually subsides within 6 weeks of delivery. Sjogren's disease We discussed that generally, does not impact the course of Sjogren's syndrome and most women have successful pregnancies. She has no known involvement of other major organ systems (cardiovascular, pulmonary, hepatic or renal). We reviewed that the primary implications of Sjogren's in relate to her antibody positivestatus for SSA and SSB, which may result in cutaneous/ lupus (~25%) or congenital heart block (~2%). We reviewed that congenital heart block occurs due to transplacental passage of SSA/SSB, wh ich cause damage/fibrosis to the cardiac conduction system. Typically, congenital heart blockoccurs in the gestational age window of 16-24 weeks. There are different modalities for screening (mechanical [place]-interval assessment, FHR assessment), and recommendations for mode of screening may have changed since her prior pregnancies. After discussion with the working group with pediatric cardiology on this topic, the current [facility] recommendation for surveillance is serial echocardiograms every 2 weeks from 16-26 weeks with a follow up echo at 32-34 weeks. She is currently scheduled for echo 05/31/23. On anatomy scan today there was no evidence of arrhythmia. Given Olivia's autoimmune history, I recommend growth scans at 32 and 36 weeks of gestation. In the setting of multiple medical co-morbidities, Olivia desires to continue care with MFM, which is reasonable. Summary of Recommendations: -Continue ASA ppx -Continue routine surveillance with neurology, will inquire specifically re: patient's question about prophylactic IG - echocardiograms q2 weeks 16-26 weeks and again at 32-34 weeks; will reach out to [facility] to help facilitate this follow up -Return in 3 weeks to [facility] office for anatomy completion and visit -Growth scans at 32, 36 weeks given maternal autoimmune history Thank you for allowing us to participate in the care of this patient. Please do not hesitate to contact our office with any questions or concerns. I spent a total of 60 minutes on the date of the service which included preparing to see the patient, [id number] patient care, completing clinical documentation, obtaining and/or reviewing separately obtained history, performing a medically appropriate examination, counseling and educating the pat ient/family/caregiver, and ordering medications, tests, or procedures. SIGNATURE: Tiffanie Mcdaniel MD PATIENT NAME: Olivia Rae DATE: April 26, 2023 TIME: 2:45 PM documented in this encounterUniversity Hospitals St. John [facility] Center11-27-2023 Miscellaneous Notes* Quick Notes - Ashli Montanez MD - 04/12/2023 1:37 PM EST No complaints. Was in [facility] with severe N/V. US with questionable marginal abruptio. Anatomy scan in two weeks. Problem List Items Addressed This Visit Neurology Myasthenia gravis status post thymectomy (HCC) Overview Currently on no meds Current Assessment & Plan No issues at this time Relevant Orders CONSULT TO MATERNAL MEDI Migraines Current Assessment & Plan Currently taking fioricet when necessary. Cardiovascular Pre-eclampsia, severe Overview History of severe PreE with first and Gest HTN with second Base line labs wnl Growth scans Baby asa Current Assessment & Plan On baby asa Relevant Orders CONSULT TO MATERNAL MEDI Allergy/Immunology Sjogrens syndrome (HCC) Overview Worse with No tx as MG is aggravated by Current Assessment & Plan For [facility] consult Relevant Orders CONSULT TO MATERNAL MEDI Other Visit Diagnoses 16 weeks gestation of - Primary Relevant Orders URINE OB DIP B/O (Completed) Ashli Montanez MD documented in this encounterUniversity Hospitals St. John [facility] Center11-18-2023 Miscellaneous Notes* Telephone Encounter - Panda Vivar RN - 04/03/2023 11:44 AM EST @ 15.1 weeks IUP. Yesterday am pt woke up w vomiting and cramping. She went to [place] [facility] where they gave her fluids,potassium, reglan and benadryl Transvag ultrasound done. Bloodwork not concerning, baby looks fine. She went home and got a call back that a second radiologist reviewed the ultrasound and noted that there are more predominant blood vessels towards the placenta . Advised to let OB provider know and that if she gets more crampingor bleeding to go back to ER. Pt denies bleeding today. Still having cramping off and on. No further vomiting. Next appt is 04/[address] Montanez. Advised that will send message to Dr. Montanez and covering provider. Results not able to be seen in care everywhere. Pt will likely need to get records from [facility] sent to provider's office. documented in this encounterUniversity Hospitals St. John Medical Center11-01-2023 Miscellaneous Notes* Telephone Encounter - Lilly Whitaker - 03/17/2023 10:01 AM EDT Referral to [facility] Sjogrens Syndrome Myasthenia Gravis H/o of severe preeclampsia Consult requested at time of anatomy scan. Patient is followed by Dr Valdivia at [facility]. No medication and reports that she is considered to be in remission. Annual follow up. 2019: IOL 36w1d HTN 2020: IOL 37w HTN Patient prescribed low dose aspirin. 05/31/23 - echo Card consult Anatomy scan and consult on 04/26 at [facility]. documented in this encounterUniversity Hospitals St. John Medical Center10-31-2023 Miscellaneous Notes* Quick Notes - Ashli Montanez MD - 03/16/2023 2:29 PM EDT Pt here for first md visit. Has sjorgens, Myathenia gravis, and history of severe PreE. On baby asa. Mfm official consult ordered. Would like NIPT. Ordered/. Ashli Montanez Jr, MD documented in this encounterUniversity Hospitals St. John Medical Center10-30-2023 NoteHNO ID: [id number] Author: Jimi Rocha MD Service: ? Author Type: Physician Type: Progress Notes Filed: 03/15/2023 1:51 PM Note Text: The patient presents for nuchal translucency screening in a complicated by history of myasthenia gravis (s/p thymectomy), Sjogren's syndrome (+SSA/SSB), and history of preeclampsia with medically-indicated late delivery. - Single, live intrauterine . - The crown rump length is consistent with the established gestational age. - No malformations were visualized. - The nuchal translucency measurement is within normal limits. - Normal bilateral adnexa. The patient was counseled regarding the sonographic findings and the potential for non-visualized malformations. She was counseled regarding her age related risks for aneuploidy as well as options for genetic screening and diagnostic genetic testing. The limitations of genetic screening and testing were discussed. She declines genetic screening and diagnostic genetic testing. Repeat sonographic evaluation is recommended at 18-20 weeks for a anatomic survey. Given her medical comorbidities, MFM consultation is recommended and our coordinator was updated to facilitate scheduling. echocardiography is recommended and was ordered in [facility]. ASA prophylaxis is recommended and was ordered. All patient questions were addressed. Thank you for the referral. Jimi Rocha MD I spent a total of 20 minutes on the date of the service which included preparing to see the patient, [id number] patient care, completing clinical documentation, obtaining and/or reviewing separately obtained history, counseling and educating the patient/family/caregiver, ordering medications, tests, or procedures, communicating results to the patient/family/caregiver, and care coordination (not separately reported). [facility]10-30-2023 Miscellaneous Notes* Addendum Note - Jimi Rocha MD - 03/15/2023 1:52 PM EDTAddended by: JIMI ROCHA on: 03/15/2023 01:52 PM Modules accepted: Orders documented in this encounterUniversity Hospitals St. John Medical Center10-30-2023 History of Present illness Narrative* Jimi Rocha MD - 03/15/2023 1:48 PM EDT The patient presents for nuchal translucency screening in a complicated by history of myasthenia gravis (s/p thymectomy), Sjogren's syndrome (+SSA/SSB), and history of preeclampsia with medically-indicated late delivery. - Single, live intrauterine . - The crown rump length is consistent with the established gestational age. - No malformations were visualized. - The nuchal translucency measurement is within normal limits. - Normal bilateral adnexa. The patient was counseled regarding the sonographic findings and the potential for non-visualized malformations. She was counseled regarding her age related risks for aneuploidy as well as options for genetic screening and diagnostic genetic testing. The limitations of genetic screening and testing were discussed. She declines genetic screening and diagnostic genetic testing. Repeat sonographic evaluation is recommended at 18-20 weeks for a anatomic survey. Given her medical comorbidities, MFM consultation is recommended and our coordinator was updated to facilitate scheduling. echocardiography is recommended and was ordered in [facility]. ASA prophylaxis is recommended and was ordered. All patient questions were addressed. Thank you for the referral. Jimi Rocha MD I spent a total of 20 minutes on the date of the service which included preparing to see the patient, [id number] patient care, completing clinical documentation, obtaining and/or reviewing separately obtained history, counseling and educating the patient/family/caregiver, ordering medications, tj ts, or procedures, communicating results to the patient/family/caregiver, and care coordination (not separately reported). documented in this encounterUniversity Hospitals St. John Medical Center09-24-2023 NoteHNO ID: [id number] Author: Bobo Shepard MD Service: ? Author Type: Physician Type: Progress Notes Filed: 02/07/2023 7:32 AM Note Text: OB point of care ultrasound was performed. See imaging tab for details. Bobo Shepard [facility]09-24-2023 History of Present illness Narrative* Bobo Shepard MD - 02/07/2023 7:30 AM EDT OB point of care ultrasound was performed. See imaging tab for details. Bobo Shepard MD documented in this encounterUniversity Hospitals St. John Medical Center09-22-2023 Miscellaneous Notes* Telephone Encounter - Anahi Joens RN - 02/05/2023 10:21 AM EDT 1st risk assessment form submitted 02-05-2023. Anahi Jones RN documented in this encounterUniversity Hospitals St. John Medical Center09-20-2023 NoteHNO ID: [id number] Author: Iliana Watkins PA-C Service: ? Author Type: Physician Crisis Intervention Counselor Type: Progress Notes Filed: 02/03/2023 2:21 PM Note Text: INITIAL OB ASSESSMENT OB Provider: Iliana Watkins PA-C HPI: Olivia is a 32 year old White Female here to establish Obstetrical Care. Patient's last menstrual period was 12/18/2022. from OB Dating Form. Cycles regular was unplanned but accepted Complaints: None OB History T1 L2 SAB0 IAB0 Ectopic0 Multiple0 Live Births2 Patient's Risk Screening for delivery: Have you had a prior zayas between 20w and 36w6d?: (!) Yes MEDICAL/PSYCHOSOCIAL HISTORY: History of hemorrhage or bleeding concerns: No Thyroid Disease: No History of chronic hypertension: No History of pre-existing diabetes: No ABO/RH(D) Date Value Ref Range Status 02/06/2021 O POSITIVE Final BMI 25.40 kg/(m2) History of abnormal pap: No Prior treatment for cervical dysplasia: N/A. History of STDs: None Tobacco use: No Caffeine use: Yes 1 cup tea / week Drug use: No Alcohol use: No Multivitamin with Folic acid: No Moravian or heritage: No Would refuse blood transfusion if medically necessary: No Are you currently employed? No Do you have any history of depression, anxiety, PTSD, eating disorders or other mood problems: Yes adjustment disorder and anxiety Do you have any safety concerns or history of traumatic events that you would like to discuss with your provider: No SDOH Screening: How often does this describe you? I don't have enough money to pay my bills: Sometimes Within the past 12 months, have you worried that your food would run out before you had money to buy more: Never In the past 12 months, has lack of reliable transportation kept you from going to medical appointments or work, or from keeping things needed for daily living: Never In the past 12 months, have you had any concerns about having a place to live, or about the condition or quality of your housing: Never Are there any cultural or spiritual needs we should be aware of: No Depression/Anxiety Screening: denies symptoms of depression. OB Depression and Anxiety Screening- This Encounter (since 02/02/2023) Over the past 2 weeks have you felt down, depressed, or hopeless? Negative Over the past two weeks, have you felt little interest or pleasure in doing things?? Negative Feeling nervous, anxious or on edge 0-Not at all Not being able to stop or control worrying 0-Not al all Anxiety Pre-Screening Total (If >/= 3 additional questions will be reviewed) 0 Genetic Screening: Partner present: No Patient verbalized knowledge of partner family health history: Yes Do you or your partner have any personal or family history of defects not previously discussed: No Do you have history of a complicated by anomaly, genetic condition, or demise: No ACOG Recommended Screening Screening for early gestational diabetes testing: Criteria for early testing requires elevated BMI plus one other risk factor: BMI 25.40 kg/(m2) (risk factor if > than 25 or 23 in Americans) Additional risk factors: High-risk race or ethnicity (eg, , , , Swazi, ) She does not meet ACOG criteria for early gestational DM screening. 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 Gender: Male History of STDs: None PAST MEDICAL HISTORY Diagnosis Date GERD (gastroesophageal reflux disease) treated with prilosec Myasthenia gravis status post thymectomy ([facility]) 12/08/2011 Pre-eclampsia, severe 07/20/2018 PVC's (premature ventricular contractions) Sjogrens syndrome ([facility]) 04/2011 Tension vascular headache TMJ (dislocation of temporomandibular joint) mild PAST SURGICAL HISTORY Procedure Laterality Date PORTOCATH PLACEMENT THYMECTOMY, PARTIAL/TOTAL 2011 TONSILLECTOMY PRIMARY/SECONDARY Tonsillectomy Current Outpatient Medications Medication Sig Dispense Refill fluticasone (FLONASE ALLERGY RELIEF) 50 mcg/actuation nasal spray Use 1 [place] in each nostril once daily. acetaminophen (TYLENOL 8 HOUR ORAL) Take by mouth once daily. [id number] acid 27-800 mg-mcg tab Take 1 tablet by mouth once daily. (Patient not taking: Reported on 02/03/2023) 30 tablet 11 No current facility-administered medications for this visit. Allergies As of Date (more content not included)...[facility] 02-03-2023 History of Present illness Narrative* Iliana Watkins PA-C - 02/03/2023 1:58 PM EDT Images from the original note were not included. INITIAL OB ASSESSMENT OB Provider: Iliana Watkins PA-C HPI: Olivia is a 32 year old White Female here to establish Obstetrical Care. Patient's last menstrual period was 12/18/2022. from OB Dating Form. Cycles regular was unplanned but accepted Complaints: None OB History T1 L2 SAB0 IAB0 Ectopic0 Multiple0 Live Births2 Patient's Risk Screening for delivery: Have you had a prior zayas between 20w and 36w6d?: (!) Yes MEDICAL/PSYCHOSOCIAL HISTORY: History of hemorrhage or bleeding concerns: No Thyroid Disease: No History of chronic hypertension: No History of pre-existing diabetes: No ABO/RH(D) Date Value Ref Range Status 02/06/2021 O POSITIVE Final BMI 25.40 kg/(m^2) History of abnormal pap: No Prior treatment for cervical dysplasia: N/A. History of STDs: None Tobacco use: No Caffeine use: Yes 1 cup tea / week Drug use: No Alcohol use: No Multivitamin with Folic acid: No Moravian or heritage: No Would refuse blood transfusion if medically necessary: No Are you currently employed? No Do you have any history of depression, anxiety, PTSD, eating disorders or other mood problems: Yes adjustment disorder and anxiety Do you have any safety concerns or history of traumatic events that you would like to discuss with your provider: No SDOH Screening: How often does this describe you? I don't have enough money to pay my bills: Sometimes Within the past 12 months, have you worried that your food would run out before you had money to buy more: Never In the past 12 months, has lack of reliable transportation kept you from going to medical appointments or work, or from keeping things needed for daily living: Never In the past 12 months, have you had any concerns about having a place to live, or about the condition or quality of your housing: Never Are there any cultural or spiritual needs we should be aware of: No Depression/Anxiety Screening: denies symptoms of depression. OB Depression and Anxiety Screening- This Encounter (since 02/02/2023) Over the past 2 weeks have you felt down, depressed, or hopeless? Negative Over the past two weeks, have you felt little interest or pleasure in doing things? Negative Feeling nervous, anxious or on edge 0-Not at all Not being able to stop or control worrying 0-Not al all Anxiety Pre-Screening Total (If >/= 3 additional questions will be reviewed) 0 Genetic Screening: Partner present: No Patient verbalized knowledge of partner family health history: Yes Do you or your partner have any personal or family history of defects not previously discussed: No Do you have history of a complicated by anomaly, genetic condition, or demise: No ACOG Recommended Screening Screening for early gestational diabetes testing: Criteria for early testing requires elevated BMI plus one other risk factor: BMI 25.40 kg/(m^2) (risk factor if > than 25 or 23 in Americans) Additional risk factors: High-risk race or ethnicity (eg, , , , Swazi, ) She does not meet ACOG criteria for early gestational DM screening. 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 Gender: Male History of STDs: None PAST MEDICAL HISTORY Diagnosis Date GERD (gastroesophageal reflux disease) treated with prilosec Myasthenia gravis status post thymectomy ([facility]) 12/08/2011 Pre-eclampsia, severe 07/20/2018 PVC's (premature ventricular contractions) Sjogrens syndrome ([facility]) 04/2011 Tension vascular headache TMJ (dislocation of temporomandibular joint) mild PAST SURGICAL HISTORY Procedure Laterality Date PORTOCATH PLACEMENT THYMECTOMY, PARTIAL/TOTAL 2011 TONSILLECTOMY PRIMARY/SECONDARY <AGE 12 Tonsillectomy Current Outpatient Medications Medication Sig Dispense Refill fluticasone (FLONASE ALLERGY RELIEF) 50 mcg/actuation nasal spray Use 1 [place] in each nostril once daily. acetaminophen (TYLENOL 8 HOUR ORAL) Take by mouth once daily. [id number] acid 27-800 mg-mcg tab Take 1 tablet by mouth once daily. (Patient not taking: Reported on 02/03/2023) 30 tablet 11 No current facility-administered medications for this visit. Allergies As of Date: 02/03/2023 Allergen Noted Reaction SHERITA-D [FEXOFENADINE-PSEUDOEPH*06/22/2011 Hives BACTRIM [SULFAMETHOXAZOLE-TRIMETH*08/09/2015 Other: See Comments BETA-BLOCKERS (BETA-ADRENERGIC BL*02/06/2021 Contraindication-Medical Surgical MAGNESIUM SULFATE 02/06/2021 Contraindication-Medical Surgical NIFEDIPINE 02/06/2021 Contraindication-Medical Surgical Fully Assessed 02/03/2023 Does patient have penicillin allergy: No REVIEW OF SYSTEMS: GENERAL: Negative for: Fever or Chills HEENT: Negative for: Headache, Impaired Vision, Ringing in Ears, Nosebleeds NECK: Negative for: Swelling, Pain, Stiffness RESPIRATORY: Negative for: Cough, Shortness of breath, Wheezing GASTROINTESTINAL: Negative for: Heartburn, Constipation, Diarrhea, Blood in stool, Vomiting MUSCULOSKELETAL: Negative for: Muscle or joint pain, stiffness, Joint swelling NEUROLOGIC/PSYCHIATRIC: Negative for: Weakness, Paralysis, Numbness, Tingling, Tremor, Anxiety, Depression, Memory loss SKIN: Negative for: Rash, Itching GENITOURINARY: Negative for: vaginal itching, vaginal discharge, hematuria or dysuria PHYSICAL EXAM: BP 120/70 Pulse 85 Ht 5' 4 (1.63m) Wt 148 lb (67.1kg) SpO2 98% LMP 12/18/2022 BMI 25.39 kg/(m^2). GENERAL: pleasant in no apparent distress DERMATOLOGY: Normal, without lesions, non-icteric, and non-hirsute NECK: Supple, full range of motion, no adenopathy, and thyroid normal CHEST: Normal inspiratory effort BREAST: soft, non-tender, symmetric, no dominant mass, normal nipple-areolar complex, no lymphadenopathy, and no nipple discharge ABDOMEN: soft, non-tender, and no masses NEURO: alert and oriented x3,exam grossly non-focal PELVIS: External genitalia normal without lesions. Perineal body intact. No vaginal or cervical lesions. Cervix closed. Uterus normal size . No adnexal masses or tenderness. Clinical Pelvimetry: Pelvimetry clinically assessed as adequate Limited OB ultrasound exam: single intrauterine , positive cardiac activity, and crown-rump length consistent OB Risk Screening: Completed, positive findings include: Patient answered 'Yes' they had a prior zayas between 20w and 36w6d. SBIRT Olivia Dorman Kyra was given the 4's screening tool. Olivia answered as follows: OB Opioid Screening - Last Recorded (since 05/09/2022) Did any of your parents have a problem with alcohol or other drug use? No Does your partner have a problem with alcohol or other drug use? No In the past, have you had difficulties in your life because of alcohol or other drugs, including prescription medications? No In the past month have you drunk any alcohol or used other drugs? No Are you taking medication for pain during the either prescribed or not? Yes Based on the screen and further questions, she is considered at Low risk due to:No past or current use. Positive reinforcement of current behavior. Iliana Watkins PA-C ASSESSMENT: 32 year old at 6w5d wks gestational age PLAN: 1) Patient oriented to practice. Patient given new OB orientation folder. Discussed nutrition, folic acid supplementation, dietary guidelines, exercise, smoking, alcohol, caffeine, and drug use. Discussed gestational weight gain guidelines. Discussed routine OB labs including STD/HIV. Discussed how to access Your guide to a health and the District Operations Manager. Discussed aneuploidy and carrier screening. Regarding aneuploidy screening, nuchal translucency/first trimester early anatomy ultrasound and NIPT were discussed. Regarding carrier screening, the myriad screen was discussed. The risks/benefits and limitations of NIPT/aneuploidy screening were reviewed including the potential for false negative and false positive results. We discussed the availability of professional-society guided carrier screening and reviewed the conditions screened and limitations of screening. The availability of genetic counseling was reviewed. Information on aneuploidy/carrier screening was provided. The patient chooses: Aneuploidy screening: is uncertain. She will call back if she wants to proceed with screening. Pt aware of timing. 2) History of hypertension: Gestational Hypertension Preeclampsia Discussed starting Aspirin 81 mg daily at 12 weeks. Ordered baseline CMP and Protein/Creatinine Ratio today Follow up in 2 weeks or sooner prn. Iliana Watkins PA-C documented in this encounterUniversity [facility]als St. [facility]23 Instructions* Patient Instructions* Iliana Watkins PA-C - 02/03/2023 1:58 PM EDT Please select the following link to access the [facility] Your Guide to a Healthy . [email or web address] documented in this encounterUniversity Hospitals St. [facility]09-15-2023 NoteHNO ID: [id number] Author: Pranav Valdivia MD Service: ? Author Type: Physician Type: Progress Notes Filed: 01/29/2023 5:13 PM Note Text: Chief Complaint: myasthenia gravis HISTORY OF PRESENT ILLNESS: Ms. Olivia Rae is a 32 year old right handed female presented to [facility] for a follow-up evaluation. This is a virtual visit and patient showed up by herself. Patient has been seen and referred by Dr Jaxson Figueroa. Last visit on 08/26/2020. Her symptoms started in 09/2009. Initial symptoms of double vision. Later she developed other symptoms of chewing problem, difficulty in smiling, closing eyes, droopy eyelids, speaking, fatigue, arm and leg weakness. Symptoms did respond to mestinon. In 2011, AChR binding antibody as 6.2 nM, blocking 73%, modulating 48%. Chest CT showed remnant thymic tissue. MRI of brain and cervical spine were normal. Repetitive nerve stimulation of left facial (45.4%), median (9.6%) and spinal accessory (36.4%) nerves showed decrement on 06/22/2011. She received robotic assisted thymectomy on 11/27/[address] Darby. She received PLEX three times prior to surgery but she did not think it helped. Pathology revealed thymic hyperplasia. AChR binding antibody was increased to 117 nM on 01/23/2013. She was treated with IVIG between 2011 and 2014. She received IVIG infusion monthly. It did cause significant headache. And she has a history of migraine headache. In 2014, IVIG was switched to SCIG (Hizentra). She has been using this ever since. She receives injections weekly. She does it in four sites each time, a total of 120 ml, finishing in about 4 hours. She has not noted any side effects from SCIG. She was placed on prednisone up to 10mg per day for less than one year. It made my MG worse . Ant it caused weight gain and mood swinging. She was not tried on imuran or cellcept. She was given mestinon and mestinon. Both helped her MG symptoms. AChR binding antibody was 59.9 nM on 10/11/2015. She delivered her son (first child, vaginal delivery) in 07/2018. She was on SCIG and mestinon throughout the first . She had severe pre-eclampsia. Her MG did not exacerbate following child delivery. On 02/06/2021, she developed her healthy second son. She is currently 2 months . She has not been on SCIG for the last two years. She has not had an MG exacerbation since 2019. Current MG medication: none Current MG symptoms: Ptosis: none Double vision: none Speech: none Chewing: none Swallowing: none Breathing: none Arm strength: none Leg strength: none She has Sjogren syndrome with excessive dry eyes and dry mouths. She does not take medication for sjogren syndrome. Use of plaquenil exacerbated her MG symptome (worsening weakness). Every year, she required a physician statement permitting her to drive due to her condition of MG. She has not had any MVA. PAST MEDICAL HISTORY: PAST MEDICAL HISTORY Diagnosis Date GERD (gastroesophageal reflux disease) treated with prilosec Myasthenia gravis status post thymectomy ([facility]) 12/08/2011 Pre-eclampsia, severe 07/20/2018 PVC's (premature ventricular contractions) Sjogrens syndrome ([facility]) 04/2011 Tension vascular headache TMJ (dislocation of temporomandibular joint) mild PAST SURGICAL HISTORY: PAST SURGICAL HISTORY Procedure Laterality Date PORTOCATH PLACEMENT REMOVAL OF TONSILS,<12 Y/O Tonsillectomy THYMECTOMY, PARTIAL/TOTAL 2011 MEDICATIONS: Current Outpatient Medications Medication Sig [id number] acid 27-800 mg-mcg tab Take 1 tablet by mouth once daily. No current facility-administered medications for this visit. ALLERGIES Allergen Reactions Sherita-D [Fexofena* Hives Bactrim [Sulfametho* Other: See Comments Exacerbation of MG Beta-Blockers (Beta* Contraindication-Medical Surgical Magnesium Sulfate Contraindication-Medical Surgical Nifedipine Contraindication-Medical Surgical FAMILY HISTORY: No history of neuromuscular disease. Paternal cousin has SLE. SOCIAL HISTORY: No tobacco. No significant alcohol abuse. No history of substance abuse. Occupation: not working Marital status: engaged REVIEW OF SYSTEMS: Positive for the following symptoms: dry eyes, dry mouth, nausea, vomiting, muscle cramps (legs and back), anxiety Constitutional: Negative for fevers, chills, night sweats, weight gain or weight loss. Eyes: Negative for eye pain, or floaters. ENT: Negative for decreased hearing, ringing in the ears, or mouth ulcers. Respiratory: Negative for cough, wheezing. Cardiovascular: Negative for chest pain, palpitation or leg edema. Gastrointestinal: Negative for abdominal pain, diarrhea, constipation. Genitourinary: Negative for blood in urine, hesitancy, straining. Musculoskeletal: Negative for joint pain, muscle twitches. Skin: Negative for rash or itching. Hematology and oncology: No history of cancer (more content not included)... [facility]09-15-2023 History of Present illness Narrative* Li, Yuebing, MD - 01/29/2023 2:06 PM EDT Images from the original note were not included. Chief Complaint: myasthenia gravis HISTORY OF PRESENT ILLNESS: Ms. Olivia Rae is a 32 year old right handed female presented to [facility] for a follow-up evaluation. This is a virtual visit and patient showed up by herself. Patient has been seen and referred by Dr Jaxson Figueroa. Last visit on 08/26/2020. Her symptoms started in 09/2009. Initial symptoms of double vision. Later she developed other symptoms of chewing problem, difficulty in smiling, closing eyes, droopy eyelids, speaking, fatigue, arm and leg weakness. Symptoms did respond to mestinon. In 2011, AChR binding antibody as 6.2 nM, blocking 73%, modulating 48%. Chest CT showed remnant thymic tissue. MRI of brain and cervical spine were normal. Repetitive nerve stimulation of left facial(45.4%), median (9.6%) and spinal accessory (36.4%) nerves showed decrement on 06/22/2011. She received robotic assisted thymectomy on 11/27/[address] Darby. She received PLEX three times prior to surgery but she did not think it helped. Pathology revealed thymic hyperplasia. AChR binding antibody was increased to 117 nM on 01/23/2013. She was treated with IVIG between 2011 and 2014. She received IVIG infusion monthly. It did cause significant headache. And she has a history of migraine headache. In 2014, IVIG was switched to SCIG (Hizentra). She has been using this ever since. She receives injections weekly. She does it in four sites each time, a total of 120 ml, finishing in about 4 hours. She has not noted any side effects from SCIG. She was placed on prednisone up to 10mg per day for less than one year. It made my MG worse . Ant it caused weight gain and mood swinging. She was not tried on imuran or cellcept. She was given mestinon and mestinon. Both helped her MG symptoms. AChR binding antibody was 59.9 nM on 10/11/2015. She delivered her son (first child, vaginal delivery) in 07/2018. She was on SCIG and mestinon throughout the first . She had severe pre-eclampsia. Her MG did not exacerbate following child delivery. On 02/06/2021, she developed her healthy second son. She is currently 2 months . She has not been on SCIG for the last two years. She has not had an MG exacerbation since 2019. Current MG medication: none Current MG symptoms: Ptosis: none Double vision: none Speech: none Chewing: none Swallowing: none Breathing: none Arm strength: none Leg strength: none She has Sjogren syndrome with excessive dry eyes and dry mouths. She does not take medication for sjogren syndrome. Use of plaquenil exacerbated her MG symptome (worsening weakness). Every year, she required a physician statement permitting her to drive due to her condition of MG. She has not had any MVA. PAST MEDICAL HISTORY: PAST MEDICAL HISTORY Diagnosis Date GERD (gastroesophageal reflux disease) treated with prilosec Myasthenia gravis status post thymectomy ([facility]) 12/08/2011 Pre-eclampsia, severe 07/20/2018 PVC's (premature ventricular contractions) Sjogrens syndrome ([facility]) 04/2011 Tension vascular headache TMJ (dislocation of temporomandibular joint) mild PAST SURGICAL HISTORY: PAST SURGICAL HISTORY Procedure Laterality Date PORTOCATH PLACEMENT REMOVAL OF TONSILS,<12 Y/O Tonsillectomy THYMECTOMY, PARTIAL/TOTAL 2011 MEDICATIONS: Current Outpatient Medications Medication Sig [id number] acid 27-800 mg-mcg tab Take 1 tablet by mouth once daily. No current facility-administered medications for this visit. ALLERGIES Allergen Reactions Sherita-D [Fexofena* Hives Bactrim [Sulfametho* Other: See Comments Exacerbation of MG Beta-Blockers (Beta* Contraindication-Medical Surgical Magnesium Sulfate Contraindication-Medical Surgical Nifedipine Contraindication-Medical Surgical FAMILY HISTORY: No history of neuromuscular disease. Paternal cousin has SLE. SOCIAL HISTORY: No tobacco. No significant alcohol abuse. No history of substance abuse. Occupation: not working Marital status: engaged REVIEW OF SYSTEMS: Positive for the following symptoms: dry eyes, dry mouth, nausea, vomiting, muscle cramps (legs andback), anxiety Constitutional: Negative for fevers, chills, night sweats, weight gain or weight loss. Eyes: Negative for eye pain, or floaters. ENT: Negative for decreased hearing, ringing in the ears, or mouth ulcers. Respiratory: Negative for cough, wheezing. Cardiovascular: Negative for chest pain, palpitation or leg edema. Gastrointestinal: Negative for abdominal pain, diarrhea, constipation. Genitourinary: Negative for blood in urine, hesitancy, straining. Musculoskeletal: Negative for joint pain, muscle twitches. Skin: Negative for rash or itching. Hematology and oncology: No history of cancer. Endocrine: Negative for cold intolerance, heat intolerance, abnormal sweating, thyroid disorder, diabetes Psychiatry: Negative for depression, anxiety, panic attack, thoughts of suicide or hallucinations. OUTSIDE RECORDS: Records through Care Everywhere were thoroughly reviewed. INTERNAL RECORDS: The patient's electronic medical record was reviewed. The relevant details are summarized as above. IMPRESSION/PLAN: 1. Generalized AChR antibody positive myasthenia gravis associated with thymic hyperplasia. Status post robotic assisted thymectomy in 2011. Currently two months . Has not received any MG treatment for two years without any symptoms. So her MG is in complete stable remission. Unlikely a need for SCIG prior to delivery. Will see patient after delivery, but we are available if assistance is needed. 2. Sjogren syndrome Use of plaquenil made her MG symptoms worse in the past. Mestinon usage helped her dry mouth symptoms. 3. Headache, tension/migraine type. I spent a total of 25 minutes on the date of the service. All questions answered. Pranav Valdivia M.D., Ph.D. Staff Physician [facility] [id number] [place] [address] [place]: [place] [id number] [address] [facility] [id number] [address]razo [address] [facility] [address] [facility] [id number] Answers for HPI/ROS submitted by the patient on 08/26/2020 Talkin=Normal Chewin=Normal Swallowin=Normal Breathin=Shortness of breath with exertion Impairment of ability to brush teeth or comb hair: 0=None Impairment of ability to rise from a chair: 0=None Double vision: 0=None Eyelid droop: 0=None documented in this encounterUniversity Hospitals St. [facility]09-06-2023 Miscellaneous Notes* Telephone Encounter - Nazanin Hartley - 01/20/2023 10:19 AM EDT Patient scheduled * Telephone Encounter - Nazanin Hartley - 01/19/2023 4:29 PM EDT Thank you. Is she safe to be scheduled with an WOOD FINISHER or MD? * Telephone Encounter - Rhea Lucia RN - 01/19/2023 4:15 PM EDT Call placed to patient to triage for new OB appt. Name and identified. LMP? 12/18/2022 When did you have a + test? 01/08 PNV? Not yet Cats? no Pelvic pain? Yes, cramping last week, resolved Vaginal bleeding? no N&V? If patient is vomiting, how often and is she keeping down fluids? Mild nausea Precautions for pain, bleeding, and nausea discussed with patient understanding. Any medical history that can effect the ? Hx pre-eclampsia, GHTN (resolved after ), hx myasthenia gravis and schogrens syndrome. Sees neuro Dr. Valdivia through the clinic. Patient only taking Flonase. Office/provider patient wishes to establish care to? [facility] Patient aware to sign up for My Chart if she does not already have it, so she can receive the carecompanion messages. Will forward this encounter to the schedulers in this office. * Telephone Encounter - Nazanin Hartley - 01/19/2023 2:17 PM EDT Decision tree directed patient to your pool. Stated she was high risk for other pregnancies. Pleaseadvise for scheduling documented in this encounterUniversity Hospitals St. [facility]08-11-2023 Evaluation note* Encounter Date Diagnosis Assessment Notes Treatment Notes Treatment Clinical Notes Dec, Acute pharyngitis, unspecified (ICD-10 - J02.9) Lengthy discussion with patient today that the strep test is negative. I really think that this could be postnasal drip, therefore I would like her to restart the steroid nasal spray. She will call with results. Dec, Sensation of fullness in both ears (ICD-10 - H93.8X3) [employer] Other 05-13-2022 Evaluation note* Encounter Date Diagnosis Assessment Notes Treatment Notes Treatment Clinical Notes September, Acute non-recurrent sinusitis, unspecified location (ICD-10 - J01.90) Pt is to take abx as prescribed with food. Stop amoxicillin. Pt refused steroid as it will decrease breast milk production. Push fluids and rest. Ice over left jaw area as directed. Pt is to take otc antipyretic prn for fever and aches. Pt is to take otc cough suppressant prn for cough. Pt is to be re-evaluated after tx if sx worsen or don't improve by pcp or dentist. Pt is to call the office with any questions or concerns regarding dx and tx. Pt understood and agreed to tx plan. [employer] Other 04-18-2022 Evaluation note* Encounter Date Diagnosis Assessment Notes Treatment Notes Treatment Clinical Notes Aug, Acute pharyngitis, unspecified (ICD-10 - J02.9) Patient to call if no improvement seen. [employer] Other 12-28-2021 Evaluation note* Encounter Date Diagnosis Assessment Notes Treatment Notes Treatment Clinical Notes Apr, De Quervain's tenosynovitis, right (ICD-10 - M65.4) Lengthy discussion with patient today that I think she does have an overuse injury of this area. I would like her to try some topical Voltaren gel, [id number] as well as some home therapy exercises. She will call with results. She is aware that it would be best to rest this area, but this is certainly going to be difficult for her with her need to care for her 2 young children. [employer] Other 09-29-2021 Evaluation note* Encounter Date Diagnosis Assessment Notes Treatment Notes Treatment Clinical Notes Jan, Elevated blood pressure reading without diagnosis of hypertension (ICD-10 - R03.0) Jan, Other I spoke with patient that today's pressure is decent, I would simply like her to continue to monitor. Call next week for another nurse visit blood pressure check. [employer] Other 09-23-2021 History of Past illness Narrative* Problem Noted Date Diagnosed Date Resolved Date History of forceps delivery in prior , currently in third trimester 02/06/2021 02/20/2021 Overview: To shorten second stage due to MG Gestational hypertension, third trimester 02/06/2021 02/20/2021 Obesity affecting in third trimester 02/06/2021 02/20/2021 Antepartum anemia 12/04/2020 02/20/2021 Supervision of other high ri sk , antepartum 07/31/2020 03/22/2021 Hx of preeclampsia, prior pr egnancy, currently 07/31/2020 02/20/2021 Myasthenia gravis affecting 03/22/2018 02/20/2021 documented as of this encounter (statuses as of 01/20/2023) [facility] History of Past illness Narrative* Problem Noted Date Diagnosed Date Resolved Date History of forceps delivery in prior , currently in third trimester 02/06/2021 02/20/2021 Overview: To shorten second stage due to MG Gestational hypertension, third trimester 02/06/2021 02/20/2021 Obesity affecting in third trimester 02/06/2021 02/20/2021 Antepartum anemia 12/04/2020 02/20/2021 Supervision of other high ri sk , antepartum 07/31/2020 03/22/2021 Hx of preeclampsia, prior pr egnancy, currently 07/31/2020 02/20/2021 Myasthenia gravis affecting 03/22/2018 02/20/2021 documented as of this encounter (statuses as of 01/30/2023) [facility] History of Past illness Narrative* Problem Noted Date Diagnosed Date Resolved Date History of forceps delivery in prior , currently in third trimester 02/06/2021 02/20/2021 Overview: To shorten second stage due to MG Gestational hypertension, third trimester 02/06/2021 02/20/2021 Obesity affecting in third trimester 02/06/2021 02/20/2021 Antepartum anemia 12/04/2020 02/20/2021 Supervision of other high ri sk , antepartum 07/31/2020 03/22/2021 Hx of preeclampsia, prior pr egnancy, currently 07/31/2020 02/20/2021 Myasthenia gravis affecting 03/22/2018 02/20/2021 documented as of this encounter (statuses as of 02/03/2023) [facility] History of Past illness Narrative* Problem Noted Date Diagnosed Date Resolved Date History of forceps delivery in prior , currently in third trimester 02/06/2021 02/20/2021 Overview: To shorten second stage due to MG Gestational hypertension, third trimester 02/06/2021 02/20/2021 Obesity affecting in third trimester 02/06/2021 02/20/2021 Antepartum anemia 12/04/2020 02/20/2021 Supervision of other high ri sk , antepartum 07/31/2020 03/22/2021 Hx of preeclampsia, prior pr egnancy, currently 07/31/2020 02/20/2021 Myasthenia gravis affecting 03/22/2018 02/20/2021 documented as of this encounter (statuses as of 02/05/2023) [facility] of Past illness Narrative* Problem Noted Date Diagnosed Date Resolved Date History of forceps delivery in prior , currently in third trimester 02/06/2021 02/20/2021 Overview: To shorten second stage due to MG Gestational hypertension, third trimester 02/06/2021 02/20/2021 Obesity affecting in third trimester 02/06/2021 02/20/2021 Antepartum anemia 12/04/2020 02/20/2021 Supervision of other high ri sk , antepartum 07/31/2020 03/22/2021 Hx of preeclampsia, prior pr egnancy, currently 07/31/2020 02/20/2021 Myasthenia gravis affecting 03/22/2018 02/20/2021 documented as of this encounter (statuses as of 02/07/2023) [facility] of Past illness Narrative* Problem Noted Date Diagnosed Date Resolved Date History of forceps delivery in prior , currently in third trimester 02/06/2021 02/20/2021 Overview: To shorten second stage due to MG Gestational hypertension, third trimester 02/06/2021 02/20/2021 Obesity affecting in third trimester 02/06/2021 02/20/2021 Antepartum anemia 12/04/2020 02/20/2021 Supervision of other high ri sk , antepartum 07/31/2020 03/22/2021 Hx of preeclampsia, prior pr egnancy, currently 07/31/2020 02/20/2021 Myasthenia gravis affecting 03/22/2018 02/20/2021 documented as of this encounter (statuses as of 03/16/2023) [facility] of Past illness Narrative* Problem Noted Date Diagnosed Date Resolved Date History of forceps delivery in prior , currently in third trimester 02/06/2021 02/20/2021 Overview: To shorten second stage due to MG Gestational hypertension, third trimester 02/06/2021 02/20/2021 Obesity affecting in third trimester 02/06/2021 02/20/2021 Antepartum anemia 12/04/2020 02/20/2021 Supervision of other high ri sk , antepartum 07/31/2020 03/22/2021 Hx of preeclampsia, prior pr egnancy, currently 07/31/2020 02/20/2021 Myasthenia gravis affecting 03/22/2018 02/20/2021 documented as of this encounter (statuses as of 03/17/2023) [facility]09-23-2021 History of Past illness Narrative* Problem Noted Date Diagnosed Date Resolved Date History of forceps delivery in prior , currently in third trimester 02/06/2021 02/20/2021 Overview: To shorten second stage due to MG Gestational hypertension, third trimester 02/06/2021 02/20/2021 Obesity affecting in third trimester 02/06/2021 02/20/2021 Antepartum anemia 12/04/2020 02/20/2021 Supervision of other high ri sk , antepartum 07/31/2020 03/22/2021 Hx of preeclampsia, prior pr egnancy, currently 07/31/2020 02/20/2021 Myasthenia gravis affecting 03/22/2018 02/20/2021 documented as of this encounter (statuses as of 03/17/2023) [facility]09-[facility]2021 History of Past illness Narrative* Problem Noted Date Diagnosed Date Resolved Date History of forceps delivery in prior , currently in third trimester 02/06/2021 02/20/2021 Overview: To shorten second stage due to MG Gestational hypertension, third trimester 02/06/2021 02/20/2021 Obesity affecting in third trimester 02/06/2021 02/20/2021 Antepartum anemia 12/04/2020 02/20/2021 Supervision of other high ri sk , antepartum 07/31/2020 03/22/2021 Hx of preeclampsia, prior pr egnancy, currently 07/31/2020 02/20/2021 Myasthenia gravis affecting 03/22/2018 02/20/2021 documented as of this encounter (statuses as of 04/13/2023) [facility] History of Past illness Narrative* Problem Noted Date Diagnosed Date Resolved Date History of forceps delivery in prior , currently in third trimester 02/06/2021 02/20/2021 Overview: To shorten second stage due to MG Gestational hypertension, third trimester 02/06/2021 02/20/2021 Obesity affecting in third trimester 02/06/2021 02/20/2021 Antepartum anemia 12/04/2020 02/20/2021 Supervision of other high ri sk , antepartum 07/31/2020 03/22/2021 Hx of preeclampsia, prior pr egnancy, currently 07/31/2020 02/20/2021 Myasthenia gravis affecting 03/22/2018 02/20/2021 documented as of this encounter (statuses as of 04/27/2023) [facility] History of Past illness Narrative* Problem Noted Date Diagnosed Date Resolved Date History of forceps delivery in prior , currently in third trimester 02/06/2021 02/20/2021 Overview: To shorten second stage due to MG Gestational hypertension, third trimester 02/06/2021 02/20/2021 Obesity affecting in third trimester 02/06/2021 02/20/2021 Antepartum anemia 12/04/2020 02/20/2021 Xerostomia 04/09/2020 04/27/2023 PVC's (premature ventricular contractions) 07/21/2018 04/27/2023 Overview: See epic note by cardiology 12 wks gestation; avoid beta blockers Pre-eclampsia, severe 07/20/20182022 Overview: History of severe PreE with first and Gest HTN with second Base line labs wnl Growth scans Baby asa Last Assessment & Plan: On baby asa Myasthenia gravis affecting 03/22/2018 02/20/2021 Elevated sed rate 10/14/2015 04/27/2023 Cervicalgia 10/11/2015 04/27/2023 Acute pain of both shoulders 10/11/2015 04/27/2023 Acute bilateral low back zhane n without sciatica 10/11/2015 04/27/2023 Pain in joint, multiple sites 01/10/2015 04/27/2023 Muscle weakness (generalized) 06/23/2011 04/27/2023 Robotic-assisted thymectomy and rib block 04/17/2011 04/27/2023 Overview: Patient is a young woman who has worsening myasthenia gravis. 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 On 11-27-2011 patient had Robotic- assisted thymectomy and rib block Plan: - Convert to oral pain regimen - Neuro consulted to follow myasthenia gravis symptoms - OOB, ambulation with assist Plan per neurology 1- resume mestinon 60 mg TID if not causing intolerable nausea. Dose can be increased to QID if needed and when her postoperative nausea is better. 2- no current indication for PLEX or steroids as patient is tolerating symptoms and has no evidence of bulbar or respiratory involvement. 3- please obtain q 8 NIFs and VC's to monitor respiratory function. 4- further management to be implemented as an outpatient. Patient is seeing Dr. Figueroa from [facility] on December 02 . documented as of this encounter (statuses as of 04/27/2023) [facility]09[facility]21 History of Past illness Narrative* Problem Noted Date Diagnosed Date Resolved Date History of forceps delivery in prior , currently in third trimester 02/06/2021 02/20/2021 Overview: To shorten second stage due to MG Gestational hypertension, third trimester 02/06/2021 02/20/2021 Obesity affecting in third trimester 02/06/2021 02/20/2021 Antepartum anemia 12/04/2020 02/20/2021 Xerostomia 04/09/2020 04/27/2023 PVC's (premature ventricular contractions) 07/21/2018 04/27/2023 Overview: See epic note by cardiology 12 wks gestation; avoid beta blockers Pre-eclampsia, severe 07/20/20182022 Overview: History of severe PreE with first and Gest HTN with second Base line labs wnl Growth scans Baby asa Last Assessment & Plan: On baby asa Myasthenia gravis affecting 03/22/2018 02/20/2021 Elevated sed rate 10/14/2015 04/27/2023 Cervicalgia 10/11/2015 04/27/2023 Acute pain of both shoulders 10/11/2015 04/27/2023 Acute bilateral low back zhane n without sciatica 10/11/2015 04/27/2023 Pain in joint, multiple sites 01/10/2015 04/27/2023 Muscle weakness (generalized) 06/23/2011 04/27/2023 Robotic-assisted thymectomy and rib block 04/17/2011 04/27/2023 Overview: Patient is a young woman who has worsening myasthenia gravis. 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 On 11-27-2011 patient had Robotic- assisted thymectomy and rib block Plan: - Convert to oral pain regimen - Neuro consulted to follow myasthenia gravis symptoms - OOB, ambulation with assist Plan per neurology 1- resume mestinon 60 mg TID if not causing intolerable nausea. Dose can be increased to QID if needed and when her postoperative nausea is better. 2- no current indication for PLEX or steroids as patient is tolerating symptoms and has no evidence of bulbar or respiratory involvement. 3- please obtain q 8 NIFs and VC's to monitor respiratory function. 4- further management to be implemented as an outpatient. Patient is seeing Dr. Figueroa from [facility] on December 02 . documented as of this encounter (statuses as of 04/29/2023) [facility]09-[facility]2021 History of Past illness Narrative* Problem Noted Date Diagnosed Date Resolved Date History of forceps delivery in prior , currently in third trimester 02/06/2021 02/20/2021 Overview: To shorten second stage due to MG Gestational hypertension, third trimester 02/06/2021 02/20/2021 Obesity affecting in third trimester 02/06/2021 02/20/2021 Antepartum anemia 12/04/2020 02/20/2021 Xerostomia 04/09/2020 04/27/2023 PVC's (premature ventricular contractions) 07/21/2018 04/27/2023 Overview: See epic note by cardiology 12 wks gestation; avoid beta blockers Pre-eclampsia, severe 07/20/20182022 Overview: History of severe PreE with first and Gest HTN with second Base line labs wnl Growth scans Baby asa Last Assessment & Plan: On baby asa Myasthenia gravis affecting 03/22/2018 02/20/2021 Adjustment disorder with mix ed anxiety and depressed mood 06/11/2017 05/27/2023 Elevated sed rate 10/14/2015 04/27/2023 Cervicalgia 10/11/2015 04/27/2023 Acute pain of both shoulders 10/11/2015 04/27/2023 Acute bilateral low back zhane n without sciatica 10/11/2015 04/27/2023 Pain in joint, multiple sites 01/10/2015 04/27/2023 Muscle weakness (generalized) 06/23/2011 04/27/2023 Robotic-assisted thymectomy and rib block 04/17/2011 04/27/2023 Overview: Patient is a young woman who has worsening myasthenia gravis. 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 On 11-27-2011 patient had Robotic- assisted thymectomy and rib block Plan: - Convert to oral pain regimen - Neuro consulted to follow myasthenia gravis symptoms - OOB, ambulation with assist Plan per neurology 1- resume mestinon 60 mg TID if not causing intolerable nausea. Dose can be increased to QID if needed and when her postoperative nausea is better. 2- no current indication for PLEX or steroids as patient is tolerating symptoms and has no evidence of bulbar or respiratory involvement. 3- please obtain q 8 NIFs and VC's to monitor respiratory function. 4- further management to be implemented as an outpatient. Patient is seeing Dr. Figueroa from [facility] on December 02 . documented as of this encounter (statuses as of 06/24/2023) [facility]09[facility]21 History of Past illness Narrative* Problem Noted Date Diagnosed Date Resolved Date History of forceps delivery in prior , currently in third trimester 02/06/2021 02/20/2021 Overview: To shorten second stage due to MG Gestational hypertension, third trimester 02/06/2021 02/20/2021 Obesity affecting in third trimester 02/06/2021 02/20/2021 Antepartum anemia 12/04/2020 02/20/2021 Xerostomia 04/09/2020 04/27/2023 PVC's (premature ventricular contractions) 07/21/2018 04/27/2023 Overview: See epic note by cardiology 12 wks gestation; avoid beta blockers Pre-eclampsia, severe 07/20/20182022 Overview: History of severe PreE with first and Gest HTN with second Base line labs wnl Growth scans Baby asa Last Assessment & Plan: On baby asa Myasthenia gravis affecting 03/22/2018 02/20/2021 Adjustment disorder with mix ed anxiety and depressed mood 06/11/2017 05/27/2023 Elevated sed rate 10/14/2015 04/27/2023 Cervicalgia 10/11/2015 04/27/2023 Acute pain of both shoulders 10/11/2015 04/27/2023 Acute bilateral low back zhane n without sciatica 10/11/2015 04/27/2023 Pain in joint, multiple sites 01/10/2015 04/27/2023 Muscle weakness (generalized) 06/23/2011 04/27/2023 Robotic-assisted thymectomy and rib block 04/17/2011 04/27/2023 Overview: Patient is a young woman who has worsening myasthenia gravis. 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 On 11-27-2011 patient had Robotic- assisted thymectomy and rib block Plan: - Convert to oral pain regimen - Neuro consulted to follow myasthenia gravis symptoms - OOB, ambulation with assist Plan per neurology 1- resume mestinon 60 mg TID if not causing intolerable nausea. Dose can be increased to QID if needed and when her postoperative nausea is better. 2- no current indication for PLEX or steroids as patient is tolerating symptoms and has no evidence of bulbar or respiratory involvement. 3- please obtain q 8 NIFs and VC's to monitor respiratory function. 4- further management to be implemented as an outpatient. Patient is seeing Dr. Figueroa from [facility] on December 02 . documented as of this encounter (statuses as of 06/27/2023) [facility]09[facility]21 History of Past illness Narrative* Problem Noted Date Diagnosed Date Resolved Date History of forceps delivery in prior , currently in third trimester 02/06/2021 02/20/2021 Overview: To shorten second stage due to MG Gestational hypertension, third trimester 02/06/2021 02/20/2021 Obesity affecting in third trimester 02/06/2021 02/20/2021 Antepartum anemia 12/04/2020 02/20/2021 Xerostomia 04/09/2020 04/27/2023 PVC's (premature ventricular contractions) 07/21/2018 04/27/2023 Overview: See epic note by cardiology 12 wks gestation; avoid beta blockers Pre-eclampsia, severe 07/20/20182022 Overview: History of severe PreE with first and Gest HTN with second Base line labs wnl Growth scans Baby asa Last Assessment & Plan: On baby asa Myasthenia gravis affecting 03/22/2018 02/20/2021 Adjustment disorder with mix ed anxiety and depressed mood 06/11/2017 05/27/2023 Elevated sed rate 10/14/2015 04/27/2023 Cervicalgia 10/11/2015 04/27/2023 Acute pain of both shoulders 10/11/2015 04/27/2023 Acute bilateral low back zhane n without sciatica 10/11/2015 04/27/2023 Pain in joint, multiple sites 01/10/2015 04/27/2023 Muscle weakness (generalized) 06/23/2011 04/27/2023 Robotic-assisted thymectomy and rib block 04/17/2011 04/27/2023 Overview: Patient is a young woman who has worsening myasthenia gravis. 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 On 11-27-2011 patient had Robotic- assisted thymectomy and rib block Plan: - Convert to oral pain regimen - Neuro consulted to follow myasthenia gravis symptoms - OOB, ambulation with assist Plan per neurology 1- resume mestinon 60 mg TID if not causing intolerable nausea. Dose can be increased to QID if needed and when her postoperative nausea is better. 2- no current indication for PLEX or steroids as patient is tolerating symptoms and has no evidence of bulbar or respiratory involvement. 3- please obtain q 8 NIFs and VC's to monitor respiratory function. 4- further management to be implemented as an outpatient. Patient is seeing Dr. Figueroa from [facility] on December 02 . documented as of this encounter (statuses as of 07/06/2023) [facility]09[facility] History of Past illness Narrative* Problem Noted Date Diagnosed Date Resolved Date History of forceps delivery in prior , currently in third trimester 02/06/2021 02/20/2021 Overview: To shorten second stage due to MG Gestational hypertension, third trimester 02/06/2021 02/20/2021 Obesity affecting in third trimester 02/06/2021 02/20/2021 Antepartum anemia 12/04/2020 02/20/2021 Xerostomia 04/09/2020 04/27/2023 PVC's (premature ventricular contractions) 07/21/2018 04/27/2023 Overview: See epic note by cardiology 12 wks gestation; avoid beta blockers Pre-eclampsia, severe 07/20/20182022 Overview: History of severe PreE with first and Gest HTN with second Base line labs wnl Growth scans Baby asa Last Assessment & Plan: On baby asa Myasthenia gravis affecting 03/22/2018 02/20/2021 Adjustment disorder with mix ed anxiety and depressed mood 06/11/2017 05/27/2023 Elevated sed rate 10/14/2015 04/27/2023 Cervicalgia 10/11/2015 04/27/2023 Acute pain of both shoulders 10/11/2015 04/27/2023 Acute bilateral low back zhane n without sciatica 10/11/2015 04/27/2023 Pain in joint, multiple sites 01/10/2015 04/27/2023 Muscle weakness (generalized) 06/23/2011 04/27/2023 Robotic-assisted thymectomy and rib block 04/17/2011 04/27/2023 Overview: Patient is a young woman who has worsening myasthenia gravis. 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 On 11-27-2011 patient had Robotic- assisted thymectomy and rib block Plan: - Convert to oral pain regimen - Neuro consulted to follow myasthenia gravis symptoms - OOB, ambulation with assist Plan per neurology 1- resume mestinon 60 mg TID if not causing intolerable nausea. Dose can be increased to QID if needed and when her postoperative nausea is better. 2- no current indication for PLEX or steroids as patient is tolerating symptoms and has no evidence of bulbar or respiratory involvement. 3- please obtain q 8 NIFs and VC's to monitor respiratory function. 4- further management to be implemented as an outpatient. Patient is seeing Dr. Figueroa from [facility] on December 02 . documented as of this encounter (statuses as of 07/06/2023) [facility]09[facility] History of Past illness Narrative* Problem Noted Date Diagnosed Date Resolved Date History of forceps delivery in prior , currently in third trimester 02/06/2021 02/20/2021 Overview: To shorten second stage due to MG Gestational hypertension, third trimester 02/06/2021 02/20/2021 Obesity affecting in third trimester 02/06/2021 02/20/2021 Antepartum anemia 12/04/2020 02/20/2021 Xerostomia 04/09/2020 04/27/2023 PVC's (premature ventricular contractions) 07/21/2018 04/27/2023 Overview: See epic note by cardiology 12 wks gestation; avoid beta blockers Pre-eclampsia, severe 07/20/20182022 Overview: History of severe PreE with first and Gest HTN with second Base line labs wnl Growth scans Baby asa Last Assessment & Plan: On baby asa Myasthenia gravis affecting 03/22/2018 02/20/2021 Adjustment disorder with mix ed anxiety and depressed mood 06/11/2017 05/27/2023 Elevated sed rate 10/14/2015 04/27/2023 Cervicalgia 10/11/2015 04/27/2023 Acute pain of both shoulders 10/11/2015 04/27/2023 Acute bilateral low back zhane n without sciatica 10/11/2015 04/27/2023 Pain in joint, multiple sites 01/10/2015 04/27/2023 Muscle weakness (generalized) 06/23/2011 04/27/2023 Robotic-assisted thymectomy and rib block 04/17/2011 04/27/2023 Overview: Patient is a young woman who has worsening myasthenia gravis. 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 On 11-27-2011 patient had Robotic- assisted thymectomy and rib block Plan: - Convert to oral pain regimen - Neuro consulted to follow myasthenia gravis symptoms - OOB, ambulation with assist Plan per neurology 1- resume mestinon 60 mg TID if not causing intolerable nausea. Dose can be increased to QID if needed and when her postoperative nausea is better. 2- no current indication for PLEX or steroids as patient is tolerating symptoms and has no evidence of bulbar or respiratory involvement. 3- please obtain q 8 NIFs and VC's to monitor respiratory function. 4- further management to be implemented as an outpatient. Patient is seeing Dr. Figueroa from [facility] on December 02 . documented as of this encounter (statuses as of 07/07/2023) [facility] History of Past illness Narrative* Problem Noted Date Diagnosed Date Resolved Date History of forceps delivery in prior , currently in third trimester 02/06/2021 02/20/2021 Overview: To shorten second stage due to MG Gestational hypertension, third trimester 02/06/2021 02/20/2021 Obesity affecting in third trimester 02/06/2021 02/20/2021 Antepartum anemia 12/04/2020 02/20/2021 Xerostomia 04/09/2020 04/27/2023 PVC's (premature ventricular contractions) 07/21/2018 04/27/2023 Overview: See epic note by cardiology 12 wks gestation; avoid beta blockers Pre-eclampsia, severe 07/20/20182022 Overview: History of severe PreE with first and Gest HTN with second Base line labs wnl Growth scans Baby asa Last Assessment & Plan: On baby asa Myasthenia gravis affecting 03/22/2018 02/20/2021 Adjustment disorder with mix ed anxiety and depressed mood 06/11/2017 05/27/2023 Elevated sed rate 10/14/2015 04/27/2023 Cervicalgia 10/11/2015 04/27/2023 Acute pain of both shoulders 10/11/2015 04/27/2023 Acute bilateral low back zhane n without sciatica 10/11/2015 04/27/2023 Pain in joint, multiple sites 01/10/2015 04/27/2023 Muscle weakness (generalized) 06/23/2011 04/27/2023 Robotic-assisted thymectomy and rib block 04/17/2011 04/27/2023 Overview: Patient is a young woman who has worsening myasthenia gravis. 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 On 11-27-2011 patient had Robotic- assisted thymectomy and rib block Plan: - Convert to oral pain regimen - Neuro consulted to follow myasthenia gravis symptoms - OOB, ambulation with assist Plan per neurology 1- resume mestinon 60 mg TID if not causing intolerable nausea. Dose can be increased to QID if needed and when her postoperative nausea is better. 2- no current indication for PLEX or steroids as patient is tolerating symptoms and has no evidence of bulbar or respiratory involvement. 3- please obtain q 8 NIFs and VC's to monitor respiratory function. 4- further management to be implemented as an outpatient. Patient is seeing Dr. Figueroa from [facility] on December 02 . documented as of this encounter (statuses as of 07/12/2023) [facility] History of Past illness Narrative* Problem Noted Date Diagnosed Date Resolved Date History of forceps delivery in prior , currently in third trimester 02/06/2021 02/20/2021 Overview: To shorten second stage due to MG Gestational hypertension, third trimester 02/06/2021 02/20/2021 Obesity affecting in third trimester 02/06/2021 02/20/2021 Antepartum anemia 12/04/2020 02/20/2021 Xerostomia 04/09/2020 04/27/2023 PVC's (premature ventricular contractions) 07/21/2018 04/27/2023 Overview: See epic note by cardiology 12 wks gestation; avoid beta blockers Pre-eclampsia, severe 07/20/20182022 Overview: History of severe PreE with first and Gest HTN with second Base line labs wnl Growth scans Baby asa Last Assessment & Plan: On baby asa Myasthenia gravis affecting 03/22/2018 02/20/2021 Adjustment disorder with mix ed anxiety and depressed mood 06/11/2017 05/27/2023 Elevated sed rate 10/14/2015 04/27/2023 Cervicalgia 10/11/2015 04/27/2023 Acute pain of both shoulders 10/11/2015 04/27/2023 Acute bilateral low back zhane n without sciatica 10/11/2015 04/27/2023 Pain in joint, multiple sites 01/10/2015 04/27/2023 Muscle weakness (generalized) 06/23/2011 04/27/2023 Robotic-assisted thymectomy and rib block 04/17/2011 04/27/2023 Overview: Patient is a young woman who has worsening myasthenia gravis. 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 On 11-27-2011 patient had Robotic- assisted thymectomy and rib block Plan: - Convert to oral pain regimen - Neuro consulted to follow myasthenia gravis symptoms - OOB, ambulation with assist Plan per neurology 1- resume mestinon 60 mg TID if not causing intolerable nausea. Dose can be increased to QID if needed and when her postoperative nausea is better. 2- no current indication for PLEX or steroids as patient is tolerating symptoms and has no evidence of bulbar or respiratory involvement. 3- please obtain q 8 NIFs and VC's to monitor respiratory function. 4- further management to be implemented as an outpatient. Patient is seeing Dr. Figueroa from [facility] on December 02 . documented as of this encounter (statuses as of 07/14/2023) [facility] History of Past illness Narrative* Problem Noted Date Diagnosed Date Resolved Date History of forceps delivery in prior , currently in third trimester 02/06/2021 02/20/2021 Overview: To shorten second stage due to MG Gestational hypertension, third trimester 02/06/2021 02/20/2021 Obesity affecting in third trimester 02/06/2021 02/20/2021 Antepartum anemia 12/04/2020 02/20/2021 Xerostomia 04/09/2020 04/27/2023 PVC's (premature ventricular contractions) 07/21/2018 04/27/2023 Overview: See epic note by cardiology 12 wks gestation; avoid beta blockers Pre-eclampsia, severe 07/20/20182022 Overview: History of severe PreE with first and Gest HTN with second Base line labs wnl Growth scans Baby asa Last Assessment & Plan: On baby asa Myasthenia gravis affecting 03/22/2018 02/20/2021 Adjustment disorder with mix ed anxiety and depressed mood 06/11/2017 05/27/2023 Elevated sed rate 10/14/2015 04/27/2023 Cervicalgia 10/11/2015 04/27/2023 Acute pain of both shoulders 10/11/2015 04/27/2023 Acute bilateral low back zhane n without sciatica 10/11/2015 04/27/2023 Pain in joint, multiple sites 01/10/2015 04/27/2023 Muscle weakness (generalized) 06/23/2011 04/27/2023 Robotic-assisted thymectomy and rib block 04/17/2011 04/27/2023 Overview: Patient is a young woman who has worsening myasthenia gravis. 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 On 11-27-2011 patient had Robotic- assisted thymectomy and rib block Plan: - Convert to oral pain regimen - Neuro consulted to follow myasthenia gravis symptoms - OOB, ambulation with assist Plan per neurology 1- resume mestinon 60 mg TID if not causing intolerable nausea. Dose can be increased to QID if needed and when her postoperative nausea is better. 2- no current indication for PLEX or steroids as patient is tolerating symptoms and has no evidence of bulbar or respiratory involvement. 3- please obtain q 8 NIFs and VC's to monitor respiratory function. 4- further management to be implemented as an outpatient. Patient is seeing Dr. Figueroa from [facility] on December 02 . documented as of this encounter (statuses as of 07/23/2023) [facility]09[facility]21 History of Past illness Narrative* Problem Noted Date Diagnosed Date Resolved Date History of forceps delivery in prior , currently in third trimester 02/06/2021 02/20/2021 Overview: To shorten second stage due to MG Gestational hypertension, third trimester 02/06/2021 02/20/2021 Obesity affecting in third trimester 02/06/2021 02/20/2021 Antepartum anemia 12/04/2020 02/20/2021 Xerostomia 04/09/2020 04/27/2023 PVC's (premature ventricular contractions) 07/21/2018 04/27/2023 Overview: See epic note by cardiology 12 wks gestation; avoid beta blockers Pre-eclampsia, severe 07/20/20182022 Overview: History of severe PreE with first and Gest HTN with second Base line labs wnl Growth scans Baby asa Last Assessment & Plan: On baby asa Myasthenia gravis affecting 03/22/2018 02/20/2021 Adjustment disorder with mix ed anxiety and depressed mood 06/11/2017 05/27/2023 Elevated sed rate 10/14/2015 04/27/2023 Cervicalgia 10/11/2015 04/27/2023 Acute pain of both shoulders 10/11/2015 04/27/2023 Acute bilateral low back zhane n without sciatica 10/11/2015 04/27/2023 Pain in joint, multiple sites 01/10/2015 04/27/2023 Muscle weakness (generalized) 06/23/2011 04/27/2023 Robotic-assisted thymectomy and rib block 04/17/2011 04/27/2023 Overview: Patient is a young woman who has worsening myasthenia gravis. 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 On 11-27-2011 patient had Robotic- assisted thymectomy and rib block Plan: - Convert to oral pain regimen - Neuro consulted to follow myasthenia gravis symptoms - OOB, ambulation with assist Plan per neurology 1- resume mestinon 60 mg TID if not causing intolerable nausea. Dose can be increased to QID if needed and when her postoperative nausea is better. 2- no current indication for PLEX or steroids as patient is tolerating symptoms and has no evidence of bulbar or respiratory involvement. 3- please obtain q 8 NIFs and VC's to monitor respiratory function. 4- further management to be implemented as an outpatient. Patient is seeing Dr. Figueroa from [facility] on December 02 . documented as of this encounter (statuses as of 07/23/2023) [facility]09[facility] History of Past illness Narrative* Problem Noted Date Diagnosed Date Resolved Date History of forceps delivery in prior , currently in third trimester 02/06/2021 02/20/2021 Overview: To shorten second stage due to MG Gestational hypertension, third trimester 02/06/2021 02/20/2021 Obesity affecting in third trimester 02/06/2021 02/20/2021 Antepartum anemia 12/04/2020 02/20/2021 Xerostomia 04/09/2020 04/27/2023 PVC's (premature ventricular contractions) 07/21/2018 04/27/2023 Overview: See epic note by cardiology 12 wks gestation; avoid beta blockers Pre-eclampsia, severe 07/20/20182022 Overview: History of severe PreE with first and Gest HTN with second Base line labs wnl Growth scans Baby asa Last Assessment & Plan: On baby asa Myasthenia gravis affecting 03/22/2018 02/20/2021 Adjustment disorder with mix ed anxiety and depressed mood 06/11/2017 05/27/2023 Elevated sed rate 10/14/2015 04/27/2023 Cervicalgia 10/11/2015 04/27/2023 Acute pain of both shoulders 10/11/2015 04/27/2023 Acute bilateral low back zhane n without sciatica 10/11/2015 04/27/2023 Pain in joint, multiple sites 01/10/2015 04/27/2023 Muscle weakness (generalized) 06/23/2011 04/27/2023 Robotic-assisted thymectomy and rib block 04/17/2011 04/27/2023 Overview: Patient is a young woman who has worsening myasthenia gravis. 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 On 11-27-2011 patient had Robotic- assisted thymectomy and rib block Plan: - Convert to oral pain regimen - Neuro consulted to follow myasthenia gravis symptoms - OOB, ambulation with assist Plan per neurology 1- resume mestinon 60 mg TID if not causing intolerable nausea. Dose can be increased to QID if needed and when her postoperative nausea is better. 2- no current indication for PLEX or steroids as patient is tolerating symptoms and has no evidence of bulbar or respiratory involvement. 3- please obtain q 8 NIFs and VC's to monitor respiratory function. 4- further management to be implemented as an outpatient. Patient is seeing Dr. Figueroa from [facility] on December 02 . documented as of this encounter (statuses as of 07/29/2023) [facility]09[facility] History of Past illness Narrative* Problem Noted Date Diagnosed Date Resolved Date History of forceps delivery in prior , currently in third trimester 02/06/2021 02/20/2021 Overview: To shorten second stage due to MG Gestational hypertension, third trimester 02/06/2021 02/20/2021 Obesity affecting in third trimester 02/06/2021 02/20/2021 Antepartum anemia 12/04/2020 02/20/2021 Xerostomia 04/09/2020 04/27/2023 PVC's (premature ventricular contractions) 07/21/2018 04/27/2023 Overview: See epic note by cardiology 12 wks gestation; avoid beta blockers Pre-eclampsia, severe 07/20/20182022 Overview: History of severe PreE with first and Gest HTN with second Base line labs wnl Growth scans Baby asa Last Assessment & Plan: On baby asa Myasthenia gravis affecting 03/22/2018 02/20/2021 Adjustment disorder with mix ed anxiety and depressed mood 06/11/2017 05/27/2023 Elevated sed rate 10/14/2015 04/27/2023 Cervicalgia 10/11/2015 04/27/2023 Acute pain of both shoulders 10/11/2015 04/27/2023 Acute bilateral low back zhane n without sciatica 10/11/2015 04/27/2023 Pain in joint, multiple sites 01/10/2015 04/27/2023 [place] positive 01/10/2015 08/03/2023 SS-A antibody positive 01/10/201508/02 SS-B antibody positive 01/10/201508/02 Rheumatoid factor positive 01/10/2015 0 08/03/2023 Vitamin D deficiency 10/02/2011 024 Muscle weakness (generalized) 06/23/2011 04/27/2023 Robotic-assisted thymectomy and rib block 04/17/2011 04/27/2023 Overview: Patient is a young woman who has worsening myasthenia gravis. 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 On 11-27-2011 patient had Robotic- assisted thymectomy and rib block Plan: - Convert to oral pain regimen - Neuro consulted to follow myasthenia gravis symptoms - OOB, ambulation with assist Plan per neurology 1- resume mestinon 60 mg TID if not causing intolerable nausea. Dose can be increased to QID if needed and when her postoperative nausea is better. 2- no current indication for PLEX or steroids as patient is tolerating symptoms and has no evidence of bulbar or respiratory involvement. 3- please obtain q 8 NIFs and VC's to monitor respiratory function. 4- further management to be implemented as an outpatient. Patient is seeing Dr. Figueroa from [facility] on December 02 . documented as of this encounter (statuses as of 08/03/2023) [facility]09[facility] History of Past illness Narrative* Problem Noted Date Diagnosed Date Resolved Date History of forceps delivery in prior , currently in third trimester 02/06/2021 02/20/2021 Overview: To shorten second stage due to MG Gestational hypertension, third trimester 02/06/2021 02/20/2021 Obesity affecting in third trimester 02/06/2021 02/20/2021 Antepartum anemia 12/04/2020 02/20/2021 Xerostomia 04/09/2020 04/27/2023 PVC's (premature ventricular contractions) 07/21/2018 04/27/2023 Overview: See epic note by cardiology 12 wks gestation; avoid beta blockers Pre-eclampsia, severe 07/20/20182022 Overview: History of severe PreE with first and Gest HTN with second Base line labs wnl Growth scans Baby asa Last Assessment & Plan: On baby asa Myasthenia gravis affecting 03/22/2018 02/20/2021 Adjustment disorder with mix ed anxiety and depressed mood 06/11/2017 05/27/2023 Elevated sed rate 10/14/2015 04/27/2023 Cervicalgia 10/11/2015 04/27/2023 Acute pain of both shoulders 10/11/2015 04/27/2023 Acute bilateral low back zhane n without sciatica 10/11/2015 04/27/2023 Pain in joint, multiple sites 01/10/2015 04/27/2023 [place] positive 01/10/2015 08/03/2023 SS-A antibody positive 01/10/201508/02 SS-B antibody positive 01/10/201508/02 Rheumatoid factor positive 01/10/2015 0 08/03/2023 Vitamin D deficiency 10/02/2011 024 Muscle weakness (generalized) 06/23/2011 04/27/2023 Robotic-assisted thymectomy and rib block 04/17/2011 04/27/2023 Overview: Patient is a young woman who has worsening myasthenia gravis. 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 On 11-27-2011 patient had Robotic- assisted thymectomy and rib block Plan: - Convert to oral pain regimen - Neuro consulted to follow myasthenia gravis symptoms - OOB, ambulation with assist Plan per neurology 1- resume mestinon 60 mg TID if not causing intolerable nausea. Dose can be increased to QID if needed and when her postoperative nausea is better. 2- no current indication for PLEX or steroids as patient is tolerating symptoms and has no evidence of bulbar or respiratory involvement. 3- please obtain q 8 NIFs and VC's to monitor respiratory function. 4- further management to be implemented as an outpatient. Patient is seeing Dr. Figueroa from [facility] on December 02 . documented as of this encounter (statuses as of 08/04/2023) [facility]09-[facility] History of Past illness Narrative* Problem Noted Date Diagnosed Date Resolved Date History of forceps delivery in prior , currently in third trimester 02/06/2021 02/20/2021 Overview: To shorten second stage due to MG Gestational hypertension, third trimester 02/06/2021 02/20/2021 Obesity affecting in third trimester 02/06/2021 02/20/2021 Antepartum anemia 12/04/2020 02/20/2021 Xerostomia 04/09/2020 04/27/2023 PVC's (premature ventricular contractions) 07/21/2018 04/27/2023 Overview: See epic note by cardiology 12 wks gestation; avoid beta blockers Pre-eclampsia, severe 07/20/20182022 Overview: History of severe PreE with first and Gest HTN with second Base line labs wnl Growth scans Baby asa Last Assessment & Plan: On baby asa Myasthenia gravis affecting 03/22/2018 02/20/2021 Adjustment disorder with mix ed anxiety and depressed mood 06/11/2017 05/27/2023 Elevated sed rate 10/14/2015 04/27/2023 Cervicalgia 10/11/2015 04/27/2023 Acute pain of both shoulders 10/11/2015 04/27/2023 Acute bilateral low back zhane n without sciatica 10/11/2015 04/27/2023 Pain in joint, multiple sites 01/10/2015 04/27/2023 [place] positive 01/10/2015 08/03/2023 SS-A antibody positive 01/10/201508/02 SS-B antibody positive 01/10/201508/02 Rheumatoid factor positive 01/10/2015 0 08/03/2023 Vitamin D deficiency 10/02/2011 024 Muscle weakness (generalized) 06/23/2011 04/27/2023 Robotic-assisted thymectomy and rib block 04/17/2011 04/27/2023 Overview: Patient is a young woman who has worsening myasthenia gravis. 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 On 11-27-2011 patient had Robotic- assisted thymectomy and rib block Plan: - Convert to oral pain regimen - Neuro consulted to follow myasthenia gravis symptoms - OOB, ambulation with assist Plan per neurology 1- resume mestinon 60 mg TID if not causing intolerable nausea. Dose can be increased to QID if needed and when her postoperative nausea is better. 2- no current indication for PLEX or steroids as patient is tolerating symptoms and has no evidence of bulbar or respiratory involvement. 3- please obtain q 8 NIFs and VC's to monitor respiratory function. 4- further management to be implemented as an outpatient. Patient is seeing Dr. Figueroa from [facility] on December 02 . documented as of this encounter (statuses as of 08/10/2023) [facility]09[facility] History of Past illness Narrative* Problem Noted Date Diagnosed Date Resolved Date History of forceps delivery in prior , currently in third trimester 02/06/2021 02/20/2021 Overview: To shorten second stage due to MG Gestational hypertension, third trimester 02/06/2021 02/20/2021 Obesity affecting in third trimester 02/06/2021 02/20/2021 Antepartum anemia 12/04/2020 02/20/2021 Xerostomia 04/09/2020 04/27/2023 PVC's (premature ventricular contractions) 07/21/2018 04/27/2023 Overview: See epic note by cardiology 12 wks gestation; avoid beta blockers Pre-eclampsia, severe 07/20/20182022 Overview: History of severe PreE with first and Gest HTN with second Base line labs wnl Growth scans Baby asa Last Assessment & Plan: On baby asa Myasthenia gravis affecting 03/22/2018 02/20/2021 Adjustment disorder with mix ed anxiety and depressed mood 06/11/2017 05/27/2023 Elevated sed rate 10/14/2015 04/27/2023 Cervicalgia 10/11/2015 04/27/2023 Acute pain of both shoulders 10/11/2015 04/27/2023 Acute bilateral low back zhane n without sciatica 10/11/2015 04/27/2023 Pain in joint, multiple sites 01/10/2015 04/27/2023 [place] positive 01/10/2015 08/03/2023 SS-A antibody positive 01/10/201508/02 SS-B antibody positive 01/10/201508/02 Rheumatoid factor positive 01/10/2015 0 08/03/2023 Vitamin D deficiency 10/02/2011 024 Muscle weakness (generalized) 06/23/2011 04/27/2023 Robotic-assisted thymectomy and rib block 04/17/2011 04/27/2023 Overview: Patient is a young woman who has worsening myasthenia gravis. 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 On 11-27-2011 patient had Robotic- assisted thymectomy and rib block Plan: - Convert to oral pain regimen - Neuro consulted to follow myasthenia gravis symptoms - OOB, ambulation with assist Plan per neurology 1- resume mestinon 60 mg TID if not causing intolerable nausea. Dose can be increased to QID if needed and when her postoperative nausea is better. 2- no current indication for PLEX or steroids as patient is tolerating symptoms and has no evidence of bulbar or respiratory involvement. 3- please obtain q 8 NIFs and VC's to monitor respiratory function. 4- further management to be implemented as an outpatient. Patient is seeing Dr. Figueroa from [facility] on December 02 . documented as of this encounter (statuses as of 08/19/2023) [facility]09[facility] History of Past illness Narrative* Problem Noted Date Diagnosed Date Resolved Date History of forceps delivery in prior , currently in third trimester 02/06/2021 02/20/2021 Overview: To shorten second stage due to MG Gestational hypertension, third trimester 02/06/2021 02/20/2021 Obesity affecting in third trimester 02/06/2021 02/20/2021 Antepartum anemia 12/04/2020 02/20/2021 Xerostomia 04/09/2020 04/27/2023 PVC's (premature ventricular contractions) 07/21/2018 04/27/2023 Overview: See epic note by cardiology 12 wks gestation; avoid beta blockers Pre-eclampsia, severe 07/20/20182022 Overview: History of severe PreE with first and Gest HTN with second Base line labs wnl Growth scans Baby asa Last Assessment & Plan: On baby asa Myasthenia gravis affecting 03/22/2018 02/20/2021 Adjustment disorder with mix ed anxiety and depressed mood 06/11/2017 05/27/2023 Elevated sed rate 10/14/2015 04/27/2023 Cervicalgia 10/11/2015 04/27/2023 Acute pain of both shoulders 10/11/2015 04/27/2023 Acute bilateral low back zhane n without sciatica 10/11/2015 04/27/2023 Pain in joint, multiple sites 01/10/2015 04/27/2023 [place] positive 01/10/2015 08/03/2023 SS-A antibody positive 01/10/201508/02 SS-B antibody positive 01/10/201508/02 Rheumatoid factor positive 01/10/2015 0 08/03/2023 Vitamin D deficiency 10/02/2011 024 Muscle weakness (generalized) 06/23/2011 04/27/2023 Robotic-assisted thymectomy and rib block 04/17/2011 04/27/2023 Overview: Patient is a young woman who has worsening myasthenia gravis. 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 On 11-27-2011 patient had Robotic- assisted thymectomy and rib block Plan: - Convert to oral pain regimen - Neuro consulted to follow myasthenia gravis symptoms - OOB, ambulation with assist Plan per neurology 1- resume mestinon 60 mg TID if not causing intolerable nausea. Dose can be increased to QID if needed and when her postoperative nausea is better. 2- no current indication for PLEX or steroids as patient is tolerating symptoms and has no evidence of bulbar or respiratory involvement. 3- please obtain q 8 NIFs and VC's to monitor respiratory function. 4- further management to be implemented as an outpatient. Patient is seeing Dr. Figueroa from [facility] on December 02 . documented as of this encounter (statuses as of 08/19/2023) [facility]09[facility] History of Past illness Narrative* Problem Noted Date Diagnosed Date Resolved Date History of forceps delivery in prior , currently in third trimester 02/06/2021 02/20/2021 Overview: To shorten second stage due to MG Gestational hypertension, third trimester 02/06/2021 02/20/2021 Obesity affecting in third trimester 02/06/2021 02/20/2021 Antepartum anemia 12/04/2020 02/20/2021 Xerostomia 04/09/2020 04/27/2023 PVC's (premature ventricular contractions) 07/21/2018 04/27/2023 Overview: See epic note by cardiology 12 wks gestation; avoid beta blockers Pre-eclampsia, severe 07/20/20182022 Overview: History of severe PreE with first and Gest HTN with second Base line labs wnl Growth scans Baby asa Last Assessment & Plan: On baby asa Myasthenia gravis affecting 03/22/2018 02/20/2021 Adjustment disorder with mix ed anxiety and depressed mood 06/11/2017 05/27/2023 Elevated sed rate 10/14/2015 04/27/2023 Cervicalgia 10/11/2015 04/27/2023 Acute pain of both shoulders 10/11/2015 04/27/2023 Acute bilateral low back zhane n without sciatica 10/11/2015 04/27/2023 Pain in joint, multiple sites 01/10/2015 04/27/2023 [place] positive 01/10/2015 08/03/2023 SS-A antibody positive 01/10/201508/02 SS-B antibody positive 01/10/201508/02 Rheumatoid factor positive 01/10/2015 0 08/03/2023 Vitamin D deficiency 10/02/2011 024 Muscle weakness (generalized) 06/23/2011 04/27/2023 Robotic-assisted thymectomy and rib block 04/17/2011 04/27/2023 Overview: Patient is a young woman who has worsening myasthenia gravis. 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 On 11-27-2011 patient had Robotic- assisted thymectomy and rib block Plan: - Convert to oral pain regimen - Neuro consulted to follow myasthenia gravis symptoms - OOB, ambulation with assist Plan per neurology 1- resume mestinon 60 mg TID if not causing intolerable nausea. Dose can be increased to QID if needed and when her postoperative nausea is better. 2- no current indication for PLEX or steroids as patient is tolerating symptoms and has no evidence of bulbar or respiratory involvement. 3- please obtain q 8 NIFs and VC's to monitor respiratory function. 4- further management to be implemented as an outpatient. Patient is seeing Dr. Figueroa from [facility] on December 02 . documented as of this encounter (statuses as of 08/20/2023) [facility] History of Past illness Narrative* Problem Noted Date Diagnosed Date Resolved Date History of forceps delivery in prior , currently in third trimester 02/06/2021 02/20/2021 Overview: To shorten second stage due to MG Gestational hypertension, third trimester 02/06/2021 02/20/2021 Obesity affecting in third trimester 02/06/2021 02/20/2021 Antepartum anemia 12/04/2020 02/20/2021 Xerostomia 04/09/2020 04/27/2023 PVC's (premature ventricular contractions) 07/21/2018 04/27/2023 Overview: See epic note by cardiology 12 wks gestation; avoid beta blockers Pre-eclampsia, severe 07/20/20182022 Overview: History of severe PreE with first and Gest HTN with second Base line labs wnl Growth scans Baby asa Last Assessment & Plan: On baby asa Myasthenia gravis affecting 03/22/2018 02/20/2021 Adjustment disorder with mix ed anxiety and depressed mood 06/11/2017 05/27/2023 Elevated sed rate 10/14/2015 04/27/2023 Cervicalgia 10/11/2015 04/27/2023 Acute pain of both shoulders 10/11/2015 04/27/2023 Acute bilateral low back zhane n without sciatica 10/11/2015 04/27/2023 Pain in joint, multiple sites 01/10/2015 04/27/2023 [place] positive 01/10/2015 08/03/2023 SS-A antibody positive 01/10/201508/02 SS-B antibody positive 01/10/201508/02 Rheumatoid factor positive 01/10/2015 0 08/03/2023 Vitamin D deficiency 10/02/2011 024 Muscle weakness (generalized) 06/23/2011 04/27/2023 Robotic-assisted thymectomy and rib block 04/17/2011 04/27/2023 Overview: Patient is a young woman who has worsening myasthenia gravis. 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 On 11-27-2011 patient had Robotic- assisted thymectomy and rib block Plan: - Convert to oral pain regimen - Neuro consulted to follow myasthenia gravis symptoms - OOB, ambulation with assist Plan per neurology 1- resume mestinon 60 mg TID if not causing intolerable nausea. Dose can be increased to QID if needed and when her postoperative nausea is better. 2- no current indication for PLEX or steroids as patient is tolerating symptoms and has no evidence of bulbar or respiratory involvement. 3- please obtain q 8 NIFs and VC's to monitor respiratory function. 4- further management to be implemented as an outpatient. Patient is seeing Dr. Figueroa from [facility] on December 02 . documented as of this encounter (statuses as of 08/25/2023) [facility] History of Past illness Narrative* Problem Noted Date Diagnosed Date Resolved Date History of forceps delivery in prior , currently in third trimester 02/06/2021 02/20/2021 Overview: To shorten second stage due to MG Gestational hypertension, third trimester 02/06/2021 02/20/2021 Obesity affecting in third trimester 02/06/2021 02/20/2021 Antepartum anemia 12/04/2020 02/20/2021 Xerostomia 04/09/2020 04/27/2023 PVC's (premature ventricular contractions) 07/21/2018 04/27/2023 Overview: See epic note by cardiology 12 wks gestation; avoid beta blockers Pre-eclampsia, severe 07/20/20182022 Overview: History of severe PreE with first and Gest HTN with second Base line labs wnl Growth scans Baby asa Last Assessment & Plan: On baby asa Myasthenia gravis affecting 03/22/2018 02/20/2021 Adjustment disorder with mix ed anxiety and depressed mood 06/11/2017 05/27/2023 Elevated sed rate 10/14/2015 04/27/2023 Cervicalgia 10/11/2015 04/27/2023 Acute pain of both shoulders 10/11/2015 04/27/2023 Acute bilateral low back zhane n without sciatica 10/11/2015 04/27/2023 Pain in joint, multiple sites 01/10/2015 04/27/2023 [place] positive 01/10/2015 08/03/2023 SS-A antibody positive 01/10/201508/02 SS-B antibody positive 01/10/201508/02 Rheumatoid factor positive 01/10/2015 0 08/03/2023 Vitamin D deficiency 10/02/2011 024 Muscle weakness (generalized) 06/23/2011 04/27/2023 Robotic-assisted thymectomy and rib block 04/17/2011 04/27/2023 Overview: Patient is a young woman who has worsening myasthenia gravis. 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 On 11-27-2011 patient had Robotic- assisted thymectomy and rib block Plan: - Convert to oral pain regimen - Neuro consulted to follow myasthenia gravis symptoms - OOB, ambulation with assist Plan per neurology 1- resume mestinon 60 mg TID if not causing intolerable nausea. Dose can be increased to QID if needed and when her postoperative nausea is better. 2- no current indication for PLEX or steroids as patient is tolerating symptoms and has no evidence of bulbar or respiratory involvement. 3- please obtain q 8 NIFs and VC's to monitor respiratory function. 4- further management to be implemented as an outpatient. Patient is seeing Dr. Figueroa from [facility] on December 02 . documented as of this encounter (statuses as of 08/26/2023) [facility] History of Past illness Narrative* Problem Noted Date Diagnosed Date Resolved Date History of forceps delivery in prior , currently in third trimester 02/06/2021 02/20/2021 Overview: To shorten second stage due to MG Gestational hypertension, third trimester 02/06/2021 02/20/2021 Obesity affecting in third trimester 02/06/2021 02/20/2021 Antepartum anemia 12/04/2020 02/20/2021 Xerostomia 04/09/2020 04/27/2023 PVC's (premature ventricular contractions) 07/21/2018 04/27/2023 Overview: See epic note by cardiology 12 wks gestation; avoid beta blockers Pre-eclampsia, severe 07/20/20182022 Overview: History of severe PreE with first and Gest HTN with second Base line labs wnl Growth scans Baby asa Last Assessment & Plan: On baby asa Myasthenia gravis affecting 03/22/2018 02/20/2021 Adjustment disorder with mix ed anxiety and depressed mood 06/11/2017 05/27/2023 Elevated sed rate 10/14/2015 04/27/2023 Cervicalgia 10/11/2015 04/27/2023 Acute pain of both shoulders 10/11/2015 04/27/2023 Acute bilateral low back zhane n without sciatica 10/11/2015 04/27/2023 Pain in joint, multiple sites 01/10/2015 04/27/2023 TR[place]ON positive 01/10/2015 08/03/2023 SS-A antibody positive 01/10/201508/02 SS-B antibody positive 01/10/201508/02 Rheumatoid factor positive 01/10/2015 0 08/03/2023 Vitamin D deficiency 10/02/2011 024 Muscle weakness (generalized) 06/23/2011 04/27/2023 Robotic-assisted thymectomy and rib block 04/17/2011 04/27/2023 Overview: Patient is a young woman who has worsening myasthenia gravis. 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 On 11-27-2011 patient had Robotic- assisted thymectomy and rib block Plan: - Convert to oral pain regimen - Neuro consulted to follow myasthenia gravis symptoms - OOB, ambulation with assist Plan per neurology 1- resume mestinon 60 mg TID if not causing intolerable nausea. Dose can be increased to QID if needed and when her postoperative nausea is better. 2- no current indication for PLEX or steroids as patient is tolerating symptoms and has no evidence of bulbar or respiratory involvement. 3- please obtain q 8 NIFs and VC's to monitor respiratory function. 4- further management to be implemented as an outpatient. Patient is seeing Dr. Figueroa from [facility] on December 02 . documented as of this encounter (statuses as of 09/01/2023) [facility] History of Past illness Narrative* Problem Noted Date Diagnosed Date Resolved Date History of forceps delivery in prior , currently in third trimester 02/06/2021 02/20/2021 Overview: To shorten second stage due to MG Gestational hypertension, third trimester 02/06/2021 02/20/2021 Obesity affecting in third trimester 02/06/2021 02/20/2021 Antepartum anemia 12/04/2020 02/20/2021 Xerostomia 04/09/2020 04/27/2023 PVC's (premature ventricular contractions) 07/21/2018 04/27/2023 Overview: See epic note by cardiology 12 wks gestation; avoid beta blockers Pre-eclampsia, severe 07/20/20182022 Overview: History of severe PreE with first and Gest HTN with second Base line labs wnl Growth scans Baby asa Last Assessment & Plan: On baby asa Myasthenia gravis affecting 03/22/2018 02/20/2021 Adjustment disorder with mix ed anxiety and depressed mood 06/11/2017 05/27/2023 Elevated sed rate 10/14/2015 04/27/2023 Cervicalgia 10/11/2015 04/27/2023 Acute pain of both shoulders 10/11/2015 04/27/2023 Acute bilateral low back zhane n without sciatica 10/11/2015 04/27/2023 Pain in joint, multiple sites 01/10/2015 04/27/2023 TR[place] positive 01/10/2015 08/03/2023 SS-A antibody positive 01/10/201508/02 SS-B antibody positive 01/10/201508/02 Rheumatoid factor positive 01/10/2015 0 08/03/2023 Vitamin D deficiency 10/02/2011 024 Muscle weakness (generalized) 06/23/2011 04/27/2023 Robotic-assisted thymectomy and rib block 04/17/2011 04/27/2023 Overview: Patient is a young woman who has worsening myasthenia gravis. 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 On 11-27-2011 patient had Robotic- assisted thymectomy and rib block Plan: - Convert to oral pain regimen - Neuro consulted to follow myasthenia gravis symptoms - OOB, ambulation with assist Plan per neurology 1- resume mestinon 60 mg TID if not causing intolerable nausea. Dose can be increased to QID if needed and when her postoperative nausea is better. 2- no current indication for PLEX or steroids as patient is tolerating symptoms and has no evidence of bulbar or respiratory involvement. 3- please obtain q 8 NIFs and VC's to monitor respiratory function. 4- further management to be implemented as an outpatient. Patient is seeing Dr. Figueroa from [facility] on December 02 . documented as of this encounter (statuses as of 09/01/2023) [facility] [place] [facility] Plan note No data available for this section [facility] [employer] Other Evaluation note* Diagnosis Myasthenia gravis status post thymectomy (HCC)- Primary Myasthenia gravis without exacerbation documented in this encounter [facility] note* Diagnosis Initial obstetric visit, first trimester- Primary with uncertain viability, single or unspecified fetus History of severe pre-eclampsia Supervision of high risk in first trimester Unspecified high-risk documented in this encounter [facility] note* Diagnosis with inconclusive viability, single or unspecified fetus- Primary [facility] Diagnosis Encounter for (NT) nuchal translucency scan- Primary Other specified screening Initial obstetric visit, first trimester [facility] Diagnosis 12 weeks gestation of - Primary state, incidental Severe pre-eclampsia, antepartum Myasthenia gravis status post thymectomy (HCC) Myasthenia gravis without exacerbation Sjogren's syndrome, with unspecified organ involvement (HCC) documented [facility] [place] [facility]* Diagnosis 16 weeks gestation of - Primary state, incidental Severe pre-eclampsia, antepartum Migraine without status migrainosus, not intractable, unspecified migraine type Myasthenia gravis status post thymectomy (HCC) Myasthenia gravis without exacerbation Sjogren's syndrome, with unspecified organ involvement (HCC) [facility] [place] [facility]* Diagnosis Encounter for anatomic survey- Primary History of severe pre-eclampsia Supervision of high risk in first trimester Unspecified high-risk Myasthenia gravis status post thymectomy (HCC) Myasthenia gravis without exacerbation SS-A antibody positive Other and unspecified nonspecific immunological findings SS-B antibody positive Other and unspecified nonspecific immunological findings Sjogren's syndrome, with unspecified organ involvement (HCC) 18 weeks gestation of state, incidental [facility] Diagnosis History of pre-eclampsia in prior , currently - Primary with other poor obstetric history 18 weeks gestation of state, incidental Myasthenia gravis status post thymectomy (HCC) Myasthenia gravis without exacerbation Sjogren's syndrome, with unspecified organ involvement (HCC) Supervision of high risk in second trimester Unspecified high-risk Migraine without status migrainosus, not intractable, unspecified migraine type Hx of preeclampsia, prior , currently with other poor obstetric history [facility] Diagnosis SS-A antibody positive- Primary Other and unspecified nonspecific immunological findings SS-B antibody positive Other and unspecified nonspecific immunological findings Suspected abnormality affecting management of mother, single or unspecified fetus [facility] Diagnosis Encounter for ultrasound to check growth- Primary Encounter for routine screening for malformation using ultrasonics Myasthenia gravis status post thymectomy (HCC) Myasthenia gravis without exacerbation Sjogren's syndrome, with unspecified organ involvement (HCC) History of pre-eclampsia in prior , currently with other poor obstetric history 28 weeks gestation of state, incidental [facility] this [facility] [place] [facility]* Diagnosis Hx of preeclampsia, prior , currently - Primary with other poor obstetric history 28 weeks gestation of state, incidental Supervision of high risk / [facility] care Unspecified high-risk Sjogren's syndrome, with unspecified organ involvement (HCC) Myasthenia gravis status post thymectomy (HCC) Myasthenia gravis without exacerbation Mental health problem Unspecified mental or behavioral problem documented [facility] this encounter [facility] [place] [facility]* Diagnosis 26 weeks gestation of - Primary state, incidental Myasthenia gravis status post thymectomy (HCC) Myasthenia gravis without exacerbation Sjogren's syndrome, with unspecified organ involvement (HCC) History of pre-eclampsia in prior , currently with other poor obstetric history Supervision of elderly multigravida, second trimester Migraine without status migrainosus, not intractable, unspecified migraine type Mental health problem - history of adjustment disorder Unspecified mental or behavioral problem BMI 26.0-26.9,adult Body Mass Index 26.0-26.9, adult documented in this encounter [facility] [place] [facility]* Diagnosis 31 weeks gestation of - Primary state, incidental Abnormal glucose tolerance affecting , antepartum documented [facility] this [facility] [place] [facility]* Diagnosis Adjustment disorder with mixed anxiety and depressed mood- Primary documented in this [facility] [place] [facility]* Diagnosis Other diseases of the blood and blood-forming organs and certain disorders involving the immune mechanism complicating , unspecified trimester- Primary Myasthenia gravis status post thymectomy (HCC) Myasthenia gravis without exacerbation Sjogren's syndrome, with unspecified organ involvement (HCC) History of pre-eclampsia in prior , currently with other poor obstetric history SS-A antibody positive Other and unspecified nonspecific immunological findings SS-B antibody positive Other and unspecified nonspecific immunological findings 32 weeks gestation of state, incidental documented [facility] this [facility] [place] [facility]* Diagnosis Hx of preeclampsia, prior , currently - Primary with other poor obstetric history 32 weeks gestation of state, incidental SS-A antibody positive Other and unspecified nonspecific immunological findings Myasthenia gravis status post thymectomy ([facility]) Myasthenia gravis without exacerbation SS-B antibody positive Other and unspecified nonspecific immunological findings Abnormal glucose tolerance in Migraine without status migrainosus, not intractable, unspecified migraine type Sjogren's syndrome, with unspecified organ involvement ([facility]) Supervision of high risk / [facility] care Unspecified high-risk [facility] Diagnosis Myasthenia gravis status post thymectomy (HCC)- Primary Myasthenia gravis without exacerbation Sjogren's syndrome, with unspecified organ involvement ([facility]) documented in this encounter [facility] [place] [facility]* Diagnosis Abnormal glucose tolerance in - Primary SS-A antibody positive Other and unspecified nonspecific immunological findings SS-B antibody positive Other and unspecified nonspecific immunological findings Hx of preeclampsia, prior , currently with other poor obstetric history Myasthenia gravis status post thymectomy ([facility]) Myasthenia gravis without exacerbation 34 weeks gestation of state, incidental [facility] Diagnosis Supervision of high risk / [facility] care- Primary Unspecified high-risk Constipation, unspecified constipation type 34 weeks gestation of state, incidental Hx of preeclampsia, prior , currently with other poor obstetric history Myasthenia gravis status post thymectomy ([facility]) Myasthenia gravis without exacerbation Abnormal glucose tolerance in Sjogren's syndrome, with unspecified organ involvement ([facility]) documented in this encounter [facility] [place] [facility]* Diagnosis Other diseases of the blood and blood-forming organs and certain disorders involving the immune mechanism complicating , third trimester- Primary SS-A antibody positive Other and unspecified nonspecific immunological findings SS-B antibody positive Other and unspecified nonspecific immunological findings Hx of preeclampsia, prior , currently with other poor obstetric history Abnormal glucose tolerance in Myasthenia gravis status post thymectomy ([facility]) Myasthenia gravis without exacerbation 35 weeks gestation of state, incidental [facility] Diagnosis SS-A antibody positive Other and unspecified nonspecific immunological findings [facility] Diagnosis Hx of preeclampsia, prior , currently - Primary with other poor obstetric history Supervision of high risk / [facility] care Unspecified high-risk Abnormal glucose tolerance in Myasthenia gravis status post thymectomy (HCC) Myasthenia gravis without exacerbation Migraine without status migrainosus, not intractable, unspecified migraine type Gestational hypertension, third trimester [facility] Diagnosis History of pre-eclampsia in prior , currently - Primary with other poor obstetric history Myasthenia gravis status post thymectomy (HCC) Myasthenia gravis without exacerbation Sjogren's syndrome, with unspecified organ involvement (HCC) 36 weeks gestation of state, incidental documented in this encounter [facility] general Narrative - Reported* Type Description Date Medical History myasthemia gravis Medical History sjogren syndrome Medical History seasonal allergies Medical History Esophageal reflux Medical History adjustment disorder Medical History impaired fasting glucose Surgical History tonsillectomy 1997 Surgical History thymectomy Hospitalization History childbirth x 2 [employer] Other Hospital Discharge instructions No data available for this section [facility] No data available for this section [facility] (narrative)* Diagnostic Procedure Only (Routine) - Authorized Specialty Diagnoses / Procedures Referred By Yung cabral Referred To Contact [facility] Diagnoses Initial obstetric visit, first trimester Procedures NUCHAL TRANSLUCENCY WHI US NUCHAL TRANSLUCENCY GESTATION Iliana Watkins PA-C [id number] [place] [address] [place] [address] Referral ID Status Reason Start Date Expiration Date Visits Requested Visits Authorized [id number] Authorized Auto-Generat ed Referral 02/03/2023 02/03/2024 1 1 * Diagnostic Procedure Only (Routine) - Authorized Specialty Diagnoses / Procedures Referred By Yung cabral Referred To Contact [facility] Diagnoses History of severe pre-eclampsia Supervision of high risk in first trimester Procedures OBSTETRIC ULTRASOUND WHI US PREG UTERUS AFTER 1ST TRIMEST GESTATION Iliana Watkins PA-C [id number] [place] [address] [address] Referral ID Status Reason Start Date Expiration Date Visits Requested Visits Authorized [id number] Authorized Auto-Generat ed Referral 02/03/2023 02/03/2024 1 1 [facility] for referral (narrative)* Diagnostic Procedure Only (Routine) - Pending Review Specialty Diagnoses / Procedures Referred By Contac t Referred To Contact [facility] Diagnoses Encounter for anatomic survey Procedures OBSTETRIC ULTRASOUND WHI US PREG UTERUS AFTER 1ST TRIMEST GESTATION Tiffanie Mcdaniel MD [address] [place] [address] [address] Referral ID Status Reason Start Date Expiration Date Visits Requested Visits Authorized [id number] Pending Review Auto-Generat ed Referral 3 04/25/2024 1 1 [facility] for referral (narrative)* Diagnostic Procedure Only (Routine) - Closed Specialty Diagnoses / Procedures Referred By Contac t Referred To Contact [facility] Diagnoses Myasthenia gravis status post thymectomy (HCC) (HCC) Sjogren's syndrome, with unspecified organ involvement (HCC) History of pre-eclampsia in prior , currently Procedures OBSTETRIC ULTRASOUND WHI US PREG UTERUS AFTER 1ST TRIMEST GESTATION Debbie Lau MD [address] [place] [address] [address] Referral ID Status Reason Start Date Expiration Date V isits Requested Visits Authorized [id number] Closed Auto-Generate d Referral 06/22/2023 06/21/2024 5 1 [facility] for referral (narrative)* Diagnostic Procedure Only (Routine) - Authorized Specialty Diagnoses / Procedures Referred By Contac t Referred To Contact [facility] Diagnoses 32 weeks gestation of SS-A antibody positive SS-B antibody positive Hx of preeclampsia, prior , currently Abnormal glucose tolerance in Myasthenia gravis status post thymectomy (HCC) (HCC) Procedures BIOPHYSICAL PROFILE US [facility] BIOPHYSICAL PRO[place] [address] [facility] [address] [place] [id number] [address] [address] Referral ID Status Reason Start Date Expiration Date Visits Requested Visits Authorized [id number] Authorized Auto-Generat ed Referral 08/03/2023 08/02/2024 10 1 [facility] for referral (narrative)* Diagnostic Procedure Only (Routine) - Pending Review Specialty Diagnoses / Procedures Referred By Contac t Referred To Contact [facility] Diagnoses Supervision of high risk in second trimester Procedures BIOPHYSICAL PROFILE US [facility] BIOPHYSICAL PROFILE NON-STRESS TESTING Jimi Xie MD [address] [place] [address] [address] Referral ID Status Reason Start Date Expiration Date Visits Requested Visits Authorized [id number] Pending Review Auto-Generat ed Referral 08/18/2023 08/17/2024 10 1 [facility] for visit Narrative* Outpatient Procedure (Routine) - Closed Specialty Diagnoses / Procedures Referred By Contac t Referred To Contact [facility] Diagnoses SS-A antibody positive Procedures ECHO ECHO CARDIOVASC W/WO M-MODE RECORDING Kaya Brooks MD [address] [place] [address] [address] Referral ID Status Reason Start Date Expiration Date V isits Requested Visits Authorized [id number] Closed Auto-Generate d Referral 06/21/2023 05/16/2024 [address] [facility] Summary Purpose Family History No Family History Records Found No data available for this section No data available for this section No Family History Records FoundNo Family History Records FoundNo Family History Records Found Advance Directives No Advanced Directives Records FoundNo Advanced Directives Records FoundNo Advanced Directives Records FoundNo Advanced Directives Records Found Health Concerns Problem Noted Date Diagnosed Date [facility] - [facility] 02/03/2023 Education - [place] 02/03/2023 Problem Noted Date Diagnosed Date [facility] - [facility] 02/03/2023 Education - [place] 02/03/2023 Problem Noted Date Diagnosed Date [facility] - [facility] 02/03/2023 Education - [place] 02/03/2023 Problem Noted Date Diagnosed Date [facility] - [facility] 02/03/2023 Education - [place] 02/03/2023 Problem Noted Date Diagnosed Date [facility] - [facility] 02/03/2023 Education - [place] 02/03/2023 Problem Noted Date Diagnosed Date [facility] - [facility] 02/03/2023 Education - [place] 02/03/2023 Problem Noted Date Diagnosed Date [facility] - [facility] 02/03/2023 Education - [place] 02/03/2023 Problem Noted Date Diagnosed Date [facility] - [facility] 02/03/2023 Education - [place] 02/03/2023 Problem Noted Date Diagnosed Date [facility] - [facility] 02/03/2023 Education - [place] 02/03/2023 Problem Noted Date Diagnosed Date [facility] 02/03/2023 [place] 02/03/2023 Problem Noted Date Diagnosed Date [facility] 02/03/2023 [place] - [place] 02/03/2023 Problem Noted Date Diagnosed Date [facility] - [facility] 02/03/2023 [place] - [place] 02/03/2023 Problem Noted Date Diagnosed Date [facility] - [facility] 02/03/2023 [place] - [place] 02/03/2023 Problem Noted Date Diagnosed Date [facility] - [facility] 02/03/2023 [place] - [place] 02/03/2023 Problem Noted Date Diagnosed Date [facility] - [facility] 02/03/2023 [place] - [place] 02/03/2023 Active Problems Noted Date Diagnosed Date [facility] - [facility] 02/03/2023 [place] - [place] 02/03/2023 Active Problems Noted Date Diagnosed Date [facility] - [facility] 02/03/2023 [place] - [place] 02/03/2023 Active Problems Noted Date Diagnosed Date [facility] - [facility] 02/03/2023 [place] - [place] 02/03/2023 Active Problems Noted Date Diagnosed Date [facility] - [facility] 02/03/2023 [place] - [place] 02/03/2023 Active Problems Noted Date Diagnosed Date [facility] - [facility] 02/03/2023 [place] - [place] 02/03/2023 Active Problems Noted Date Diagnosed Date [facility] - [facility] 02/03/2023 Education - [place] 02/03/2023 Active Problems Noted Date Diagnosed Date [facility] - [facility] 02/03/2023 [place] - [place] 02/03/2023 Active Problems Noted Date Diagnosed Date [facility] - [facility] 02/03/2023 Education - [place] 02/03/2023 Active Problems Noted Date Diagnosed Date [facility] - [facility] 02/03/2023 Education - [place] 02/03/2023 Active Problems Noted Date Diagnosed Date [facility] - [facility] 02/03/2023 [place] - [place] 02/03/2023 Reason for Referral Specialty Diagnoses / Procedures Referred By Yung cabral Referred To Contact Diagnoses Severe pre-eclampsia, antepartum Myasthenia gravis status post thymectomy (HCC) Sjogren's syndrome, with unspecified organ involvement ([facility]) Procedures CONSULT TO MATERNAL MEDI OFFICE/OUTPATIENT [facility] 60-[place] [address] [place] [id number] Referral ID Status Reason Start Date Expiration Date Visits Requested Visits Authorized [id number] Authorized PCP Requested Referral Auto-Generate d Referral 3 04/11/2024 1 1 Specialty Diagnoses / Procedures Referred By Yung cabral Referred To Contact Diagnoses 12 weeks gestation of Severe pre-eclampsia, antepartum Myasthenia gravis status post thymectomy (HCC) Sjogren's syndrome, with unspecified organ involvement ([facility]) Procedures CONSULT TO MATERNAL MEDI OFFICE/OUTPATIENT [facility] 60-[place] [address] [address] [place] [id number] Referral ID Status Reason Start Date Expiration Date Visits Requested Visits Authorized [id number] Authorized PCP Requested Referral Auto-Generate d Referral 3 03/15/2024 1 1 Specialty Diagnoses / Procedures Referred By Contac t Referred To Contact Diagnoses Encounter for (NT) nuchal translucency scan Procedures CONSULT TO MATERNAL MEDI OFFICE/OUTPATIENT NEW HIGH MDM 60-74 MINUTES Jimi Rocha MD [address] [place] [address] Referral ID Status Reason Start Date Expiration Date Visits Requested Visits Authorized [id number] Authorized PCP Requested Referral Auto-Generate d Referral 3 03/14/2024 1 1 Additional Source Comments INFORMATION SOURCE (unrecogn ized section and content) DATE CREATED AUTHOR 10/26/2020 [facility] DATE CREATED AUTHOR AUTHOR'S ORGANIZ ATION 08/17/2023 [facility] DATE CREATED AUTHOR AUTHOR'S ORGANIZ ATION 09/01/2023 [facility] DATE CREATED AUTHOR AUTHOR'S ORGANIZ ATION 09/06/2023 [facility] REASON FOR VISIT (unrecogniz ed section and content) 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 VELASQUEZ garcia Reason Comments Established Patient Reason Comments 1st risk assessment form Reason Comments US Specialty Diagnoses / Procedures Referred By Contac t Referred To Contact [facility] Diagnoses Initial obstetric visit, first trimester Procedures NUCHAL TRANSLUCENCY WHI US NUCHAL TRANSLUCENCY 1ST GESTATION Iliana Watkins PA-C [address] [place] [address] [facility] [address] [place] [address] Referral ID Status Reason Start Date Expiration Date V isits Requested Visits Authorized [id number] Closed Auto-Generate d Referral 02/03/2023 02/03/2024 1 1 Reason Comments Care Specialty Diagnoses / Procedures Referred By Contac t Referred To Contact [facility] Diagnoses History of severe pre-eclampsia Supervision of high risk in first trimester Procedures OBSTETRIC ULTRASOUND WHI US PREG UTERUS AFTER 1ST TRIMEST GESTATION Iliana Watkins PA-C [address] [place] [address] [facility] [address] [place] [address] Referral ID Status Reason Start Date Expiration Date V isits Requested Visits Authorized [id number] Closed Auto-Generate d Referral 02/03/2023 02/03/2024 1 1 Specialty Diagnoses / Procedures Referred By Contac t Referred To Contact Diagnoses 12 weeks gestation of Severe pre-eclampsia, antepartum Myasthenia gravis status post thymectomy (HCC) Sjogren's syndrome, with unspecified organ involvement (HCC) Procedures CONSULT TO MATERNAL MEDI OFFICE/OUTPATIENT [facility] 60-[place] [address] [address] Referral ID Status Reason Start Date Expiration Date V isits Requested Visits Authorized [id number] Closed PCP Requested Referral Auto-Generated Referral 03/16/2023 03/15/2024 1 1 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 Specialty Diagnoses / Procedures Referred By Contac t Referred To Contact [facility] Diagnoses Myasthenia gravis status post thymectomy (HCC) (HCC) Sjogren's syndrome, with unspecified organ involvement (HCC) History of pre-eclampsia in prior , currently Procedures OBSTETRIC ULTRASOUND WHI US PREG UTERUS AFTER 1ST TRIMEST GESTATION Debbie Lau MD [address] [place] [address] [facility] [address] [place] [address] Referral ID Status Reason Start Date Expiration Date V isits Requested Visits Authorized [id number] Closed Auto-Generate d Referral 06/22/2023 06/21/2024 5 1 Reason Comments Care Reason Comments PRAF Reason Comments Care 27 weeks gestation Reason Comments ED Follow-up Vomiting Reason Comments Anxiety Depression Specialty Diagnoses / Procedures Referred By Contac t Referred To Contact Diagnoses Adjustment disorder with mixed anxiety and depressed mood Procedures PROVIDER ORDERED FOLLOW UP OFFICE/[facility]IENT [facility] MDM 60 MINUTES Shantal Carrillo APRN.BR[employer] [address] [place] [address] Referral ID Status Reason Start Date Expiration Date V isits Requested Visits Authorized [id number] Closed PCP Requested Referral 06/10/2023 06/09/2024 1 1 Reason Comments Myasthenia Gravis Specialty Diagnoses / Procedures Referred By Contac t Referred To Contact [facility] Diagnoses 32 weeks gestation of SS-A antibody positive SS-B antibody positive Hx of preeclampsia, prior , currently Abnormal glucose tolerance in Myasthenia gravis status post thymectomy (HCC) ([facility]) Procedures BIOPHYSICAL PROFILE US [facility] BIOPHYSICAL PROFILE [place] [address] [facility] [address] [place] [id number] [facility] [address] [place] [address] Referral ID Status Reason Start Date Expiration Date V isits Requested Visits Authorized [id number] Closed Auto-Generate d Referral 08/03/2023 08/02/2024 10 1 Source Comments (unrecognize d section and content) In the event this informatio n is protected by the Federal Confidentiality of Alcohol and Drug Abuse Patient Records regulations: The Federal rules restrict any use of the information to criminally investigate or prosecute any alcohol or drug abuse patient.[facility] Center[facility] the event this information is protected by the Federal Confidentiality of Alcohol and Drug Abuse Patient Records regulations: The Federal rules restrict any use of the information to criminally investigate or prosecute any alcohol or drug abuse patient.[facility] CenterIn the event this information is protected by the Federal Confidentiality of Alcohol and Drug Abuse Patient Records regulations: The Federal rules restrict any use of the information to criminally investigate or prosecute any alcohol or drug abuse patient.[facility] CenterIn the event this information is protected by the Federal Confidentiality of Alcohol and Drug Abuse Patient Records regulations: The Federal rules restrict any use of the information to criminally investigate or prosecute any alcohol or drug abuse patient.[facility] CenterIn the event this information is protected by the Federal Confidentiality of Alcohol and Drug Abuse Patient Records regulations: The Federal rules restrict any use of the information to criminally investigate or prosecute any alcohol or drug abuse patient.[facility] CenterIn the event this information is protected by the Federal Confidentiality of Alcohol and Drug Abuse Patient Records regulations: The Federal rules restrict any use of the information to criminally investigate or prosecute any alcohol or drug abuse patient.[facility] CenterIn the event this information is protected by the Federal Confidentiality of Alcohol and Drug Abuse Patient Records regulations: The Federal rules restrict any use of the information to criminally investigate or prosecute any alcohol or drug abuse patient.[facility] CenterIn the event this information is protected by the Federal Confidentiality of Alcohol and Drug Abuse Patient Records regulations: The Federal rules restrict any use of the information to criminally investigate or prosecute any alcohol or drug abuse patient.[facility] CenterIn the event this information is protected by the Federal Confidentiality of Alcohol and Drug Abuse Patient Records regulations: The Federal rules restrict any use of the information to criminally investigate or prosecute any alcohol or drug abuse patient.[facility] CenterIn the event this information is protected by the Federal Confidentiality of Alcohol and Drug Abuse Patient Records regulations: The Federal rules restrict any use of the information to criminally investigate or prosecute any alcohol or drug abuse patient.[facility] CenterIn the event this information is protected by the Federal Confidentiality of Alcohol and Drug Abuse Patient Records regulations: The Federal rules restrict any use of the information to criminally investigate or prosecute any alcohol or drug abuse patient.[facility] CenterIn the event this information is protected by the Federal Confidentiality of Alcohol and Drug Abuse Patient Records regulations: The Federal rules restrict any use of the information to criminally investigate or prosecute any alcohol or drug abuse patient.[facility] CenterIn the event this information is protected by the Federal Confidentiality of Alcohol and Drug Abuse Patient Records regulations: The Federal rules restrict any use of the information to criminally investigate or prosecute any alcohol or drug abuse patient.[facility] CenterIn the event this information is protected by the Federal Confidentiality of Alcohol and Drug Abuse Patient Records regulations: The Federal rules restrict any use of the information to criminally investigate or prosecute any alcohol or drug abuse patient.[facility] CenterIn the event this information is protected by the Federal Confidentiality of Alcohol and Drug Abuse Patient Records regulations: The Federal rules restrict any use of the information to criminally investigate or prosecute any alcohol or drug abuse patient.[facility] CenterIn the event this information is protected by the Federal Confidentiality of Alcohol and Drug Abuse Patient Records regulations: The Federal rules restrict any use of the information to criminally investigate or prosecute any alcohol or drug abuse patient.[facility] CenterIn the event this information is protected by the Federal Confidentiality of Alcohol and Drug Abuse Patient Records regulations: The Federal rules restrict any use of the information to criminally investigate or prosecute any alcohol or drug abuse patient.[facility] CenterIn the event this information is protected by the Federal Confidentiality of Alcohol and Drug Abuse Patient Records regulations: The Federal rules restrict any use of the information to criminally investigate or prosecute any alcohol or drug abuse patient.[facility] the event this information is protected by the Federal Confidentiality of Alcohol and Drug Abuse Patient Records regulations: The Federal rules restrict any use of the information to criminally investigate or prosecute any alcohol or drug abuse patient.[facility] CenterIn the event this information is protected by the Federal Confidentiality of Alcohol and Drug Abuse Patient Records regulations: The Federal rules restrict any use of the information to criminally investigate or prosecute any alcohol or drug abuse patient.[facility] CenterIn the event this information is protected by the Federal Confidentiality of Alcohol and Drug Abuse Patient Records regulations: The Federal rules restrict any use of the information to criminally investigate or prosecute any alcohol or drug abuse patient.[facility] the event this information is protected by the Federal Confidentiality of Alcohol and Drug Abuse Patient Records regulations: The Federal rules restrict any use of the information to criminally investigate or prosecute any alcohol or drug abuse patient.[facility] CenterIn the event this information is protected by the Federal Confidentiality of Alcohol and Drug Abuse Patient Records regulations: The Federal rules restrict any use of the information to criminally investigate or prosecute any alcohol or drug abuse patient.[facility] CenterIn the event this information is protected by the Federal Confidentiality of Alcohol and Drug Abuse Patient Records regulations: The Federal rules restrict any use of the information to criminally investigate or prosecute any alcohol or drug abuse patient.[facility] CenterIn the event this information is protected by the Federal Confidentiality of Alcohol and Drug Abuse Patient Records regulations: The Federal rules restrict any use of the information to criminally investigate or prosecute any alcohol or drug abuse patient.[facility] CenterIn the event this information is protected by the Federal Confidentiality of Alcohol and Drug Abuse Patient Records regulations: The Federal rules restrict any use of the information to criminally investigate or prosecute any alcohol or drug abuse patient.[facility] CenterIn the event this information is protected by the Federal Confidentiality of Alcohol and Drug Abuse Patient Records regulations: The Federal rules restrict any use of the information to criminally investigate or prosecute any alcohol or drug abuse patient.[facility] CenterIn the event this information is protected by the Federal Confidentiality of Alcohol and Drug Abuse Patient Records regulations: The Federal rules restrict any use of the information to criminally investigate or prosecute any alcohol or drug abuse patient.[facility] CenterIn the event this information is protected by the Federal Confidentiality of Alcohol and Drug Abuse Patient Records regulations: The Federal rules restrict any use of the information to criminally investigate or prosecute any alcohol or drug abuse patient.[facility] CenterIn the event this information is protected by the Federal Confidentiality of Alcohol and Drug Abuse Patient Records regulations: The Federal rules restrict any use of the information to criminally investigate or prosecute any alcohol or drug abuse patient.[facility] CenterIn the event this information is protected by the Federal Confidentiality of Alcohol and Drug Abuse Patient Records regulations: The Federal rules restrict any use of the information to criminally investigate or prosecute any alcohol or drug abuse patient.[facility] CenterIn the event this information is protected by the Federal Confidentiality of Alcohol and Drug Abuse Patient Records regulations: The Federal rules restrict any use of the information to criminally investigate or prosecute any alcohol or drug abuse patient.[facility] Care Teams (unrecognized sec tion and content) Medical Consultant Relationship Specialty Start Date End Date Manolo Erazo DO [address] [place] [address] PCP - General Internal Medicine 04/07/11 No, Referring(Hist) 02/17/18 Medical Consultant Relationship Specialty Start Date End Date Manolo Erazo, DO [address] [address] PCP - General Internal Medicine 04/07/11 No, Referring(Hist) 02/17/18 Medical Consultant Relationship Specialty Start Date End Date Manolo Erazo, DO [address] [address] PCP - General Internal Medicine 04/07/11 No, Referring(Hist) 02/17/18 Medical Consultant Relationship Specialty Start Date End Date Manolo Erazo DO [address] [address] PCP - General Internal Medicine 04/07/11 No, Referring(Hist) 02/17/18 Medical Consultant Relationship Specialty Start Date End Date Manolo Erazo DO [address] [address] PCP - General Internal Medicine 04/07/11 No, Referring(Hist) 02/17/18 Medical Consultant Relationship Specialty Start Date End Date Manolo Erazo DO [address] [address] PCP - General Internal Medicine 04/07/11 No, Referring(Hist) 02/17/18 Medical Consultant Relationship Specialty Start Date End Date Manolo Erazo DO [address] [address] PCP - General Internal Medicine 04/07/11 No, Referring(Hist) 02/17/18 Medical Consultant Relationship Specialty Start Date End Date Manolo Erazo, DO 348 [facility] [address] [place] [address] PCP - General Internal Medicine 04/07/11 No, Referring(Hist) 02/17/18 Medical Consultant Relationship Specialty Start Date End Date CastroManolo bryan DO [address] [place] [place] [address] [facility] [place] [address] PCP - General Internal Medicine 04/07/11 No, Referring(Hist) 02/17/18 Medical Consultant Relationship Specialty Start Date End Date Catsro, Manololupillo Xie DO [address] [place] [address] [place] [address] PCP - General Internal Medicine 04/07/11 No, Referring(Hist) 02/17/18 Medical Consultant Relationship Specialty Start Date End Date Merissa Erazolupillo Xie, DO [address] [place] [address] PCP - General Internal Medicine 04/07/11 No, Referring(Hist) 02/17/18 Mary Ann Salazar, internal investigatorSenior Packaging Engineer 04/27/23 Medical Consultant Relationship Specialty Start Date End Date CastroManolo bryan DO [address] [address] PCP - General Internal Medicine 04/07/11 No, Referring(Hist) 02/17/18 Mary Ann Salazar, internal investigatorSenior Packaging Engineer 04/27/23 Medical Consultant Relationship Specialty Start Date End Date Merissa Erazolupillo Xie DO [address] [place] [place] [address] [place] [address] PCP - General Internal Medicine 04/07/11 No, Referring(Hist) 02/17/18 Mary Ann Salazar, internal investigatorSenior Packaging Engineer 04/27/23 Medical Consultant Relationship Specialty Start Date End Date Manolo Erazo, DO [address] [address] PCP - General Internal Medicine 04/07/11 No, Referring(Hist) 02/17/18 Mary Ann Salazar, internal investigatorSenior Packaging Engineer 04/27/23 Medical Consultant Relationship Specialty Start Date End Date Manolo Erazo DO [address] [address] PCP - General Internal Medicine 04/07/11 No, Referring(Hist) 02/17/18 Mary Ann Salazar internal investigatorSenior Packaging Engineer 04/27/23 Medical Consultant Relationship Specialty Start Date End Date Manolo Erazo DO [address] [address] PCP - General Internal Medicine 04/07/11 No, Referring(Hist) 02/17/18 Mary Ann Salazar internal investigatorSenior Packaging Engineer 04/27/23 Medical Consultant Relationship Specialty Start Date End Date Manolo Erazo DO [address] [address] PCP - General Internal Medicine 04/07/11 No, Referring(Hist) 02/17/18 Mary Ann Salazar internal investigatorSenior Packaging Engineer 04/27/23 Medical Consultant Relationship Specialty Start Date End Date Manolo Erazo DO [address] [address] PCP - General Internal Medicine 04/07/11 No, Referring(Hist) 02/17/18 Mary Ann Salazar, internal investigatorSenior Packaging Engineer 04/27/23 Medical Consultant Relationship Specialty Start Date End Date Manolo Erazo DO [address] [address] PCP - General Internal Medicine 04/07/11 No, Referring(Hist) 02/17/18 Mary Ann Salazar, internal investigatorSenior Packaging Engineer 04/27/23 Medical Consultant Relationship Specialty Start Date End Date Manolo Erazo DO [address] [address] PCP - General Internal Medicine 04/07/11 No, Referring(Hist) 02/17/18 Mary Ann Salazar, internal investigatorSenior Packaging Engineer 04/27/23 Medical Consultant Relationship Specialty Start Date End Date Manolo Erazo DO [address] [address] PCP - General Internal Medicine 04/07/11 No, Referring(Hist) 02/17/18 Mary Ann Salazar internal investigatorSenior Packaging Engineer 04/27/23 Medical Consultant Relationship Specialty Start Date End Date Manolo Erazo DO [address] [address] PCP - General Internal Medicine 04/07/11 No, Referring(Hist) 02/17/18 Mary Ann Salazar RN Senior Packaging Engineer 04/27/23 Medical Consultant Relationship Specialty Start Date End Date Manolo Erazo DO [address] [address] PCP - General Internal Medicine 04/07/11 No, Referring(Hist) 02/17/18 Mary Ann Salazar, internal investigatorSenior Packaging Engineer 04/27/23 Medical Consultant Relationship Specialty Start Date End Date Manolo Erazo DO [address] [address] PCP - General Internal Medicine 04/07/11 No, Referring(Hist) 02/17/18 Mary Ann Salazar, internal investigatorSenior Packaging Engineer 04/27/23 Medical Consultant Relationship Specialty Start Date End Date Manolo Erazo DO [address] [address] PCP - General Internal Medicine 04/07/11 No, Referring(Hist) 02/17/18 Mary Ann Salazar, internal investigatorSenior Packaging Engineer 04/27/23 Medical Consultant Relationship Specialty Start Date End Date Manolo Erazo DO [address] [address] PCP - General Internal Medicine 04/07/11 No, Referring(Hist) 02/17/18 Mary Ann Salazar internal investigatorSenior Packaging Engineer 04/27/23 Medical Consultant Relationship Specialty Start Date End Date Manolo Erazo, [address] [address] PCP - General Internal Medicine 04/07/11 No, Referring(Hist) 02/17/18 Mary Ann Salazar internal investigatorSenior Packaging Engineer 04/27/23 Medical Consultant Relationship Specialty Start Date End Date Manolo Erazo DO [address] [address] PCP - General Internal Medicine 04/07/11 No, Referring(Hist) 02/17/18 Mary Ann Salazar, internal investigatorSenior Packaging Engineer 04/27/23 Medical Consultant Relationship Specialty Start Date End Date Manolo Erazo DO [address] [address] PCP - General Internal Medicine 04/07/11 No, Referring(Hist) 02/17/18 Mary Ann Salazar RN Senior Packaging Engineer 04/27/23 Medical Consultant Relationship Specialty Start Date End Date Manolo Erazo DO [address] [place] [address] [address] [place] [address] PCP - General Internal Medicine 04/07/11 No, Referring(Hist) 02/17/18 Mary Ann Salazar RN Senior Packaging Engineer 04/27/23 FOR RECORDS PERTAINING TO PATIENTS WHO ARE OR HAVE BEEN ENROLLED IN A CHEMICAL DEPENDENCY/SUBSTANCEABUSE PROGRAM, SOME INFORMATION MAY BE OMITTED. This clinical summary was aggregated from multiple sources. Caution should be exercised in using it in the provision of clinical care. This summary normalizes information from multiple sources, and as a consequence, information in this document may materially change the coding, format and clinical context of patient data. In addition, data may be omitted in some cases. CLINICAL DECISIONS SHOULD BE BASED ON THE PRIMARY CLINICAL RECORDS. [email or web address] [facility]. provides no warranty or guarantee of the accuracy or completeness of information in this document.
--- NOTE | 2023-09-10 22:00 | ED.SKABFB1 ---
HPI - Skin/Abscess/Foreign Bdy General Chief complaint: Skin/Abscess/Foreign Body Stated complaint: Post Operative Complications Time Seen by Provider: 09/10/23 21:30 Source: patient Mode of arrival: walk-in Limitations: no limitations History of Present Illness HPI narrative: 32-year-old female who is postop day #7 from presents for erythema near the abdominal incision. She states it felt a little bit puffy yesterday but today the redness started and then it started spreading. She has not had a known fever and has not had vomiting. She is breast-feeding. She has not had any drainage or opening of the skin. Related Data Home Medications ?Medication ?Instructions ?Recorded ?Confirmed ltjjahdqqu-amigjtlrxilay-acwsxssl 2 tab PO Q6H PRN pain 04/02/23 04/02/23 50 mg-325 mg-40 mg tablet Previous Rx's ?Medication ?Instructions ?Recorded metoclopramide HCl 10 mg tablet 10 mg PO Q6H PRN nausea and 04/02/23 (Reglan) vomiting #12 tabs amoxicillin 875 mg-potassium 1 tab PO BID #20 tabs 09/10/23 clavulanate 125 mg tablet Allergies Allergy/AdvReac Type Severity Reaction Status Date / Time fexofenadine AdvReac Intermediate Verified 04/02/23 15:58 magnesium sulfate AdvReac Intermediate Verified 04/02/23 15:58 nifedipine AdvReac Intermediate Verified 04/02/23 15:58 sulfamethoxazole AdvReac Intermediate Verified 04/02/23 15:58 [From Bactrim] trimethoprim [From Bactrim] AdvReac Intermediate Verified 04/02/23 15:58 beta blockers AdvReac Intermediate Uncoded 04/02/23 15:58 Review of Systems ROS Narrative A ten point review of systems is negative except as noted above. [facility] Medical History (Updated 09/10/23 @ 22:48 by Vishal Paris MD) Preeclampsia ?O14.90 - Unspecified pre-eclampsia, unspecified trimester (ICD-10) induced hypertension ?O13.9 - Gestational [-induced] hypertension without significant proteinuria, unspecified trimester (ICD-10) Migraine ?G43.909 - Migraine, unspecified, not intractable, without status migrainosus (ICD-10) Social History Smoking status: Former smoker Exam Narrative Exam Narrative: Nurses note and vital signs reviewed and patient is not hypoxic. General: The patient appears well and in no apparent distress. Patient is resting comfortably on cart. Skin: Warm, dry, no pallor noted. There is no rash noted. Head: Normocephalic, atraumatic Eye: Normal conjunctiva, no drainage Ears, Nose, Mouth, and Throat: oral mucosa is moist. Nares patent. Cardiovascular: Regular Rate and Rhythm Respiratory: Patient is in no distress, no accessory muscle use, lungs are clear to auscultation, no wheezing, rales or rhonchi Back: non-tender GI: The transverse abdominal incision has no dehiscence. Steri-Strips are intact. There is no open area or drainage. There is however erythema extending 9 cm cephalad at the midline. The erythema extends cephalad throughout the entire length of the incision. There is erythema inferior to the incision as well. Musculoskeletal: The patient has no evidence of calf tenderness, no pitting edema, symmetrical pulses noted bilaterally Neurological: A&O, normal speech Psychiatric: Cooperative Constitutional Vital Signs, click to edit/add: Last Vital Signs Temp 98.8 F 09/10/23: Pulse 84 09/10/23 21: Resp 18 09/10/23 21: BP 144/81 H 09/10/23 21: Pulse Ox 98 09/10/23 21: O2 Del Method Room Air 09/10/23 21:26 Course Vital Signs Vital signs: Vital Signs Temperature 98.8 F 09/10/23: Pulse Rate 84 09/10/23 21: Respiratory Rate 18 09/10/23 21: Blood Pressure 144/81 H 09/10/23 21: Pulse Oximetry 98 09/10/23 21:26 Oxygen Delivery Method Room Air 09/10/23 21:26 Temperature 98.8 F 09/10/23: Pulse Rate 84 09/10/23 21: Respiratory Rate 18 09/10/23 21: Blood Pressure 144/81 H 09/10/23 21: Pulse Oximetry 98 09/10/23 21:26 Oxygen Delivery Method Room Air 09/10/23 21:26 MDM - Skin/Abscess/Foreign Bdy MDM Narrative Medical decision making narrative: WBC is 12,000. She does not have a fever. We discussed outpatient treatment versus admission and we have agreed that she does not require admission at this point. She will return if symptoms worsen but she will call her [employer]ER in the morning. She was given IV Ancef here and prescribed Augmentin. Treatment diagnosis and follow-up were discussed with the patient. There is no evidence of abscess or wound dehiscence Differential Diagnosis Differential diagnosis: Likely other (Cellulitis, abscess, wound dehiscence) Lab Data Attestation: I reviewed the patient's lab results. Labs: Lab Results 09/10/23 Range/Units 22:07 WBC 12.1 H (4.0-11.0) 10^3/uL RBC 3.53 L (4.20-5.40) 10^6/uL Hgb 9.3 L (12.0-16.0) g/dL Hct 30.0 L (36.0-48.0) % MCV 85.0 (81.0-99.0) fL MCH 26.3 L (26.7-34.0) pg MCHC 31.0 (29.9-35.2) g/dL RDW 15.1 H (11.0-15.0) % Plt Count 512 H (150-450) 10^3/uL MPV 9.5 (9.5-13.5) fL Neut % (Auto) 82.1 H (43.0-75.0) % Lymph % (Auto) 8.4 L (20.5-60.0) % Greenlee % (Auto) 7.6 (1.7-12.0) % Eos % (Auto) 0.6 L (0.9-7.0) % Baso % (Auto) 0.3 (0.2-2.0) % Neut # (Auto) 10.0 H (1.4-6.5) 10^3/uL Lymph # (Auto) 1.0 L (1.2-3.8) 10^3/uL Greenlee # (Auto) 0.9 H (0.3-0.8) 10^3/uL Eos # (Auto) 0.1 (0.0-0.7) 10^3/uL Baso # (Auto) 0.0 (0.0-0.1) 10^3/uL Abs Immat Gran (auto) 0.12 H (0.00-0.03) 10^3/uL Imm/Tot Granulo (auto) 1.0 H (0.0-0.5) % Sodium 142 (136-145) mmol/L Potassium 3.5 (3.5-5.1) mmol/L Chloride 105 (98-107) mmol/L Carbon Dioxide 25.7 (21.0-32.0) mmol/L Anion Gap 14.8 BUN 11.0 (7.0-18.0) mg/dL Creatinine 0.65 (0.55-1.02) mg/dL Est GFR ( Amer) >60 (>=60) Est GFR (Non-Af Amer) >60 (>=60) BUN/Creatinine Ratio 16.9 Glucose 92 (74-106) mg/dL Calcium 8.8 (8.5-10.1) mg/dL Discharge Plan Discharge Stand Alone Forms: Portal Instructions Chief Complaint: Skin/Abscess/Foreign Body Clinical Impression: Cellulitis Patient Disposition: Home, Self-Care Time of Disposition Decision: 22:48 Condition: Good Mode of Transportation: Private Vehicle Prescriptions / Home Meds: New amoxicillin-pot clavulanate 875-125 mg tablet 1 tab PO BID Qty: 20 0RF No Action rclbkziuxd-leialvvgzkgbf-lirl 50-325-40 mg tablet 2 tab PO Q6H PRN (Reason: pain) metoclopramide HCl [Reglan] 10 mg tablet 10 mg PO Q6H PRN (Reason: nausea and vomiting) Qty: 12 0RF Print Language: Thai Instructions: Cellulitis (ED) Additional Instructions: 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
[2023-09-10 22:15] LABS: Basophils Percent Auto 0.3 % (0.2-2.0); Eosinophils Absolute Auto 0.1 10^3/uL (0.0-0.7); Eosinophils Percent Auto 0.6 % (0.9-7.0); Hemoglobin 9.3 g/dL (12.0-16.0); Immature Granulocytes Abs Auto 0.12 10^3/uL (0.00-0.03); Lymphocytes Percent Auto 8.4 % (20.5-60.0); Mean Corpuscular Hemoglobin 26.3 pg (26.7-34.0); Mean Platelet Volume 9.5 fL (9.5-13.5); Monocytes Absolute Auto 0.9 10^3/uL (0.3-0.8); Monocytes Percent Auto 7.6 % (1.7-12.0); Neutrophils Percent Auto 82.1 % (43.0-75.0); Platelet Count 512 10^3/uL (150-450); Red Blood Count 3.53 10^6/uL (4.20-5.40); Red Cell Distribution Width 15.1 % (11.0-15.0); White Blood Count 12.1 10^3/uL (4.0-11.0)
[2023-09-10] MEDS: CEFAZOLIN SODIUM/DEXTROSE,ISO 1 GM/50 ML IV.SOLN IV (22:20)
[2023-09-10 22:29] LABS: Anion Gap 14.8; BUN Creatinine Ratio 16.9; Calcium 8.8 mg/dL (8.5-10.1); Carbon Dioxide 25.7 mmol/L (21.0-32.0); Chloride 105 mmol/L (98-107); Estimated GFR (African America >60 (>=60); Estimated GFR (Non-African Ame >60 (>=60); Glucose 92 mg/dL (74-106); Potassium 3.5 mmol/L (3.5-5.1); Sodium 142 mmol/L (136-145)
== END 2023-09-10 23:01 | disposition home or self-care (01) ==
PROVIDERS: Emergency Provider Emergency Medicine; PCP Family Medicine
DX: O86.00 Infection of obstetric surgical wound, unspecified (principal)
CPT/HCPCS: 36415; 80048; 85025; 96365; 99284